=== PATIENT | female | born 1940 | race African-American/Black ===

== ENCOUNTER → 2016-12-05 | Outpatient (CLI) | payer MEDICARE, OTHER ==
[2016-12-05 15:15] LABS: ANION GAP 18 (5-19); BLOOD UREA NITROGEN 30 mg/dL (7-20); CALCIUM 8.5 mg/dL (8.4-10.2); CARBON DIOXIDE 23 mmol/L (22-30); CHLORIDE 99 mmol/L (98-107); CREATININE RESULT 1.73 mg/dL (0.52-1.25); GLUCOSE 167 mg/dL (75-110); POTASSIUM 4.6 mmol/L (3.6-5.0); SODIUM 139.5 mmol/L (137-145)
== END ==
LOC: OD 14:22
PROVIDERS: ATTEND Internal Medicine Nephrology
DX: N18.3 Chronic kidney disease, stage 3 (moderate) (principal)
CPT/HCPCS: 36415; 80048

== ENCOUNTER → 2017-04-18 | Outpatient (CLI) | payer MEDICARE, OTHER ==
[2017-04-18 15:36] LABS: ALBUMIN 4.4 g/dL (3.5-5.0); ANION GAP 15 (5-19); BLOOD UREA NITROGEN 37 mg/dL (7-20); CALCIUM 9.2 mg/dL (8.4-10.2); CARBON DIOXIDE 25 mmol/L (22-30); CHLORIDE 105 mmol/L (98-107); CREATININE RESULT 1.99 mg/dL (0.52-1.25); GLUCOSE 140 mg/dL (75-110); POTASSIUM 4.7 mmol/L (3.6-5.0)
== END ==
LOC: OD 14:16
PROVIDERS: ATTEND Internal Medicine Nephrology
DX: N18.3 Chronic kidney disease, stage 3 (moderate) (principal); E55.9 Vitamin D deficiency, unspecified
CPT/HCPCS: 36415; 80048; 82040; 82306

== ENCOUNTER 2017-11-02 13:33 | Inpatient (IN) | payer MEDICARE, OTHER ==
--- NOTE | 2017-11-02 14:41 | RADIOLOGY REPORT (SQ) ---
EXAM DESCRIPTION: CT HEAD WITHOUT COMPLETED DATE/TIME: 11/02/2017 2:11 pm REASON FOR STUDY: slurred speech COMPARISON: None. TECHNIQUE: Axial images acquired through the brain without intravenous contrast. Images reviewed wi th bone, brain and subdural windows. Images stored on PACS. All CT scanners at this facility use dose modulation, iterative reconstruction, and/or weight based d osing when appropriate to reduce radiation dose to as low as reasonably achievable (ALARA). [facility]: Dose Right [facility]: CareDose [facility]: Dose Right [facility]: Teradose 4D [facility]: [email or web address] RADIATION DOSE: CT Rad equipment meets quality standard of care and radiation dose reduction techniq ues were employed. CTDIvol: 64.6 mGy. DLP: 1163 mGy-cm. mGy. LIMITATIONS: None. FINDINGS: VENTRICLES: Normal size and contour. CEREBRUM: No masses. No hemorrhage. No midline shift. No evidence for acute infarction. Normal gra y/white matter differentiation. No areas of low density in the white matter. CEREBELLUM: No masses. No hemorrhage. No alteration of density. No evidence for acute infarction. EXTRAAXIAL SPACES: No fluid collections. No masses. ORBITS AND GLOBE: No intra- or extraconal masses. Normal contour of globe without masses. CALVARIUM: No fracture. PARANASAL SINUSES: No fluid or mucosal thickening. SOFT TISSUES: No mass or hematoma. OTHER: No other significant finding. IMPRESSION: NORMAL BRAIN CT WITHOUT CONTRAST. EVIDENCE OF ACUTE STROKE: NO. COMMENT: Quality ID # [id number]: Final reports with documentation of one or more dose reduction techniques (e.g., Automated exposure control, adjustment of the mA and/or kV according to patient size, use of iterative reconstruction technique) TECHNICAL DOCUMENTATION: JOB ID: [id number] [employer]- All Rights Reserved
[2017-11-02] MEDS ORDERED: ASPIRIN 81 MG TABLET, CHEWABLE PO ONE ×2 (14:44→18:03)
--- NOTE | 2017-11-02 15:04 | ER Document Report ---
ED General - General Mode of Arrival: Medic Information source: Patient TRAVEL OUTSIDE OF THE [place] IN LAST 30 DAYS: No <ROSI HERBERT - Last Filed: 11/02/17 17:52> <LEIGHTON GARAY - Last Filed: 11/02/17 23:03> - General Stated Complaint: ALTERED MENTAL STATUS Time Seen by Provider: 11/02/17 14:43 Notes: Patient is a 77 year old female with a history of asthma, cancer (unspecified), diabetes, gout, hypertension, and high cholesterol presents to the emergency department via EMS complaining of a fall onset today. Patient states she was sitting on the toilet when she stood up and fell to the floor due to weakness. Patient denies a syncopal episode or a head injury. Patient also denies any other pain, nausea, vomiting, diarrhea, or cough. Daughter, who is at bedside, states she feels the patient has been weak for a while further stating the patient has been excessively sleeping. EMS put the patient oxygen prior to arrival due to the patient being at 82% on room air. Patient states she does not normally use oxygen at home. At bedside patient is having difficulty breathing. Patient's PCP is Dr. Pastor. (ROSI HERBERT) - Related Data Allergies/Adverse Reactions: Penicillins Allergy (Verified 11/02/17 17:35) Past Medical History - General Information source: Patient - Social History Smoking Status: Never Smoker Cigarette use (# per day): No Chew tobacco use (# tins/day): No Smoking Education Provided: No Frequency of alcohol use: None - Past Medical History Cardiac Medical History: Reports: Hx Hypertension Pulmonary Medical History: Reports: Hx Asthma Neurological Medical History: Reports: Hx Seizures - over a year Musculoskeltal Medical History: Reports Hx Arthritis - Immunizations Hx Diphtheria, Pertussis, Tetanus Vaccination: Yes Hx Pneumococcal Vaccination: 09/23/07 <ROSI HERBERT - Last Filed: 11/02/17 17:52> - Social History Family History: Reviewed & Not Pertinent <LEIGHTON GARAY - Last Filed: 11/02/17 23:03> Review of Systems - Review of Systems Constitutional: See HPI, Weakness EENT: No symptoms reported Cardiovascular: No symptoms reported Respiratory: See HPI Gastrointestinal: No symptoms reported Genitourinary: No symptoms reported Female Genitourinary: No symptoms reported Musculoskeletal: No symptoms reported Skin: No symptoms reported Hematologic/Lymphatic: No symptoms reported Neurological/Psychological: No symptoms reported -: Yes All other systems reviewed and negative <ROSI HERBERT - Last Filed: 11/02/17 17:52> Physical Exam <ROSI HERBERT - Last Filed: 11/02/17 17:52> <LEIGHTON GARAY - Last Filed: 11/02/17 23:03> - Vital signs Vitals: Temp Pulse Resp BP Pulse Ox 98.7 F 76 18 154/82 H 97 11/02/17 13:38 11/02/17 13:38 11/02/17 13:38 11/02/17 13:38 11/02/17 13:38 - Notes Notes: GENERAL: Alert, interacts well. Patient appears fatigued. HEAD: Normocephalic, atraumatic. EYES: Pupils equal, round, and reactive to light. Extraocular movements intact. ENT: Oral mucosa moist, tongue midline. NECK: Full range of motion. Supple. Trachea midline. LUNGS: Patient is having difficulty breathing, rales at the bases. Tachypnea. HEART: Regular rate and rhythm. No murmurs, gallops, or rubs. ABDOMEN: Soft, non-tender. Obese. Bowel sounds present in all 4 quadrants. EXTREMITIES: Moves all 4 extremities spontaneously. No edema, radial and dorsalis pedis pulses 2/4 bilaterally. No cyanosis. NEUROLOGICAL: Alert and oriented x3. Normal speech. cranial nerves II through XII grossly intact. PSYCH: Normal affect, normal mood. SKIN: Warm, dry, normal turgor. No rashes or lesions noted. (PIEDADROSI OLIVAS) Course - Laboratory Result Diagrams: 11/02/17 14:40 11/02/17 14:40 <PIEDAD,TAMAUDREY - Last Filed: 11/02/17 17:52> - Laboratory Result Diagrams: 11/02/17 14:40 11/02/17 14:40 <LEIGHTON GARAY - Last Filed: 11/02/17 23:03> - Re-evaluation Re-evalutation: 11/02/17 16:14 Patient appears quite short of breath, was on 4 L when I walked in the room however given her history of long-standing asthma I do suspect she has a component of COPD as well so patient was transitioned down to 2 L. She is oxygenating at 93-94% on this. Throughout her stay she has gotten more short of breath, patient will be started on BiPAP. CBC shows leukocytosis at 10.8, anemia with hemoglobin 10.3, platelets are normal, chemistries show acute on chronic renal failure with BUN of 39 and creatinine of 2.21, cardiac enzymes negative, proBNP elevated at 1890, chest x-ray shows pulmonary vascular congestion along with possible right-sided pneumonia. Head CT does not show any acute process. No evidence of intracranial hemorrhage from her fall. EKG is nonischemic. Patient was given breathing treatments, Lasix, antibiotics for her pneumonia and started on BiPAP. Patient was discussed with Dr. Scherer who instructed me to speak with Abdirizak Pope, Abdirizak Pope accepted the patient to her service in admission status to the [facility]. (LEIGHTON GARAY) - Vital Signs Vital signs: Temp Pulse Resp BP Pulse Ox 98.7 F 76 14 119/73 96 11/02/17 13:38 11/02/17 13:38 11/02/17 22:01 11/02/17 22:01 11/02/17 22:01 - Laboratory Laboratory results interpreted by me: 11/02/17 11/02/17 11/02/17 14:40 14:40 14:40 WBC 10.8 H RBC 3.39 L Hgb 10.3 L Hct 32.2 L MCHC 31.8 L RDW 16.5 H Seg Neutrophils % 79.9 H Lymphocytes % 10.0 L Absolute Neutrophils 8.7 H D-Dimer Sodium 145.8 H Carbon Dioxide 31 H BUN 39 H Creatinine 2.21 H Est GFR ( Amer) 26 L Est GFR (Non-Af Amer) 22 L Glucose 162 H Direct Bilirubin 0.6 H AST 62 H NT-Pro-B Natriuret Pep 1890 H Total Protein 8.3 H 11/02/17 14:40 WBC RBC Hgb Hct MCHC RDW Seg Neutrophils % Lymphocytes % Absolute Neutrophils D-Dimer 1.29 H Sodium Carbon Dioxide BUN Creatinine Est GFR ( Amer) Est GFR (Non-Af Amer) Glucose Direct Bilirubin AST NT-Pro-B Natriuret Pep Total Protein - EKG Interpretation by Me Additional EKG results interpreted by me: 11/02/17 16:15 EKG shows sinus rhythm at a rate of 77, left axis deviation, borderline QT prolongation, no ST segment elevations or depressions, no T-wave inversions, slow R-wave progression per my interpretation. (LEIGHTON GARAY) Critical Care Note - Critical Care Note Total time excluding time spent on procedures (mins): 35 <LEIGHTON GARAY - Last Filed: 11/02/17 23:03> Discharge <ROSI HERBERT - Last Filed: 11/02/17 17:52> - [facility] Unit Admitted: I[facility] <LEIGHTON GARAY - Last Filed: 11/02/17 23:03> - Discharge Clinical Impression: Acute and chronic respiratory failure with hypoxia Acute CHF Qualifiers: Heart failure type: unspecified Qualified Code(s): I50.9 - Heart failure, unspecified Acute on chronic renal failure Qualifiers: Acute renal failure type: unspecified Chronic kidney disease stage: stage 4 ( severe) Qualified Code(s): N17.9 - Acute kidney failure, unspecified Pneumonia Qualifiers: Pneumonia type: due to unspecified organism Laterality: right Lung location: unspecified part of lung Qualified Code(s): J18.9 - Pneumonia, unspecified organism Condition: Serious Disposition: ADMITTED INPATIENT Scribe Attestation: 11/02/17 23:03 I personally performed the services described in the documentation, reviewed and edited the documentation which was dictated to the scribe in my presence, and it accurately records my words and actions. (LEIGHTON GARAY) Scribe Documentation - Scribe Written by Edwin:: Edwin Harris, 11/02/2017 15:46 acting as scribe for :: Philomena <ROSI HERBERT - Last Filed: 11/02/17 17:52>
[2017-11-02 15:05] LABS: ABSOLUTE BASOPHILS # (AUTO) 0.1 10^3/uL (0.0-0.2); ABSOLUTE EOSINOPHILS # (AUTO) 0.1 10^3/uL (0.0-0.6); ABSOLUTE LYMPHOCYTES (AUTO) 1.1 10^3/uL (0.5-4.7); ABSOLUTE NEUT (AUTO) 8.7 10^3/uL (1.7-8.2); BASOPHILS % (AUTO) 0.5 % (0-2); EOSINOPHILS % (AUTO) 0.7 % (0-6); HEMATOCRIT 32.2 % (36.0-47.0); HEMOGLOBIN 10.3 g/dL (12.0-15.5); MEAN CORPUSCULAR HEMOGLOBIN 30.3 pg (27.0-33.4); MEAN CORPUSCULAR HGB CONC 31.8 g/dL (32.0-36.0); MEAN CORPUSCULAR VOLUME 95 fl (80-97); MONOCYTES % (AUTO) 8.9 % (3-13); PLATELET COUNT 189 10^3/uL (150-450); RED BLOOD COUNT 3.39 10^6/uL (3.72-5.28); RED CELL DISTRIBUTION WIDTH 16.5 % (11.5-14.0); SEGMENTED NEUTROPHILS % (AUTO) 79.9 % (42-78); TOTAL CELLS COUNTED % (AUTO) 100 %; WHITE BLOOD COUNT 10.8 10^3/uL (4.0-10.5)
[2017-11-02 15:25] LABS: ALANINE AMINOTRANSFERASE 38 U/L (9-52); ALBUMIN 4.6 g/dL (3.5-5.0); ALKALINE PHOSPHATASE 99 U/L (38-126); ANION GAP 12 (5-19); ASPARTATE AMINO TRANSFERASE 62 U/L (14-36); BILIRUBIN,DIRECT 0.6 mg/dL (0.0-0.4); BILIRUBIN,TOTAL 0.7 mg/dL (0.2-1.3); BLOOD UREA NITROGEN 39 mg/dL (7-20); CALCIUM 8.6 mg/dL (8.4-10.2); CARBON DIOXIDE 31 mmol/L (22-30); CHLORIDE 103 mmol/L (98-107); CREATINE KINASE 131 U/L (30-135); GLUCOSE 162 mg/dL (75-110); POTASSIUM 4.7 mmol/L (3.6-5.0); SODIUM 145.8 mmol/L (137-145); TOTAL PROTEIN 8.3 g/dL (6.3-8.2)
[2017-11-02 15:36] LABS: CREATINE KINASE MB 1.07 ng/mL (<4.55); NT PRO BNP 1890 pg/mL (<450); TROPONIN I < 0.012 ng/mL
--- NOTE | 2017-11-02 15:37 | RADIOLOGY REPORT (SQ) ---
EXAM DESCRIPTION: CHEST SINGLE VIEW COMPLETED DATE/TIME: 11/02/2017 3:25 pm REASON FOR STUDY: weak, dizzy, confused COMPARISON: 05/10/2014. NUMBER OF VIEWS: One view. TECHNIQUE: Single frontal radiographic view of the chest acquired. LIMITATIONS: None. FINDINGS: LUNGS AND PLEURA: Hazy opacity of the right chest. Left lung clear. No large pleural eff usion or pneumothorax. MEDIASTINUM AND HILAR STRUCTURES: No masses or contour abnormality. HEART AND VASCULATURE: Cardiac enlargement. Mild vascular congestion. BONES: No acute findings. HARDWARE: None in the chest. OTHER: No other significant finding. IMPRESSION: CARDIOMEGALY WITH MILD VASCULAR CONGESTION. HAZY DENSITY OF THE RIGHT CHEST MAY BE DUE TO ASYMMETRIC PULMONARY EDEMA OR PNEUMONIA. TECHNICAL DOCUMENTATION: JOB ID: [id number] [employer]- All Rights Reserved
[2017-11-02] MEDS ORDERED: LEVOFLOXACIN 750 MG/D5W RTU 750 MG/150 ML RTUPB IV ONE (15:44)
[2017-11-02] MEDS ORDERED: CEFEPIME 1 GM/D5W RTU 1 GM/50 ML RTUPB IV ONE (15:44)
[2017-11-02] MEDS ORDERED: FUROSEMIDE INJ/PF 40 MG/4 ML SDV IV ONE ×2 (15:44→20:00)
[2017-11-02] MEDS ORDERED: ACETAMINOPHEN 325 MG TABLET PO PRN (17:23)
[2017-11-02 17:36] LABS: VENOUS BLOOD BASE EXCESS 3.2 mmol/L; VENOUS BLOOD HCO3 31.8 mmol/L (20-32); VENOUS BLOOD PH 7.25 (7.30-7.42)
[2017-11-02 17:39] LABS: VENOUS BLOOD PCO2 73.9 mmHg (35-63)
[2017-11-02] MEDS: ATORVASTATIN CALCIUM 40 MG TABLET PO SCH (18:17)
[2017-11-02] MEDS: DOCUSATE SODIUM 100 MG CAPSULE PO SCH (18:18)
--- NOTE | 2017-11-02 19:18 | HISTORY AND PHYSICAL E ---
History and Physical NAME: FRANCESCO PARRISH : 1940 AGE: 77Y ADMITTED: 11/02/2017 ROOM: ED01 PRIMARY CARE PROVIDER: Suraj Pastor M.D. OUTPATIENT EGG FACTORY WORKER: Jackie Buitrago M.D. OUTPATIENT SENIOR IT AUDITOR: Ly Arana M.D. CODE STATUS: Full code. CHIEF COMPLAINT: Shortness of breath. HISTORY OF PRESENT ILLNESS: The patient is a 77-year-old -Russian female with a past medical history of breast cancer and asthma. The patient presented to the emergency department with a chief complaint of shortness of breath and altered mental status. The patient had apparently been sitting on the toilet at home, when she sat up and fell on the floor due to weakness. The patient denied any syncope, head injury. Denies any pain. The patient also denied any other associated symptoms including nausea, vomiting, diarrhea, or cough. Mainly shortness of breath. The daughter who is present at the bedside stated the patient had been weak for a while and had been sleeping a lot. Excessive daytime sleepiness for "years" with hypersomnolence for three weeks. Given the concern for the patient's fall the daughter called EMS. Upon arrival the patient was found to have an O2 sat of 82% on room air. The patient normally does not use oxygen at home. The patient does have a history of asthma but denies any known chronic lung disease. The family and patient deny a history of heart failure however the patient has been prescribed a beta hermilo and Lasix by Iftikhar. Upon presentation the patient did have a chest x-ray in the emergency department that was consistent with pulmonary edema as well as a possible pneumonia, and the patient was given 40 mg of Lasix in the emergency department, was covered with antibiotic coverage, and referred to the hospitalist for admission and management. PAST MEDICAL HISTORY: 1. Breast cancer. 2. Hypertension. 3. Asthma. 4. Arthritis. 5. Seizure disorder, last seizure was over a year ago. 6. Gout. 7. Hyperlipidemia. 8. Possible diabetes. 9. Chronic kidney disease stage 3. PAST SURGICAL HISTORY: 1. Left mastectomy. 2. Tubal ligation. 3. Appendectomy. ALLERGIES: PENICILLIN. HOME MEDICATIONS: 1. Micardis 80 mg p.o. daily. 2. Glipizide XL 5 mg p.o. daily. 3. Amlodipine 5 mg p.o. daily. 4. Atenolol 100 mg p.o. daily. 5. Lasix 40 mg p.o. daily. 6. Prozac 40 mg p.o. daily. 7. Hydroxyzine 25 mg p.o. t.i.d. p.r.n. 8. Loratadine 10 mg p.o. daily. 9. Nexium 40 mg p.o. daily. 10. Restoril 15 mg p.o. q. hour of sleep. 11. Allopurinol 100 mg p.o. daily. 12. Procrit 40,000 units sub-Q weekly. SOCIAL HISTORY: The patient currently resides at home. She is . Her surrogate decision maker is her daughter, Vandana Amador, who can be reached at [phone]. The patient has no history of alcohol use. Never smoked. No history of illicit drug use. The patient is retired. FAMILY MEDICAL HISTORY: The patient's father is from presumed old age. The patient's mother is of old age as well. The patient does have a family history of chronic kidney disease. The patient's daughter is on dialysis. REVIEW OF SYSTEMS: CONSTITUTIONAL: The patient denies any fevers, chills. No dizziness. No loss of appetite. Does admit to weakness. INTEGUMENTARY: Denies any diaphoresis, rashes, bruising, itching. HEENT: Denies any vision changes, hearing loss, nasal drainage, or sore throat. No headache. CARDIOVASCULAR: Denies any chest pain or heart palpitations. Admits to edema, especially of the face. RESPIRATORY: Denies any cough, sputum production, or hemoptysis. Does admit to shortness of breath. GASTROINTESTINAL: Denies any nausea, vomiting, diarrhea, bloody hematemesis, constipation, melena, or hematochezia. Does admit to abdominal pain. GENITOURINARY: Denies any hematuria, pyuria, or dysuria. MUSCULOSKELETAL: Denies any acute or chronic joint pain. NEUROLOGIC: No recent seizures, tremors, or loss of consciousness. HEMATOLOGIC: Denies any ulises bleeding, easy bruising. ENDOCRINE: Denies any recent weight changes. PSYCHIATRIC: Denies any suicidal or homicidal ideation. The rest of the review of the other organ systems is negative. PHYSICAL EXAMINATION: GENERAL: On examination the patient is a well-developed, well-nourished 77-year-old -Russian female who is awake, alert. She oriented to person, place, time, and situation. She is verbal, conversational. Does not appear to be in acute distress. VITAL SIGNS: Temperature 98.7, pulse 76, respirations 18, blood pressure 154/82, oxygen saturation is 98% on 35% FiO2 on BiPAP. SKIN: Warm and dry. No rash. She is not diaphoretic. HEENT: Pupils equal, round reactive to light and accommodation. Conjunctivae are pink. Sclerae are nonicteric. There are no mouth lesions. The patient does have bilateral periorbital edema. Tongue is midline. The patient has generalized facial edema. NECK: Supple. The patient does have JVP to the right clavicle. No lymphadenopathy or thyromegaly. CARDIOVASCULAR: Heart is regular. No rub. CHEST: Diminished, symmetrical, unlabored with bilateral basilar crackles. ABDOMEN: Obese, soft, no area of focal tenderness. Unable to appreciate organomegaly given the patient's body habitus. BACK: No sacral edema. EXTREMITIES: No clubbing, cyanosis, or lower extremity edema. No peripheral signs of embolization. Pedal pulses +1 noted bilaterally. PSYCHIATRIC: Sleepy affect, pleasant mood. LABORATORY DATA: Hematology obtained on 11/02/2017; WBC 10.8, hemoglobin 10.3, hematocrit is 32.2, platelet count is 189,000. Chemistry obtained on 11/02/2017; sodium is 145, potassium 4.5, chloride is 103, carbon dioxide 31, BUN 39, creatinine is 2.21, glucose 162, calcium is 8.6, bilirubin 0.7, AST 62, ALT is 38, alk-phos 99. CK 131, CK-MB is 1.07, troponin 0.012. BNP is 1890. Total protein is 8.3, albumin 4.3. MICROBIOLOGY DATA: Blood cultures sent on 11/02/2017 are pending. IMAGING STUDIES: Head CT obtained on 11/02/[address] of the brain without contrast. Chest x-ray obtained on 11/02/2017 reveals cardiomegaly with mild vascular congestion, hazy density of the right chest which may be due to asymmetrical pulmonary edema versus a pneumonia. EKG obtained on 11/02/2017 reveals a sinus rhythm with evidence of PACs. IMPRESSION AND PLAN: 1. Congestive heart failure. Unable to further classify at this time. Will order echocardiogram, the patient does not have one on file for comparison. Will additionally consult cardiology. However, although this is an apparent initial episode, I feel this is most likely initial episode of only exacerbation. Upon review of the patient's previous imaging and previous medications it appears that the patient was supposed to be on Lasix on an outpatient basis. The patient's daughter was forthcoming and stating that she did not like Lasix because she feels that is what killed her , so there may be an issue with compliance associated with this. 2. Chronic kidney disease stage 3. The patient appears to have had a creatinine of 1.9 in March of this year. Therefore, I do not think she is far from baseline. This is most likely consistent with her underlying disease. However, will monitor closely. 3. Abdominal pain. The patient has a nonspecific generalized abdominal pain. Given the patient's history of malignancy will CT the patient's abdomen and pelvis and follow. 4. Possible pneumonia. Will treat as CAP for now and await the patient's repeat chest x-ray after diuresis. Hopefully it will be more clear. 5. Acute, most likely, on chronic hypoxemic respiratory failure. The patient presented to the emergency department requiring O2. The patient was eventually started on BiPAP. Given her progressive shortness of breath will obtain a blood gas on this and follow. CODE STATUS: The patient is a full code. DISPOSITION: Depending on the patient's symptomatology and diagnostic findings will reevaluate in the a.m. TIME SPENT: On this admission including assessment, plan, physical examination, patient education, specialty collaboration, and review of previous records is 60 minutes. DICTATING PHYSICIAN: ALFREDA CORONADO NP [id number] PHY#: [id number] ID: [id number] JOB#: [id number] ACCT: [id number] cc:Luis Felipe KAM NP > MTDD
--- NOTE | 2017-11-02 19:27 | PDOC CONSULTATION ---
Consultation Consult Date: 11/02/17 Attending physician:: ALFREDA CORONADO Consult reason:: CHF History of Present Illness Admission Date/PCP: 11/02/17 16:18 RANDY SHEPHERD MD Patient complains of: Shortness of breath History of Present Illness: FRANCESCO PARRISH is a 77 year old female with a history of asthma, cancer ( unspecified), diabetes, gout, hypertension, and high cholesterol presents to the emergency department via EMS complaining of a fall onset today. Patient states she was sitting on the toilet when she stood up and fell to the floor due to weakness. Patient denies a syncopal episode or a head injury. Patient also denies any other pain, nausea, vomiting, diarrhea, or cough. Daughter, who is at bedside, states she feels the patient has been weak for a while further stating the patient has been excessively sleeping. EMS put the patient oxygen prior to arrival due to the patient being at 82% on room air. Patient states she does not normally use oxygen at home. At bedside patient is having difficulty breathing. When I saw patient, patient was in acute respiratory distress wearing BiPAP and barely awake. Patient daughter at bedside. She keeps telling me that patient did not have any heart problem. She had previous cardiac evaluation at 5 years ago. These are all for preop clearance purposes with last cardiac stress test on any other cardiac evaluation being more than 5 years ago. Patient has gained significant amount of weight over the last several months. Patient has not had any chest pain or any cardiac related issues but today is felt to have CHF. I was therefore consulted for further evaluation and management. Past Medical History Cardiac Medical History: Reports: Hypertension Denies: Coronary Artery Disease, Myocardial Infarction Pulmonary Medical History: Reports: Asthma Denies: Bronchitis, Chronic Obstructive Pulmonary Disease (COPD), Pneumonia Neurological Medical History: Reports: Seizures - over a year Musculoskeltal Medical History: Reports: Arthritis Hematology: Reports: Anemia Past Surgical History Past Surgical History: Reports: Other - Breast cancer surgery, status post hysterectomy Denies: Hysterectomy, Pacemaker Social History Information Source: Relative Smoking Status: Never Smoker - Advance Directive Resuscitation Status: Full Code Surrogate healthcare decision maker:: Patient's daughter is the surrogate decision-maker Family History Family History: Hypertension Parental Family History Reviewed: Yes Children Family History Reviewed: Yes Sibling(s) Family History Reviewed.: Yes Medication/Allergy Allergies/Adverse Reactions: Penicillins Allergy (Verified 11/02/17 17:35) Review of Systems ROS unobtainable: Due to mental status Physical Exam Vital Signs: Temp Pulse Resp BP Pulse Ox 98.7 F 76 17 114/50 L 94 11/02/17 13:38 11/02/17 13:38 11/02/17 18:01 11/02/17 18:01 11/02/17 18:01 Exam: GENERAL: well-nourished and at least moderate respiratory distress. Patient is very lethargic therefore orientation could not be checked. HEAD: Atraumatic, normocephalic. EYES: Pupils equal round and reactive to light, extraocular movements intact, sclera anicteric, conjunctiva are normal. ENT: TMs normal, nares patent, oropharynx clear without exudates. Moist mucous membranes. No oral ulcerations or bleeding gums noted NECK: supple without lymphadenopathy. Trachea is central. No cervical or axillary lymphadenopathy noted. Carotids are 2+, JVD difficult to assess but seems distended. LUNGS: Respiration seems unlabored. Bilateral fine crackles noted right more than left. CHEST: Palpation of the chest wall shows no significant chest wall tenderness. No other significant abnormalities noted. 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 ABDOMEN: Soft, no significant tenderness appreciated, normoactive bowel sounds. No guarding, no rebound. No rigidity noted . No masses appreciated. EXTREMITIES: Pedal pulses are 1-2+, no calf tenderness noted. No clubbing or cyanosis.2+ pedal edema noted NEUROLOGICAL: No facial asymmetry noted. Eye movements seems normal. Patient could not participate in a full neurological exam.. PSYCH: This could not be performed. SKIN: No significant ecchymosis, rash, ulcerations or signs of pruritus noted. MUSCULOSKELETAL EXAM: No significant joint swelling noted. Results Laboratory Results: 11/02/17 11/02/17 17:10 17:10 VBG pH 7.25 L VBG pCO2 73.9 H* VBG HCO3 31.8 VBG Base Excess 3.2 Lactic Acid 0.9 EKG Comments: Sinus rhythm, cannot rule out prior inferior and anterior CO. Impressions: Head CT 11/02/17 13:59 IMPRESSION: NORMAL BRAIN CT WITHOUT CONTRAST. EVIDENCE OF ACUTE STROKE: NO. Chest X-Ray 11/02/17 14:45 IMPRESSION: CARDIOMEGALY WITH MILD VASCULAR CONGESTION. HAZY DENSITY OF THE RIGHT CHEST MAY BE DUE TO ASYMMETRIC PULMONARY EDEMA OR PNEUMONIA. Assessment & Plan - Diagnosis (1) Acute CHF Qualifiers: Heart failure type: unspecified Qualified Code(s): I50.9 - Heart failure, unspecified Is this a current diagnosis for this admission?: Yes (2) Acute and chronic respiratory failure with hypoxia Is this a current diagnosis for this admission?: Yes (3) Acute on chronic renal failure Qualifiers: Acute renal failure type: unspecified Chronic kidney disease stage: stage 4 (severe) Qualified Code(s): N17.9 - Acute kidney failure, unspecified; N18.4 - Chronic kidney disease, stage 4 (severe); N18.4 - Chronic kidney disease , stage 4 (severe); N18.4 - Chronic kidney disease, stage 4 (severe); N18.4 - Chronic kidney disease, stage 4 (severe) (4) Pneumonia Qualifiers: Pneumonia type: due to unspecified organism Laterality: right Lung location: unspecified part of lung Qualified Code(s): J18.9 - Pneumonia, unspecified organism Is this a current diagnosis for this admission?: Yes - Notes Notes: Patient seems critically ill. I believe that patient would end up getting intubated. Therefore would need close observation in the unit. Patient may also benefit from a better IV access. At this point would recommend DVT prophylaxis, continue with ventilation and oxygenation. Continue diuretics. Continue antibiotics for pneumonia. Patient will benefit from a 2D echo. Patient's overall prognosis seems guarded given significant respiratory distress , CO2 retention etc. Will repeat EKG in the morning. - Time Time Spent: 30 to 50 Minutes - CODE STATUS was discussed, patient remains full code. Surrogate decision-maker unchanged. Multiple medical problems were addressed. More than 50% of the time spent coordinating care, discussing management plans with involved caregivers. Management plans discussed with involved personnels. Medical decision making was of moderate to high complexity , patient's has multiple comorbidities. Medications reviewed and adjusted accordingly: Yes
[2017-11-02 19:44] LABS: VENOUS BLOOD HCO3 31.5 mmol/L (20-32); VENOUS BLOOD PCO2 63.5 mmHg (35-63); VENOUS BLOOD PH 7.31 (7.30-7.42)
[2017-11-02 20:28] LABS: APPEARANCE,URINE CLEAR; BILIRUBIN,URINE NEGATIVE (NEGATIVE); COLOR,URINE YELLOW; GLUCOSE, URINE NEGATIVE (NEGATIVE); KETONES,URINE NEGATIVE (NEGATIVE); LEUKOCYTE ESTERASE,URINE NEGATIVE (NEGATIVE); NITRITE,URINE NEGATIVE (NEGATIVE); PROTEIN,URINE NEGATIVE (NEGATIVE); URINE SPECIFIC GRAVITY 1.013; UROBILINOGEN,URINE NEGATIVE mg/dL (<2.0)
--- NOTE | 2017-11-02 21:06 | RADIOLOGY REPORT (SQ) ---
EXAM DESCRIPTION: NM LUNG VENT/PERF SCAN COMPLETED DATE/TIME: 11/02/2017 8:54 pm REASON FOR STUDY: Acute hypoxia, +D-Dimer, dyspnea, ?Afib COMPARISON: Chest radiograph 11/02/2017 RADIONUCLIDE AND DOSE: 5.13 millicuries TC-99m MAA Intravenous 27.5 millicuries TC-99m DTPA Inhaled aerosol TECHNIQUE: 2 views of the lungs acquired post ventilation of DTPA aerosol. 2 matching views of the lungs acquired following injection of MAA. LIMITATIONS: Patient with difficulty tolerating positioning for imaging. FINDINGS: VENTILATION: No significant areas of photopenia. Somewhat heterogeneous distribution of i nhaled radiotracer. PERFUSION: Perfusion images with normal homogenous activity and no wedge-shaped or segmental defects. No ventilation-perfusion mismatches. OTHER: No other significant finding. IMPRESSION: Limited examination. No perfusion defects are identified. No evidence of PE. TECHNICAL DOCUMENTATION: JOB ID: [id number] [employer]- All Rights Reserved
[2017-11-02] MEDS: HEPARIN SOD (PORCINE) 5,000 UNIT/ML 1 ML SYRINGE SUBCUT SCH (21:07)
[2017-11-03] MEDS ORDERED: NITROGLYCERIN 0.4 MG/TAB 25 TAB/BOTTLE SL PRN (03:58)
[2017-11-03] MEDS ORDERED: DEXTROSE 40% GEL 15 GM TUBE PO PRN ×2 (03:59)
[2017-11-03] MEDS ORDERED: GLUCAGON,HUMAN RECOMB 1 MG INJ IM PRN (03:59)
[2017-11-03] MEDS ORDERED: DEXTROSE 50%-WATER 25 GM/50 ML DISP.SYRIN IV PRN ×2 (03:59)
[2017-11-03] MEDS ORDERED: CEFEPIME 2 GM/D5W RTU 2 GM/50 ML RTUPB IV ONE (05:44)
[2017-11-03] MEDS: HEPARIN SOD (PORCINE) 5,000 UNIT/ML 1 ML SYRINGE SUBCUT SCH ×3 (05:52→21:30)
[2017-11-03] MEDS ORDERED: CEFEPIME 2 GM/D5W RTU 2 GM/50 ML RTUPB IV SCH (06:00)
[2017-11-03 07:15] LABS: VENOUS BLOOD BASE EXCESS 4.5 mmol/L; VENOUS BLOOD HCO3 32.5 mmol/L (20-32); VENOUS BLOOD PH 7.29 (7.30-7.42)
[2017-11-03 07:17] LABS: VENOUS BLOOD PCO2 69.1 mmHg (35-63)
[2017-11-03 07:20] LABS: HEMOGLOBIN 8.9 g/dL (12.0-15.5); MEAN CORPUSCULAR HEMOGLOBIN 29.4 pg (27.0-33.4); MEAN CORPUSCULAR HGB CONC 30.8 g/dL (32.0-36.0); MEAN CORPUSCULAR VOLUME 95 fl (80-97); PLATELET COUNT 151 10^3/uL (150-450); RED BLOOD COUNT 3.04 10^6/uL (3.72-5.28); RED CELL DISTRIBUTION WIDTH 16.8 % (11.5-14.0); WHITE BLOOD COUNT 9.3 10^3/uL (4.0-10.5)
[2017-11-03 07:30] LABS: ANION GAP 12 (5-19); BLOOD UREA NITROGEN 42 mg/dL (7-20); CALCIUM 8.1 mg/dL (8.4-10.2); CARBON DIOXIDE 30 mmol/L (22-30); CHLORIDE 103 mmol/L (98-107); GLUCOSE 201 mg/dL (75-110); POTASSIUM 4.2 mmol/L (3.6-5.0); SODIUM 144.5 mmol/L (137-145)
--- NOTE | 2017-11-03 08:15 | RADIOLOGY REPORT (SQ) ---
EXAM DESCRIPTION: CT ABD/PELVIS NO ORAL OR IV COMPLETED DATE/TIME: 11/02/2017 6:57 pm REASON FOR STUDY: ABD pain, worsening renal function, AMS COMPARISON: None. TECHNIQUE: CT scan of the abdomen and pelvis performed without intravenous or oral contrast. Images reviewed with lung, soft tissue, and bone windows. Reconstructed coronal and sagittal MPR images revi ewed. All images stored on PACS. All CT scanners at this facility use dose modulation, iterative reconstruction, and/or weight based d osing when appropriate to reduce radiation dose to as low as reasonably achievable (ALARA). [facility]: Dose Right [facility]: CareDose [facility]: Dose Right [facility]: Teradose 4D [facility]: Smart Technologies RADIATION DOSE: CT Rad equipment meets quality standard of care and radiation dose reduction techniq ues were employed. CTDIvol: 20.9 mGy. DLP: 1174 mGy-cm.mGy. LIMITATIONS: None. FINDINGS: LOWER CHEST: Scattered diffuse airspace disease in the visualize right lung. NON-CONTRASTED LIVER, SPLEEN, ADRENALS: Evaluation limited by lack of IV contrast. No identified sign ificant masses. PANCREAS: No masses. No peripancreatic inflammatory changes. GALLBLADDER: Layering high density material. No inflammatory changes to suggest cholecystitis. RIGHT KIDNEY AND URETER: No suspicious masses. Assessment limited by lack of IV contrast. No signif icant calcifications. No hydronephrosis or hydroureter. LEFT KIDNEY AND URETER: No suspicious masses. Assessment limited by lack of IV contrast. No signifi cant calcifications. No hydronephrosis or hydroureter. AORTA AND RETROPERITONEUM: No aneurysm. No retroperitoneal masses or adenopathy. BOWEL AND PERITONEAL CAVITY: No obvious masses or inflammatory changes. No free fluid. APPENDIX: Not visualized. PELVIS, BLADDER, AND ABDOMINAL WALL:No abnormal masses. No free fluid. Bladder normal. BONES: No significant findings. Degenerative changes in the spine. OTHER: No other significant finding. IMPRESSION: 1. AIRSPACE DISEASE IN THE VISUALIZED RIGHT LUNG. 2. SLUDGE AND/OR STONES IN THE GALLBLADDER. 3. NO OTHER SIGNIFICANT OR ACUTE PROCESS IN THE ABDOMEN OR PELVIS. COMMENT: Quality ID # [id number]: Final reports with documentation of one or more dose reduction techniques (e.g., Automated exposure control, adjustment of the mA and/or kV according to patient size, use of iterative reconstruction technique) TECHNICAL DOCUMENTATION: JOB ID: [id number] [facility] [employer]- All Rights Reserved
[2017-11-03] MEDS: TEMAZEPAM 15 MG CAPSULE PO SCH ×4 (08:55→21:30)
--- NOTE | 2017-11-03 09:16 | EKG REPORT ---
SEVERITY:- ABNORMAL ECG - SINUS RHYTHM ATRIAL PREMATURE COMPLEX INFERIOR INFARCT, AGE INDETERMINATE ABNRM R PROG, CONSIDER ASMI OR LEAD PLACEMENT : Confirmed by: Ariana Montoya 03-Nov-2017 09:14:47
[2017-11-03] MEDS: LORATADINE 10 MG TABLET PO SCH (10:03)
[2017-11-03] MEDS: DOCUSATE SODIUM 100 MG CAPSULE PO SCH ×2 (10:03→17:42)
[2017-11-03] MEDS: INSULIN LISPRO 100 UNIT/ML 3 ML VIAL SUBCUT PRN ×4 (10:03→22:22)
[2017-11-03] MEDS: AMLODIPINE BESYLATE 5 MG TABLET PO SCH (10:03)
[2017-11-03] MEDS: FLUOXETINE HCL 20 MG CAPSULE PO SCH (10:04)
[2017-11-03] MEDS: FUROSEMIDE 40 MG TABLET PO SCH (10:04)
[2017-11-03] MEDS: HYDROXYZINE PAMOATE 25 MG CAPSULE PO SCH ×2 (10:04→17:42)
--- NOTE | 2017-11-03 10:37 | RADIOLOGY REPORT (SQ) ---
EXAM DESCRIPTION: CHEST PA/LAT COMPLETED DATE/TIME: 11/03/2017 10:27 am REASON FOR STUDY: CHF Vs PNA COMPARISON: 11/02/2017. EXAM PARAMETERS: NUMBER OF VIEWS: two views TECHNIQUE: Digital Frontal and Lateral radiographic views of the chest acquired. RADIATION DOSE: NA LIMITATIONS: none FINDINGS: LUNGS AND PLEURA: Airspace disease in the right lung, more prominent in the right lower lo be. Left lung relatively clear. MEDIASTINUM AND HILAR STRUCTURES: No masses or contour abnormalities. HEART AND VASCULAR STRUCTURES: Cardiomegaly. BONES: No acute findings. HARDWARE: Surgical clips in the soft tissues on the left side. OTHER: No other significant finding. IMPRESSION: AIRSPACE DISEASE IN THE RIGHT LUNG, MORE PROMINENT IN THE RIGHT LOWER LOBE. PROBABLY DU E TO PNEUMONIA ALTHOUGH ASYMMETRIC PULMONARY EDEMA WOULD HAVE SIMILAR APPEARANCE. TECHNICAL DOCUMENTATION: JOB ID: [id number] [email or web address]- All Rights Reserved
[2017-11-03] MEDS: ATENOLOL 50 MG TABLET PO SCH (11:32)
--- NOTE | 2017-11-03 13:07 | PDOC PROGRESS REPORT ---
Subjective Progress Note for:: 11/03/17 Subjective:: Patient doing much better. She is much more alert. Pt is denying any chest arm or neck discomfort. Patient denying any PND, orthopnea. Patient denied any sustained palpitations, dizziness, syncope, near syncope. Patient denying any fever chills. Patient denying any other significant discomfort. Patient is maintaining sinus rhythm. Review of systems: Rest review of systems negative. Medications: Medications have been reviewed. Reason For Visit: ACUTE ON CHRONIC HEART FAILURE, CIRRHOSIS Physical Exam Vital Signs: Temp Pulse Resp BP Pulse Ox 98.2 F 80 21 H 135/67 H 96 11/03/17 11:38 11/03/17 11:38 11/03/17 11:38 11/03/17 11:38 11/03/17 11:38 Intake & Output 11/02/17 11/03/17 11/04/17 06:59 06:59 06:59 Intake Total 50 Balance 50 Weight 109.8 kg Exam: GENERAL: well-nourished and in no acute distress. Alert and oriented x3 HEAD: Atraumatic, normocephalic. EYES: Pupils equal round and reactive to light, extraocular movements intact, sclera anicteric, conjunctiva are normal. ENT: TMs normal, nares patent, oropharynx clear without exudates. Moist mucous membranes. No oral ulcerations or bleeding gums noted NECK: supple without lymphadenopathy. Trachea is central. No cervical or axillary lymphadenopathy noted. Carotids are 2+, JVD mildly distended, could not be accurately assessed. LUNGS: Respiration seems nonlabored, no significant accessory muscle action noted. Bibasilar fine crackles noted with very few wheezes rales or rhonchi noted. No significant dullness noted on percussion. CHEST: Palpation of the chest wall shows no significant chest wall tenderness. No other significant abnormalities noted. 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 ABDOMEN: Soft, no significant tenderness appreciated, normoactive bowel sounds. No guarding, no rebound. No rigidity noted . No masses appreciated. EXTREMITIES: Pedal pulses are 1-2+, no calf tenderness noted. No clubbing or cyanosis.2+ pedal edema noted NEUROLOGICAL: Focused neurological exam showed no significant neurologic deficit. Normal speech, no focal weakness appreciated. PSYCH: Normal mood, normal affect. Judgment and insight within normal limits. SKIN: No significant ecchymosis, rash, ulcerations or signs of pruritus noted. MUSCULOSKELETAL EXAM: No significant joint swelling noted. Results Laboratory Results: 11/03/17 07:03 11/03/17 07:03 11/02/17 11/02/17 11/02/17 17:10 17:10 19:35 WBC RBC Hgb Hct MCV MCH MCHC RDW Plt Count VBG pH 7.25 L 7.31 VBG pCO2 73.9 H* 63.5 H VBG HCO3 31.8 31.5 VBG Base Excess 3.2 4.0 Sodium Potassium Chloride Carbon Dioxide Anion Gap BUN Creatinine Est GFR ( Amer) Est GFR (Non-Af Amer) Glucose Lactic Acid 0.9 Calcium Magnesium Urine Color Urine Appearance Urine pH Ur Specific [place] Urine Protein Urine Glucose (UA) Urine Ketones Urine Blood Urine Nitrite Ur Leukocyte Esterase Urine WBC (Auto) Urine RBC (Auto) 11/02/17 11/03/17 11/03/17 19:45 07:03 07:03 WBC 9.3 RBC 3.04 L Hgb 8.9 L Hct 29.0 L MCV 95 MCH 29.4 MCHC 30.8 L RDW 16.8 H Plt Count 151 VBG pH VBG pCO2 VBG HCO3 VBG Base Excess Sodium 144.5 Potassium 4.2 Chloride 103 Carbon Dioxide 30 Anion Gap 12 BUN 42 H Creatinine 2.46 H Est GFR ( Amer) 23 L Est GFR (Non-Af Amer) 19 L Glucose 201 H Lactic Acid Calcium 8.1 L Magnesium 1.7 Urine Color YELLOW Urine Appearance CLEAR Urine pH 5.0 Ur Specific [place] 1.013 Urine Protein NEGATIVE Urine Glucose (UA) NEGATIVE Urine Ketones NEGATIVE Urine Blood NEGATIVE Urine Nitrite NEGATIVE Ur Leukocyte Esterase NEGATIVE Urine WBC (Auto) 0 Urine RBC (Auto) 0 11/03/17 07:03 WBC RBC Hgb Hct MCV MCH MCHC RDW Plt Count VBG pH 7.29 L VBG pCO2 69.1 H* VBG HCO3 32.5 H VBG Base Excess 4.5 Sodium Potassium Chloride Carbon Dioxide Anion Gap BUN Creatinine Est GFR ( Amer) Est GFR (Non-Af Amer) Glucose Lactic Acid Calcium Magnesium Urine Color Urine Appearance Urine pH Ur Specific [place] Urine Protein Urine Glucose (UA) Urine Ketones Urine Blood Urine Nitrite Ur Leukocyte Esterase Urine WBC (Auto) Urine RBC (Auto) 11/02/17 19:35 Troponin I < 0.012 EKG Comments: Telemetry strips shows sinus rhythm. Impressions: Abdomen/Pelvis CT 11/02/17 00:00 IMPRESSION: 1. AIRSPACE DISEASE IN THE VISUALIZED RIGHT LUNG. 2. SLUDGE AND/OR STONES IN THE GALLBLADDER. 3. NO OTHER SIGNIFICANT OR ACUTE PROCESS IN THE ABDOMEN OR PELVIS. Lung Scan-VQ NM 11/02/17 00:00 IMPRESSION: Limited examination. No perfusion defects are identified. No evidence of PE. Head CT 11/02/17 13:59 IMPRESSION: NORMAL BRAIN CT WITHOUT CONTRAST. EVIDENCE OF ACUTE STROKE: NO. Chest X-Ray 11/03/17 06:00 IMPRESSION: AIRSPACE DISEASE IN THE RIGHT LUNG, MORE PROMINENT IN THE RIGHT LOWER LOBE. PROBABLY DUE TO PNEUMONIA ALTHOUGH ASYMMETRIC PULMONARY EDEMA WOULD HAVE SIMILAR APPEARANCE. Assessment & Plan - Diagnosis (1) Acute CHF Qualifiers: Heart failure type: unspecified Qualified Code(s): I50.9 - Heart failure, unspecified Is this a current diagnosis for this admission?: Yes (2) Acute and chronic respiratory failure with hypoxia Is this a current diagnosis for this admission?: Yes (3) Acute on chronic renal failure Qualifiers: Acute renal failure type: unspecified Chronic kidney disease stage: stage 4 (severe) Qualified Code(s): N17.9 - Acute kidney failure, unspecified; N18.4 - Chronic kidney disease, stage 4 (severe); N18.4 - Chronic kidney disease , stage 4 (severe); N18.4 - Chronic kidney disease, stage 4 (severe); N18.4 - Chronic kidney disease, stage 4 (severe) (4) Pneumonia Qualifiers: Pneumonia type: due to unspecified organism Laterality: right Lung location: unspecified part of lung Qualified Code(s): J18.9 - Pneumonia, unspecified organism Is this a current diagnosis for this admission?: Yes - Notes Notes: Congestive heart failure: Most likely acute on chronic CHF secondary to diastolic dysfunction but currently echocardiogram is pending. Patient may have significant element of right heart failure as well. At this point continue diuretics. Further management plans to follow after 2D echo is completed. Acute on chronic respiratory failure with hypoxemia: Patient most likely have element of obesity hypoventilation syndrome and also sleep apnea syndrome. Currently being noted to have pneumonia as well as CHF as aggravating factors for her respiratory failure. This has improved. Continue intermittent bilevel therapy along with oxygen supplementation. Acute on chronic renal failure: Currently stable. Pneumonia: Continue with antibiotic therapy. Obesity: Patient will benefit from gradual weight loss. This can be tackled as an outpatient General debility: Patient will benefit from OT PT assessment and involvement. - Time Time with patient: Greater than 35 minutes - CODE STATUS was discussed, patient remains full code. Surrogate decision-maker patient's . Multiple medical problems were addressed. More than 50% of the time spent coordinating care, discussing management plans with involved caregivers. Management plans discussed with involved personnels. Medical decision making was of moderate to high complexity, patient's has multiple comorbidities. Medications reviewed and adjusted accordingly: Yes
--- NOTE | 2017-11-03 15:19 | PROGRESS NOTE E ---
Progress Note NAME: FRANCESCO PARRISH : 1940 AGE: 77Y DATE: 11/03/2017 ROOM: 330 SUBJECTIVE: The patient is much more awake and alert than yesterday evening. The patient's daughter, who is present at the bedside and active in the patient's care, is relieved to see the patient's improvement. The patient diuresed well after the Lasix, and the patient's pCO2 did improve with the BiPAP. The patient is awake, alert, completely conversing with the BiPAP in place. The patient did refuse to wear the BiPAP overnight; and, therefore, her pCO2 this morning was found to be 69.1, which was still improved from 74 at presentation. The patient's mental status overall was much improved. The patient has been placed back on the BiPAP and have increased IPAP setting. The patient denies any nausea, vomiting, no dizziness or chest pain. The patient has been afebrile. Her blood pressures have been in a good range. The patient does not voice any other concerns at this time. REVIEW OF SYSTEMS: The rest of the review of systems is negative. MEDICATIONS: Medications have been reviewed. OBJECTIVE: The patient is a 77-year-old -Citizen Of [place] female who is awake, alert. She is oriented to person, place, time, situation. She is verbal, conversational, does not appear to be in any acute distress. VITAL SIGNS: Temperature is 98.2, pulse 80, respirations 21, blood pressure 135/67, oxygen saturation is 96% on 30% FiO2 BiPAP. SKIN: Warm and dry. No rash. She is not diaphoretic. HEENT: Pupils equal, round, reactive to light and accommodation. Periorbital edema appears to have resolved. NECK: No evidence of JVP. CVS: Heart is regular. There is no rub. CHEST: Diminished, symmetrical, unlabored. ABDOMEN: Obese. Soft. Nontender. BACK: There is no sacral edema. EXTREMITIES: No cyanosis, clubbing or edema. PSYCHIATRIC: Appropriate affect, pleasant mood. DIAGNOSTICS: Labs values are as follows: Hematology obtained on 11/03/2017: WBCs 9.3, hemoglobin 8.9, hematocrit 29.0, platelet count is 151,000. Chemistry obtained on 11/03/2017: Sodium is 144, potassium 4.2, chloride 103, carbon dioxide 30, BUN 42, creatinine 2.46, calcium is 8.1, magnesium is 7.1. Venous blood obtained on 11/03/2017: A pH of 7.29, pCO2 of 69.1, bicarb is 32.5. ASSESSMENT/PLAN: 1. ACUTE, MOST LIKELY ON CHRONIC, HYPERCAPNIC RESPIRATORY FAILURE. The patient and family give a history that is consistent with chronic retention, especially obstructive sleep apnea, most likely hypoventilation syndrome as well. The patient's mental status is greatly improved. I have increased IPAP, and we will place the patient back on the BiPAP, having explained the benefit of this, and the patient is now agreeable to this. We will repeat blood gas in the a.m. and follow. We will also consult Pulmonology, given that patient does have some underlying hypercapnia, most likely. 2. ACUTE MOST LIKELY ON CHRONIC CONGESTIVE HEART FAILURE. Unable to further classify. There is no echocardiogram as a point of reference. I have consulted Dr. Montoya with this, given this is the patient's initial exacerbation. It appears that she was supposedly on Lasix p.o. outpatient; however, she had been taking the medication because she did not like it; she associated it with poor medical outcome. Will follow. 3. CHRONIC KIDNEY DISEASE STAGE 3 WITH POSSIBLE ACUTE KIDNEY INJURY. The patient's presenting creatinine is 2.21 this morning; it trended up to 2.46 with diuresis. The patient may have overall chronic worsening, as it appears her baseline is around 2. Again, the patient's chest x-ray did not show pulmonary edema; therefore, we will hold off diuresis for now and consult her bilingual sales consultant, Dr. Buitrago, who follows her. 4. ANEMIA OF CHRONIC DISEASE. The patient's hemoglobin drifted down to 8.9. We will obtain guaiac and repeat CBC in the a.m. Additionally, we will add on iron studies. 5. ABDOMINAL PAIN. This has resolved. 6. RIGHT LOWER LEG PNEUMONIA. We will continue coverage that was started in the ED, as the patient has made significant improvement. We will add Mucinex and encourage pulmonary toileting as well. DISPOSITION: The patient remains a full code. Given the patient's symptomatology and diagnostic findings, we will reevaluate in the a.m. TIME SPENT ON THIS FOLLOWUP: Time spent on this followup including assessment, plan, physical examination, patient education, review of records, and family meeting and specialty collaboration, 35 minutes. DICTATING PHYSICIAN: ALFREDA CORONADO NP [id number] PHY#: [id number] ID: [id number] JOB#: [id number] ACCT: [id number] cc: > [facility]
[2017-11-03 16:36] LABS: ABSOLUTE RETICS # 0.082 10^6/uL (0.028-0.122); RETICULOCYTE COUNT (AUTO) 2.73 % (0.66-2.85)
[2017-11-03 16:46] LABS: IRON(TIBC) 33.9 ug/dL (37-170)
[2017-11-03] MEDS: CEFEPIME HCL 2 GM in DEXTROSE 5%-WATER 50 ML IV SCH (17:42)
[2017-11-03] MEDS: GUAIFENESIN 600 MG TABLET.SA PO SCH (17:42)
[2017-11-03] MEDS: ATORVASTATIN CALCIUM 40 MG TABLET PO SCH (17:43)
[2017-11-03 18:08] LABS: FOLATE > 20.00 ng/mL (>2.76)
--- NOTE | 2017-11-03 20:55 | EKG REPORT ---
SEVERITY:- ABNORMAL ECG - SINUS RHYTHM LATERAL INFARCT, OLD ANTERIOR INFARCT, AGE INDETERMINATE : Confirmed by: Ariana Montoya 03-Nov-2017 20:54:03
[2017-11-03] MEDS: MONTELUKAST SODIUM 10 MG TABLET PO SCH (21:30)
[2017-11-03] MEDS: PROMETHAZINE HCL 25 MG TABLET PO PRN (22:22)
[2017-11-03] MEDS: FLUTICASONE NASAL SPRAY 50 MCG/SPRY 120 SPRAY/16 GM NASL SCH (22:22)
[2017-11-04] MEDS: HEPARIN SOD (PORCINE) 5,000 UNIT/ML 1 ML SYRINGE SUBCUT SCH ×3 (05:17→21:49)
[2017-11-04] MEDS: GUAIFENESIN 600 MG TABLET.SA PO SCH ×2 (05:17→18:25)
[2017-11-04] MEDS: CEFEPIME HCL 2 GM in DEXTROSE 5%-WATER 50 ML IV SCH ×2 (05:17→18:32)
[2017-11-04 07:25] LABS: HEMATOCRIT 29.2 % (36.0-47.0); MEAN CORPUSCULAR HGB CONC 30.8 g/dL (32.0-36.0); MEAN CORPUSCULAR VOLUME 94 fl (80-97); PLATELET COUNT 155 10^3/uL (150-450); RED CELL DISTRIBUTION WIDTH 16.9 % (11.5-14.0); VENOUS BLOOD BASE EXCESS 4.4 mmol/L; VENOUS BLOOD HCO3 31.7 mmol/L (20-32); VENOUS BLOOD PCO2 63.3 mmHg (35-63); VENOUS BLOOD PH 7.32 (7.30-7.42)
[2017-11-04 07:44] LABS: ANION GAP 13 (5-19); BLOOD UREA NITROGEN 57 mg/dL (7-20); CALCIUM 8.3 mg/dL (8.4-10.2); CARBON DIOXIDE 30 mmol/L (22-30); CHLORIDE 99 mmol/L (98-107); GLUCOSE 134 mg/dL (75-110); POTASSIUM 4.2 mmol/L (3.6-5.0); SODIUM 142.4 mmol/L (137-145)
[2017-11-04] MEDS: TEMAZEPAM 15 MG CAPSULE PO SCH ×4 (08:03→21:48)
--- NOTE | 2017-11-04 10:14 | EKG REPORT ---
SEVERITY:- ABNORMAL ECG - SINUS RHYTHM INFERIOR INFARCT, AGE INDETERMINATE ANTERIOR INFARCT, AGE INDETERMINATE : Confirmed by: Ariana Montoya 04-Nov-2017 10:14:22
[2017-11-04] MEDS: FLUOXETINE HCL 20 MG CAPSULE PO SCH (10:16)
[2017-11-04] MEDS: LORATADINE 10 MG TABLET PO SCH (10:16)
[2017-11-04] MEDS: ASPIRIN 81 MG TABLET, CHEWABLE PO SCH (10:16)
[2017-11-04] MEDS: AMLODIPINE BESYLATE 5 MG TABLET PO SCH (10:16)
[2017-11-04] MEDS: DOCUSATE SODIUM 100 MG CAPSULE PO SCH ×2 (10:20→18:25)
[2017-11-04] MEDS: FUROSEMIDE 40 MG TABLET PO SCH (10:20)
[2017-11-04] MEDS: HYDROXYZINE PAMOATE 25 MG CAPSULE PO SCH ×2 (10:21→18:25)
[2017-11-04] MEDS: ATENOLOL 50 MG TABLET PO SCH (10:21)
[2017-11-04] MEDS: FLUTICASONE NASAL SPRAY 50 MCG/SPRY 120 SPRAY/16 GM NASL SCH ×2 (10:22→21:50)
--- NOTE | 2017-11-04 13:24 | PDOC PROGRESS REPORT ---
Subjective Progress Note for:: 11/04/17 Subjective:: Patient is still extremely dyspneic , on bipap support no CP no fever no chills She is off bipap at meal time for short period Reason For Visit: ACUTE ON CHRONIC HEART FAILURE, CIRRHOSIS Physical Exam Vital Signs: Temp Pulse Resp BP Pulse Ox 99.2 F 79 18 129/89 H 96 11/04/17 12:09 11/04/17 12:09 11/04/17 12:09 11/04/17 12:09 11/04/17 12:09 Intake & Output 11/03/17 11/04/17 11/05/17 00:59 00:59 00:59 Intake Total 1451 879 Balance 1451 879 Weight 109.8 kg 111.3 kg General appearance: PRESENT: mild distress - because of SOB , on bipap support Head exam: PRESENT: atraumatic, normocephalic Eye exam: PRESENT: conjunctiva pink, EOMI, PERRLA. ABSENT: scleral icterus Neck exam: ABSENT: carotid bruit, JVD, lymphadenopathy, thyromegaly Respiratory exam: ABSENT: accessory muscle use, decreased breath sounds, rales, rhonchi, wheezes Cardiovascular exam: PRESENT: RRR. ABSENT: diastolic murmur, rubs, systolic murmur Pulses: PRESENT: normal dorsalis pedis pul GI/Abdominal exam: PRESENT: normal bowel sounds, soft. ABSENT: distended, guarding, mass, organolmegaly, rebound, tenderness Neurological exam: PRESENT: awake, CN II-XII grossly intact Skin exam: PRESENT: dry, intact, warm. ABSENT: cyanosis, rash Results Laboratory Results: 11/04/17 07:05 11/04/17 07:05 11/03/17 11/03/17 11/04/17 07:03 07:03 07:05 WBC 12.0 H RBC 3.10 L Hgb 9.0 L Hct 29.2 L MCV 94 MCH 29.0 MCHC 30.8 L RDW 16.9 H Plt Count 155 Retic Count (auto) 2.73 Absolute Retic 0.082 VBG pH VBG pCO2 VBG HCO3 VBG Base Excess Sodium Potassium Chloride Carbon Dioxide Anion Gap BUN Creatinine Est GFR ( Amer) Est GFR (Non-Af Amer) Glucose Calcium Magnesium Iron 33.9 L TIBC 224 L % Saturation 15 Ferritin 421.00 H Vitamin B12 780.0 Folate > 20.00 11/04/17 11/04/17 07:05 07:05 WBC RBC Hgb Hct MCV MCH MCHC RDW Plt Count Retic Count (auto) Absolute Retic VBG pH 7.32 VBG pCO2 63.3 H VBG HCO3 31.7 VBG Base Excess 4.4 Sodium 142.4 Potassium 4.2 Chloride 99 Carbon Dioxide 30 Anion Gap 13 BUN 57 H Creatinine 2.91 H Est GFR ( Amer) 19 L Est GFR (Non-Af Amer) 16 L Glucose 134 H Calcium 8.3 L Magnesium 1.7 Iron TIBC % Saturation Ferritin Vitamin B12 Folate 11/02/17 19:35 Troponin I < 0.012 Impressions: Abdomen/Pelvis CT 11/02/17 00:00 IMPRESSION: 1. AIRSPACE DISEASE IN THE VISUALIZED RIGHT LUNG. 2. SLUDGE AND/OR STONES IN THE GALLBLADDER. 3. NO OTHER SIGNIFICANT OR ACUTE PROCESS IN THE ABDOMEN OR PELVIS. Lung Scan-VQ NM 11/02/17 00:00 IMPRESSION: Limited examination. No perfusion defects are identified. No evidence of PE. Head CT 11/02/17 13:59 IMPRESSION: NORMAL BRAIN CT WITHOUT CONTRAST. EVIDENCE OF ACUTE STROKE: NO. Chest X-Ray 11/03/17 06:00 IMPRESSION: AIRSPACE DISEASE IN THE RIGHT LUNG, MORE PROMINENT IN THE RIGHT LOWER LOBE. PROBABLY DUE TO PNEUMONIA ALTHOUGH ASYMMETRIC PULMONARY EDEMA WOULD HAVE SIMILAR APPEARANCE. Assessment & Plan - Diagnosis (1) Acute CHF Qualifiers: Heart failure type: unspecified Qualified Code(s): I50.9 - Heart failure, unspecified Is this a current diagnosis for this admission?: Yes Plan: echo pending continue diuresis (2) Acute on chronic renal failure Qualifiers: Acute renal failure type: unspecified Chronic kidney disease stage: stage 4 (severe) Qualified Code(s): N17.9 - Acute kidney failure, unspecified; N18.4 - Chronic kidney disease, stage 4 (severe); N18.4 - Chronic kidney disease , stage 4 (severe); N18.4 - Chronic kidney disease, stage 4 (severe); N18.4 - Chronic kidney disease, stage 4 (severe) Is this a current diagnosis for this admission?: Yes Plan: creatinine 2.9 follow up BNP closely (3) Acute on chronic respiratory failure with hypoxia and hypercapnia Is this a current diagnosis for this admission?: Yes Plan: secondary to CHF , pneumonia , COPD continue present management to reevaluate antibiotic coverage if patient does not improve in 24- 48 hours (4) Morbid obesity Is this a current diagnosis for this admission?: Yes (5) Pneumonia Qualifiers: Pneumonia type: due to unspecified organism Laterality: right Lung location: unspecified part of lung Qualified Code(s): J18.9 - Pneumonia, unspecified organism Is this a current diagnosis for this admission?: Yes Plan: CAP continue ceftriaxone and zithromax - Time Time Spent with patient: 25-34 minutes
[2017-11-04] MEDS ORDERED: NORMAL SALINE 250 ML with FUROSEMIDE 250 MG IV PRN ×2 (13:35)
[2017-11-04] MEDS ORDERED: IPRATROPIUM/ALBUTEROL 0.5-2.5 MG/3 ML AMPUL NEB PRN (13:40)
[2017-11-04] MEDS ORDERED: METHYLPREDNISOLONE INJ 125 MG/2 ML SDV IV SCH (13:45)
[2017-11-04 13:54] LABS: ARTERIAL BLOOD BASE EXCESS 4.9 mmol/L; ARTERIAL BLOOD H2CO3 1.75 mmol/L (1.05-1.35); ARTERIAL BLOOD HCO3 31.5 mmol/L (20-26); ARTERIAL BLOOD O2 SATURATION 95.6 % (94-98); ARTERIAL BLOOD PCO2 58.3 mmHg (35-45); ARTERIAL BLOOD PH 7.35 (7.35-7.45); ARTERIAL BLOOD PO2 83.9 mmHg (80-100); ARTERIAL BLOOD TOTAL CO2 33.3 mmol/L (21-25)
[2017-11-04 13:55] LABS: ARTERIAL BLOOD FIO2 35%
[2017-11-04] MEDS ORDERED: METHYLPREDNISOLONE INJ 40 MG/1 ML SDV IV ONE (14:30)
[2017-11-04] MEDS: INSULIN LISPRO 100 UNIT/ML 3 ML VIAL SUBCUT PRN ×3 (15:09→22:52)
[2017-11-04] MEDS: AZITHROMYCIN 500 MG in DEXTROSE 5%-WATER 250 ML IV SCH (15:11)
[2017-11-04] MEDS: ATORVASTATIN CALCIUM 40 MG TABLET PO SCH (18:26)
--- NOTE | 2017-11-04 18:55 | PDOC CONSULTATION ---
Consultation Consult Date: 11/04/17 Attending physician:: ALFREDA CORONADO Consult reason:: I was asked to see this patient because of worsening kidney failure. History of Present Illness Admission Date/PCP: 11/02/17 16:18 RANDY SHEPHERD MD History of Present Illness: FRANCESCO PARRISH is a 77 year old female known to me with a history of chronic kidney disease baseline stage III secondary to hypertensive nephrosclerosis, asthma, breast cancer , diabetes, gout, hypertension, and high cholesterol presents to the emergency department via EMS complaining of a fall onset today. Patient states she was sitting on the toilet when she stood up and fell to the floor due to weakness. Patient denies a syncopal episode or a head injury. Patient also denies any other pain, nausea, vomiting, diarrhea, across but admits to slight cough. Daughter, who is at bedside, states she feels the patient has been weak for a while further stating the patient has been excessively sleeping for about a week. They called the EMS. EMS put the patient oxygen prior to arrival due to the patient being at 82% on room air. Patient states she does not normally use oxygen at home. At bedside patient is having difficulty breathing. Patient was in acute respiratory distress wearing BiPAP and barely awake. He was also noted to be confused on admission. Patient daughter at bedside. She had previous cardiac evaluation at 5 years ago. These are all for preop clearance purposes with last cardiac stress test on any other cardiac evaluation being more than 5 years ago. Patient has gained significant amount of weight over the last several months. Patient has not had any chest pain or any cardiac related issues. She always sleeps with several pillows but this is nothing new and has not gotten worse. She has had leg swelling which the daughter thinks has gotten worse. Since admission the patient is being given Lasix intravenously and currently there was an order for Lasix drip. Patient's intake and output is not accurately recorded. Patient also came in with a BUN of 39 creatinine of 2.21 with estimated GFR of 26. Today she has a BUN of 57, creatinine of 2.91 with estimated GFR of 19. In March 2017 she has a BUN of 37 creatinine of 1.99 with estimated GFR of 30. Her creatinine usually runs between 1.7-1.9 and her EGFR usually 31-45. Patient denies any problems with urination or any note of decreased urine output. She always say that she goes to the bathroom a lot. Past Medical History Cardiac Medical History: Reports: Hypertension-primary Pulmonary Medical History: Reports: Asthma Neurological Medical History: Reports: Seizures - over a year, Other - Restless leg syndrome Endocrine Medical History: Reports: Diabetes Mellitus Type 2 Renal/ Medical History: Reports: Chronic Kidney Disease Stage III Malignancy Medical History: Reports: Breast Cancer, Other - Uterine cancer Musculoskeltal Medical History: Reports: Arthritis, Gout Psychiatric Medical History: Reports: Depression Hematology Medical History: Reports Anemia of Chronic Kidney Disease Past Surgical History Past Surgical History: Reports: Appendectomy, Hysterectomy, Mastectomy, Tubal Ligation, Other - Radiation therapy, chemotherapy, D&C, left leg surgery Social History Information Source: Patient Lives with: Family Smoking Status: Never Smoker Frequency of Alcohol Use: None Hx Recreational Drug Use: No Hx Prescription Drug Abuse: No - Advance Directive Resuscitation Status: Full Code Family History Family History: End Stage Renal Disease - Daughter on dialysis, Hypertension - Daughter Parental Family History Reviewed: Yes Children Family History Reviewed: Yes Sibling(s) Family History Reviewed.: Unknown Medication/Allergy Home Medications: Albuterol Sulfate [Proair HFA] 2 puff PO PRN PRN 11/03/17 Allopurinol [Zyloprim 100 mg Tablet] 100 mg PO TID 11/03/17 Amlodipine Besylate [Amlodipine Besylate] 5 mg PO DAILY 11/03/17 Atenolol [Atenolol] 100 mg PO DAILY 11/03/17 Atorvastatin Calcium 20 mg PO DAILY 11/03/17 Fluoxetine HCl [Fluoxetine HCl] 40 mg PO DAILY 11/03/17 Fluticasone Propionate 2 sprays IN DAILY 11/03/17 Furosemide [Lasix] 40 mg PO DAILY 11/03/17 Gabapentin [Gabapentin] 600 mg PO PRN PRN 11/03/17 Glipizide [Glipizide Xl] 5 mg PO DAILY 11/03/17 Hydroxyzine HCl [Hydroxyzine HCl] 25 mg PO BID 11/03/17 Loratadine [Loratadine] 10 mg PO DAILY 11/03/17 Nitroglycerin 0.4 mg SL PRN PRN 11/03/17 Pantoprazole Sodium [Protonix] 40 mg PO DAILY 11/03/17 Potassium Chloride [Klor-Con 10] 10 meq PO DAILY 11/03/17 Telmisartan [Micardis] 80 mg PO DAILY 11/03/17 Temazepam [Temazepam] 15 mg PO ACHS 11/03/17 Allergies/Adverse Reactions: Penicillins Allergy (Verified 11/02/17 17:35) Review of Systems All systems: reviewed and no additional remarkable complaints except as stated Review of Systems: Constitutional: ABSENT: chills, fatigue, fever(s), headache(s), weight gain, weight loss Eyes: ABSENT: visual disturbances Ears: ABSENT: hearing changes Cardiovascular: ABSENT: chest pain, orthropnea, palpitations; admits shortness of breath and lower extremity edema Respiratory: ABSENT: Hemoptysis; admits slight nonproductive cough Gastrointestinal: ABSENT: abdominal pain, constipation, diarrhea, hematemesis, hematochezia, nausea, vomiting Genitourinary: ABSENT: dysuria, hematuria Musculoskeletal: ABSENT: joint swelling Integumentary: ABSENT: rash, wounds Neurological: ABSENT: abnormal gait, abnormal speech, dizziness, focal weakness , numbness, syncope; admits confusion on admission Psychiatric: ABSENT: anxiety, depression Endocrine: ABSENT: cold intolerance, heat intolerance, polydipsia, polyuria Hematologic/Lymphatic: ABSENT: easy bleeding, easy bruising, lymphadenopathy Physical Exam Vital Signs: Temp Pulse Resp BP Pulse Ox 99.0 F 83 20 136/64 H 98 11/04/17 15:40 11/04/17 15:40 11/04/17 16:00 11/04/17 15:40 11/04/17 16:00 Pulse Oximeter Continuous Start: 11/04/17 13: 05 Freq: RTQ4 Status: Active Document 11/04/17 16:00 JDR (Rec: 11/04/17 18:17 [id number] [id number]) Pulse Oximetry Assessment Oxygen Saturation (92-100) 97 Oxygen Delivery Method AVAP Equipment Usage Initial Set Up Continuous Pulse Oximeter 24 Hour Charge Charge Now Continuous SpO2 Machine # 1 Intake & Output 11/03/17 11/04/17 11/05/17 06:59 06:59 06:59 Intake Total 50 1858 592 Balance 50 8568 592 Weight 109.8 kg 111.3 kg Exam: General appearance: no acute distress, cooperative, well-developed, well- nourished Head exam: PRESENT: atraumatic, normocephalic Eye exam: PRESENT: Conjunctiva pale, EOMI, PERRLA. ABSENT: conjunctival injection, scleral icterus Mouth exam: PRESENT: moist, neck supple, tongue midline Neck exam: PRESENT: full ROM. ABSENT: carotid bruit, JVD, lymphadenopathy, thyromegaly Respiratory exam: PRESENT: Diminished to auscultation bilaterally. ABSENT: rales, rhonchi, stridor, wheezes Cardiovascular exam: PRESENT: RRR, +S1, +S2. ABSENT: systolic murmur Pulses: PRESENT: normal radial pulses, normal dorsalis pedis pulses GI/Abdominal exam: PRESENT: normal bowel sounds, soft. ABSENT: guarding, mass, tenderness Rectal exam: deferred Extremities exam: PRESENT: full ROM. ABSENT: calf tenderness, pedal edema Musculoskeletal: PRESENT: full ROM. ABSENT: deformity Neurological exam: PRESENT: alert, Awake, Oriented to person, Oriented to place , Oriented to time, reflexes normal, CN II-XII grossly intact. ABSENT: motor sensory deficit Psychiatric exam: PRESENT: appropriate affect, normal mood. ABSENT: homicidal ideation, suicidal ideation Skin exam: PRESENT: intact, dry, warm. ABSENT: rash Results Laboratory Results: 11/04/17 07:05 11/04/17 07:05 11/04/17 11/04/17 11/04/17 07:05 07:05 07:05 WBC 12.0 H RBC 3.10 L Hgb 9.0 L Hct 29.2 L MCV 94 MCH 29.0 MCHC 30.8 L RDW 16.9 H Plt Count 155 Carbonic Acid HCO3/H2CO3 Ratio ABG pH ABG pCO2 ABG pO2 ABG HCO3 ABG O2 Saturation ABG Base Excess VBG pH 7.32 VBG pCO2 63.3 H VBG HCO3 31.7 VBG Base Excess 4.4 FiO2 Sodium 142.4 Potassium 4.2 Chloride 99 Carbon Dioxide 30 Anion Gap 13 BUN 57 H Creatinine 2.91 H Est GFR ( Amer) 19 L Est GFR (Non-Af Amer) 16 L Glucose 134 H Calcium 8.3 L Magnesium 1.7 11/04/17 13:35 WBC RBC Hgb Hct MCV MCH MCHC RDW Plt Count Carbonic Acid 1.75 H HCO3/H2CO3 Ratio 18:1 ABG pH 7.35 ABG pCO2 58.3 H ABG pO2 83.9 ABG HCO3 31.5 H ABG O2 Saturation 95.6 ABG Base Excess 4.9 VBG pH VBG pCO2 VBG HCO3 VBG Base Excess FiO2 35% Sodium Potassium Chloride Carbon Dioxide Anion Gap BUN Creatinine Est GFR ( Amer) Est GFR (Non-Af Amer) Glucose Calcium Magnesium 11/02/17 19:35 Troponin I < 0.012 Impressions: Abdomen/Pelvis CT 11/02/17 00:00 IMPRESSION: 1. AIRSPACE DISEASE IN THE VISUALIZED RIGHT LUNG. 2. SLUDGE AND/OR STONES IN THE GALLBLADDER. 3. NO OTHER SIGNIFICANT OR ACUTE PROCESS IN THE ABDOMEN OR PELVIS. Lung Scan-VQ NM 11/02/17 00:00 IMPRESSION: Limited examination. No perfusion defects are identified. No evidence of PE. Head CT 11/02/17 13:59 IMPRESSION: NORMAL BRAIN CT WITHOUT CONTRAST. EVIDENCE OF ACUTE STROKE: NO. Chest X-Ray 11/03/17 06:00 IMPRESSION: AIRSPACE DISEASE IN THE RIGHT LUNG, MORE PROMINENT IN THE RIGHT LOWER LOBE. PROBABLY DUE TO PNEUMONIA ALTHOUGH ASYMMETRIC PULMONARY EDEMA WOULD HAVE SIMILAR APPEARANCE. Assessment & Plan - Diagnosis (1) Acute renal failure superimposed on stage 3 chronic kidney disease Is this a current diagnosis for this admission?: Yes Plan: This is secondary to acute prerenal factors including acute congestive heart failure. Patient does not have any proteinuria or microalbuminuria. There was no hypotension no other nephrotoxic medications. No obstruction on CT scan. Currently kidney function is getting progressively worse. However I agree with some diuresis. Chest x-ray seems to be improving so I believe that the right lung infiltrates is partly due to pulmonary congestion. Continue diuresis for now but not to overshoot. Continue to monitor kidney function and avoid nephrotoxic medications. Currently the patient does not need any acute renal replacement therapy. Will monitor. (2) Acute CHF Qualifiers: Heart failure type: unspecified Qualified Code(s): I50.9 - Heart failure, unspecified Is this a current diagnosis for this admission?: Yes Plan: Cardiology in consult. Agree with diuresis. (3) Acute on chronic respiratory failure with hypoxia and hypercapnia Is this a current diagnosis for this admission?: Yes (4) Pneumonia Qualifiers: Pneumonia type: due to unspecified organism Laterality: right Lung location: unspecified part of lung Qualified Code(s): J18.9 - Pneumonia, unspecified organism Is this a current diagnosis for this admission?: Yes Plan: This cannot be ruled out due to the asymmetric right lung infiltrates which is unusual for just pulmonary congestion. Patient currently on antibiotics. (5) Iron deficiency anemia Is this a current diagnosis for this admission?: Yes Plan: We will give iron supplement. (6) Anemia in chronic illness Is this a current diagnosis for this admission?: Yes (7) Hypocalcemia Is this a current diagnosis for this admission?: Yes Plan: Mild. (8) Morbid obesity Is this a current diagnosis for this admission?: Yes - Notes Notes: Thank you very much for this consultation. Assessment discussed with patient and daughter. We will follow with you.
--- NOTE | 2017-11-04 19:22 | PDOC PROGRESS REPORT ---
Subjective Progress Note for:: 11/04/17 Subjective:: Patient sitting up in bed. She is surrounded by a lot of relatives. Patient doing much better. She is much more alert. Pt is denying any chest arm or neck discomfort. Patient denying any PND, orthopnea. Patient denied any sustained palpitations, dizziness, syncope, near syncope. Patient denying any fever chills. Patient denying any other significant discomfort. Patient is maintaining sinus rhythm. Review of systems: Rest review of systems negative. Medications: Medications have been reviewed. Reason For Visit: ACUTE ON CHRONIC HEART FAILURE, CIRRHOSIS Physical Exam Vital Signs: Temp Pulse Resp BP Pulse Ox 99.0 F 83 20 136/64 H 98 11/04/17 15:40 11/04/17 15:40 11/04/17 16:00 11/04/17 15:40 11/04/17 16:00 Pulse Oximeter Continuous Start: 11/04/17 13: 05 Freq: RTQ4 Status: Active Document 11/04/17 16:00 JDR (Rec: 11/04/17 18:17 JDR [email or web address]) Pulse Oximetry Assessment Oxygen Saturation (92-100) 97 Oxygen Delivery Method AVAP Equipment Usage Initial Set Up Continuous Pulse Oximeter 24 Hour Charge Charge Now Continuous SpO2 Machine # 1 Intake & Output 11/03/17 11/04/17 11/05/17 06:59 06:59 06:59 Intake Total 50 1688 1247 Balance 50 1688 1247 Weight 109.8 kg 111.3 kg Exam: GENERAL: well-nourished and in no acute distress. Alert and oriented x3 HEAD: Atraumatic, normocephalic. EYES: Pupils equal round and reactive to light, extraocular movements intact, sclera anicteric, conjunctiva are normal. ENT: TMs normal, nares patent, oropharynx clear without exudates. Moist mucous membranes. No oral ulcerations or bleeding gums noted NECK: supple without lymphadenopathy. Trachea is central. No cervical or axillary lymphadenopathy noted. Carotids are 2+, JVD difficult to assess but seems mildly distended LUNGS: Respiration seems nonlabored, no significant accessory muscle action noted. Bilateral fine crackles noted.. No wheezes rales or rhonchi noted. No significant dullness noted on percussion. CHEST: Palpation of the chest wall shows no significant chest wall tenderness. No other significant abnormalities noted. 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 ABDOMEN: Soft, no significant tenderness appreciated, normoactive bowel sounds. No guarding, no rebound. No rigidity noted . No masses appreciated. EXTREMITIES: Pedal pulses are 1-2+, no calf tenderness noted. No clubbing or cyanosis.trace pedal edema noted NEUROLOGICAL: Focused neurological exam showed no significant neurologic deficit. Normal speech, no focal weakness appreciated. PSYCH: Normal mood, normal affect. Judgment and insight within normal limits. SKIN: No significant ecchymosis, rash, ulcerations or signs of pruritus noted. MUSCULOSKELETAL EXAM: No significant joint swelling noted. Results Laboratory Results: 11/04/17 07:05 11/04/17 07:05 11/04/17 11/04/17 11/04/17 07:05 07:05 07:05 WBC 12.0 H RBC 3.10 L Hgb 9.0 L Hct 29.2 L MCV 94 MCH 29.0 MCHC 30.8 L RDW 16.9 H Plt Count 155 Carbonic Acid HCO3/H2CO3 Ratio ABG pH ABG pCO2 ABG pO2 ABG HCO3 ABG O2 Saturation ABG Base Excess VBG pH 7.32 VBG pCO2 63.3 H VBG HCO3 31.7 VBG Base Excess 4.4 FiO2 Sodium 142.4 Potassium 4.2 Chloride 99 Carbon Dioxide 30 Anion Gap 13 BUN 57 H Creatinine 2.91 H Est GFR ( Amer) 19 L Est GFR (Non-Af Amer) 16 L Glucose 134 H Calcium 8.3 L Magnesium 1.7 11/04/17 13:35 WBC RBC Hgb Hct MCV MCH MCHC RDW Plt Count Carbonic Acid 1.75 H HCO3/H2CO3 Ratio 18:1 ABG pH 7.35 ABG pCO2 58.3 H ABG pO2 83.9 ABG HCO3 31.5 H ABG O2 Saturation 95.6 ABG Base Excess 4.9 VBG pH VBG pCO2 VBG HCO3 VBG Base Excess FiO2 35% Sodium Potassium Chloride Carbon Dioxide Anion Gap BUN Creatinine Est GFR ( Amer) Est GFR (Non-Af Amer) Glucose Calcium Magnesium 11/02/17 19:35 Troponin I < 0.012 EKG Comments: Sinus rhythm, QS complex inferior lead and anterior precordial lead indicative of prior inferior and anterior HI. Telemetry strip shows sinus rhythm without any sustained tacky or bradycardia arrhythmias. Impressions: Abdomen/Pelvis CT 11/02/17 00:00 IMPRESSION: 1. AIRSPACE DISEASE IN THE VISUALIZED RIGHT LUNG. 2. SLUDGE AND/OR STONES IN THE GALLBLADDER. 3. NO OTHER SIGNIFICANT OR ACUTE PROCESS IN THE ABDOMEN OR PELVIS. Lung Scan-VQ NM 11/02/17 00:00 IMPRESSION: Limited examination. No perfusion defects are identified. No evidence of PE. Head CT 11/02/17 13:59 IMPRESSION: NORMAL BRAIN CT WITHOUT CONTRAST. EVIDENCE OF ACUTE STROKE: NO. Chest X-Ray 11/03/17 06:00 IMPRESSION: AIRSPACE DISEASE IN THE RIGHT LUNG, MORE PROMINENT IN THE RIGHT LOWER LOBE. PROBABLY DUE TO PNEUMONIA ALTHOUGH ASYMMETRIC PULMONARY EDEMA WOULD HAVE SIMILAR APPEARANCE. Assessment & Plan - Diagnosis (1) Acute CHF Qualifiers: Heart failure type: unspecified Qualified Code(s): I50.9 - Heart failure, unspecified Is this a current diagnosis for this admission?: Yes (2) Acute and chronic respiratory failure with hypoxia Is this a current diagnosis for this admission?: Yes (3) Acute on chronic renal failure Qualifiers: Acute renal failure type: unspecified Chronic kidney disease stage: stage 4 (severe) Qualified Code(s): N17.9 - Acute kidney failure, unspecified; N18.4 - Chronic kidney disease, stage 4 (severe); N18.4 - Chronic kidney disease , stage 4 (severe); N18.4 - Chronic kidney disease, stage 4 (severe); N18.4 - Chronic kidney disease, stage 4 (severe) Is this a current diagnosis for this admission?: Yes (4) Pneumonia Qualifiers: Pneumonia type: due to unspecified organism Laterality: right Lung location: unspecified part of lung Qualified Code(s): J18.9 - Pneumonia, unspecified organism Is this a current diagnosis for this admission?: Yes - Notes Notes: Patient seems significantly improved. Continue current management plans. Awaiting 2D echo results. This was apparently not performed. Congestive heart failure: Most likely acute on chronic CHF secondary to diastolic dysfunction but currently echocardiogram is pending. Patient may have significant element of right heart failure as well. At this point continue diuretics. Further management plans to follow after 2D echo is completed. Acute on chronic respiratory failure with hypoxemia: Patient most likely have element of obesity hypoventilation syndrome and also sleep apnea syndrome. Currently being noted to have pneumonia as well as CHF as aggravating factors for her respiratory failure. This has improved. Continue intermittent bilevel therapy along with oxygen supplementation. Acute on chronic renal failure: Currently stable. Nephrology to see the patient. Pneumonia: Continue with antibiotic therapy. Obesity: Patient will benefit from gradual weight loss. This can be tackled as an outpatient General debility: Patient will benefit from OT PT assessment and involvement. - Time Time with patient: Greater than 35 minutes - CODE STATUS was discussed, patient remains full code. Surrogate decision-maker unchanged. Multiple medical problems were addressed. More than 50% of the time spent coordinating care, discussing management plans with involved caregivers. Management plans discussed with involved personnels. Medical decision making was of moderate to high complexity, patient's has multiple comorbidities. Medications reviewed and adjusted accordingly: Yes
[2017-11-04] MEDS: MONTELUKAST SODIUM 10 MG TABLET PO SCH (21:48)
[2017-11-04] MEDS: METHYLPREDNISOLONE INJ 40 MG/1 ML SDV IV SCH (21:48)
[2017-11-05] MEDS: HEPARIN SOD (PORCINE) 5,000 UNIT/ML 1 ML SYRINGE SUBCUT SCH ×3 (05:58→22:23)
[2017-11-05] MEDS: GUAIFENESIN 600 MG TABLET.SA PO SCH ×2 (06:00→17:47)
[2017-11-05] MEDS: METHYLPREDNISOLONE INJ 40 MG/1 ML SDV IV SCH ×3 (06:00→22:22)
[2017-11-05] MEDS: CEFEPIME HCL 2 GM in DEXTROSE 5%-WATER 50 ML IV SCH (06:01)
[2017-11-05] MEDS: INSULIN LISPRO 100 UNIT/ML 3 ML VIAL SUBCUT PRN ×4 (08:43→22:22)
[2017-11-05] MEDS: TEMAZEPAM 15 MG CAPSULE PO SCH ×4 (08:44→22:23)
[2017-11-05] MEDS: ATENOLOL 50 MG TABLET PO SCH (10:04)
[2017-11-05] MEDS: FLUOXETINE HCL 20 MG CAPSULE PO SCH (10:05)
[2017-11-05] MEDS: DOCUSATE SODIUM 100 MG CAPSULE PO SCH ×2 (10:06→17:47)
[2017-11-05] MEDS: LORATADINE 10 MG TABLET PO SCH (10:06)
[2017-11-05] MEDS: ASPIRIN 81 MG TABLET, CHEWABLE PO SCH (10:06)
[2017-11-05] MEDS: AMLODIPINE BESYLATE 5 MG TABLET PO SCH ×2 (10:06→22:23)
[2017-11-05] MEDS: HYDROXYZINE PAMOATE 25 MG CAPSULE PO SCH ×2 (10:06→17:49)
[2017-11-05] MEDS: FLUTICASONE NASAL SPRAY 50 MCG/SPRY 120 SPRAY/16 GM NASL SCH ×2 (10:07→22:31)
--- NOTE | 2017-11-05 12:50 | PDOC PROGRESS REPORT ---
Subjective Reason For Visit: ACUTE ON CHRONIC HEART FAILURE, CIRRHOSIS Physical Exam Vital Signs: Temp Pulse Resp BP Pulse Ox 98.2 F 80 20 122/67 83 L 11/05/17 11:35 11/05/17 11:35 11/05/17 11:35 11/05/17 11:35 11/05/17 11:35 Pulse Oximeter Continuous Start: 11/04/17 13: 05 Freq: RTQ4 Status: Active Document 11/05/17 04:00 STI (Rec: 11/05/17 04:30 STI [email or web address]) Pulse Oximetry Assessment Oxygen Saturation (92-100) 96 Oxygen Delivery Method AVAP Fraction of Inspired Oxygen (FIO2) 35 Equipment Usage Equipment in Use Continuous SpO2 Machine # 1 Intake & Output 11/04/17 11/05/17 11/06/17 00:59 00:59 00:59 Intake Total 1451 2007 381 Balance 1451 2007 381 Weight 109.8 kg 111.3 kg 110.9 kg General appearance: PRESENT: Appears a lot more comfortable today she is on the nasal cannula alert and awake smiling Head exam: PRESENT: atraumatic, normocephalic Eye exam: PRESENT: conjunctiva pink, EOMI, PERRLA. ABSENT: scleral icterus Neck exam: ABSENT: carotid bruit, JVD, lymphadenopathy, thyromegaly Respiratory exam: ABSENT: accessory muscle use, decreased breath sounds, no rales rhonchi or wheezes Cardiovascular exam: PRESENT: RRR. ABSENT: diastolic murmur, rubs, systolic murmur Pulses: PRESENT: normal dorsalis pedis pul GI/Abdominal exam: PRESENT: normal bowel sounds, soft. ABSENT: distended, guarding, mass, organolmegaly, rebound, tenderness Neurological exam: PRESENT: awake, CN II-XII grossly intact Skin exam: PRESENT: dry, intact, warm. ABSENT: cyanosis, rash Results Laboratory Results: 11/04/17 07:05 11/04/17 07:05 11/03/17 11/04/17 07:03 13:35 Carbonic Acid 1.75 H HCO3/H2CO3 Ratio 18:1 ABG pH 7.35 ABG pCO2 58.3 H ABG pO2 83.9 ABG HCO3 31.5 H ABG O2 Saturation 95.6 ABG Base Excess 4.9 FiO2 35% Transferrin 151 L 11/02/17 19:35 Troponin I < 0.012 Impressions: Abdomen/Pelvis CT 11/02/17 00:00 IMPRESSION: 1. AIRSPACE DISEASE IN THE VISUALIZED RIGHT LUNG. 2. SLUDGE AND/OR STONES IN THE GALLBLADDER. 3. NO OTHER SIGNIFICANT OR ACUTE PROCESS IN THE ABDOMEN OR PELVIS. Lung Scan-VQ NM 11/02/17 00:00 IMPRESSION: Limited examination. No perfusion defects are identified. No evidence of PE. Head CT 11/02/17 13:59 IMPRESSION: NORMAL BRAIN CT WITHOUT CONTRAST. EVIDENCE OF ACUTE STROKE: NO. Chest X-Ray 11/03/17 06:00 IMPRESSION: AIRSPACE DISEASE IN THE RIGHT LUNG, MORE PROMINENT IN THE RIGHT LOWER LOBE. PROBABLY DUE TO PNEUMONIA ALTHOUGH ASYMMETRIC PULMONARY EDEMA WOULD HAVE SIMILAR APPEARANCE. Assessment & Plan - Diagnosis (1) Acute CHF Qualifiers: Heart failure type: unspecified Qualified Code(s): I50.9 - Heart failure, unspecified Is this a current diagnosis for this admission?: Yes Plan: echo pending continue diuresis Initiated Lasix drip yesterday with improvement of the clinical status patient is now oxygenating very well on nasal cannula Continue Lasix drip\ Follow-up BMP (2) Acute on chronic renal failure Qualifiers: Acute renal failure type: unspecified Chronic kidney disease stage: stage 4 (severe) Qualified Code(s): N17.9 - Acute kidney failure, unspecified; N18.4 - Chronic kidney disease, stage 4 (severe); N18.4 - Chronic kidney disease , stage 4 (severe); N18.4 - Chronic kidney disease, stage 4 (severe); N18.4 - Chronic kidney disease, stage 4 (severe) Is this a current diagnosis for this admission?: Yes Plan: creatinine 2.9 follow up BNP closely (3) Acute on chronic respiratory failure with hypoxia and hypercapnia Is this a current diagnosis for this admission?: Yes Plan: secondary to CHF , pneumonia , COPD continue present management to reevaluate antibiotic coverage if patient does not improve in 24- 48 hours 11/05 Patient is improving We will continue present management (4) Morbid obesity Is this a current diagnosis for this admission?: Yes (5) Pneumonia Qualifiers: Pneumonia type: due to unspecified organism Laterality: right Lung location: unspecified part of lung Qualified Code(s): J18.9 - Pneumonia, unspecified organism Is this a current diagnosis for this admission?: Yes Plan: CAP continue cefepime and zithromax - Time Time Spent with patient: Overall patient is clinically improved Continue the present management Reevaluate Lasix drip after BMP is available Time Spent with patient: 25-34 minutes
--- NOTE | 2017-11-05 13:00 | PDOC CONSULTATION ---
Consultation Consult Date: 11/04/17 Attending physician:: ALFREDA CORONADO Consult reason:: resp failure History of Present Illness Admission Date/PCP: 11/02/17 16:18 RANDY SHEPHERD MD History of Present Illness: FRANCESCO PARRISH is a 77 year old female known to me with a history of chronic kidney disease baseline stage III secondary to hypertensive nephrosclerosis, asthma, breast cancer , diabetes, gout, hypertension, and high cholesterol presents to the emergency department via EMS complaining of a fall onset today. Patient states she was sitting on the toilet when she stood up and fell to the floor due to weakness. Patient denies a syncopal episode or a head injury. Patient also denies any other pain, nausea, vomiting, diarrhea, across but admits to slight cough. Daughter, who is at bedside, states she feels the patient has been weak for a while further stating the patient has been excessively sleeping for about a week. They called the EMS. EMS put the patient oxygen prior to arrival due to the patient being at 82% on room air. Patient states she does not normally use oxygen at home. At bedside patient is having difficulty breathing. Patient was in acute respiratory distress wearing BiPAP and barely awake. He was also noted to be confused on admission. Patient daughter at bedside. She had previous cardiac evaluation at 5 years ago. These are all for preop clearance purposes with last cardiac stress test on any other cardiac evaluation being more than 5 years ago. Patient has gained significant amount of weight over the last several months. Patient has not had any chest pain or any cardiac related issues. She always sleeps with several pillows but this is nothing new and has not gotten worse. She has had leg swelling which the daughter thinks has gotten worse. Since admission the patient is being given Lasix intravenously and currently there was an order for Lasix drip. Patient's intake and output is not accurately recorded. Patient also came in with a BUN of 39 creatinine of 2.21 with estimated GFR of 26. Today she has a BUN of 57, creatinine of 2.91 with estimated GFR of 19. In March 2017 she has a BUN of 37 creatinine of 1.99 with estimated GFR of 30. Her creatinine usually runs between 1.7-1.9 and her EGFR usually 31-45. Patient denies any problems with urination or any note of decreased urine output. She always say that she goes to the bathroom a lot. Past Medical History Cardiac Medical History: Reports: Hypertension Denies: Coronary Artery Disease, Myocardial Infarction Pulmonary Medical History: Reports: Asthma Denies: Bronchitis, Chronic Obstructive Pulmonary Disease (COPD), Pneumonia Neurological Medical History: Reports: Seizures - over a year Musculoskeltal Medical History: Reports: Arthritis Psychiatric Medical History: Reports: Depression Hematology: Reports: Anemia Past Surgical History Past Surgical History: Reports: Other - Breast cancer surgery, status post hysterectomy Denies: Hysterectomy, Pacemaker Social History Smoking Status: Never Smoker Frequency of Alcohol Use: None Hx Recreational Drug Use: No Hx Prescription Drug Abuse: No - Advance Directive Resuscitation Status: Full Code Family History Parental Family History Reviewed: Yes Children Family History Reviewed: Yes Sibling(s) Family History Reviewed.: Yes Medication/Allergy Home Medications: Albuterol Sulfate [Proair HFA] 2 puff PO PRN PRN 11/03/17 Allopurinol [Zyloprim 100 mg Tablet] 100 mg PO TID 11/03/17 Amlodipine Besylate [Amlodipine Besylate] 5 mg PO DAILY 11/03/17 Atenolol [Atenolol] 100 mg PO DAILY 11/03/17 Atorvastatin Calcium 20 mg PO DAILY 11/03/17 Fluoxetine HCl [Fluoxetine HCl] 40 mg PO DAILY 11/03/17 Fluticasone Propionate 2 sprays IN DAILY 11/03/17 Furosemide [Lasix] 40 mg PO DAILY 11/03/17 Gabapentin [Gabapentin] 600 mg PO PRN PRN 11/03/17 Glipizide [Glipizide Xl] 5 mg PO DAILY 11/03/17 Hydroxyzine HCl [Hydroxyzine HCl] 25 mg PO BID 11/03/17 Loratadine [Loratadine] 10 mg PO DAILY 11/03/17 Nitroglycerin 0.4 mg SL PRN PRN 11/03/17 Pantoprazole Sodium [Protonix] 40 mg PO DAILY 11/03/17 Potassium Chloride [Klor-Con 10] 10 meq PO DAILY 11/03/17 Telmisartan [Micardis] 80 mg PO DAILY 11/03/17 Temazepam [Temazepam] 15 mg PO ACHS 11/03/17 Allergies/Adverse Reactions: Penicillins Allergy (Verified 11/02/17 17:35) Review of Systems ROS unobtainable: Due to mental status Physical Exam Vital Signs: Temp Pulse Resp BP Pulse Ox 99.2 F 88 20 143/72 H 98 11/04/17 08:09 11/04/17 07:00 11/04/17 08:09 11/04/17 08:09 11/04/17 05:19 Intake & Output 11/03/17 11/04/17 11/05/17 06:59 06:59 06:59 Intake Total 50 1688 Balance 50 1688 Weight 109.8 kg 111.3 kg General appearance: PRESENT: no acute distress, disheveled, morbidly obese. ABSENT: mild distress, severe distress, thin Head exam: PRESENT: atraumatic, normocephalic Eye exam: PRESENT: conjunctiva pale, EOMI. ABSENT: conjunctival injection, conjunctiva pink, nystagmus, periorbital swelling, scleral icterus Mouth exam: PRESENT: dry mucosa, neck supple, tongue midline. ABSENT: laceration, moist Neck exam: ABSENT: carotid bruit, JVD, lymphadenopathy, thyromegaly, tracheal deviation, tracheostomy Respiratory exam: PRESENT: crackles, decreased breath sounds, prolonged expiratory phas, rhonchi, symmetrical, wheezes. ABSENT: rales, retraction, stridor, tachypnea Cardiovascular exam: PRESENT: RRR, +S1, +S2 Pulses: PRESENT: normal radial pulses GI/Abdominal exam: PRESENT: diminished bowel sounds, soft Extremities exam: ABSENT: clubbing, joint swelling Musculoskeletal exam: ABSENT: deformity, dislocation Neurological exam: PRESENT: awake Skin exam: PRESENT: dry, warm Results Laboratory Results: 11/04/17 07:05 11/04/17 07:05 11/03/17 11/03/17 11/04/17 07:03 07:03 07:05 WBC 12.0 H RBC 3.10 L Hgb 9.0 L Hct 29.2 L MCV 94 MCH 29.0 MCHC 30.8 L RDW 16.9 H Plt Count 155 Retic Count (auto) 2.73 Absolute Retic 0.082 VBG pH VBG pCO2 VBG HCO3 VBG Base Excess Sodium Potassium Chloride Carbon Dioxide Anion Gap BUN Creatinine Est GFR ( Amer) Est GFR (Non-Af Amer) Glucose Calcium Magnesium Iron 33.9 L TIBC 224 L % Saturation 15 Ferritin 421.00 H Vitamin B12 780.0 Folate > 20.00 11/04/17 11/04/17 07:05 07:05 WBC RBC Hgb Hct MCV MCH MCHC RDW Plt Count Retic Count (auto) Absolute Retic VBG pH 7.32 VBG pCO2 63.3 H VBG HCO3 31.7 VBG Base Excess 4.4 Sodium 142.4 Potassium 4.2 Chloride 99 Carbon Dioxide 30 Anion Gap 13 BUN 57 H Creatinine 2.91 H Est GFR ( Amer) 19 L Est GFR (Non-Af Amer) 16 L Glucose 134 H Calcium 8.3 L Magnesium 1.7 Iron TIBC % Saturation Ferritin Vitamin B12 Folate 11/02/17 19:35 Troponin I < 0.012 Impressions: Abdomen/Pelvis CT 11/02/17 00:00 IMPRESSION: 1. AIRSPACE DISEASE IN THE VISUALIZED RIGHT LUNG. 2. SLUDGE AND/OR STONES IN THE GALLBLADDER. 3. NO OTHER SIGNIFICANT OR ACUTE PROCESS IN THE ABDOMEN OR PELVIS. Lung Scan-VQ NM 11/02/17 00:00 IMPRESSION: Limited examination. No perfusion defects are identified. No evidence of PE. Head CT 11/02/17 13:59 IMPRESSION: NORMAL BRAIN CT WITHOUT CONTRAST. EVIDENCE OF ACUTE STROKE: NO. Chest X-Ray 11/03/17 06:00 IMPRESSION: AIRSPACE DISEASE IN THE RIGHT LUNG, MORE PROMINENT IN THE RIGHT LOWER LOBE. PROBABLY DUE TO PNEUMONIA ALTHOUGH ASYMMETRIC PULMONARY EDEMA WOULD HAVE SIMILAR APPEARANCE. Assessment & Plan - Diagnosis (1) Acute CHF Qualifiers: Heart failure type: unspecified Qualified Code(s): I50.9 - Heart failure, unspecified Is this a current diagnosis for this admission?: Yes Plan: Per (2) Acute on chronic renal failure Qualifiers: Acute renal failure type: unspecified Chronic kidney disease stage: stage 4 (severe) Qualified Code(s): N17.9 - Acute kidney failure, unspecified; N18.4 - Chronic kidney disease, stage 4 (severe); N18.4 - Chronic kidney disease , stage 4 (severe); N18.4 - Chronic kidney disease, stage 4 (severe); N18.4 - Chronic kidney disease, stage 4 (severe) Is this a current diagnosis for this admission?: Yes Plan: Per Dr. Buitrago (3) Acute on chronic respiratory failure with hypoxia and hypercapnia Is this a current diagnosis for this admission?: Yes Plan: Trilogy The above patient has failed BiPAP. This patient would benefit from noninvasive mechanical ventilation via the trilogy AVAPS/AE and faster responding AVAPS rates. The trilogy is able to provide a target tidal volume and also adjusting the EPAP pressures to maintain a patent airway as well as an oral backup rate this machine will help improve PaCO2 levels. The severity of the patient's condition will lead to future hospitalizations and readmissions as well as life-threatening situations without the use of this device trilogy home vent needed for hypercapnic respiratory failure. [facility]. (4) Morbid obesity Is this a current diagnosis for this admission?: Yes Plan: Unchanged (5) Pneumonia Qualifiers: Pneumonia type: due to unspecified organism Laterality: right Lung location: unspecified part of lung Qualified Code(s): J18.9 - Pneumonia, unspecified organism Is this a current diagnosis for this admission?: Yes Plan: no + cultures
--- NOTE | 2017-11-05 14:05 | XCELERA REPORT ---
[address] [address] Transthoracic Echocardiogram Report Name: FRANCESCO PARRISH Age: 77 yrs Gender: Female : 1940 Patient Status: Inpatient Patient Location: [address] [place] [address] Study Date: 11/05/2017 10:37 AM Height: 64 in Weight: 263 lb BSA: 2.2 m2 Procedure: A complete two-dimensional transthoracic echocardiogram was performed (2D, M-mode, spectral and color flow Doppler). The study was technically difficult with many images being suboptimal in quality. Reason For Study: New CHF Ordering Physician: ALFREDA CORONADO Performed By: Josi Kimble Interpretation Summary The study was technically difficult with many images being suboptimal in quality. The left ventricular ejection fraction is normal. Doppler measurements suggest pseudonormalized left ventricular relaxation, which is associated with grade II/IV or mild to moderate diastolic dysfunction There is mild concentric left ventricular hypertrophy. The left ventricle is grossly normal size. Wall motion cannot be accurately commented on, but no definite regional wall motion abnormalities noted. The right ventricular systolic function is borderline reduced. The right ventricle is mildly dilated. The right atrium is mildly dilated. The left atrial size is normal. There is a trace amount of mitral regurgitation There is no mitral valve stenosis. No aortic regurgitation is present. There is no aortic valve stenosis There is a trace to mild amount of tricuspid regurgitation There is mild pulmonary hypertension by echo Best estimated RVSP is approximately 40 mm/Hg. The aortic root is not well visualized. The inferior vena cava was not well visualized There is no pericardial effusion. MMode/2D Measurements & Calculations RVDd: 2.2 cm LVIDd: 4.5 cm FS: 37.5 % Ao root diam: 2.8 cm IVSd: 1.2 cm LVIDs: 2.8 cm EDV(Teich): 93.7 ml LVPWd: 1.2 cm ESV(Teich): 30.3 ml Ao root area: 6.4 cm2 EF(Teich): 67.7 % LA dimension: 2.9 cm LVOT diam: 2.0 cm LVOT area: 3.1 cm2 Doppler Measurements & Calculations MV E max jen: MV P1/2t max jen: Ao V2 max: LV V1 max P.5 cm/sec 112.5 cm/sec 180.5 cm/sec 5.6 mmHg MV A max jen: MV P1/2t: 72.5 msec Ao max PG: LV V1 max: 125.9 cm/sec MVA(P1/2t): 3.0 cm2 13.0 mmHg 118.0 cm/sec MV E/A: 0.90 MV dec slope: DANNY(V,D): 2.1 cm2 454.6 cm/sec2 PA V2 max: TR max jen: 90.3 cm/sec 272.8 cm/sec PA max PG: TR max P.8 mmHg 3.3 mmHg Left Ventricle The left ventricle is grossly normal size. There is mild concentric left ventricular hypertrophy. The left ventricular ejection fraction is normal. Doppler measurements suggest pseudonormalized left ventricular relaxation, which is associated with grade II/IV or mild to moderate diastolic dysfunction. Wall motion cannot be accurately commented on, but no definite regional wall motion abnormalities noted. Right Ventricle The right ventricle is mildly dilated. The right ventricular systolic function is borderline reduced. Atria The right atrium is mildly dilated. The left atrial size is normal. Interarterial septum not well visualized and not well dopplered. Cannot comment on ASD/PFO presence. Mitral Valve The mitral valve is grossly normal. There is no mitral valve stenosis. There is a trace amount of mitral regurgitation. Aortic Valve The aortic valve is not well visualized secondary to technical limitations. There is no aortic valve stenosis. No aortic regurgitation is present. Tricuspid Valve The tricuspid valve is not well visualized, but is grossly normal. There is no tricuspid stenosis. There is a trace to mild amount of tricuspid regurgitation. There is mild pulmonary hypertension by echo. Best estimated RVSP is approximately 40 mm/Hg. Pulmonic Valve The pulmonic valve is not well visualized. Great Vessels The aortic root is not well visualized. The inferior vena cava was not well visualized. Effusions There is no pericardial effusion. : ALFREDA CORONADO > Ariana Montoya
[2017-11-05 14:12] LABS: ANION GAP 17 (5-19); BLOOD UREA NITROGEN 79 mg/dL (7-20); CALCIUM 8.5 mg/dL (8.4-10.2); CARBON DIOXIDE 26 mmol/L (22-30); CHLORIDE 96 mmol/L (98-107); GLUCOSE 226 mg/dL (75-110); POTASSIUM 4.1 mmol/L (3.6-5.0); SODIUM 138.5 mmol/L (137-145)
--- NOTE | 2017-11-05 17:09 | PDOC PROGRESS REPORT ---
Subjective Progress Note for:: 11/05/17 Subjective:: Patient seems to be clinically stable. She was sleeping with a BiPAP when I entered the room but she woke up and answered questions. She did not have any complaints and claims that her breathing is better. She is incontinent so she has a diaper so were unable to quantify her urine output accurately. She continues to be on Lasix drip. She is starting to become hypotensive with the most recent blood pressure being low. Reason For Visit: AK I and CKD Physical Exam Vital Signs: Temp Pulse Resp BP Pulse Ox 97.9 F 71 20 96/52 L 98 11/05/17 15:43 11/05/17 15:43 11/05/17 16:36 11/05/17 15:43 11/05/17 16:36 Pulse Oximeter Continuous Start: 11/04/17 13: 05 Freq: RTQ4 Status: Active Document 11/05/17 16:36 JDR (Rec: 11/05/17 16:38 JDR [email or web address]) Pulse Oximetry Assessment Oxygen Saturation (92-100) 98 Oxygen Delivery Method AVAP Fraction of Inspired Oxygen (FIO2) 35 Equipment Usage Equipment in Use Continuous SpO2 Machine # 1 Additional RT Notes Other avaps tv 450 minp 10 max 9 30 peep 5 Intake & Output 11/04/17 11/05/17 11/06/17 06:59 06:59 06:59 Intake Total 1688 1866 236 Balance 1688 1866 236 Weight 111.3 kg 110.9 kg Exam: General appearance: PRESENT: no acute distress, cooperative, well-developed, well-nourished, wearing BiPAP while sleeping Head exam: PRESENT: atraumatic, normocephalic Eye exam: PRESENT: conjunctiva pale, PERRLA. ABSENT: scleral icterus Neck exam: ABSENT: JVD Respiratory exam: PRESENT: Diminished breath sounds. ABSENT: crackles, rales, rhonchi, unlabored, wheezes Cardiovascular exam: PRESENT: Regular rate rhythm -+S1, +S2. ABSENT: diastolic murmur, systolic murmur GI/Abdominal exam: PRESENT: normal bowel sounds, soft. ABSENT: guarding, mass, tenderness Extremities exam: ABSENT: No edema Neurological exam: PRESENT: Initially asleep but woke up, oriented to person, place and time. Skin exam: PRESENT: dry, warm, Results Laboratory Results: 11/04/17 07:05 11/05/17 13:35 11/03/17 11/05/17 07:03 13:35 Sodium 138.5 Potassium 4.1 Chloride 96 L Carbon Dioxide 26 Anion Gap 17 BUN 79 H Creatinine 3.36 H Est GFR ( Amer) 16 L Est GFR (Non-Af Amer) 13 L Glucose 226 H Calcium 8.5 Transferrin 151 L 11/02/17 19:35 Troponin I < 0.012 Impressions: Abdomen/Pelvis CT 11/02/17 00:00 IMPRESSION: 1. AIRSPACE DISEASE IN THE VISUALIZED RIGHT LUNG. 2. SLUDGE AND/OR STONES IN THE GALLBLADDER. 3. NO OTHER SIGNIFICANT OR ACUTE PROCESS IN THE ABDOMEN OR PELVIS. Lung Scan-VQ NM 11/02/17 00:00 IMPRESSION: Limited examination. No perfusion defects are identified. No evidence of PE. Head CT 11/02/17 13:59 IMPRESSION: NORMAL BRAIN CT WITHOUT CONTRAST. EVIDENCE OF ACUTE STROKE: NO. Chest X-Ray 11/03/17 06:00 IMPRESSION: AIRSPACE DISEASE IN THE RIGHT LUNG, MORE PROMINENT IN THE RIGHT LOWER LOBE. PROBABLY DUE TO PNEUMONIA ALTHOUGH ASYMMETRIC PULMONARY EDEMA WOULD HAVE SIMILAR APPEARANCE. Assessment & Plan - Diagnosis (1) Acute renal failure superimposed on stage 3 chronic kidney disease Is this a current diagnosis for this admission?: Yes Plan: This is secondary to acute prerenal factors including acute congestive heart failure. Patient does not have any proteinuria or microalbuminuria. There was no hypotension no other nephrotoxic medications. No obstruction on CT scan. Currently kidney function is getting progressively worse. However I agree with some diuresis. Chest x-ray seems to be improving so I believe that the right lung infiltrates is partly due to pulmonary congestion. Continue to monitor kidney function and avoid nephrotoxic medications. Currently the patient does not need any acute renal replacement therapy. Her kidney function continues to get worse today. Uncertain as to her volume status because of her being incontinent, no Fermin catheter and being heavyset. Her echocardiogram indicated normal left ventricular ejection fraction, mild to moderate diastolic dysfunction but also indicate the possibility of right-sided heart failure with dilated mildly dilated right atrium and right ventricle. I think we cannot diurese her too much due to the possibility of right heart failure. The hypertension clearly does not help either. I would stop her Lasix drip and change it to an intermittent dose Lasix. We will also repeat her chest x-ray. I discussed this with about Dr. Domingo and Dr. Montoya who agreed with the plan. (2) Acute CHF Qualifiers: Heart failure type: unspecified Qualified Code(s): I50.9 - Heart failure, unspecified Is this a current diagnosis for this admission?: Yes Plan: Cardiology in consult. As mentioned above she has a combination of diastolic dysfunction as well as possibility of right-sided heart failure in a patient with COPD, obstructive sleep apnea, and obesity. (3) Acute on chronic respiratory failure with hypoxia and hypercapnia Is this a current diagnosis for this admission?: Yes (4) Pneumonia Qualifiers: Pneumonia type: due to unspecified organism Laterality: right Lung location: unspecified part of lung Qualified Code(s): J18.9 - Pneumonia, unspecified organism Is this a current diagnosis for this admission?: Yes Plan: This cannot be ruled out due to the asymmetric right lung infiltrates which is unusual for just pulmonary congestion. Patient currently on antibiotics. (5) Iron deficiency anemia Is this a current diagnosis for this admission?: Yes Plan: We will give iron supplement. I will give her a dose of IV Feraheme today. (6) Anemia in chronic illness Is this a current diagnosis for this admission?: Yes (7) Hypocalcemia Is this a current diagnosis for this admission?: Yes Plan: Resolved. (8) Morbid obesity Is this a current diagnosis for this admission?: Yes - Notes Notes: Plan discussed with both Dr. Domingo and Dr. Montoya. - Time Time with patient: Greater than 35 minutes
[2017-11-05] MEDS ORDERED: DEXTROSE 5% IV SCH (17:30)
[2017-11-05] MEDS ORDERED: WATER IV SCH (17:30)
[2017-11-05] MEDS ORDERED: CEFEPIME HCL IV SCH (17:30)
[2017-11-05] MEDS: AZITHROMYCIN 500 MG in DEXTROSE 5%-WATER 250 ML IV SCH (17:45)
[2017-11-05] MEDS: ATORVASTATIN CALCIUM 40 MG TABLET PO SCH (17:48)
[2017-11-05] MEDS ORDERED: CEFEPIME HCL 2 GM in DEXTROSE 5%-WATER 100 ML IV SCH (18:00)
--- NOTE | 2017-11-05 19:42 | PDOC PROGRESS REPORT ---
Subjective Progress Note for:: 11/05/17 Subjective:: Patient sitting up in bed. Patient has spent at bedside. Patient significantly improved since admission. Patient doing much better. She is much more alert. Pt is denying any chest arm or neck discomfort. Patient denying any PND, orthopnea. Patient denied any sustained palpitations, dizziness, syncope, near syncope. Patient denying any fever chills. Patient denying any other significant discomfort. Patient is maintaining sinus rhythm. Review of systems: Rest review of systems negative. Medications: Medications have been reviewed. Reason For Visit: ACUTE ON CHRONIC HEART FAILURE, CIRRHOSIS Physical Exam Vital Signs: Temp Pulse Resp BP Pulse Ox 97.9 F 71 20 96/52 L 98 11/05/17 15:43 11/05/17 15:43 11/05/17 16:36 11/05/17 15:43 11/05/17 16:36 Pulse Oximeter Continuous Start: 11/04/17 13: 05 Freq: RTQ4 Status: Active Document 11/05/17 16:36 JDR (Rec: 11/05/17 16:38 JDR [email or web address]) Pulse Oximetry Assessment Oxygen Saturation (92-100) 98 Oxygen Delivery Method AVAP Fraction of Inspired Oxygen (FIO2) 35 Equipment Usage Equipment in Use Continuous SpO2 Machine # 1 Additional RT Notes Other avaps tv 450 minp 10 max 9 30 peep 5 Intake & Output 11/04/17 11/05/17 11/06/17 06:59 06:59 06:59 Intake Total 1688 1866 823 Balance 1688 1866 823 Weight 111.3 kg 110.9 kg Exam: GENERAL: well-nourished and in no acute distress. Alert and oriented x3 HEAD: Atraumatic, normocephalic. EYES: Pupils equal round and reactive to light, extraocular movements intact, sclera anicteric, conjunctiva are normal. ENT: TMs normal, nares patent, oropharynx clear without exudates. Moist mucous membranes. No oral ulcerations or bleeding gums noted NECK: supple without lymphadenopathy. Trachea is central. No cervical or axillary lymphadenopathy noted. Carotids are 2+, JVD 8 cm LUNGS: Respiration seems nonlabored, no significant accessory muscle action noted. Few bibasilar crackles noted. No wheezes rales or rhonchi noted. No significant dullness noted on percussion. CHEST: Palpation of the chest wall shows no significant chest wall tenderness. No other significant abnormalities noted. 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 ABDOMEN: Soft, no significant tenderness appreciated, normoactive bowel sounds. No guarding, no rebound. No rigidity noted . No masses appreciated. EXTREMITIES: Pedal pulses are 1-2+, no calf tenderness noted. No clubbing or cyanosis. 1+ pedal edema noted NEUROLOGICAL: Focused neurological exam showed no significant neurologic deficit. Normal speech, no focal weakness appreciated. PSYCH: Normal mood, normal affect. Judgment and insight within normal limits. SKIN: No significant ecchymosis, rash, ulcerations or signs of pruritus noted. MUSCULOSKELETAL EXAM: No significant joint swelling noted. Results Laboratory Results: 11/04/17 07:05 11/05/17 13:35 11/03/17 11/05/17 07:03 13:35 Sodium 138.5 Potassium 4.1 Chloride 96 L Carbon Dioxide 26 Anion Gap 17 BUN 79 H Creatinine 3.36 H Est GFR ( Amer) 16 L Est GFR (Non-Af Amer) 13 L Glucose 226 H Calcium 8.5 Transferrin 151 L 11/02/17 19:35 Troponin I < 0.012 EKG Comments: Sinus rhythm without any sustained tacky or bradycardia arrhythmias. Impressions: Abdomen/Pelvis CT 11/02/17 00:00 IMPRESSION: 1. AIRSPACE DISEASE IN THE VISUALIZED RIGHT LUNG. 2. SLUDGE AND/OR STONES IN THE GALLBLADDER. 3. NO OTHER SIGNIFICANT OR ACUTE PROCESS IN THE ABDOMEN OR PELVIS. Lung Scan-VQ IA 11/02/17 00:00 IMPRESSION: Limited examination. No perfusion defects are identified. No evidence of PE. Head CT 11/02/17 13:59 IMPRESSION: NORMAL BRAIN CT WITHOUT CONTRAST. EVIDENCE OF ACUTE STROKE: NO. Chest X-Ray 11/03/17 06:00 IMPRESSION: AIRSPACE DISEASE IN THE RIGHT LUNG, MORE PROMINENT IN THE RIGHT LOWER LOBE. PROBABLY DUE TO PNEUMONIA ALTHOUGH ASYMMETRIC PULMONARY EDEMA WOULD HAVE SIMILAR APPEARANCE. Assessment & Plan - Diagnosis (1) Acute CHF Qualifiers: Heart failure type: unspecified Qualified Code(s): I50.9 - Heart failure, unspecified Is this a current diagnosis for this admission?: Yes (2) Acute and chronic respiratory failure with hypoxia Is this a current diagnosis for this admission?: Yes (3) Acute on chronic renal failure Qualifiers: Acute renal failure type: unspecified Chronic kidney disease stage: stage 4 (severe) Qualified Code(s): N17.9 - Acute kidney failure, unspecified; N18.4 - Chronic kidney disease, stage 4 (severe); N18.4 - Chronic kidney disease , stage 4 (severe); N18.4 - Chronic kidney disease, stage 4 (severe); N18.4 - Chronic kidney disease, stage 4 (severe) Is this a current diagnosis for this admission?: Yes (4) Pneumonia Qualifiers: Pneumonia type: due to unspecified organism Laterality: right Lung location: unspecified part of lung Qualified Code(s): J18.9 - Pneumonia, unspecified organism Is this a current diagnosis for this admission?: Yes - Notes Notes: Patient seems significantly improved. Continue current management plans. 2D echo reviewed. It shows normal LVEF, RV is mild to moderately enlarged with mild to moderate pulmonary hypertension. Congestive heart failure: Most likely acute on chronic CHF secondary to right- sided heart failure and contribution from diastolic dysfunctionPatient may have significant element of right heart failure as well. At this point continue diuretics. Diuretic dose may need to be adjusted according to response. Monitor renal functions. Acute on chronic respiratory failure with hypoxemia: Patient most likely have element of obesity hypoventilation syndrome and also sleep apnea syndrome. Currently being noted to have pneumonia as well as CHF as aggravating factors for her respiratory failure. This has improved. Continue intermittent bilevel therapy along with oxygen supplementation. Acute on chronic renal failure: Currently stable. Nephrology has evaluated the patient. Pneumonia: Continue with antibiotic therapy. Obesity: Patient will benefit from gradual weight loss. This can be tackled as an outpatient General debility: Patient will benefit from OT PT assessment and involvement. - Time Time with patient: Greater than 35 minutes - CODE STATUS was discussed, patient remains full code. Surrogate decision-maker unchanged. Multiple medical problems were addressed. More than 50% of the time spent coordinating care, discussing management plans with involved caregivers. Management plans discussed with involved personnels. Medical decision making was of moderate to high complexity, patient's has multiple comorbidities. Medications reviewed and adjusted accordingly: Yes
[2017-11-05] MEDS ORDERED: FERUMOXYTOL 510 MG in NORMAL SALINE 100 ML IV ONE (21:00)
--- NOTE | 2017-11-05 21:34 | RADIOLOGY REPORT (SQ) ---
EXAM DESCRIPTION: CHEST SINGLE VIEW COMPLETED DATE/TIME: 11/05/2017 9:22 pm REASON FOR STUDY: pneumonia COMPARISON: 211 NUMBER OF VIEWS: One view. TECHNIQUE: Single frontal radiographic view of the chest acquired. LIMITATIONS: None. FINDINGS: LUNGS AND PLEURA: No opacities, masses or pneumothorax. No pleural effusion. Right opacit y resolved. MEDIASTINUM AND HILAR STRUCTURES: No masses or contour abnormality. HEART AND VASCULATURE: Cardiac enlargement. Vascular congestion. BONES: No acute findings. HARDWARE: None in the chest. OTHER: No other significant finding. IMPRESSION: CARDIAC ENLARGEMENT. VASCULAR CONGESTION. Resolution of the right lung opacity. TECHNICAL DOCUMENTATION: JOB ID: [id number] [employer]- All Rights Reserved
[2017-11-05] MEDS: MONTELUKAST SODIUM 10 MG TABLET PO SCH (22:23)
[2017-11-05] MEDS: CEFEPIME 1 GM/D5W RTU 1 GM/50 ML RTUPB IV SCH (22:23)
[2017-11-06] MEDS: HEPARIN SOD (PORCINE) 5,000 UNIT/ML 1 ML SYRINGE SUBCUT SCH ×3 (05:06→21:19)
[2017-11-06] MEDS: GUAIFENESIN 600 MG TABLET.SA PO SCH ×2 (05:06→18:08)
[2017-11-06] MEDS: METHYLPREDNISOLONE INJ 40 MG/1 ML SDV IV SCH ×3 (05:06→21:20)
[2017-11-06 06:00] LABS: ABSOLUTE BASOPHILS # (AUTO) 0.1 10^3/uL (0.0-0.2); ABSOLUTE LYMPHOCYTES (AUTO) 0.8 10^3/uL (0.5-4.7); ABSOLUTE MONOCYTES (AUTO) 0.7 10^3/uL (0.1-1.4); ABSOLUTE NEUT (AUTO) 12.6 10^3/uL (1.7-8.2); BASOPHILS % (AUTO) 0.5 % (0-2); EOSINOPHILS % (AUTO) 0.1 % (0-6); HEMATOCRIT 27.9 % (36.0-47.0); HEMOGLOBIN 8.7 g/dL (12.0-15.5); LYMPHOCYTES % (AUTO) 5.9 % (13-45); MEAN CORPUSCULAR HEMOGLOBIN 29.1 pg (27.0-33.4); MEAN CORPUSCULAR HGB CONC 31.4 g/dL (32.0-36.0); MEAN CORPUSCULAR VOLUME 93 fl (80-97); MONOCYTES % (AUTO) 4.8 % (3-13); PLATELET COUNT 168 10^3/uL (150-450); RED CELL DISTRIBUTION WIDTH 16.8 % (11.5-14.0); SEGMENTED NEUTROPHILS % (AUTO) 88.7 % (42-78); TOTAL CELLS COUNTED % (AUTO) 100 %; WHITE BLOOD COUNT 14.2 10^3/uL (4.0-10.5)
[2017-11-06 06:09] LABS: ANION GAP 18 (5-19); BLOOD UREA NITROGEN 98 mg/dL (7-20); CALCIUM 8.3 mg/dL (8.4-10.2); CARBON DIOXIDE 24 mmol/L (22-30); CHLORIDE 93 mmol/L (98-107); GLUCOSE 227 mg/dL (75-110); POTASSIUM 4.7 mmol/L (3.6-5.0); SODIUM 135.4 mmol/L (137-145)
[2017-11-06] MEDS ORDERED: BUMETANIDE 1 MG TABLET PO SCH (10:00)
[2017-11-06] MEDS: INSULIN LISPRO 100 UNIT/ML 3 ML VIAL SUBCUT PRN ×4 (10:45→22:23)
[2017-11-06] MEDS: FLUOXETINE HCL 20 MG CAPSULE PO SCH (10:46)
[2017-11-06] MEDS: TEMAZEPAM 15 MG CAPSULE PO SCH ×4 (10:47→21:20)
[2017-11-06] MEDS: LORATADINE 10 MG TABLET PO SCH (10:47)
[2017-11-06] MEDS: HYDROXYZINE PAMOATE 25 MG CAPSULE PO SCH ×2 (10:47→18:07)
[2017-11-06] MEDS: ASPIRIN 81 MG TABLET, CHEWABLE PO SCH (10:47)
[2017-11-06] MEDS: DOCUSATE SODIUM 100 MG CAPSULE PO SCH ×2 (10:48→18:07)
[2017-11-06] MEDS: ATENOLOL 50 MG TABLET PO SCH (10:49)
[2017-11-06] MEDS: FLUTICASONE NASAL SPRAY 50 MCG/SPRY 120 SPRAY/16 GM NASL SCH ×2 (10:49→21:21)
--- NOTE | 2017-11-06 17:04 | PDOC PROGRESS REPORT ---
Subjective Progress Note for:: 11/06/17 Subjective:: Patient looks good today and denies any shortness of breath telling me that her breathing is better. The only complaint is she have his constipation. She is on nasal cannula when she is awake and worse the BiPAP while sleeping. Patient could not tell me if she is actually making urine but she tells me the last time her diaper was checked it was dry. Nurse told me that she did void but this is the first time or changing her diaper for the day. Reason For Visit: ACUTE ON CHRONIC kidney disease Physical Exam Vital Signs: Temp Pulse Resp BP Pulse Ox 97.9 F 73 14 117/53 L 95 11/06/17 15:02 11/06/17 15:02 11/06/17 15:02 11/06/17 15:02 11/06/17 16:48 Pulse Oximeter Continuous Start: 11/04/17 13: 05 Freq: RTQ4 Status: Active Document 11/06/17 16:48 HCR (Rec: 11/06/17 16:50 HCR [email or web address]) Pulse Oximetry Assessment Oxygen Saturation (92-100) 95 Oxygen Flow Rate (L/min) 2 Oxygen Delivery Method Nasal Cannula Equipment Usage Equipment in Use Continuous SpO2 Machine # 1 Intake & Output 11/05/17 11/06/17 11/07/17 06:59 06:59 06:59 Intake Total 1866 1447 Balance 1866 1447 Weight 110.9 kg 112.6 kg Exam: General appearance: PRESENT: no acute distress, cooperative, well-developed, well-nourished Head exam: PRESENT: atraumatic, normocephalic Eye exam: PRESENT: conjunctiva pale, PERRLA. ABSENT: scleral icterus Neck exam: ABSENT: JVD Respiratory exam: PRESENT: Diminished breath sounds. ABSENT: crackles, rales, rhonchi, unlabored, wheezes Cardiovascular exam: PRESENT: Regular rate rhythm -+S1, +S2. ABSENT: diastolic murmur, systolic murmur GI/Abdominal exam: PRESENT: normal bowel sounds, soft. ABSENT: guarding, mass, tenderness Extremities exam: ABSENT: No edema Neurological exam: PRESENT: alert, awake, oriented to person, place and time. Skin exam: PRESENT: dry, warm, Results Laboratory Results: 11/06/17 05:21 11/06/17 05:21 11/06/17 11/06/17 05:21 05:21 WBC 14.2 H RBC 3.00 L Hgb 8.7 L Hct 27.9 L MCV 93 MCH 29.1 MCHC 31.4 L RDW 16.8 H Plt Count 168 Seg Neutrophils % 88.7 H Lymphocytes % 5.9 L Monocytes % 4.8 Eosinophils % 0.1 Basophils % 0.5 Absolute Neutrophils 12.6 H Absolute Lymphocytes 0.8 Absolute Monocytes 0.7 Absolute Eosinophils 0.0 Absolute Basophils 0.1 Sodium 135.4 L Potassium 4.7 Chloride 93 L Carbon Dioxide 24 Anion Gap 18 BUN 98 H Creatinine 4.41 H Est GFR ( Amer) 12 L Est GFR (Non-Af Amer) 10 L Glucose 227 H Calcium 8.3 L 11/02/17 19:35 Troponin I < 0.012 Impressions: Abdomen/Pelvis CT 11/02/17 00:00 IMPRESSION: 1. AIRSPACE DISEASE IN THE VISUALIZED RIGHT LUNG. 2. SLUDGE AND/OR STONES IN THE GALLBLADDER. 3. NO OTHER SIGNIFICANT OR ACUTE PROCESS IN THE ABDOMEN OR PELVIS. Lung Scan-VQ NM 11/02/17 00:00 IMPRESSION: Limited examination. No perfusion defects are identified. No evidence of PE. Head CT 11/02/17 13:59 IMPRESSION: NORMAL BRAIN CT WITHOUT CONTRAST. EVIDENCE OF ACUTE STROKE: NO. Chest X-Ray 11/05/17 00:00 IMPRESSION: CARDIAC ENLARGEMENT. VASCULAR CONGESTION. Resolution of the right lung opacity. Assessment & Plan - Diagnosis (1) Acute renal failure superimposed on stage 3 chronic kidney disease Is this a current diagnosis for this admission?: Yes Plan: This is secondary to acute prerenal factors including acute congestive heart failure. Patient does not have any proteinuria or microalbuminuria. There was no hypotension no other nephrotoxic medications. No obstruction on CT scan. Currently kidney function is getting progressively worse. However I agree with some diuresis. Chest x-ray seems to be improving so I believe that the right lung infiltrates is partly due to pulmonary congestion. Continue to monitor kidney function and avoid nephrotoxic medications. Currently the patient does not need any acute renal replacement therapy. Her kidney function continues to get worse today. Uncertain as to her volume status because of her being incontinent, no Fermin catheter and being heavyset. Her echocardiogram indicated normal left ventricular ejection fraction, mild to moderate diastolic dysfunction but also indicate the possibility of right-sided heart failure with dilated mildly dilated right atrium and right ventricle. I think we cannot diurese her too much due to the possibility of right heart failure. The hypotension clearly does not help either. Blood pressure is a little bit better today. Since the patient does not seem to be urinating too much on the current dose of Bumex I will change it to 2 mg twice daily. I also spoke to the patient today about possibility of requiring renal replacement therapy in the form of acute hemodialysis if her kidney function continues to get worse in the next 24-48 hours. She indicated that if needed she is agreeable to proceed and do dialysis. I will reevaluate her tomorrow and decide if she would need dialysis treatment or not. Her repeat chest x-ray yesterday showed resolved pulmonary congestion. (2) Acute CHF Qualifiers: Heart failure type: unspecified Qualified Code(s): I50.9 - Heart failure, unspecified Is this a current diagnosis for this admission?: Yes Plan: Cardiology in consult. As mentioned above she has a combination of diastolic dysfunction as well as possibility of right-sided heart failure in a patient with COPD, obstructive sleep apnea, and obesity. (3) Acute on chronic respiratory failure with hypoxia and hypercapnia Is this a current diagnosis for this admission?: Yes (4) Pneumonia Qualifiers: Pneumonia type: due to unspecified organism Laterality: right Lung location: unspecified part of lung Qualified Code(s): J18.9 - Pneumonia, unspecified organism Is this a current diagnosis for this admission?: Yes Plan: This cannot be ruled out due to the asymmetric right lung infiltrates which is unusual for just pulmonary congestion. Patient currently on antibiotics. Repeat chest x-ray showed complete resolution of the opacity in the right lung field suggesting that this could all be pulmonary congestion without any pneumonia. (5) Iron deficiency anemia Is this a current diagnosis for this admission?: Yes Plan: We will give iron supplement. I gave her a dose of IV Feraheme Saturday. (6) Anemia in chronic illness Is this a current diagnosis for this admission?: Yes (7) Hypocalcemia Is this a current diagnosis for this admission?: Yes Plan: Borderline. (8) Morbid obesity Is this a current diagnosis for this admission?: Yes - Time Time with patient: 15-25 minutes
--- NOTE | 2017-11-06 18:01 | PDOC PROGRESS REPORT ---
Subjective Progress Note for:: 11/06/17 Subjective:: Patient is seen on rounds. She is resting in bed. She states she is feeling better. She denies any chest pain or palpitations. She denies any dyspnea. She denies any nausea, vomiting or diarrhea.Patient looks good today and denies any shortness of breath telling me that her breathing is better. The only complaint is she have his constipation. She is on nasal cannula when she is awake and worse the BiPAP while sleeping. Patient could not tell me if she is actually making urine but she tells me the last time her diaper was checked it was dry. Remaining review of systems are negative Reason For Visit: ACUTE ON CHRONIC HEART FAILURE, CIRRHOSIS Physical Exam Vital Signs: Temp Pulse Resp BP Pulse Ox 97.9 F 73 14 117/53 L 95 11/06/17 15:02 11/06/17 15:02 11/06/17 15:02 11/06/17 15:02 11/06/17 16:48 Pulse Oximeter Continuous Start: 11/04/17 13: 05 Freq: RTQ4 Status: Active Document 11/06/17 16:48 HCR (Rec: 11/06/17 16:50 HCR [email or web address]) Pulse Oximetry Assessment Oxygen Saturation (92-100) 95 Oxygen Flow Rate (L/min) 2 Oxygen Delivery Method Nasal Cannula Equipment Usage Equipment in Use Continuous SpO2 Machine # 1 Intake & Output 11/05/17 11/06/17 11/07/17 06:59 06:59 06:59 Intake Total 1866 1447 Balance 1866 1447 Weight 110.9 kg 112.6 kg General appearance: PRESENT: no acute distress, well-developed, well-nourished Head exam: PRESENT: atraumatic, normocephalic Eye exam: PRESENT: conjunctiva pink, EOMI, PERRLA. ABSENT: scleral icterus Ear exam: PRESENT: normal external ear exam Mouth exam: PRESENT: moist, tongue midline Neck exam: ABSENT: carotid bruit, JVD, lymphadenopathy, thyromegaly Respiratory exam: PRESENT: rhonchi, symmetrical, unlabored Cardiovascular exam: PRESENT: RRR, +S1, systolic murmur. ABSENT: diastolic murmur, rubs Pulses: PRESENT: normal dorsalis pedis pul Vascular exam: PRESENT: normal capillary refill GI/Abdominal exam: PRESENT: normal bowel sounds, soft. ABSENT: distended, guarding, mass, organolmegaly, rebound, tenderness Rectal exam: PRESENT: deferred Extremities exam: PRESENT: full ROM, +1 edema Musculoskeletal exam: PRESENT: ambulatory, full ROM Neurological exam: PRESENT: alert, awake, oriented to person, oriented to place , oriented to time, oriented to situation, CN II-XII grossly intact. ABSENT: motor sensory deficit Psychiatric exam: PRESENT: flat affect Skin exam: PRESENT: dry, intact, warm. ABSENT: cyanosis, rash Results Laboratory Results: 11/06/17 05:21 11/06/17 05:21 11/06/17 11/06/17 05:21 05:21 WBC 14.2 H RBC 3.00 L Hgb 8.7 L Hct 27.9 L MCV 93 MCH 29.1 MCHC 31.4 L RDW 16.8 H Plt Count 168 Seg Neutrophils % 88.7 H Lymphocytes % 5.9 L Monocytes % 4.8 Eosinophils % 0.1 Basophils % 0.5 Absolute Neutrophils 12.6 H Absolute Lymphocytes 0.8 Absolute Monocytes 0.7 Absolute Eosinophils 0.0 Absolute Basophils 0.1 Sodium 135.4 L Potassium 4.7 Chloride 93 L Carbon Dioxide 24 Anion Gap 18 BUN 98 H Creatinine 4.41 H Est GFR ( Amer) 12 L Est GFR (Non-Af Amer) 10 L Glucose 227 H Calcium 8.3 L 11/02/17 19:35 Troponin I < 0.012 Impressions: Abdomen/Pelvis CT 11/02/17 00:00 IMPRESSION: 1. AIRSPACE DISEASE IN THE VISUALIZED RIGHT LUNG. 2. SLUDGE AND/OR STONES IN THE GALLBLADDER. 3. NO OTHER SIGNIFICANT OR ACUTE PROCESS IN THE ABDOMEN OR PELVIS. Lung Scan-VQ NM 11/02/17 00:00 IMPRESSION: Limited examination. No perfusion defects are identified. No evidence of PE. Head CT 11/02/17 13:59 IMPRESSION: NORMAL BRAIN CT WITHOUT CONTRAST. EVIDENCE OF ACUTE STROKE: NO. Chest X-Ray 11/05/17 00:00 IMPRESSION: CARDIAC ENLARGEMENT. VASCULAR CONGESTION. Resolution of the right lung opacity. Assessment & Plan - Diagnosis (1) Acute CHF Qualifiers: Heart failure type: unspecified Qualified Code(s): I50.9 - Heart failure, unspecified Is this a current diagnosis for this admission?: Yes Plan: Cardiology is following management per Dr Montoya (2) Acute on chronic respiratory failure with hypoxia and hypercapnia Is this a current diagnosis for this admission?: Yes Plan: Improving. She needs to increase activity (3) Acute renal failure superimposed on stage 3 chronic kidney disease Is this a current diagnosis for this admission?: Yes Plan: Dr Buitrago is following for nephrology. BUN/CR bumped up today (4) Anemia in chronic illness Is this a current diagnosis for this admission?: Yes Plan: Stable (5) Hypocalcemia Is this a current diagnosis for this admission?: Yes Plan: Replete and monitor (6) Iron deficiency anemia Is this a current diagnosis for this admission?: Yes Plan: Stable (7) Morbid obesity Is this a current diagnosis for this admission?: Yes Plan: Counseled - Time Time Spent with patient: 25-34 minutes Medications reviewed and adjusted accordingly: Yes
[2017-11-06] MEDS: ATORVASTATIN CALCIUM 40 MG TABLET PO SCH (18:07)
[2017-11-06] MEDS: AZITHROMYCIN 500 MG in DEXTROSE 5%-WATER 250 ML IV SCH (18:08)
[2017-11-06] MEDS ORDERED: BUMETANIDE 1 MG TABLET PO ONE (19:00)
[2017-11-06] MEDS ORDERED: POLYETHYLENE GLYCOL 3350 POWDER 17 GM/1 PACKET PO ONE (19:00)
--- NOTE | 2017-11-06 19:54 | PDOC PROGRESS REPORT ---
Subjective Progress Note for:: 11/06/17 Subjective:: Patient sitting up in bed. Patient significantly improved since admission. Patient doing much better. Pt is denying any chest arm or neck discomfort. Patient denying any PND, orthopnea. Patient denied any sustained palpitations, dizziness, syncope, near syncope. Patient denying any fever chills. Patient denying any other significant discomfort. Patient is maintaining sinus rhythm. Review of systems: Rest review of systems negative. Medications: Medications have been reviewed. Reason For Visit: ACUTE ON CHRONIC HEART FAILURE, CIRRHOSIS Physical Exam Vital Signs: Temp Pulse Resp BP Pulse Ox 97.9 F 73 14 117/53 L 95 11/06/17 15:02 11/06/17 15:02 11/06/17 15:02 11/06/17 15:02 11/06/17 16:48 Pulse Oximeter Continuous Start: 11/04/17 13: 05 Freq: RTQ4 Status: Active Document 11/06/17 16:48 HCR (Rec: 11/06/17 16:50 HCR [email or web address]) Pulse Oximetry Assessment Oxygen Saturation (92-100) 95 Oxygen Flow Rate (L/min) 2 Oxygen Delivery Method Nasal Cannula Equipment Usage Equipment in Use Continuous SpO2 Machine # 1 Intake & Output 11/05/17 11/06/17 11/07/17 06:59 06:59 06:59 Intake Total 1866 1447 Balance 1866 1447 Weight 110.9 kg 112.6 kg Exam: GENERAL: well-nourished and in no acute distress. Alert and oriented x3 HEAD: Atraumatic, normocephalic. EYES: Pupils equal round and reactive to light, extraocular movements intact, sclera anicteric, conjunctiva are normal. ENT: TMs normal, nares patent, oropharynx clear without exudates. Moist mucous membranes. No oral ulcerations or bleeding gums noted NECK: supple without lymphadenopathy. Trachea is central. No cervical or axillary lymphadenopathy noted. Carotids are 2+, JVD WNL LUNGS: Respiration seems nonlabored, no significant accessory muscle action noted. Breath sounds clear to auscultation bilaterally and equal noted. No wheezes rales or rhonchi noted. No significant dullness noted on percussion. CHEST: Palpation of the chest wall shows no significant chest wall tenderness. No other significant abnormalities noted. 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 ABDOMEN: Soft, no significant tenderness appreciated, normoactive bowel sounds. No guarding, no rebound. No rigidity noted . No masses appreciated. EXTREMITIES: Pedal pulses are 1-2+, no calf tenderness noted. No clubbing or cyanosis.trace to 1+ pedal edema noted NEUROLOGICAL: Focused neurological exam showed no significant neurologic deficit. Normal speech, no focal weakness appreciated. PSYCH: Normal mood, normal affect. Judgment and insight within normal limits. SKIN: No significant ecchymosis, rash, ulcerations or signs of pruritus noted. MUSCULOSKELETAL EXAM: No significant joint swelling noted. Results Laboratory Results: 11/06/17 05:21 11/06/17 05:21 11/06/17 11/06/17 05:21 05:21 WBC 14.2 H RBC 3.00 L Hgb 8.7 L Hct 27.9 L MCV 93 MCH 29.1 MCHC 31.4 L RDW 16.8 H Plt Count 168 Seg Neutrophils % 88.7 H Lymphocytes % 5.9 L Monocytes % 4.8 Eosinophils % 0.1 Basophils % 0.5 Absolute Neutrophils 12.6 H Absolute Lymphocytes 0.8 Absolute Monocytes 0.7 Absolute Eosinophils 0.0 Absolute Basophils 0.1 Sodium 135.4 L Potassium 4.7 Chloride 93 L Carbon Dioxide 24 Anion Gap 18 BUN 98 H Creatinine 4.41 H Est GFR ( Amer) 12 L Est GFR (Non-Af Amer) 10 L Glucose 227 H Calcium 8.3 L 11/02/17 19:35 Troponin I < 0.012 Impressions: Abdomen/Pelvis CT 11/02/17 00:00 IMPRESSION: 1. AIRSPACE DISEASE IN THE VISUALIZED RIGHT LUNG. 2. SLUDGE AND/OR STONES IN THE GALLBLADDER. 3. NO OTHER SIGNIFICANT OR ACUTE PROCESS IN THE ABDOMEN OR PELVIS. Lung Scan-VQ NM 11/02/17 00:00 IMPRESSION: Limited examination. No perfusion defects are identified. No evidence of PE. Head CT 11/02/17 13:59 IMPRESSION: NORMAL BRAIN CT WITHOUT CONTRAST. EVIDENCE OF ACUTE STROKE: NO. Chest X-Ray 11/05/17 00:00 IMPRESSION: CARDIAC ENLARGEMENT. VASCULAR CONGESTION. Resolution of the right lung opacity. Assessment & Plan - Diagnosis (1) Acute CHF Qualifiers: Heart failure type: unspecified Qualified Code(s): I50.9 - Heart failure, unspecified Is this a current diagnosis for this admission?: Yes (2) Acute and chronic respiratory failure with hypoxia Is this a current diagnosis for this admission?: Yes (3) Acute on chronic renal failure Qualifiers: Acute renal failure type: unspecified Chronic kidney disease stage: stage 4 (severe) Qualified Code(s): N17.9 - Acute kidney failure, unspecified; N18.4 - Chronic kidney disease, stage 4 (severe); N18.4 - Chronic kidney disease , stage 4 (severe); N18.4 - Chronic kidney disease, stage 4 (severe); N18.4 - Chronic kidney disease, stage 4 (severe) Is this a current diagnosis for this admission?: Yes (4) Pneumonia Qualifiers: Pneumonia type: due to unspecified organism Laterality: right Lung location: unspecified part of lung Qualified Code(s): J18.9 - Pneumonia, unspecified organism Is this a current diagnosis for this admission?: Yes - Notes Notes: Acute CHF: Currently resolved. Continue maintenance diuretics. Acute on chronic respiratory failure with hypoxemia: Patient being followed by hazardous waste material technician. Will follow the recommendation. Acute on chronic renal failure: Nephrology following. Pneumonia: Clinically improved 2D echo results reviewed. Patient has normal LVEF but RV enlargement is noted. Patient will benefit from chronic weight loss, adequate oxygenation, treatment of suspected sleep apnea syndrome etc. - Time Time with patient: 15-25 minutes - CODE STATUS was discussed, patient remains full code. Surrogate decision-maker unchanged. Multiple medical problems were addressed. More than 50% of the time spent coordinating care, discussing management plans with involved caregivers. Management plans discussed with involved personnels. Medical decision making was of moderate to high complexity , patient's has multiple comorbidities. Medications reviewed and adjusted accordingly: Yes
[2017-11-06] MEDS: AMLODIPINE BESYLATE 5 MG TABLET PO SCH (21:19)
[2017-11-06] MEDS: MONTELUKAST SODIUM 10 MG TABLET PO SCH (21:19)
[2017-11-06] MEDS: CEFEPIME 1 GM/D5W RTU 1 GM/50 ML RTUPB IV SCH (21:20)
[2017-11-07 05:52] LABS: ABSOLUTE LYMPHOCYTES (AUTO) 0.6 10^3/uL (0.5-4.7); ABSOLUTE MONOCYTES (AUTO) 0.8 10^3/uL (0.1-1.4); ABSOLUTE NEUT (AUTO) 9.9 10^3/uL (1.7-8.2); BASOPHILS % (AUTO) 0.1 % (0-2); HEMATOCRIT 28.5 % (36.0-47.0); HEMOGLOBIN 8.9 g/dL (12.0-15.5); LYMPHOCYTES % (AUTO) 5.2 % (13-45); MEAN CORPUSCULAR HGB CONC 31.3 g/dL (32.0-36.0); MEAN CORPUSCULAR VOLUME 93 fl (80-97); MONOCYTES % (AUTO) 7.2 % (3-13); PLATELET COUNT 194 10^3/uL (150-450); RED BLOOD COUNT 3.08 10^6/uL (3.72-5.28); RED CELL DISTRIBUTION WIDTH 16.6 % (11.5-14.0); SEGMENTED NEUTROPHILS % (AUTO) 87.5 % (42-78); TOTAL CELLS COUNTED % (AUTO) 100 %; WHITE BLOOD COUNT 11.3 10^3/uL (4.0-10.5)
[2017-11-07 06:01] LABS: BLOOD UREA NITROGEN 115 mg/dL (7-20); CALCIUM 7.9 mg/dL (8.4-10.2); CARBON DIOXIDE 22 mmol/L (22-30); CHLORIDE 90 mmol/L (98-107); GLUCOSE 268 mg/dL (75-110)
[2017-11-07 06:14] LABS: SODIUM 133.7 mmol/L (137-145)
[2017-11-07 06:18] LABS: ANION GAP 22 (5-19)
[2017-11-07] MEDS: METHYLPREDNISOLONE INJ 40 MG/1 ML SDV IV SCH ×3 (06:31→22:19)
[2017-11-07] MEDS: HEPARIN SOD (PORCINE) 5,000 UNIT/ML 1 ML SYRINGE SUBCUT SCH ×3 (06:31→22:20)
[2017-11-07] MEDS: GUAIFENESIN 600 MG TABLET.SA PO SCH ×2 (06:31→19:00)
[2017-11-07] MEDS: HYDROXYZINE PAMOATE 25 MG CAPSULE PO SCH ×2 (10:30→19:00)
[2017-11-07] MEDS: DOCUSATE SODIUM 100 MG CAPSULE PO SCH ×2 (10:30→19:01)
[2017-11-07] MEDS: LORATADINE 10 MG TABLET PO SCH (10:30)
[2017-11-07] MEDS: ASPIRIN 81 MG TABLET, CHEWABLE PO SCH (10:30)
[2017-11-07] MEDS: FLUOXETINE HCL 20 MG CAPSULE PO SCH (10:30)
[2017-11-07] MEDS: FLUTICASONE NASAL SPRAY 50 MCG/SPRY 120 SPRAY/16 GM NASL SCH ×2 (10:31→22:20)
[2017-11-07] MEDS: ATENOLOL 50 MG TABLET PO SCH (10:32)
[2017-11-07] MEDS: BUMETANIDE 1 MG TABLET PO SCH ×2 (10:33→19:02)
[2017-11-07] MEDS: TEMAZEPAM 15 MG CAPSULE PO SCH ×4 (10:39→22:18)
--- NOTE | 2017-11-07 14:25 | PDOC PROGRESS REPORT ---
Subjective Progress Note for:: 11/07/17 Subjective:: The patient is resting in her bed. Her daughter is at the bedside. Dr. Buitrago is planning on dialyzing the patient tomorrow and she is going to have a try dialysis catheter placed today or early in the morning. I did discuss all of this with the patient's daughter and all of her questions were answered. Overall the patient states that she is feeling weak. She presented to the hospital with a fall. The daughter would like to have subacute rehabilitation at discharge. The patient herself is reluctant but agreeable. Overall she states her shortness of breath is somewhat improved. She denies fever chills. She has had no chest pain or heart palpitations. No nausea vomiting or diarrhea. She is not making very much urine at all. Reason For Visit: ACUTE ON CHRONIC HEART FAILURE, CIRRHOSIS Physical Exam Vital Signs: Temp Pulse Resp BP Pulse Ox 97.5 F 73 15 127/85 H 96 11/07/17 03:21 11/07/17 07:00 11/07/17 04:34 11/07/17 03:21 11/07/17 11:44 Pulse Oximeter Continuous Start: 11/04/17 13: 05 Freq: RTQ4 Status: Active Document 11/07/17 11:44 LDA (Rec: 11/07/17 11:46 LDA [email or web address]) Pulse Oximetry Assessment Oxygen Saturation (92-100) 96 Oxygen Flow Rate (L/min) 2 Oxygen Delivery Method Nasal Cannula Equipment Usage Equipment in Use Continuous SpO2 Machine # [id number] Intake & Output 11/06/17 11/07/17 11/08/17 06:59 06:59 06:59 Intake Total 1447 800 Balance 1447 800 Weight 112.6 kg 112.9 kg General appearance: PRESENT: no acute distress, obese, well-developed, well- nourished Head exam: PRESENT: atraumatic, normocephalic Mouth exam: PRESENT: moist, tongue midline Respiratory exam: PRESENT: crackles, decreased breath sounds, other - This was an anterior exam. ABSENT: rhonchi, wheezes Cardiovascular exam: PRESENT: RRR. ABSENT: diastolic murmur, rubs, systolic murmur GI/Abdominal exam: PRESENT: normal bowel sounds, soft, other - Her abdomen is obese. I cannot assess for organomegaly due to the patient's body habitus. ABSENT: distended, guarding, mass, rebound, tenderness Rectal exam: PRESENT: deferred Extremities exam: PRESENT: full ROM. ABSENT: calf tenderness, clubbing, pedal edema Neurological exam: PRESENT: alert, awake, oriented to person, oriented to place , oriented to time, oriented to situation, CN II-XII grossly intact. ABSENT: motor sensory deficit Psychiatric exam: PRESENT: appropriate affect, normal mood. ABSENT: homicidal ideation, suicidal ideation Skin exam: PRESENT: dry, intact, warm. ABSENT: cyanosis, rash Results Laboratory Results: 11/07/17 05:09 11/07/17 05:09 11/07/17 11/07/17 05:09 05:09 WBC 11.3 H RBC 3.08 L Hgb 8.9 L Hct 28.5 L MCV 93 MCH 29.0 MCHC 31.3 L RDW 16.6 H Plt Count 194 Seg Neutrophils % 87.5 H Lymphocytes % 5.2 L Monocytes % 7.2 Eosinophils % 0.0 Basophils % 0.1 Absolute Neutrophils 9.9 H Absolute Lymphocytes 0.6 Absolute Monocytes 0.8 Absolute Eosinophils 0.0 Absolute Basophils 0.0 Sodium 133.7 L Potassium 4.0 Chloride 90 L Carbon Dioxide 22 Anion Gap 22 H BUN 115 H Creatinine 5.46 H Est GFR ( Amer) 9 L Est GFR (Non-Af Amer) 8 L Glucose 268 H Calcium 7.9 L 11/02/17 19:35 Troponin I < 0.012 Impressions: Abdomen/Pelvis CT 11/02/17 00:00 IMPRESSION: 1. AIRSPACE DISEASE IN THE VISUALIZED RIGHT LUNG. 2. SLUDGE AND/OR STONES IN THE GALLBLADDER. 3. NO OTHER SIGNIFICANT OR ACUTE PROCESS IN THE ABDOMEN OR PELVIS. Lung Scan-VQ [place] 11/02/17 00:00 IMPRESSION: Limited examination. No perfusion defects are identified. No evidence of PE. Head CT 11/02/17 13:59 IMPRESSION: NORMAL BRAIN CT WITHOUT CONTRAST. EVIDENCE OF ACUTE STROKE: NO. Chest X-Ray 11/05/17 00:00 IMPRESSION: CARDIAC ENLARGEMENT. VASCULAR CONGESTION. Resolution of the right lung opacity. Assessment & Plan - Diagnosis (1) Acute on chronic respiratory failure with hypoxia and hypercapnia Is this a current diagnosis for this admission?: Yes Plan: She is stable at this point. Her respiratory failure is secondary to (2) Acute on chronic diastolic (congestive) heart failure Is this a current diagnosis for this admission?: Yes Plan: She has been seen by cardiology. Continue maintenance diuretics (3) Acute on chronic renal failure Is this a current diagnosis for this admission?: Yes Plan: Unfortunately the patient is going to require dialysis. She will have a dialysis catheter placed and hopefully will be dialyzed tomorrow. Dr. Buitrago is following and we certainly appreciate her assistance. (4) Hypocalcemia Is this a current diagnosis for this admission?: Yes Plan: Repleted. Her level has improved somewhat. Her calcium level will be managed by the supervisor wool shearing (5) Anemia Is this a current diagnosis for this admission?: Yes Plan: Multifactorial secondary to chronic disease and iron deficiency. (6) Morbid obesity Is this a current diagnosis for this admission?: Yes Plan: Certainly this is making all of her problems worse. Dietary discretion is advised (7) Hyponatremia Is this a current diagnosis for this admission?: Yes Plan: Her sodium level continues to drift downwards. If it drops below 130 I will order sodium the appropriate studies. (8) Diabetes Is this a current diagnosis for this admission?: Yes Plan: Continue sliding scale coverage (9) Ambulatory dysfunction Is this a current diagnosis for this admission?: Yes Plan: The patient is significantly debilitated after this acute illness. She presented to the hospital with a fall. The patient's daughter is requesting subacute rehabilitation at discharge. I will make sure that physical therapy is seen the patient as well as occupational therapy. (10) Full code status Is this a current diagnosis for this admission?: Yes - Time Time Spent with patient: 25-34 minutes - Inpatient Certification Medical Necessity: Significant Comorbidiites Make Outpatient Treatment Too Risky - Inpatient hospitalization remains necessary. The patient's kidney function continues to worsen and she actually is going to require dialysis tomorrow. She has multiple comorbidities making her at high risk of decompensation if she left the hospital too soon. Timing of disposition will be determined by her clinical course., Need Close Monitoring Due to Risk of Patient Decompensation, Other
--- NOTE | 2017-11-07 15:11 | Operative Report ---
Operative Report DATE OF SURGERY: 11/07/17 PREOPERATIVE DIAGNOSIS: Renal failure POSTOPERATIVE DIAGNOSIS: Renal failure OPERATION: Ultrasound-guided right femoral dialysis catheter placement ANESTHESIA: Local TISSUE REMOVED OR ALTERED: None COMPLICATIONS: None ESTIMATED BLOOD LOSS: 20 cc INTRAOPERATIVE FINDINGS: None PROCEDURE: Informed consent was obtained. Procedure was done at the patient's bedside. Patient's right groin was prepped and draped in usual sterile fashion. The right femoral vein was located with the ultrasound. Local anesthetic was administered. Using the introducer catheter the right femoral vein was cannulated. Dark nonpulsatile blood was aspirated. Guidewire was placed. The tract was sequentially dilated. The dialysis catheter was then placed without difficulty. It withdrew blood and flushed easily. It was sutured in place. Dressings were applied. Patient tolerated procedure well with no apparent complications.
[2017-11-07] MEDS: INSULIN LISPRO 100 UNIT/ML 3 ML VIAL SUBCUT PRN ×3 (15:15→22:17)
--- NOTE | 2017-11-07 15:55 | RADIOLOGY REPORT (SQ) ---
EXAM DESCRIPTION: NON-TUNNEL CV CATH COMPLETED DATE/TIME: 11/07/2017 3:19 pm REASON FOR STUDY: NEED FOR VASCULAR ACCESS COMPARISON: None. TECHNIQUE: Single ultrasound image from vascular access performed by Dr. Bunn. LIMITATIONS: None. FINDINGS: See above. IMPRESSION: Image obtained for procedure performed by Dr. Bunn. TECHNICAL DOCUMENTATION: JOB ID: [id number] [employer]- All Rights Reserved
[2017-11-07] MEDS: AZITHROMYCIN 250 MG TABLET PO SCH (16:00)
[2017-11-07] MEDS: ATORVASTATIN CALCIUM 40 MG TABLET PO SCH (19:01)
--- NOTE | 2017-11-07 20:55 | PDOC PROGRESS REPORT ---
Subjective Progress Note for:: 11/07/17 Subjective:: Patient tells me that she is doing fine tonight. Her speech is sometimes difficult to understand but she answers appropriately. She did have an episode of vomiting after lunch. She tells me that she had a bowel movement today. Since her kidney function are worsening and we cannot quantify her urine output I had Fermin catheter inserted. So far a liter of urine was collected since the catheter has been inserted. She denies any chest pains. Her boyfriend at bedside said that she ate a pretty good dinner. She had a trialysis catheter placed by Dr. Bunn. Reason For Visit: ACUTE ON CHRONIC kidney disease Physical Exam Vital Signs: Temp Pulse Resp BP Pulse Ox 98.1 F 73 18 134/80 H 98 11/07/17 16:29 11/07/17 16:29 11/07/17 16:29 11/07/17 16:29 11/07/17 16:29 Pulse Oximeter Continuous Start: 11/04/17 13: 05 Freq: RTQ4 Status: Active Document 11/07/17 11:44 LDA (Rec: 11/07/17 11:46 LDA [email or web address]) Pulse Oximetry Assessment Oxygen Saturation (92-100) 96 Oxygen Flow Rate (L/min) 2 Oxygen Delivery Method Nasal Cannula Equipment Usage Equipment in Use Continuous SpO2 Machine # [id number] Intake & Output 11/06/17 11/07/17 11/08/17 06:59 06:59 06:59 Intake Total 1447 800 550 Output Total 1000 Balance 1447 800 -450 Weight 112.6 kg 112.9 kg Exam: General appearance: PRESENT: no acute distress, cooperative, well-developed, well-nourished Head exam: PRESENT: atraumatic, normocephalic Eye exam: PRESENT: conjunctiva pale, PERRLA. ABSENT: scleral icterus Neck exam: ABSENT: JVD Respiratory exam: PRESENT: Diminished breath sounds. ABSENT: crackles, rales, rhonchi, unlabored, wheezes Cardiovascular exam: PRESENT: Regular rate rhythm -+S1, +S2. ABSENT: diastolic murmur, systolic murmur GI/Abdominal exam: PRESENT: normal bowel sounds, soft. Obese ABSENT: guarding, mass, tenderness Extremities exam: ABSENT: No edema Neurological exam: PRESENT: alert, awake, oriented to person, place and time. Skin exam: PRESENT: dry, warm, Results Laboratory Results: 11/07/17 05:09 11/07/17 05:09 11/07/17 11/07/17 05:09 05:09 WBC 11.3 H RBC 3.08 L Hgb 8.9 L Hct 28.5 L MCV 93 MCH 29.0 MCHC 31.3 L RDW 16.6 H Plt Count 194 Seg Neutrophils % 87.5 H Lymphocytes % 5.2 L Monocytes % 7.2 Eosinophils % 0.0 Basophils % 0.1 Absolute Neutrophils 9.9 H Absolute Lymphocytes 0.6 Absolute Monocytes 0.8 Absolute Eosinophils 0.0 Absolute Basophils 0.0 Sodium 133.7 L Potassium 4.0 Chloride 90 L Carbon Dioxide 22 Anion Gap 22 H BUN 115 H Creatinine 5.46 H Est GFR ( Amer) 9 L Est GFR (Non-Af Amer) 8 L Glucose 268 H Calcium 7.9 L 11/02/17 19:35 Blood Blood Culture - Final NO GROWTH IN 5 DAYS 11/02/17 17:10 Blood Blood Culture - Final NO GROWTH IN 5 DAYS 11/02/17 19:35 Troponin I < 0.012 Impressions: Abdomen/Pelvis CT 11/02/17 00:00 IMPRESSION: 1. AIRSPACE DISEASE IN THE VISUALIZED RIGHT LUNG. 2. SLUDGE AND/OR STONES IN THE GALLBLADDER. 3. NO OTHER SIGNIFICANT OR ACUTE PROCESS IN THE ABDOMEN OR PELVIS. Lung Scan-VQ [place] 11/02/17 00:00 IMPRESSION: Limited examination. No perfusion defects are identified. No evidence of PE. Head CT 11/02/17 13:59 IMPRESSION: NORMAL BRAIN CT WITHOUT CONTRAST. EVIDENCE OF ACUTE STROKE: NO. Chest X-Ray 11/05/17 00:00 IMPRESSION: CARDIAC ENLARGEMENT. VASCULAR CONGESTION. Resolution of the right lung opacity. Interventional Vascular Procedure 11/07/17 00:00 IMPRESSION: Image obtained for procedure performed by Dr. Bunn. Assessment & Plan - Diagnosis (1) Acute renal failure superimposed on stage 3 chronic kidney disease Is this a current diagnosis for this admission?: Yes Plan: This is secondary to acute prerenal factors including acute congestive heart failure. Patient does not have any proteinuria or microalbuminuria. There was no hypotension no other nephrotoxic medications. No obstruction on CT scan. Currently kidney function is getting progressively worse. However I agree with some diuresis. Chest x-ray seems to be improving so I believe that the right lung infiltrates is partly due to pulmonary congestion. Continue to monitor kidney function and avoid nephrotoxic medications. Her kidney function continues to get worse today. Uncertain as to her volume status because of her being incontinent, Fermin catheter inserted today. Her echocardiogram indicated normal left ventricular ejection fraction, mild to moderate diastolic dysfunction but also indicate the possibility of right-sided heart failure with dilated mildly dilated right atrium and right ventricle. I think we cannot diurese her too much due to the possibility of right heart failure. The hypotension clearly does not help either. Blood pressure is a little bit better today. Because of worsening kidney function I think it would benefit her to do an acute hemodialysis treatment. Patient and her daughter were agreeable to do this. I asked her surgeon, Dr. Bunn to place a trialysis catheter which he did this afternoon. I discussed the benefits and risk of doing dialysis with the patient today. The benefits to include solute and volume clearance. The risks , anesthetic explained to the patient, include but not limited to bleeding, infection, hypertension, and acute cardiac event. Patient agreed to proceed. I also spoke to the patient's daughter, Vandana over the phone regarding the plan. She is agreeable with it. So the plan is for her first dialysis tomorrow. After that we will reevaluate how her kidney functioning is and decide if she is infected and need chronic dialysis or just some acute dialysis treatment. I am hopeful that her kidney function will still reversed back to her baseline. We will continue to monitor closely. (2) Acute CHF Qualifiers: Heart failure type: unspecified Qualified Code(s): I50.9 - Heart failure, unspecified Is this a current diagnosis for this admission?: Yes Plan: Cardiology in consult. As mentioned above she has a combination of diastolic dysfunction as well as possibility of right-sided heart failure in a patient with COPD, obstructive sleep apnea, and obesity. (3) Acute on chronic respiratory failure with hypoxia and hypercapnia Is this a current diagnosis for this admission?: Yes (4) Pneumonia Qualifiers: Pneumonia type: due to unspecified organism Laterality: right Lung location: unspecified part of lung Qualified Code(s): J18.9 - Pneumonia, unspecified organism Is this a current diagnosis for this admission?: Yes Plan: This cannot be ruled out due to the asymmetric right lung infiltrates which is unusual for just pulmonary congestion. Patient currently on antibiotics. Repeat chest x-ray showed complete resolution of the opacity in the right lung field suggesting that this could all be pulmonary congestion without any pneumonia. (5) Iron deficiency anemia Is this a current diagnosis for this admission?: Yes Plan: We will give iron supplement. I gave her a dose of IV Feraheme on 11/04. (6) Anemia in chronic illness Is this a current diagnosis for this admission?: Yes (7) Hypocalcemia Is this a current diagnosis for this admission?: Yes Plan: Borderline. Will check phosphorus, albumin and PTH again. (8) Hyponatremia Is this a current diagnosis for this admission?: Yes Plan: Could be due to some fluid retention. (9) Morbid obesity Is this a current diagnosis for this admission?: Yes - Time Time with patient: Greater than 35 minutes
[2017-11-07] MEDS ORDERED: TUBERCULIN,PURIF.PROT.DERIV. 5 TU/0.1 ML TEST 1 ML VIAL ID ONE (22:00)
[2017-11-07] MEDS: CEFEPIME 1 GM/D5W RTU 1 GM/50 ML RTUPB IV SCH (22:17)
[2017-11-07] MEDS: MONTELUKAST SODIUM 10 MG TABLET PO SCH (22:18)
[2017-11-07] MEDS: AMLODIPINE BESYLATE 5 MG TABLET PO SCH (22:18)
[2017-11-08] MEDS ORDERED: NORMAL SALINE 1000 ML 1,000 ML IV PRN (05:00)
[2017-11-08] MEDS ORDERED: HEPARIN SOD (PORCINE) 1,000 UNIT/ML 10 ML VIAL IV PRN (05:00)
[2017-11-08 06:07] LABS: ABSOLUTE LYMPHOCYTES (AUTO) 0.5 10^3/uL (0.5-4.7); ABSOLUTE MONOCYTES (AUTO) 0.6 10^3/uL (0.1-1.4); BASOPHILS % (AUTO) 0.1 % (0-2); HEMATOCRIT 31.5 % (36.0-47.0); HEMOGLOBIN 10.1 g/dL (12.0-15.5); LYMPHOCYTES % (AUTO) 5.3 % (13-45); MEAN CORPUSCULAR HEMOGLOBIN 29.4 pg (27.0-33.4); MEAN CORPUSCULAR VOLUME 92 fl (80-97); MONOCYTES % (AUTO) 5.6 % (3-13); PLATELET COUNT 224 10^3/uL (150-450); RED BLOOD COUNT 3.43 10^6/uL (3.72-5.28); RED CELL DISTRIBUTION WIDTH 16.4 % (11.5-14.0); TOTAL CELLS COUNTED % (AUTO) 100 %; WHITE BLOOD COUNT 10.1 10^3/uL (4.0-10.5)
[2017-11-08] MEDS: HEPARIN SOD (PORCINE) 5,000 UNIT/ML 1 ML SYRINGE SUBCUT SCH ×3 (06:10→22:03)
[2017-11-08] MEDS: GUAIFENESIN 600 MG TABLET.SA PO SCH ×2 (06:10→17:25)
[2017-11-08] MEDS: METHYLPREDNISOLONE INJ 40 MG/1 ML SDV IV SCH ×3 (06:10→22:03)
[2017-11-08] MEDS: INSULIN LISPRO 100 UNIT/ML 3 ML VIAL SUBCUT PRN ×2 (06:27→22:03)
[2017-11-08 06:30] LABS: ALBUMIN 4.5 g/dL (3.5-5.0); CALCIUM 8.2 mg/dL (8.4-10.2); CARBON DIOXIDE 26 mmol/L (22-30); CHLORIDE 87 mmol/L (98-107); GLUCOSE 242 mg/dL (75-110); PHOSPHORUS 8.7 mg/dL (2.5-4.5)
[2017-11-08 06:38] LABS: BLOOD UREA NITROGEN 121 mg/dL (7-20)
[2017-11-08 06:52] LABS: POTASSIUM 4.3 mmol/L (3.6-5.0); SODIUM 136.6 mmol/L (137-145)
[2017-11-08 06:54] LABS: ANION GAP 24 (5-19)
--- NOTE | 2017-11-08 13:10 | PDOC PROGRESS REPORT ---
Subjective Progress Note for:: 11/08/17 Subjective:: I saw the patient today right after she got back from dialysis. She is quite sleepy and groggy. Overall she states that she just feels weak after dialysis. She really wanted to sleep and review of systems could not be obtained. There are no family members at the bedside. According to the nursing staff she tolerated the dialysis well. Reason For Visit: ACUTE ON CHRONIC HEART FAILURE, CIRRHOSIS Physical Exam Vital Signs: Temp Pulse Resp BP Pulse Ox 98.4 F 79 20 154/83 H 90 L 11/08/17 03:12 11/08/17 07:00 11/08/17 03:12 11/08/17 03:12 11/08/17 04:39 Pulse Oximeter Continuous Start: 11/04/17 13: 05 Freq: RTQ4 Status: Active Document 11/08/17 12:00 LDA (Rec: 11/08/17 12:04 LDA [email or web address]) Pulse Oximetry Assessment Equipment Usage Equipment Standby Continuous SpO2 Machine # 7 Intake & Output 11/07/17 11/08/17 11/09/17 06:59 06:59 06:59 Intake Total 800 1250 Output Total 2650 Balance 800 -1400 Weight 112.9 kg 114.7 kg General appearance: PRESENT: morbidly obese, other - Chronically ill-appearing. She is quite sleepy. Head exam: PRESENT: atraumatic, normocephalic Mouth exam: PRESENT: moist, tongue midline Respiratory exam: PRESENT: crackles - She has some crackles in the lower bases bilaterally. This is not a good exam as she really would not cooperate.. ABSENT: rales, rhonchi, wheezes Cardiovascular exam: PRESENT: RRR. ABSENT: diastolic murmur, rubs, systolic murmur GI/Abdominal exam: PRESENT: normal bowel sounds, soft, other - Her abdomen is obese. I cannot assess for organomegaly due to the patient's body habitus. ABSENT: distended, guarding, mass, rebound, tenderness Rectal exam: PRESENT: deferred Neurological exam: PRESENT: alert, awake, oriented to person, oriented to place , oriented to time, oriented to situation, CN II-XII grossly intact. ABSENT: motor sensory deficit Psychiatric exam: PRESENT: appropriate affect, normal mood. ABSENT: homicidal ideation, suicidal ideation Skin exam: PRESENT: dry, intact, warm. ABSENT: cyanosis, rash Results Laboratory Results: 11/08/17 05:12 11/08/17 05:12 11/08/17 11/08/17 11/08/17 05:12 05:12 05:12 WBC 10.1 RBC 3.43 L Hgb 10.1 L Hct 31.5 L MCV 92 MCH 29.4 MCHC 32.0 RDW 16.4 H Plt Count 224 Seg Neutrophils % 89.0 H Lymphocytes % 5.3 L Monocytes % 5.6 Eosinophils % 0.0 Basophils % 0.1 Absolute Neutrophils 9.0 H Absolute Lymphocytes 0.5 Absolute Monocytes 0.6 Absolute Eosinophils 0.0 Absolute Basophils 0.0 Sodium 136.6 L Potassium 4.3 Chloride 87 L Carbon Dioxide 26 Anion Gap 24 H BUN 121 H Creatinine 5.98 H Est GFR ( Amer) 8 L Est GFR (Non-Af Amer) 7 L Glucose 242 H Calcium 8.2 L Phosphorus 8.7 H Magnesium 2.2 Albumin 4.5 PTH Intact 213.2 H 11/02/17 19:35 Blood Blood Culture - Final NO GROWTH IN 5 DAYS 11/02/17 17:10 Blood Blood Culture - Final NO GROWTH IN 5 DAYS 11/02/17 19:35 Troponin I < 0.012 Impressions: Abdomen/Pelvis CT 11/02/17 00:00 IMPRESSION: 1. AIRSPACE DISEASE IN THE VISUALIZED RIGHT LUNG. 2. SLUDGE AND/OR STONES IN THE GALLBLADDER. 3. NO OTHER SIGNIFICANT OR ACUTE PROCESS IN THE ABDOMEN OR PELVIS. Lung Scan-VQ NM 11/02/17 00:00 IMPRESSION: Limited examination. No perfusion defects are identified. No evidence of PE. Head CT 11/02/17 13:59 IMPRESSION: NORMAL BRAIN CT WITHOUT CONTRAST. EVIDENCE OF ACUTE STROKE: NO. Chest X-Ray 11/05/17 00:00 IMPRESSION: CARDIAC ENLARGEMENT. VASCULAR CONGESTION. Resolution of the right lung opacity. Interventional Vascular Procedure 11/07/17 00:00 IMPRESSION: Image obtained for procedure performed by Dr. Bunn. Assessment & Plan - Diagnosis (1) Acute on chronic respiratory failure with hypoxia and hypercapnia Is this a current diagnosis for this admission?: Yes Plan: She is stable at this point. Her respiratory failure is secondary to diastolic congestive heart failure exacerbation. (2) Acute on chronic diastolic (congestive) heart failure Is this a current diagnosis for this admission?: Yes Plan: She underwent her first dialysis today. She will continue Bumex twice daily. I believe her acute exacerbation is improving (3) Acute on chronic renal failure Is this a current diagnosis for this admission?: Yes Plan: She had a try dialysis catheter placed yesterday by general surgery. She underwent dialysis today. She is quite worn out after the procedure. I do believe Dr. Buitrago hopes that the patient's kidney function will improve. She will have a chemistry panel drawn in the morning. (4) Hypocalcemia Is this a current diagnosis for this admission?: Yes Plan: Repleted. Her level has improved somewhat. Her calcium level will be managed by the lens hardener (5) Anemia Is this a current diagnosis for this admission?: Yes Plan: Multifactorial secondary to chronic disease and iron deficiency. Her level has drifted down somewhat. This may be due to her worsening renal failure. She has no signs of active bleeding. (6) Morbid obesity Is this a current diagnosis for this admission?: Yes Plan: Certainly this is making all of her problems worse. Dietary discretion is advised (7) Hyponatremia Is this a current diagnosis for this admission?: Yes Plan: Improved today. She will have a chemistry panel drawn in the morning. (8) Diabetes Is this a current diagnosis for this admission?: Yes Plan: Continue sliding scale coverage (9) Ambulatory dysfunction Is this a current diagnosis for this admission?: Yes Plan: The patient is significantly debilitated after this acute illness. She presented to the hospital with a fall. The patient's daughter is requesting subacute rehabilitation at discharge. I will make sure that physical therapy is seen the patient as well as occupational therapy. (10) Full code status Is this a current diagnosis for this admission?: Yes - Time Time Spent with patient: 15-24 minutes - Inpatient Certification Medical Necessity: Significant Comorbidiites Make Outpatient Treatment Too Risky - Inpatient hospitalization remains necessary. Overall the patient has worsening renal function that actually required dialysis today. She needs close monitoring in the hospital setting due to her multiple comorbidities. Timing of disposition will be determined by her clinical course., Need Close Monitoring Due to Risk of Patient Decompensation
[2017-11-08] MEDS: HYDROXYZINE PAMOATE 25 MG CAPSULE PO SCH ×2 (13:26→17:25)
[2017-11-08] MEDS: FLUTICASONE NASAL SPRAY 50 MCG/SPRY 120 SPRAY/16 GM NASL SCH ×2 (13:26→22:03)
[2017-11-08] MEDS: BUMETANIDE 1 MG TABLET PO SCH (13:26)
[2017-11-08] MEDS: DOCUSATE SODIUM 100 MG CAPSULE PO SCH ×2 (13:26→17:26)
[2017-11-08] MEDS: FLUOXETINE HCL 20 MG CAPSULE PO SCH (13:26)
[2017-11-08] MEDS: TEMAZEPAM 15 MG CAPSULE PO SCH ×3 (13:26→22:03)
[2017-11-08] MEDS: LORATADINE 10 MG TABLET PO SCH (13:26)
[2017-11-08] MEDS: ATENOLOL 50 MG TABLET PO SCH (13:26)
[2017-11-08] MEDS: ASPIRIN 81 MG TABLET, CHEWABLE PO SCH (13:26)
[2017-11-08] MEDS: PROMETHAZINE HCL 25 MG TABLET PO PRN (16:21)
--- NOTE | 2017-11-08 16:43 | PDOC PROGRESS REPORT ---
Subjective Progress Note for:: 11/08/17 Subjective:: I saw the patient in dialysis earlier this morning at around 8:40 AM. Prior to initiation of hemodialysis patient vomited undigested food. Patient is also somewhat confused and disoriented. She did not really have any complaints otherwise. She did tolerate dialysis pretty well without other problems except for another episode of vomiting during dialysis. She was able to tolerate ultrafiltration of 2 L. I saw the patient again after dialysis. According to her daughter patient has not really been having problems with vomiting except for the last couple of days. She is making a good amount of urine on oral Bumex at current dose. According to the records she made about 2,650 mL of urine yesterday. Today she seems to have made about 500 mL of urine. Reason For Visit: ACUTE ON CHRONIC kidney disease Physical Exam Vital Signs: Temp Pulse Resp BP Pulse Ox 98.3 F 81 18 169/88 H 100 11/08/17 15:08 11/08/17 15:08 11/08/17 15:08 11/08/17 15:08 11/08/17 15:08 Pulse Oximeter Continuous Start: 11/04/17 13: 05 Freq: RTQ4 Status: Active Document 11/08/17 12:00 LDA (Rec: 11/08/17 12:04 LDA [email or web address]) Pulse Oximetry Assessment Equipment Usage Equipment Standby Continuous SpO2 Machine # 7 Intake & Output 11/07/17 11/08/17 11/09/17 06:59 06:59 06:59 Intake Total 800 1250 50 Output Total 2650 500 Balance 800 -1400 -450 Weight 112.9 kg 114.7 kg Vitals during dialysis: Blood pressure 160/77, heart rate 76, respiration of 14 , oxygen saturation 99% with oxygen at 2 L by nasal cannula, temperature of 99, blood flow rate of 250 mL/min, dialysate flow rate of 500 mL/min. Exam: General appearance: PRESENT: no acute distress, cooperative, well-developed, well-nourished Head exam: PRESENT: atraumatic, normocephalic Eye exam: PRESENT: conjunctiva pale, PERRLA. ABSENT: scleral icterus Neck exam: ABSENT: JVD Respiratory exam: PRESENT: Diminished breath sounds. ABSENT: crackles, rales, rhonchi, unlabored, wheezes Cardiovascular exam: PRESENT: Regular rate rhythm -+S1, +S2. ABSENT: diastolic murmur, systolic murmur GI/Abdominal exam: PRESENT: normal bowel sounds, soft. ABSENT: guarding, mass, tenderness Extremities exam: ABSENT: No edema Neurological exam: PRESENT: alert, awake, oriented to person, place partially to time. Patient can be tangential at times and 50% of the time she does not answer questions appropriately. Skin exam: PRESENT: dry, warm, Results Laboratory Results: 11/08/17 05:12 11/08/17 05:12 11/08/17 11/08/17 11/08/17 05:12 05:12 05:12 WBC 10.1 RBC 3.43 L Hgb 10.1 L Hct 31.5 L MCV 92 MCH 29.4 MCHC 32.0 RDW 16.4 H Plt Count 224 Seg Neutrophils % 89.0 H Lymphocytes % 5.3 L Monocytes % 5.6 Eosinophils % 0.0 Basophils % 0.1 Absolute Neutrophils 9.0 H Absolute Lymphocytes 0.5 Absolute Monocytes 0.6 Absolute Eosinophils 0.0 Absolute Basophils 0.0 Sodium 136.6 L Potassium 4.3 Chloride 87 L Carbon Dioxide 26 Anion Gap 24 H BUN 121 H Creatinine 5.98 H Est GFR ( Amer) 8 L Est GFR (Non-Af Amer) 7 L Glucose 242 H Calcium 8.2 L Phosphorus 8.7 H Magnesium 2.2 Albumin 4.5 PTH Intact 213.2 H 11/02/17 19:35 Blood Blood Culture - Final NO GROWTH IN 5 DAYS 11/02/17 17:10 Blood Blood Culture - Final NO GROWTH IN 5 DAYS 11/02/17 19:35 Troponin I < 0.012 Impressions: Abdomen/Pelvis CT 11/02/17 00:00 IMPRESSION: 1. AIRSPACE DISEASE IN THE VISUALIZED RIGHT LUNG. 2. SLUDGE AND/OR STONES IN THE GALLBLADDER. 3. NO OTHER SIGNIFICANT OR ACUTE PROCESS IN THE ABDOMEN OR PELVIS. Lung Scan-VQ NM 11/02/17 00:00 IMPRESSION: Limited examination. No perfusion defects are identified. No evidence of PE. Head CT 11/02/17 13:59 IMPRESSION: NORMAL BRAIN CT WITHOUT CONTRAST. EVIDENCE OF ACUTE STROKE: NO. Chest X-Ray 11/05/17 00:00 IMPRESSION: CARDIAC ENLARGEMENT. VASCULAR CONGESTION. Resolution of the right lung opacity. Interventional Vascular Procedure 11/07/17 00:00 IMPRESSION: Image obtained for procedure performed by Dr. Bunn. Assessment & Plan - Diagnosis (1) Acute renal failure superimposed on stage 3 chronic kidney disease Is this a current diagnosis for this admission?: Yes Plan: This is secondary to acute prerenal factors including acute congestive heart failure. Patient does not have any proteinuria or microalbuminuria. There was no hypotension no other nephrotoxic medications. No obstruction on CT scan. Currently kidney function is getting progressively worse. However I agree with some diuresis. Chest x-ray seems to be improving so I believe that the right lung infiltrates is partly due to pulmonary congestion. Continue to monitor kidney function and avoid nephrotoxic medications. Her kidney function continues to get worse today. Uncertain as to her volume status because of her being incontinent, Fermin catheter inserted today. Her echocardiogram indicated normal left ventricular ejection fraction, mild to moderate diastolic dysfunction but also indicate the possibility of right-sided heart failure with dilated mildly dilated right atrium and right ventricle. I think we cannot diurese her too much due to the possibility of right heart failure. Patient seems to be making a good urine output but just not filtering due to the continuously increasing BUN and creatinine. We did dialysis today for 2.5 hours, using the patient's right groin trialysis catheter, with 2 potassium bath, blood flow rate of 250 mL per minute, dialysate flow rate of 500 mL per minute, ultrafiltration 2 L, no heparin and no Procrit during dialysis. We will reevaluate the patient before Saturday to see if she needs further treatment. I think from the rate she is going she most likely would need at least another treatment on Saturday. I will decrease her Bumex to 2 mg p.o. daily not to cause intravascular depletion. Patient is vomiting and confusion could be secondary to uremia because of worsening kidney function. This might take a few days before it can improve if there is no other cause. (2) Nausea and vomiting Is this a current diagnosis for this admission?: Yes Plan: This could be secondary to uremia. Continue Phenergan as needed. (3) Hypocalcemia Is this a current diagnosis for this admission?: Yes Plan: Due to hyperphosphatemia. (4) Hyperphosphatemia Is this a current diagnosis for this admission?: Yes Plan: Due to AK I and CKD. This should improve with dialysis and hopefully improvement of kidney function. Will hold any phosphorus binders at this time. (5) Secondary hyperparathyroidism (of renal origin) Is this a current diagnosis for this admission?: Yes Plan: This needs to be repeated when the patient is a steady state. That is if the acute component of kidney failure recovers. (6) Iron deficiency anemia Is this a current diagnosis for this admission?: Yes Plan: We will give iron supplement. I gave her a dose of IV Feraheme on 11/04. (7) Anemia in chronic illness Is this a current diagnosis for this admission?: Yes (8) Acute CHF Qualifiers: Heart failure type: unspecified Qualified Code(s): I50.9 - Heart failure, unspecified Is this a current diagnosis for this admission?: Yes Plan: Cardiology in consult. As mentioned above she has a combination of diastolic dysfunction as well as possibility of right-sided heart failure in a patient with COPD, obstructive sleep apnea, and obesity. Currently improved. (9) Acute on chronic respiratory failure with hypoxia and hypercapnia Is this a current diagnosis for this admission?: Yes (10) Pneumonia Qualifiers: Pneumonia type: due to unspecified organism Laterality: right Lung location: unspecified part of lung Qualified Code(s): J18.9 - Pneumonia, unspecified organism Is this a current diagnosis for this admission?: Yes Plan: This cannot be ruled out due to the asymmetric right lung infiltrates which is unusual for just pulmonary congestion. Patient currently on antibiotics. Repeat chest x-ray showed complete resolution of the opacity in the right lung field suggesting that this could all be pulmonary congestion without any pneumonia. (11) Hyponatremia Is this a current diagnosis for this admission?: Yes Plan: Could be due to some fluid retention. (12) Morbid obesity Is this a current diagnosis for this admission?: Yes - Time Time with patient: 15-25 minutes
[2017-11-08] MEDS: ATORVASTATIN CALCIUM 40 MG TABLET PO SCH (17:25)
[2017-11-08] MEDS: AZITHROMYCIN 250 MG TABLET PO SCH (17:26)
--- NOTE | 2017-11-08 19:45 | PDOC PROGRESS REPORT ---
Subjective Progress Note for:: 11/07/17 Subjective:: Patient sitting up in bed. Patient noted to be intermittently confused with some hallucination being reported by patient's daughter. Her kidney functions have worsened. Currently plans are to start patient on dialysis. Patient doing much better. Pt is denying any chest arm or neck discomfort. Patient denying any PND, orthopnea. Patient denied any sustained palpitations, dizziness, syncope, near syncope. Patient denying any fever chills. Patient denying any other significant discomfort. Patient is maintaining sinus rhythm. Review of systems: Rest review of systems negative. Medications: Medications have been reviewed. Reason For Visit: ACUTE ON CHRONIC HEART FAILURE, CIRRHOSIS Physical Exam Vital Signs: Temp Pulse Resp BP Pulse Ox 98.1 F 73 18 134/80 H 98 11/07/17 16:29 11/07/17 16:29 11/07/17 16:29 11/07/17 16:29 11/07/17 16:29 Pulse Oximeter Continuous Start: 11/04/17 13: 05 Freq: RTQ4 Status: Active Document 11/07/17 11:44 LDA (Rec: 11/07/17 11:46 LDA [email or web address]) Pulse Oximetry Assessment Oxygen Saturation (92-100) 96 Oxygen Flow Rate (L/min) 2 Oxygen Delivery Method Nasal Cannula Equipment Usage Equipment in Use Continuous SpO2 Machine # [id number] Intake & Output 11/06/17 11/07/17 11/08/17 06:59 06:59 06:59 Intake Total 1447 800 550 Output Total 1000 Balance 1447 800 -450 Weight 112.6 kg 112.9 kg Exam: GENERAL: well-nourished and in no acute distress. Alert with intermittent confusion and slight hallucination. HEAD: Atraumatic, normocephalic. EYES: Pupils equal round and reactive to light, extraocular movements intact, sclera anicteric, conjunctiva are normal. ENT: TMs normal, nares patent, oropharynx clear without exudates. Moist mucous membranes. No oral ulcerations or bleeding gums noted NECK: supple without lymphadenopathy. Trachea is central. No cervical or axillary lymphadenopathy noted. Carotids are 2+, JVD WNL LUNGS: Respiration seems nonlabored, no significant accessory muscle action noted. Breath sounds clear to auscultation bilaterally and equal noted. No wheezes rales or rhonchi noted. No significant dullness noted on percussion. CHEST: Palpation of the chest wall shows no significant chest wall tenderness. No other significant abnormalities noted. HEART: [facility]ED NURSE, No PSH, 1/6 MICHAEL aortic area, 1/6 miller systolic murmur mitral area, no rubs, no gallops. ABDOMEN: Soft, no significant tenderness appreciated, normoactive bowel sounds. No guarding, no rebound. No rigidity noted . No masses appreciated. EXTREMITIES: Pedal pulses are 1-2+, no calf tenderness noted. No clubbing or cyanosis.trace to 1+ pedal edema noted NEUROLOGICAL: Focused neurological exam showed no significant neurologic deficit. Normal speech, no focal weakness appreciated. PSYCH: Normal mood, normal affect. Judgment and insight not checked. SKIN: No significant ecchymosis, rash, ulcerations or signs of pruritus noted. MUSCULOSKELETAL EXAM: No significant joint swelling noted. Results Laboratory Results: 11/07/17 05:09 11/07/17 05:09 11/07/17 11/07/17 05:09 05:09 WBC 11.3 H RBC 3.08 L Hgb 8.9 L Hct 28.5 L MCV 93 MCH 29.0 MCHC 31.3 L RDW 16.6 H Plt Count 194 Seg Neutrophils % 87.5 H Lymphocytes % 5.2 L Monocytes % 7.2 Eosinophils % 0.0 Basophils % 0.1 Absolute Neutrophils 9.9 H Absolute Lymphocytes 0.6 Absolute Monocytes 0.8 Absolute Eosinophils 0.0 Absolute Basophils 0.0 Sodium 133.7 L Potassium 4.0 Chloride 90 L Carbon Dioxide 22 Anion Gap 22 H BUN 115 H Creatinine 5.46 H Est GFR ( Amer) 9 L Est GFR (Non-Af Amer) 8 L Glucose 268 H Calcium 7.9 L 11/02/17 19:35 Blood Blood Culture - Final NO GROWTH IN 5 DAYS 11/02/17 17:10 Blood Blood Culture - Final NO GROWTH IN 5 DAYS 11/02/17 19:35 Troponin I < 0.012 Impressions: Abdomen/Pelvis CT 11/02/17 00:00 IMPRESSION: 1. AIRSPACE DISEASE IN THE VISUALIZED RIGHT LUNG. 2. SLUDGE AND/OR STONES IN THE GALLBLADDER. 3. NO OTHER SIGNIFICANT OR ACUTE PROCESS IN THE ABDOMEN OR PELVIS. Lung Scan-[facility] 11/02/17 00:00 IMPRESSION: Limited examination. No perfusion defects are identified. No evidence of PE. Head CT 11/02/17 13:59 IMPRESSION: NORMAL BRAIN CT WITHOUT CONTRAST. EVIDENCE OF ACUTE STROKE: NO. Chest X-Ray 11/05/17 00:00 IMPRESSION: CARDIAC ENLARGEMENT. VASCULAR CONGESTION. Resolution of the right lung opacity. Interventional Vascular Procedure 11/07/17 00:00 IMPRESSION: Image obtained for procedure performed by Dr. Bunn. Assessment & Plan - Diagnosis (1) Acute CHF Qualifiers: Heart failure type: unspecified Qualified Code(s): I50.9 - Heart failure, unspecified Is this a current diagnosis for this admission?: Yes (2) Acute and chronic respiratory failure with hypoxia Is this a current diagnosis for this admission?: Yes (3) Acute on chronic renal failure Qualifiers: Acute renal failure type: unspecified Chronic kidney disease stage: stage 4 (severe) Qualified Code(s): N17.9 - Acute kidney failure, unspecified; N18.4 - Chronic kidney disease, stage 4 (severe); N18.4 - Chronic kidney disease , stage 4 (severe); N18.4 - Chronic kidney disease, stage 4 (severe); N18.4 - Chronic kidney disease, stage 4 (severe) Is this a current diagnosis for this admission?: Yes (4) Pneumonia Qualifiers: Pneumonia type: due to unspecified organism Laterality: right Lung location: unspecified part of lung Qualified Code(s): J18.9 - Pneumonia, unspecified organism Is this a current diagnosis for this admission?: Yes - Notes Notes: Acute CHF: Currently resolved. Clinical exam suggest patient euvolemic.. Acute on chronic respiratory failure with hypoxemia: Patient being followed by lead tinner. Will follow the recommendation. Patient to benefit from intermittent positive pressure ventilation. Acute on chronic renal failure: Nephrology following. I am told by patient's daughter that plans are to place a dialysis catheter and start dialysis. Pneumonia: Clinically improved 2D echo results reviewed. Patient has normal LVEF but RV enlargement is noted. Patient will benefit from chronic weight loss, adequate oxygenation, treatment of suspected sleep apnea syndrome etc. We will continue to follow patient. - Time Time with patient: 15-25 minutes - CODE STATUS was discussed, patient remains full code. Surrogate decision-maker unchanged. Multiple medical problems were addressed. More than 50% of the time spent coordinating care, discussing management plans with involved caregivers. Management plans discussed with involved personnels. Medical decision making was of moderate to high complexity , patient's has multiple comorbidities. Medications reviewed and adjusted accordingly: Yes
--- NOTE | 2017-11-08 19:47 | PDOC PROGRESS REPORT ---
Subjective Progress Note for:: 11/08/17 Subjective:: Patient was seen on dialysis doing much better. Dialysis nurse told me the plan is to remove about 2 L of fluid. Patient doing much better. Pt is denying any chest arm or neck discomfort. Patient denying any PND, orthopnea. Patient denied any sustained palpitations, dizziness, syncope, near syncope. Patient denying any fever chills. Patient denying any other significant discomfort. Patient is maintaining sinus rhythm. Review of systems: Rest review of systems negative. Medications: Medications have been reviewed. Reason For Visit: ACUTE ON CHRONIC HEART FAILURE, CIRRHOSIS Physical Exam Vital Signs: Temp Pulse Resp BP Pulse Ox 98.3 F 81 18 169/88 H 100 11/08/17 15:08 11/08/17 15:08 11/08/17 15:08 11/08/17 15:08 11/08/17 15:08 Pulse Oximeter Continuous Start: 11/04/17 13: 05 Freq: RTQ4 Status: Active Document 11/08/17 12:00 LDA (Rec: 11/08/17 12:04 LDA [email or web address]) Pulse Oximetry Assessment Equipment Usage Equipment Standby Continuous SpO2 Machine # 7 Intake & Output 11/07/17 11/08/17 11/09/17 06:59 06:59 06:59 Intake Total 800 1250 75 Output Total 2650 2700 Balance 800 -1400 -2625 Weight 112.9 kg 114.7 kg Exam: GENERAL: well-nourished and in no acute distress. Alert and oriented x 2. Nurses reports intermittent confusion. HEAD: Atraumatic, normocephalic. EYES: Pupils equal round and reactive to light, extraocular movements intact, sclera anicteric, conjunctiva are normal. ENT: TMs normal, nares patent, oropharynx clear without exudates. Moist mucous membranes. No oral ulcerations or bleeding gums noted NECK: supple without lymphadenopathy. Trachea is central. No cervical or axillary lymphadenopathy noted. Carotids are 2+, JVD WNL LUNGS: Respiration seems nonlabored, no significant accessory muscle action noted. Breath sounds clear to auscultation bilaterally and equal noted. No wheezes rales or rhonchi noted. No significant dullness noted on percussion. CHEST: Palpation of the chest wall shows no significant chest wall tenderness. No other significant abnormalities noted. 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 ABDOMEN: Soft, no significant tenderness appreciated, normoactive bowel sounds. No guarding, no rebound. No rigidity noted . No masses appreciated. EXTREMITIES: Pedal pulses are 1-2+, no calf tenderness noted. No clubbing or cyanosis.trace to 1+ pedal edema noted NEUROLOGICAL: Focused neurological exam showed no significant neurologic deficit. Normal speech, no focal weakness appreciated. PSYCH: Normal mood, normal affect. Mood and judgment not checked. SKIN: No significant ecchymosis, rash, ulcerations or signs of pruritus noted. MUSCULOSKELETAL EXAM: No significant joint swelling noted. Results Laboratory Results: 11/08/17 05:12 11/08/17 05:12 11/08/17 11/08/17 11/08/17 05:12 05:12 05:12 WBC 10.1 RBC 3.43 L Hgb 10.1 L Hct 31.5 L MCV 92 MCH 29.4 MCHC 32.0 RDW 16.4 H Plt Count 224 Seg Neutrophils % 89.0 H Lymphocytes % 5.3 L Monocytes % 5.6 Eosinophils % 0.0 Basophils % 0.1 Absolute Neutrophils 9.0 H Absolute Lymphocytes 0.5 Absolute Monocytes 0.6 Absolute Eosinophils 0.0 Absolute Basophils 0.0 Sodium 136.6 L Potassium 4.3 Chloride 87 L Carbon Dioxide 26 Anion Gap 24 H BUN 121 H Creatinine 5.98 H Est GFR ( Amer) 8 L Est GFR (Non-Af Amer) 7 L Glucose 242 H Calcium 8.2 L Phosphorus 8.7 H Magnesium 2.2 Albumin 4.5 PTH Intact 213.2 H 11/02/17 19:35 Blood Blood Culture - Final NO GROWTH IN 5 DAYS 11/02/17 17:10 Blood Blood Culture - Final NO GROWTH IN 5 DAYS 11/02/17 19:35 Troponin I < 0.012 EKG Comments: Telemetry strips shows sinus rhythm no sustained tachycardia or bradycardia arrhythmias noted. Impressions: Abdomen/Pelvis CT 11/02/17 00:00 IMPRESSION: 1. AIRSPACE DISEASE IN THE VISUALIZED RIGHT LUNG. 2. SLUDGE AND/OR STONES IN THE GALLBLADDER. 3. NO OTHER SIGNIFICANT OR ACUTE PROCESS IN THE ABDOMEN OR PELVIS. Lung Scan-[facility] 11/02/17 00:00 IMPRESSION: Limited examination. No perfusion defects are identified. No evidence of PE. Head CT 11/02/17 13:59 IMPRESSION: NORMAL BRAIN CT WITHOUT CONTRAST. EVIDENCE OF ACUTE STROKE: NO. Chest X-Ray 11/05/17 00:00 IMPRESSION: CARDIAC ENLARGEMENT. VASCULAR CONGESTION. Resolution of the right lung opacity. Interventional Vascular Procedure 11/07/17 00:00 IMPRESSION: Image obtained for procedure performed by Dr. Bunn. Assessment & Plan - Diagnosis (1) Acute CHF Qualifiers: Heart failure type: unspecified Qualified Code(s): I50.9 - Heart failure, unspecified Is this a current diagnosis for this admission?: Yes (2) Acute and chronic respiratory failure with hypoxia Is this a current diagnosis for this admission?: Yes (3) Acute on chronic renal failure Qualifiers: Acute renal failure type: unspecified Chronic kidney disease stage: stage 4 (severe) Qualified Code(s): N17.9 - Acute kidney failure, unspecified; N18.4 - Chronic kidney disease, stage 4 (severe); N18.4 - Chronic kidney disease , stage 4 (severe); N18.4 - Chronic kidney disease, stage 4 (severe); N18.4 - Chronic kidney disease, stage 4 (severe) Is this a current diagnosis for this admission?: Yes (4) Pneumonia Qualifiers: Pneumonia type: due to unspecified organism Laterality: right Lung location: unspecified part of lung Qualified Code(s): J18.9 - Pneumonia, unspecified organism Is this a current diagnosis for this admission?: Yes - Notes Notes: Acute CHF: Currently resolved. Clinical exam suggest patient euvolemic. However agree with removing fluid on dialysis. Acute on chronic respiratory failure with hypoxemia: Patient being followed by assistant restaurant general manager. Will follow the recommendation. Patient to benefit from intermittent positive pressure ventilation. Acute on chronic renal failure: Nephrology following. Patient started on dialysis and when seen on dialysis seems to be tolerating it well. Pneumonia: Clinically improved 2D echo results reviewed. Patient has normal LVEF but RV enlargement is noted. Patient will benefit from chronic weight loss, adequate oxygenation, treatment of suspected sleep apnea syndrome etc. We will continue to follow patient. - Time Time with patient: 15-25 minutes - CODE STATUS was discussed, patient remains full code. Surrogate decision-maker unchanged. Multiple medical problems were addressed. More than 50% of the time spent coordinating care, discussing management plans with involved caregivers. Management plans discussed with involved personnels. Medical decision making was of moderate to high complexity , patient's has multiple comorbidities. Medications reviewed and adjusted accordingly: Yes
[2017-11-08] MEDS: AMLODIPINE BESYLATE 5 MG TABLET PO SCH (22:03)
[2017-11-08] MEDS: CEFEPIME 1 GM/D5W RTU 1 GM/50 ML RTUPB IV SCH (22:03)
[2017-11-08] MEDS: MONTELUKAST SODIUM 10 MG TABLET PO SCH (22:03)
[2017-11-09] MEDS: HEPARIN SOD (PORCINE) 5,000 UNIT/ML 1 ML SYRINGE SUBCUT SCH ×2 (05:38→14:15)
[2017-11-09] MEDS: GUAIFENESIN 600 MG TABLET.SA PO SCH ×2 (05:38→17:22)
[2017-11-09 07:05] LABS: BLOOD UREA NITROGEN 106 mg/dL (7-20); CALCIUM 9.1 mg/dL (8.4-10.2); CARBON DIOXIDE 30 mmol/L (22-30); CHLORIDE 88 mmol/L (98-107); GLUCOSE 286 mg/dL (75-110)
[2017-11-09 07:19] LABS: HEMATOCRIT 34.3 % (36.0-47.0); HEMOGLOBIN 10.9 g/dL (12.0-15.5); MEAN CORPUSCULAR HEMOGLOBIN 28.8 pg (27.0-33.4); MEAN CORPUSCULAR HGB CONC 31.9 g/dL (32.0-36.0); MEAN CORPUSCULAR VOLUME 90 fl (80-97); PLATELET COUNT 242 10^3/uL (150-450); RED BLOOD COUNT 3.79 10^6/uL (3.72-5.28); RED CELL DISTRIBUTION WIDTH 16.1 % (11.5-14.0); WHITE BLOOD COUNT 15.2 10^3/uL (4.0-10.5)
[2017-11-09 07:20] LABS: SODIUM 140.5 mmol/L (137-145)
[2017-11-09 07:21] LABS: ANION GAP 23 (5-19)
[2017-11-09 08:34] LABS: ABSOLUTE LYMPHOCYTES# (MANUAL) 1.2 10^3/uL (0.5-4.7); ABSOLUTE MONOCYTES # (MANUAL) 1.5 10^3/uL (0.1-1.4); ABSOLUTE NEUTROPHILS# (MANUAL) 12.5 10^3/uL (1.7-8.2); BASOPHILS % (MANUAL) 0 % (0-2); EOSINOPHILS % (MANUAL) 0 % (0-6); LYMPHOCYTES % (MANUAL) 8 % (13-45); MONOCYTES % (MANUAL) 10 % (3-13); SEGMENTED NEUTROPHILS % (MAN) 82 % (42-78); TOTAL CELLS COUNTED 100
[2017-11-09 08:36] LABS: ANISOCYTOSIS 1+; PLATELET CLUMPS PRESENT; PLATELET COMMENT ADEQUATE
[2017-11-09 08:37] LABS: TARGET CELLS SLIGHT
[2017-11-09] MEDS: TEMAZEPAM 15 MG CAPSULE PO SCH ×3 (08:37→17:23)
[2017-11-09] MEDS ORDERED: BUMETANIDE 1 MG TABLET PO SCH (10:00)
[2017-11-09] MEDS: DOCUSATE SODIUM 100 MG CAPSULE PO SCH ×2 (10:21→17:23)
[2017-11-09] MEDS: LORATADINE 10 MG TABLET PO SCH (10:21)
[2017-11-09] MEDS: ASPIRIN 81 MG TABLET, CHEWABLE PO SCH (10:21)
[2017-11-09] MEDS: HYDROXYZINE PAMOATE 25 MG CAPSULE PO SCH ×2 (10:21→17:23)
[2017-11-09] MEDS: FLUOXETINE HCL 20 MG CAPSULE PO SCH (10:21)
[2017-11-09] MEDS: INSULIN LISPRO 100 UNIT/ML 3 ML VIAL SUBCUT PRN (10:22)
[2017-11-09] MEDS: FLUTICASONE NASAL SPRAY 50 MCG/SPRY 120 SPRAY/16 GM NASL SCH (10:22)
[2017-11-09] MEDS: METHYLPREDNISOLONE INJ 40 MG/1 ML SDV IV SCH (10:22)
[2017-11-09] MEDS: ATENOLOL 50 MG TABLET PO SCH (10:22)
--- NOTE | 2017-11-09 13:13 | PDOC PROGRESS REPORT ---
Subjective Progress Note for:: 11/09/17 Subjective:: Laying in bed with bilevel therapy going on. Patient has been claims that she was somewhat short of breath this morning. Pt is denying any chest arm or neck discomfort. Patient denying any PND, orthopnea. Patient denied any sustained palpitations, dizziness, syncope, near syncope. Patient denying any fever chills. Patient denying any other significant discomfort. Patient is maintaining sinus rhythm. Review of systems: Rest review of systems negative. Medications: Medications have been reviewed. Reason For Visit: ACUTE ON CHRONIC HEART FAILURE, CIRRHOSIS Physical Exam Vital Signs: Temp Pulse Resp BP Pulse Ox 98.2 F 74 15 152/74 H 94 11/09/17 11:32 11/09/17 11:32 11/09/17 11:32 11/09/17 11:32 11/09/17 11:32 Pulse Oximeter Continuous Start: 11/04/17 13: 05 Freq: RTQ4 Status: Active Document 11/09/17 11:11 [facility] (Rec: 11/09/17 11:11 J [email or web address]) Pulse Oximetry Assessment Equipment Usage Equipment Standby Continuous SpO2 Machine # 7 Intake & Output 11/08/17 11/09/17 11/10/17 06:59 06:59 06:59 Intake Total 1250 904 350 Output Total 2650 3200 300 Balance -1400 -2296 50 Weight 114.7 kg 109.4 kg Exam: GENERAL: well-nourished and in no acute distress. Alert and oriented x3 HEAD: Atraumatic, normocephalic. EYES: Pupils equal round and reactive to light, extraocular movements intact, sclera anicteric, conjunctiva are normal. ENT: TMs normal, nares patent, oropharynx clear without exudates. Moist mucous membranes. No oral ulcerations or bleeding gums noted NECK: supple without lymphadenopathy. Trachea is central. No cervical or axillary lymphadenopathy noted. Carotids are 2+, JVD WNL LUNGS: Respiration seems nonlabored, no significant accessory muscle action noted. Bibasilar fine crackles noted with occasional bilateral wheezing. No significant dullness noted on percussion. CHEST: Palpation of the chest wall shows no significant chest wall tenderness. No other significant abnormalities noted. 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 ABDOMEN: Soft, no significant tenderness appreciated, normoactive bowel sounds. No guarding, no rebound. No rigidity noted . No masses appreciated. EXTREMITIES: Pedal pulses are 1-2+, no calf tenderness noted. No clubbing or cyanosis.trace to 1+ pedal edema noted NEUROLOGICAL: Focused neurological exam showed no significant neurologic deficit. Normal speech, no focal weakness appreciated. PSYCH: Normal mood, normal affect. Judgment and insight within normal limits. SKIN: No significant ecchymosis, rash, ulcerations or signs of pruritus noted. MUSCULOSKELETAL EXAM: No significant joint swelling noted. Results Laboratory Results: 11/09/17 06:22 11/09/17 06:22 11/09/17 11/09/17 06:22 06:22 WBC 15.2 H RBC 3.79 Hgb 10.9 L Hct 34.3 L MCV 90 MCH 28.8 MCHC 31.9 L RDW 16.1 H Plt Count 242 Seg Neutrophils % Not Reportable Lymphocytes % Not Reportable Monocytes % Not Reportable Eosinophils % Not Reportable Basophils % Not Reportable Absolute Neutrophils Not Reportable Absolute Lymphocytes Not Reportable Absolute Monocytes Not Reportable Absolute Eosinophils Not Reportable Absolute Basophils Not Reportable Sodium 140.5 Potassium 4.0 Chloride 88 L Carbon Dioxide 30 Anion Gap 23 H BUN 106 H Creatinine 4.83 H Est GFR ( Amer) 11 L Est GFR (Non-Af Amer) 9 L Glucose 286 H Calcium 9.1 Magnesium 2.3 11/02/17 19:35 Troponin I < 0.012 EKG Comments: Telemetry showing sinus rhythm without any sustained tacky or bradycardia arrhythmias. Impressions: Abdomen/Pelvis CT 11/02/17 00:00 IMPRESSION: 1. AIRSPACE DISEASE IN THE VISUALIZED RIGHT LUNG. 2. SLUDGE AND/OR STONES IN THE GALLBLADDER. 3. NO OTHER SIGNIFICANT OR ACUTE PROCESS IN THE ABDOMEN OR PELVIS. Lung Scan-[facility] 11/02/17 00:00 IMPRESSION: Limited examination. No perfusion defects are identified. No evidence of PE. Head CT 11/02/17 13:59 IMPRESSION: NORMAL BRAIN CT WITHOUT CONTRAST. EVIDENCE OF ACUTE STROKE: NO. Chest X-Ray 11/05/17 00:00 IMPRESSION: CARDIAC ENLARGEMENT. VASCULAR CONGESTION. Resolution of the right lung opacity. Interventional Vascular Procedure 11/07/17 00:00 IMPRESSION: Image obtained for procedure performed by Dr. Bunn. Assessment & Plan - Diagnosis (1) Acute CHF Qualifiers: Heart failure type: unspecified Qualified Code(s): I50.9 - Heart failure, unspecified Is this a current diagnosis for this admission?: Yes (2) Acute and chronic respiratory failure with hypoxia Is this a current diagnosis for this admission?: Yes (3) Acute on chronic renal failure Qualifiers: Acute renal failure type: unspecified Chronic kidney disease stage: stage 4 (severe) Qualified Code(s): N17.9 - Acute kidney failure, unspecified; N18.4 - Chronic kidney disease, stage 4 (severe); N18.4 - Chronic kidney disease , stage 4 (severe); N18.4 - Chronic kidney disease, stage 4 (severe); N18.4 - Chronic kidney disease, stage 4 (severe) Is this a current diagnosis for this admission?: Yes (4) Pneumonia Qualifiers: Pneumonia type: due to unspecified organism Laterality: right Lung location: unspecified part of lung Qualified Code(s): J18.9 - Pneumonia, unspecified organism Is this a current diagnosis for this admission?: Yes (5) Sleep disorder breathing Is this a current diagnosis for this admission?: Yes (6) Morbid obesity Is this a current diagnosis for this admission?: Yes - Notes Notes: Acute CHF: Currently resolved. Clinical exam suggest patient euvolemic. Patient had dialysis yesterday which she tolerated well. Dr. Buitrago managing the diuretics. Recommend periodic chest x-rays. Acute on chronic respiratory failure with hypoxemia: Patient being followed by raw sampler. Will follow the recommendation. Patient to benefit from intermittent positive pressure ventilation. Acute on chronic renal failure: Nephrology following. Patient started on dialysis and when seen on dialysis yesterday and seems to be tolerating it well. Further plans per nephrology. Pneumonia: Clinically improved. Sleep disordered breathing: Patient seems to have this. Pulmonary following. Will be happy to schedule a sleep study as an outpatient if needed. Obesity: Patient has been encouraged in weight loss. 2D echo results reviewed. Patient has normal LVEF but RV enlargement is noted. Patient will benefit from chronic weight loss, adequate oxygenation, treatment of suspected sleep apnea syndrome etc. We will continue to follow patient. - Time Time with patient: 15-25 minutes - CODE STATUS was discussed, patient remains full code. Surrogate decision-maker unchanged. Multiple medical problems were addressed. More than 50% of the time spent coordinating care, discussing management plans with involved caregivers. Management plans discussed with involved personnels. Medical decision making was of moderate to high complexity , patient's has multiple comorbidities. Medications reviewed and adjusted accordingly: Yes
--- NOTE | 2017-11-09 13:56 | PDOC PROGRESS REPORT ---
Subjective Progress Note for:: 11/09/17 Subjective:: Patient is seen on rounds. She is resting in bed. She states she has been nauseated and vomiting since her dialysis treatment yesterday She denies any chest pain or palpitations. She denies any dyspnea. She states she was also short of breath earlier, but that is better. She is on nasal cannula when she is awake and worse the BiPAP while sleeping. Remaining review of systems are negative Reason For Visit: ACUTE ON CHRONIC HEART FAILURE, CIRRHOSIS Physical Exam Vital Signs: Temp Pulse Resp BP Pulse Ox 98.2 F 74 15 152/74 H 94 11/09/17 11:32 11/09/17 11:32 11/09/17 11:32 11/09/17 11:32 11/09/17 11:32 Pulse Oximeter Continuous Start: 11/04/17 13: 05 Freq: RTQ4 Status: Active Document 11/09/17 11:11 JDR (Rec: 11/09/17 11:11 JDR [email or web address]) Pulse Oximetry Assessment Equipment Usage Equipment Standby Continuous SpO2 Machine # 7 Intake & Output 11/08/17 11/09/17 11/10/17 06:59 06:59 06:59 Intake Total 1250 904 350 Output Total 2650 3200 300 Balance -1400 -2296 50 Weight 114.7 kg 109.4 kg General appearance: PRESENT: no acute distress, well-developed, well-nourished Head exam: PRESENT: atraumatic Eye exam: PRESENT: conjunctiva pink, EOMI, PERRLA. ABSENT: scleral icterus Ear exam: PRESENT: normal external ear exam Mouth exam: PRESENT: moist, tongue midline Neck exam: PRESENT: carotid bruit Respiratory exam: PRESENT: clear to auscultation irma, decreased breath sounds, symmetrical, unlabored. ABSENT: rales, rhonchi, wheezes Cardiovascular exam: PRESENT: RRR, +S1, +S2, systolic murmur. ABSENT: diastolic murmur, rubs Pulses: PRESENT: normal carotid pulses, normal radial pulses Vascular exam: PRESENT: normal capillary refill GI/Abdominal exam: PRESENT: normal bowel sounds, soft. ABSENT: distended, guarding, mass, organolmegaly, rebound, tenderness Rectal exam: PRESENT: deferred Extremities exam: PRESENT: full ROM. ABSENT: calf tenderness, clubbing, pedal edema Musculoskeletal exam: PRESENT: full ROM, normal inspection Neurological exam: PRESENT: alert, awake, oriented to person, oriented to place , oriented to time, oriented to situation, CN II-XII grossly intact. ABSENT: motor sensory deficit Psychiatric exam: PRESENT: flat affect Skin exam: PRESENT: dry, intact, warm. ABSENT: cyanosis, rash Results Laboratory Results: 11/09/17 06:22 11/09/17 06:22 11/09/17 11/09/17 06:22 06:22 WBC 15.2 H RBC 3.79 Hgb 10.9 L Hct 34.3 L MCV 90 MCH 28.8 MCHC 31.9 L RDW 16.1 H Plt Count 242 Seg Neutrophils % Not Reportable Lymphocytes % Not Reportable Monocytes % Not Reportable Eosinophils % Not Reportable Basophils % Not Reportable Absolute Neutrophils Not Reportable Absolute Lymphocytes Not Reportable Absolute Monocytes Not Reportable Absolute Eosinophils Not Reportable Absolute Basophils Not Reportable Sodium 140.5 Potassium 4.0 Chloride 88 L Carbon Dioxide 30 Anion Gap 23 H BUN 106 H Creatinine 4.83 H Est GFR ( Amer) 11 L Est GFR (Non-Af Amer) 9 L Glucose 286 H Calcium 9.1 Magnesium 2.3 11/02/17 19:35 Troponin I < 0.012 Impressions: Abdomen/Pelvis CT 11/02/17 00:00 IMPRESSION: 1. AIRSPACE DISEASE IN THE VISUALIZED RIGHT LUNG. 2. SLUDGE AND/OR STONES IN THE GALLBLADDER. 3. NO OTHER SIGNIFICANT OR ACUTE PROCESS IN THE ABDOMEN OR PELVIS. Lung Scan-[facility] 11/02/17 00:00 IMPRESSION: Limited examination. No perfusion defects are identified. No evidence of PE. Head CT 11/02/17 13:59 IMPRESSION: NORMAL BRAIN CT WITHOUT CONTRAST. EVIDENCE OF ACUTE STROKE: NO. Chest X-Ray 11/05/17 00:00 IMPRESSION: CARDIAC ENLARGEMENT. VASCULAR CONGESTION. Resolution of the right lung opacity. Interventional Vascular Procedure 11/07/17 00:00 IMPRESSION: Image obtained for procedure performed by Dr. Bunn. Assessment & Plan - Diagnosis (1) Acute CHF Qualifiers: Heart failure type: unspecified Qualified Code(s): I50.9 - Heart failure, unspecified Is this a current diagnosis for this admission?: Yes Plan: Cardiology is following management per Dr Montoya (2) Acute on chronic respiratory failure with hypoxia and hypercapnia Is this a current diagnosis for this admission?: Yes Plan: Improving. She needs to increase activity (3) Acute renal failure superimposed on stage 3 chronic kidney disease Is this a current diagnosis for this admission?: Yes Plan: She had first dialysis treatment yesterday. She has been nauseated since then (4) Anemia in chronic illness Is this a current diagnosis for this admission?: Yes Plan: Stable (5) Hypocalcemia Is this a current diagnosis for this admission?: Yes Plan: Replete and monitor (6) Iron deficiency anemia Is this a current diagnosis for this admission?: Yes Plan: Stable (7) Morbid obesity Is this a current diagnosis for this admission?: Yes Plan: Counseled - Time Time Spent with patient: 25-34 minutes Medications reviewed and adjusted accordingly: Yes
[2017-11-09] MEDS: ONDANSETRON HCL INJ/PF 4 MG/2 ML SDV IV PRN ×2 (14:27→22:33)
[2017-11-09 15:37] LABS: HEPATITS B SURFACE ANTIGEN Negative (Negative)
[2017-11-09 16:38] LABS: CREATINE KINASE MB 0.69 ng/mL (<4.55)
[2017-11-09 16:42] LABS: TROPONIN I 0.019 ng/mL
[2017-11-09] MEDS: AZITHROMYCIN 250 MG TABLET PO SCH (17:17)
[2017-11-09] MEDS: ATORVASTATIN CALCIUM 40 MG TABLET PO SCH (17:23)
[2017-11-09 18:23] LABS: HEPATITIS B CORE AB TOT Negative (Negative); HEPATITIS B SURFACE AB QUANT <3.1 mIU/mL (Immunity>9.9)
--- NOTE | 2017-11-09 22:19 | EKG REPORT ---
SEVERITY:- ABNORMAL ECG - SINUS RHYTHM MULTIPLE VENTRICULAR PREMATURE COMPLEXES INFERIOR INFARCT, AGE INDETERMINATE EXTENSIVE ANTERIOR INFARCT, AGE INDETERMINATE BORDERLINE PROLONGED QT INTERVAL : Confirmed by: Ariana Montoya 09-Nov-2017 22:18:35
[2017-11-09] MEDS: PROMETHAZINE HCL 25 MG TABLET PO PRN (22:33)
[2017-11-09 23:38] LABS: CREATINE KINASE MB 0.62 ng/mL (<4.55); TROPONIN I 0.017 ng/mL
[2017-11-10] MEDS: INSULIN LISPRO 100 UNIT/ML 3 ML VIAL SUBCUT PRN ×2 (00:39→23:28)
[2017-11-10] MEDS: HEPARIN SOD (PORCINE) 5,000 UNIT/ML 1 ML SYRINGE SUBCUT SCH ×4 (00:40→21:49)
[2017-11-10] MEDS: METHYLPREDNISOLONE INJ 40 MG/1 ML SDV IV SCH ×3 (00:40→21:49)
[2017-11-10] MEDS: FAMOTIDINE INJ/PF 20 MG/2 ML SDV IV SCH ×3 (00:42→21:49)
[2017-11-10] MEDS: CEFEPIME 1 GM/D5W RTU 1 GM/50 ML RTUPB IV SCH (00:44)
[2017-11-10] MEDS: MONTELUKAST SODIUM 10 MG TABLET PO SCH (00:45)
[2017-11-10] MEDS: FLUTICASONE NASAL SPRAY 50 MCG/SPRY 120 SPRAY/16 GM NASL SCH ×3 (00:45→21:51)
[2017-11-10] MEDS: TEMAZEPAM 15 MG CAPSULE PO SCH (00:45)
[2017-11-10] MEDS: AMLODIPINE BESYLATE 5 MG TABLET PO SCH (00:45)
--- NOTE | 2017-11-10 06:04 | RADIOLOGY REPORT (SQ) ---
EXAM DESCRIPTION: ACUTE ABDOMEN SERIES CLINICAL HISTORY: 77 years, Female, N/V COMPARISON: 11.05.17, CR chest TECHNIQUE: Five views including left lateral decubitus. LIMITATIONS: None. FINDINGS: 7 cm diameter dilated small bowel, no evidence of free intra-abdominal air, moderate patchiness of bilateral lower lung pérez, moderate-low lung volume, normal cardiac silhouette, right femoral central line tip to the level of the sacroiliac joint, pelvic/left axillary clips, IMPRESSION: 1. Moderate bilateral lower lobar pneumonia. 2. Moderate small bowel obstruction pattern.
[2017-11-10] MEDS ORDERED: PHARMACY COMMUNICATION ORDER MC NR (06:15)
--- NOTE | 2017-11-10 07:13 | RADIOLOGY REPORT (SQ) ---
EXAM DESCRIPTION: CHEST SINGLE VIEW CLINICAL HISTORY: 77 years Female, NG tube placement COMPARISON: 2... NUMBER OF VIEWS/TECHNIQUE: 1/AP LIMITATIONS: None. FINDINGS: Moderate patchy airspace opacity of the central lower right hemithorax and moderate patchy and consolidative opacity of the lower left hemithorax, moderate lung volume, moderately enlarged cardiac silhouette, atherosclerosis, and adequate appearing enteric tube. Left axillary clips. No pneumothorax. No acute bone defect. IMPRESSION: Interval worsening includes moderate bilateral airspace opacities.
[2017-11-10] MEDS: GUAIFENESIN 600 MG TABLET.SA PO SCH ×2 (07:23→17:42)
[2017-11-10] MEDS ORDERED: DEXTROSE 40% GEL 15 GM TUBE NG PRN ×2 (07:30)
[2017-11-10] MEDS ORDERED: ACETAMINOPHEN 325 MG TABLET NG PRN (07:30)
[2017-11-10] MEDS ORDERED: PROMETHAZINE HCL 25 MG TABLET NG PRN (07:30)
--- NOTE | 2017-11-10 08:16 | RADIOLOGY REPORT (SQ) ---
EXAM DESCRIPTION: KUB/ABDOMEN (SINGLE VIEW) COMPLETED DATE/TIME: 11/10/2017 8:02 am REASON FOR STUDY: NG TUBE PLACEMENT COMPARISON: None. NUMBER OF VIEWS: One view. TECHNIQUE: Supine radiographic image of the abdomen acquired. LIMITATIONS: Respiratory motion artifact. FINDINGS: LUNG BASES: Right basilar consolidation. Possible left basilar atelectasis. BOWEL GAS PATTERN: Gaseous distention of bowel in upper abdomen noted. CALCIFICATIONS: No suspicious calcifications. SOFT TISSUES: No gross mass or suggestion of organomegaly. HARDWARE: None in the abdomen. BONES: No acute fracture. No worrisome bone lesions. OTHER: NG tube overlying left upper quadrant. Surgical clips left axilla. IMPRESSION: NG tube overlying stomach. TECHNICAL DOCUMENTATION: JOB ID: [id number] [employer]- All Rights Reserved
[2017-11-10] MEDS ORDERED: NA PHOS,M-B/NA PHOS,DI-BA (ADULT) 133 ML ENEMA PR ONE (10:00)
[2017-11-10] MEDS ORDERED: BUMETANIDE 1 MG TABLET NG SCH (10:00)
[2017-11-10 10:02] LABS: HEMOGLOBIN 10.9 g/dL (12.0-15.5); MEAN CORPUSCULAR HEMOGLOBIN 28.5 pg (27.0-33.4); MEAN CORPUSCULAR HGB CONC 31.1 g/dL (32.0-36.0); MEAN CORPUSCULAR VOLUME 92 fl (80-97); PLATELET COUNT 254 10^3/uL (150-450); RED BLOOD COUNT 3.81 10^6/uL (3.72-5.28); RED CELL DISTRIBUTION WIDTH 16.7 % (11.5-14.0); WHITE BLOOD COUNT 24.4 10^3/uL (4.0-10.5)
[2017-11-10 10:07] LABS: PHOSPHORUS 10.3 mg/dL (2.5-4.5)
[2017-11-10 10:10] LABS: CALCIUM 8.7 mg/dL (8.4-10.2); CARBON DIOXIDE 29 mmol/L (22-30); CHLORIDE 86 mmol/L (98-107); CREATINE KINASE 46 U/L (30-135); GLUCOSE 304 mg/dL (75-110); POTASSIUM 3.9 mmol/L (3.6-5.0)
[2017-11-10 10:19] LABS: CREATINE KINASE MB 0.7 ng/mL (<4.55); SODIUM 138.1 mmol/L (137-145); TROPONIN I 0.034 ng/mL
[2017-11-10 10:20] LABS: ANION GAP 23 (5-19); BLOOD UREA NITROGEN 130 mg/dL (7-20)
[2017-11-10 10:27] LABS: ABSOLUTE LYMPHOCYTES# (MANUAL) 1.5 10^3/uL (0.5-4.7); ABSOLUTE MONOCYTES # (MANUAL) 1.2 10^3/uL (0.1-1.4); ABSOLUTE NEUTROPHILS# (MANUAL) 21.7 10^3/uL (1.7-8.2); BAND NEUTROPHILS % (MANUAL) 3 % (3-5); BASOPHILS % (MANUAL) 0 % (0-2); EOSINOPHILS % (MANUAL) 0 % (0-6); LYMPHOCYTES % (MANUAL) 6 % (13-45); MONOCYTES % (MANUAL) 5 % (3-13); SEGMENTED NEUTROPHILS % (MAN) 86 % (42-78); TOTAL CELLS COUNTED 100
[2017-11-10 10:30] LABS: ANISOCYTOSIS 1+; OVALOCYTES SLIGHT; PAPPENHEIMER BODIES PRESENT; PLATELET CLUMPS PRESENT; PLATELET COMMENT ADEQUATE; POIKILOCYTOSIS SLIGHT
[2017-11-10] MEDS ORDERED: CEFEPIME 1 GM/D5W RTU 1 GM/50 ML RTUPB IV PRN (11:16)
[2017-11-10] MEDS ORDERED: VANCOMYCIN HCL 0 MG in DEXTROSE 5%-WATER 250 ML IV NR (11:30)
[2017-11-10] MEDS ORDERED: AZTREONAM 1 GM in DEXTROSE 5%-WATER 50 ML IV SCH (11:30)
[2017-11-10 11:37] LABS: HEPATITIS C QUANTITATION HCV Not Detected IU/mL (.)
--- NOTE | 2017-11-10 11:43 | PDOC PROGRESS REPORT ---
Subjective Progress Note for:: 11/10/17 Subjective:: Patient's condition appears extremely poor today Continue to hypoxemia Altered mentation Mild to moderate respiratory distress An NG tube was inserted for ? Intestinal obstruction Patient labs show marked leukocytosis Reason For Visit: ACUTE ON CHRONIC HEART FAILURE, CIRRHOSIS Physical Exam Vital Signs: Temp Pulse Resp BP Pulse Ox 98.9 F 83 22 H 134/64 H 100 11/10/17 07:29 11/10/17 07:29 11/10/17 07:29 11/10/17 07:29 11/10/17 07:29 Pulse Oximeter Continuous Start: 11/04/17 13: 05 Freq: RTQ4 Status: Active Document 11/10/17 04:00 CMI (Rec: 11/10/17 04:09 CMI [email or web address]) Pulse Oximetry Assessment Oxygen Saturation (92-100) 92 Oxygen Flow Rate (L/min) 12 Oxygen Delivery Method Non-Rebreather Equipment Usage Equipment in Use Continuous SpO2 Machine # 7 Intake & Output 11/09/17 11/10/17 11/11/17 00:59 00:59 00:59 Intake Total 275 1199 287 Output Total 3650 1100 250 Balance -3375 99 37 Weight 114.7 kg 109.4 kg 108.1 kg General appearance: PRESENT: mild distress, morbidly obese Head exam: PRESENT: atraumatic, normocephalic Eye exam: PRESENT: conjunctiva pink, EOMI, PERRLA. ABSENT: scleral icterus Neck exam: ABSENT: carotid bruit, JVD, lymphadenopathy, thyromegaly Respiratory exam: PRESENT: decreased breath sounds, rhonchi. ABSENT: accessory muscle use, wheezes Cardiovascular exam: PRESENT: RRR. ABSENT: diastolic murmur, rubs, systolic murmur Pulses: PRESENT: normal dorsalis pedis pul GI/Abdominal exam: PRESENT: distended. ABSENT: guarding, rebound Rectal exam: PRESENT: deferred Extremities exam: PRESENT: pedal edema Psychiatric exam: PRESENT: other - appears confused and lethargic Results Laboratory Results: 11/10/17 08:39 11/10/17 08:39 11/10/17 11/10/17 11/10/17 08:39 08:39 08:39 WBC 24.4 H RBC 3.81 Hgb 10.9 L Hct 35.0 L MCV 92 MCH 28.5 MCHC 31.1 L RDW 16.7 H Plt Count 254 Seg Neutrophils % Not Reportable Lymphocytes % Not Reportable Monocytes % Not Reportable Eosinophils % Not Reportable Basophils % Not Reportable Absolute Neutrophils Not Reportable Absolute Lymphocytes Not Reportable Absolute Monocytes Not Reportable Absolute Eosinophils Not Reportable Absolute Basophils Not Reportable Sodium 138.1 Potassium 3.9 Chloride 86 L Carbon Dioxide 29 Anion Gap 23 H BUN 130 H Creatinine 5.79 H Est GFR ( Amer) 9 L Est GFR (Non-Af Amer) 7 L Glucose 304 H Calcium 8.7 Phosphorus 10.3 H Magnesium 2.4 H 11/02/17 11/09/17 11/09/17 19:35 15:05 15:05 Creatine Kinase 40 CK-MB (CK-2) 0.69 Troponin I < 0.012 0.019 11/09/17 11/09/17 11/10/17 22:46 22:46 08:39 Creatine Kinase 45 46 CK-MB (CK-2) 0.62 Troponin I 0.017 11/10/17 08:39 Creatine Kinase CK-MB (CK-2) 0.70 Troponin I 0.034 Impressions: Abdomen/Pelvis CT 11/02/17 00:00 IMPRESSION: 1. AIRSPACE DISEASE IN THE VISUALIZED RIGHT LUNG. 2. SLUDGE AND/OR STONES IN THE GALLBLADDER. 3. NO OTHER SIGNIFICANT OR ACUTE PROCESS IN THE ABDOMEN OR PELVIS. Lung Scan-[facility] 11/02/17 00:00 IMPRESSION: Limited examination. No perfusion defects are identified. No evidence of PE. Head CT 11/02/17 13:59 IMPRESSION: NORMAL BRAIN CT WITHOUT CONTRAST. EVIDENCE OF ACUTE STROKE: NO. Interventional Vascular Procedure 11/07/17 00:00 IMPRESSION: Image obtained for procedure performed by Dr. Bunn. Acute Abdomen Series 11/10/17 00:00 IMPRESSION: 1. Moderate bilateral lower lobar pneumonia. 2. Moderate small bowel obstruction pattern. Chest X-Ray 11/10/17 00:00 IMPRESSION: Interval worsening includes moderate bilateral airspace opacities. KUB X-Ray 11/10/17 00:00 IMPRESSION: NG tube overlying stomach. Assessment & Plan - Diagnosis (1) Acute CHF Qualifiers: Heart failure type: diastolic Qualified Code(s): I50.31 - Acute diastolic ( congestive) heart failure Is this a current diagnosis for this admission?: Yes Plan: Recent echocardiogram showed normal EF and diastolic dysfunction patient did have dialysis on Saturday without much improvement of her symptoms Chest x-ray shows bilateral infiltrates it is extremely difficult to tell whether there is a component of CHF in the current presentation of respiratory failure We will treat the patient with 100 mg of IV Lasix as she cannot have dialysis until Saturday (2) Acute on chronic renal failure Qualifiers: Acute renal failure type: unspecified Chronic kidney disease stage: stage 4 (severe) Qualified Code(s): N17.9 - Acute kidney failure, unspecified; N18.4 - Chronic kidney disease, stage 4 (severe); N18.4 - Chronic kidney disease , stage 4 (severe); N18.4 - Chronic kidney disease, stage 4 (severe); N18.4 - Chronic kidney disease, stage 4 (severe) Is this a current diagnosis for this admission?: Yes Plan: Continue dialysis as planned Next dialysis on Saturday (3) Acute on chronic respiratory failure with hypoxia and hypercapnia Is this a current diagnosis for this admission?: Yes Plan: Likely secondary to bilateral pneumonia and CHF We will treat for both as we do not have any clear picture Patient now has to be treated as hospital-acquired pneumonia She is extremely allergic to penicillin ; we will treat her with Azactam Vancomycin and Flagyl BiPAP support ABGs stat (4) Morbid obesity Is this a current diagnosis for this admission?: Yes (5) Pneumonia Qualifiers: Pneumonia type: due to unspecified organism Laterality: right Lung location: unspecified part of lung Qualified Code(s): J18.9 - Pneumonia, unspecified organism Is this a current diagnosis for this admission?: Yes Plan: See above Treat as hospital-acquired pneumonia (6) SBO (small bowel obstruction) Is this a current diagnosis for this admission?: Yes Plan: not proven patient had distended bowel on KUB leave NGT in place CT abdomen and pelvis when respiratory status permits - Time Time Spent with patient: transfer patient to ICU Time Spent with patient: 25-34 minutes
[2017-11-10] MEDS ORDERED: NITROGLYCERIN 2% OINTMENT 1 GM PACKET TP ONE (12:00)
[2017-11-10] MEDS ORDERED: FUROSEMIDE INJ/PF 100 MG/10 ML SDV IV ONE (12:00)
[2017-11-10 12:08] LABS: ARTERIAL BLOOD BASE EXCESS 4.5 mmol/L; ARTERIAL BLOOD FIO2 100%; ARTERIAL BLOOD H2CO3 1.93 mmol/L (1.05-1.35); ARTERIAL BLOOD HCO3 32.1 mmol/L (20-26); ARTERIAL BLOOD PH 7.32 (7.35-7.45); ARTERIAL BLOOD PO2 121.1 mmHg (80-100); ARTERIAL BLOOD TOTAL CO2 34.1 mmol/L (21-25)
[2017-11-10] MEDS: HYDROXYZINE PAMOATE 25 MG CAPSULE NG SCH ×2 (12:48→17:42)
[2017-11-10] MEDS: DOCUSATE SODIUM 100 MG CAPSULE PO SCH ×2 (12:48→17:42)
[2017-11-10] MEDS: ASPIRIN 81 MG TABLET, CHEWABLE NG SCH (12:48)
[2017-11-10] MEDS: ATENOLOL 50 MG TABLET NG SCH (12:48)
[2017-11-10] MEDS: LORATADINE 10 MG TABLET NG SCH (12:48)
[2017-11-10] MEDS: FLUOXETINE HCL 20 MG CAPSULE NG SCH (12:48)
[2017-11-10] MEDS: METRONIDAZOLE 500 MG/NS RTU 100 ML IV SCH ×3 (12:54→23:28)
[2017-11-10 14:30] LABS: AMORPHOUS SEDIMENT,URINE TRACE /HPF; APPEARANCE,URINE CLOUDY; BILIRUBIN,URINE NEGATIVE (NEGATIVE); COLOR,URINE YELLOW; GLUCOSE, URINE 50 mg/dL (NEGATIVE); KETONES,URINE NEGATIVE (NEGATIVE); LEUKOCYTE ESTERASE,URINE NEGATIVE (NEGATIVE); NITRITE,URINE NEGATIVE (NEGATIVE); PROTEIN,URINE >=500 mg/dL (NEGATIVE); URINE SPECIFIC GRAVITY 1.015; UROBILINOGEN,URINE NEGATIVE mg/dL (<2.0)
[2017-11-10 14:35] LABS: INTERNATIONAL RATION (INR) 1.13; PROTHROMBIN TIME 15.3 SEC (11.4-15.4)
[2017-11-10 14:36] LABS: PARTIAL THROMBOPLASTIN TIME 32.1 SEC (23.5-35.8)
--- NOTE | 2017-11-10 14:49 | PDOC PROGRESS REPORT ---
Subjective Progress Note for:: 11/05/17 Subjective:: continued dyspnea somewhat improved Reason For Visit: ACUTE ON CHRONIC HEART FAILURE, CIRRHOSIS Physical Exam Vital Signs: Temp Pulse Resp BP Pulse Ox 98.2 F 73 20 129/63 H 97 11/05/17 08:03 11/05/17 08:03 11/05/17 08:03 11/05/17 08:03 11/05/17 08:03 Pulse Oximeter Continuous Start: 11/04/17 13: 05 Freq: RTQ4 Status: Active Document 11/05/17 04:00 STI (Rec: 11/05/17 04:30 STI [email or web address]) Pulse Oximetry Assessment Oxygen Saturation (92-100) 96 Oxygen Delivery Method AVAP Fraction of Inspired Oxygen (FIO2) 35 Equipment Usage Equipment in Use Continuous SpO2 Machine # 1 Intake & Output 11/04/17 11/05/17 11/06/17 06:59 06:59 06:59 Intake Total 1688 1866 Balance 1688 1866 Weight 111.3 kg 110.9 kg General appearance: PRESENT: no acute distress, disheveled, morbidly obese, well -developed Head exam: PRESENT: atraumatic, normocephalic Eye exam: PRESENT: conjunctiva pale, EOMI. ABSENT: nystagmus, scleral icterus Mouth exam: PRESENT: dry mucosa, neck supple, tongue midline Neck exam: ABSENT: carotid bruit, JVD, lymphadenopathy, thyromegaly, tracheal deviation, tracheostomy Respiratory exam: PRESENT: decreased breath sounds, prolonged expiratory phas, rales, rhonchi, symmetrical, wheezes Cardiovascular exam: PRESENT: RRR, +S1, +S2 Pulses: PRESENT: normal radial pulses GI/Abdominal exam: PRESENT: diminished bowel sounds, soft Extremities exam: ABSENT: calf tenderness, clubbing Musculoskeletal exam: ABSENT: deformity, dislocation Neurological exam: PRESENT: awake Skin exam: PRESENT: dry, warm Results Laboratory Results: 11/04/17 07:05 11/04/17 07:05 11/03/17 11/04/17 07:03 13:35 Carbonic Acid 1.75 H HCO3/H2CO3 Ratio 18:1 ABG pH 7.35 ABG pCO2 58.3 H ABG pO2 83.9 ABG HCO3 31.5 H ABG O2 Saturation 95.6 ABG Base Excess 4.9 FiO2 35% Transferrin 151 L 11/02/17 19:35 Troponin I < 0.012 Impressions: Abdomen/Pelvis CT 11/02/17 00:00 IMPRESSION: 1. AIRSPACE DISEASE IN THE VISUALIZED RIGHT LUNG. 2. SLUDGE AND/OR STONES IN THE GALLBLADDER. 3. NO OTHER SIGNIFICANT OR ACUTE PROCESS IN THE ABDOMEN OR PELVIS. Lung Scan-[facility] 11/02/17 00:00 IMPRESSION: Limited examination. No perfusion defects are identified. No evidence of PE. Head CT 11/02/17 13:59 IMPRESSION: NORMAL BRAIN CT WITHOUT CONTRAST. EVIDENCE OF ACUTE STROKE: NO. Chest X-Ray 11/03/17 06:00 IMPRESSION: AIRSPACE DISEASE IN THE RIGHT LUNG, MORE PROMINENT IN THE RIGHT LOWER LOBE. PROBABLY DUE TO PNEUMONIA ALTHOUGH ASYMMETRIC PULMONARY EDEMA WOULD HAVE SIMILAR APPEARANCE. Assessment & Plan - Diagnosis (1) Acute CHF Qualifiers: Heart failure type: diastolic Qualified Code(s): I50.31 - Acute diastolic ( congestive) heart failure Is this a current diagnosis for this admission?: Yes Plan: Per (2) Acute on chronic renal failure Qualifiers: Acute renal failure type: unspecified Chronic kidney disease stage: stage 4 (severe) Qualified Code(s): N17.9 - Acute kidney failure, unspecified; N18.4 - Chronic kidney disease, stage 4 (severe); N18.4 - Chronic kidney disease , stage 4 (severe); N18.4 - Chronic kidney disease, stage 4 (severe); N18.4 - Chronic kidney disease, stage 4 (severe) Is this a current diagnosis for this admission?: Yes Plan: Per Dr. Buitrago (3) Acute on chronic respiratory failure with hypoxia and hypercapnia Is this a current diagnosis for this admission?: Yes Plan: Trilogy The above patient has failed BiPAP. This patient would benefit from noninvasive mechanical ventilation via the trilogy AVAPS/AE and faster responding AVAPS rates. The trilogy is able to provide a target tidal volume and also adjusting the EPAP pressures to maintain a patent airway as well as an oral backup rate this machine will help improve PaCO2 levels. The severity of the patient's condition will lead to future hospitalizations and readmissions as well as life-threatening situations without the use of this device trilogy home vent needed for hypercapnic respiratory failure. [facility] or [facility] to follow for trilogy set up. (4) Morbid obesity Is this a current diagnosis for this admission?: Yes Plan: Unchanged (5) Pneumonia Qualifiers: Pneumonia type: due to unspecified organism Laterality: right Lung location: unspecified part of lung Qualified Code(s): J18.9 - Pneumonia, unspecified organism Is this a current diagnosis for this admission?: Yes Plan: no + cultures
[2017-11-10 14:51] LABS: ALANINE AMINOTRANSFERASE 39 U/L (9-52); ALKALINE PHOSPHATASE 55 U/L (38-126); ASPARTATE AMINO TRANSFERASE 24 U/L (14-36); BILIRUBIN,DIRECT 0.6 mg/dL (0.0-0.4); BILIRUBIN,TOTAL 0.8 mg/dL (0.2-1.3); CALCIUM 8.3 mg/dL (8.4-10.2); CHLORIDE 86 mmol/L (98-107); GLUCOSE 312 mg/dL (75-110); TOTAL PROTEIN 6.7 g/dL (6.3-8.2)
--- NOTE | 2017-11-10 14:55 | PDOC PROGRESS REPORT ---
Subjective Progress Note for:: 11/06/17 Subjective:: continued dyspnea somewhat improved Reason For Visit: ACUTE ON CHRONIC HEART FAILURE, CIRRHOSIS Physical Exam Vital Signs: Temp Pulse Resp BP Pulse Ox 98.9 F 83 22 H 134/64 H 100 11/10/17 07:29 11/10/17 07:29 11/10/17 07:29 11/10/17 07:29 11/10/17 07:29 Pulse Oximeter Continuous Start: 11/04/17 13: 05 Freq: RTQ4 Status: Active Document 11/10/17 04:00 CMI (Rec: 11/10/17 04:09 CMI [email or web address]) Pulse Oximetry Assessment Oxygen Saturation (92-100) 92 Oxygen Flow Rate (L/min) 12 Oxygen Delivery Method Non-Rebreather Equipment Usage Equipment in Use Continuous SpO2 Machine # 7 Intake & Output 11/09/17 11/10/17 11/11/17 06:59 06:59 06:59 Intake Total 904 657 Output Total 3200 850 Balance -2296 -193 Weight 109.4 kg 108.1 kg General appearance: PRESENT: no acute distress, disheveled, morbidly obese Head exam: PRESENT: atraumatic, normocephalic Eye exam: PRESENT: conjunctiva pale. ABSENT: nystagmus, scleral icterus Mouth exam: PRESENT: dry mucosa, neck supple, tongue midline Neck exam: ABSENT: carotid bruit, JVD, lymphadenopathy, thyromegaly, tracheal deviation, tracheostomy Respiratory exam: PRESENT: crackles, decreased breath sounds, prolonged expiratory phas, rhonchi, symmetrical, wheezes. ABSENT: retraction, stridor Cardiovascular exam: PRESENT: RRR, +S1, +S2, systolic murmur Pulses: PRESENT: normal radial pulses GI/Abdominal exam: PRESENT: diminished bowel sounds, soft Extremities exam: ABSENT: calf tenderness, clubbing Musculoskeletal exam: ABSENT: ambulatory Neurological exam: PRESENT: awake Skin exam: PRESENT: dry, warm Results Laboratory Results: 11/10/17 08:39 11/10/17 08:39 11/10/17 11/10/17 11/10/17 08:39 08:39 08:39 WBC 24.4 H RBC 3.81 Hgb 10.9 L Hct 35.0 L MCV 92 MCH 28.5 MCHC 31.1 L RDW 16.7 H Plt Count 254 Seg Neutrophils % Not Reportable Lymphocytes % Not Reportable Monocytes % Not Reportable Eosinophils % Not Reportable Basophils % Not Reportable Absolute Neutrophils Not Reportable Absolute Lymphocytes Not Reportable Absolute Monocytes Not Reportable Absolute Eosinophils Not Reportable Absolute Basophils Not Reportable Carbonic Acid HCO3/H2CO3 Ratio ABG pH ABG pCO2 ABG pO2 ABG HCO3 ABG O2 Saturation ABG Base Excess FiO2 Sodium 138.1 Potassium 3.9 Chloride 86 L Carbon Dioxide 29 Anion Gap 23 H BUN 130 H Creatinine 5.79 H Est GFR ( Amer) 9 L Est GFR (Non-Af Amer) 7 L Glucose 304 H Calcium 8.7 Phosphorus 10.3 H Magnesium 2.4 H 11/10/17 11:50 WBC RBC Hgb Hct MCV MCH MCHC RDW Plt Count Seg Neutrophils % Lymphocytes % Monocytes % Eosinophils % Basophils % Absolute Neutrophils Absolute Lymphocytes Absolute Monocytes Absolute Eosinophils Absolute Basophils Carbonic Acid 1.93 H HCO3/H2CO3 Ratio 16:1 ABG pH 7.32 L ABG pCO2 64.0 H ABG pO2 121.1 H ABG HCO3 32.1 H ABG O2 Saturation 98.0 ABG Base Excess 4.5 FiO2 100% Sodium Potassium Chloride Carbon Dioxide Anion Gap BUN Creatinine Est GFR ( Amer) Est GFR (Non-Af Amer) Glucose Calcium Phosphorus Magnesium 11/02/17 11/09/17 11/09/17 19:35 15:05 15:05 Creatine Kinase 40 CK-MB (CK-2) 0.69 Troponin I < 0.012 0.019 11/09/17 11/09/17 11/10/17 22:46 22:46 08:39 Creatine Kinase 45 46 CK-MB (CK-2) 0.62 Troponin I 0.017 11/10/17 08:39 Creatine Kinase CK-MB (CK-2) 0.70 Troponin I 0.034 Impressions: Abdomen/Pelvis CT 11/02/17 00:00 IMPRESSION: 1. AIRSPACE DISEASE IN THE VISUALIZED RIGHT LUNG. 2. SLUDGE AND/OR STONES IN THE GALLBLADDER. 3. NO OTHER SIGNIFICANT OR ACUTE PROCESS IN THE ABDOMEN OR PELVIS. [facility] 11/02/17 00:00 IMPRESSION: Limited examination. No perfusion defects are identified. No evidence of PE. Head CT 11/02/17 13:59 IMPRESSION: NORMAL BRAIN CT WITHOUT CONTRAST. EVIDENCE OF ACUTE STROKE: NO. Interventional Vascular Procedure 11/07/17 00:00 IMPRESSION: Image obtained for procedure performed by Dr. Bunn. Acute Abdomen Series 11/10/17 00:00 IMPRESSION: 1. Moderate bilateral lower lobar pneumonia. 2. Moderate small bowel obstruction pattern. Chest X-Ray 11/10/17 00:00 IMPRESSION: Interval worsening includes moderate bilateral airspace opacities. KUB X-Ray 11/10/17 00:00 IMPRESSION: NG tube overlying stomach. Assessment & Plan - Diagnosis (1) Acute CHF Qualifiers: Heart failure type: diastolic Qualified Code(s): I50.31 - Acute diastolic ( congestive) heart failure Is this a current diagnosis for this admission?: Yes Plan: Per (2) Acute on chronic renal failure Qualifiers: Acute renal failure type: unspecified Chronic kidney disease stage: stage 4 (severe) Qualified Code(s): N17.9 - Acute kidney failure, unspecified; N18.4 - Chronic kidney disease, stage 4 (severe); N18.4 - Chronic kidney disease , stage 4 (severe); N18.4 - Chronic kidney disease, stage 4 (severe); N18.4 - Chronic kidney disease, stage 4 (severe) Is this a current diagnosis for this admission?: Yes Plan: Per Dr. Buitrago (3) Acute on chronic respiratory failure with hypoxia and hypercapnia Is this a current diagnosis for this admission?: Yes Plan: slightly improved Trilogy The above patient has failed BiPAP. This patient would benefit from noninvasive mechanical ventilation via the trilogy AVAPS/AE and faster responding AVAPS rates. The trilogy is able to provide a target tidal volume and also adjusting the EPAP pressures to maintain a patent airway as well as an oral backup rate this machine will help improve PaCO2 levels. The severity of the patient's condition will lead to future hospitalizations and readmissions as well as life-threatening situations without the use of this device trilogy home vent needed for hypercapnic respiratory failure. [facility] or [facility] [place] to follow for trilogy set up. (4) Morbid obesity Is this a current diagnosis for this admission?: Yes Plan: Unchanged (5) Pneumonia Qualifiers: Pneumonia type: due to unspecified organism Laterality: right Lung location: unspecified part of lung Qualified Code(s): J18.9 - Pneumonia, unspecified organism Is this a current diagnosis for this admission?: Yes Plan: no + cultures
[2017-11-10 14:59] LABS: BLOOD UREA NITROGEN 130 mg/dL (7-20)
[2017-11-10 15:05] LABS: CARBON DIOXIDE 31 mmol/L (22-30); SODIUM 138.2 mmol/L (137-145)
--- NOTE | 2017-11-10 15:08 | PDOC PROGRESS REPORT ---
Subjective Progress Note for:: 11/08/17 Subjective:: somewhat improved Reason For Visit: ACUTE ON CHRONIC HEART FAILURE, CIRRHOSIS Physical Exam Vital Signs: Temp Pulse Resp BP Pulse Ox 98.9 F 83 22 H 134/64 H 100 11/10/17 07:29 11/10/17 07:29 11/10/17 07:29 11/10/17 07:29 11/10/17 07:29 Pulse Oximeter Continuous Start: 11/04/17 13: 05 Freq: RTQ4 Status: Active Document 11/10/17 04:00 CMI (Rec: 11/10/17 04:09 CMI [email or web address]) Pulse Oximetry Assessment Oxygen Saturation (92-100) 92 Oxygen Flow Rate (L/min) 12 Oxygen Delivery Method Non-Rebreather Equipment Usage Equipment in Use Continuous SpO2 Machine # 7 Intake & Output 11/09/17 11/10/17 11/11/17 06:59 06:59 06:59 Intake Total 904 657 Output Total 3200 850 Balance -2296 -193 Weight 109.4 kg 108.1 kg General appearance: PRESENT: disheveled, morbidly obese, well-developed Head exam: PRESENT: atraumatic, normocephalic Eye exam: PRESENT: conjunctiva pale. ABSENT: nystagmus, periorbital swelling, scleral icterus Mouth exam: PRESENT: dry mucosa, neck supple, tongue midline Neck exam: ABSENT: carotid bruit, JVD, lymphadenopathy, thyromegaly, tracheal deviation, tracheostomy Respiratory exam: PRESENT: crackles, decreased breath sounds, rhonchi, symmetrical. ABSENT: accessory muscle use, chest wall tenderness, clear to auscultation irma, prolonged expiratory phas, retraction, stridor, tachypnea Cardiovascular exam: PRESENT: RRR, +S1, +S2 Pulses: PRESENT: normal radial pulses GI/Abdominal exam: PRESENT: diminished bowel sounds, soft Extremities exam: ABSENT: calf tenderness, clubbing Musculoskeletal exam: ABSENT: deformity, dislocation Neurological exam: PRESENT: awake Psychiatric exam: PRESENT: flat affect Skin exam: PRESENT: dry, warm Results Laboratory Results: 11/10/17 08:39 11/10/17 08:39 11/10/17 11/10/17 11/10/17 08:39 08:39 08:39 WBC 24.4 H RBC 3.81 Hgb 10.9 L Hct 35.0 L MCV 92 MCH 28.5 MCHC 31.1 L RDW 16.7 H Plt Count 254 Seg Neutrophils % Not Reportable Lymphocytes % Not Reportable Monocytes % Not Reportable Eosinophils % Not Reportable Basophils % Not Reportable Absolute Neutrophils Not Reportable Absolute Lymphocytes Not Reportable Absolute Monocytes Not Reportable Absolute Eosinophils Not Reportable Absolute Basophils Not Reportable Carbonic Acid HCO3/H2CO3 Ratio ABG pH ABG pCO2 ABG pO2 ABG HCO3 ABG O2 Saturation ABG Base Excess FiO2 Sodium 138.1 Potassium 3.9 Chloride 86 L Carbon Dioxide 29 Anion Gap 23 H BUN 130 H Creatinine 5.79 H Est GFR ( Amer) 9 L Est GFR (Non-Af Amer) 7 L Glucose 304 H Calcium 8.7 Phosphorus 10.3 H Magnesium 2.4 H 11/10/17 11:50 WBC RBC Hgb Hct MCV MCH MCHC RDW Plt Count Seg Neutrophils % Lymphocytes % Monocytes % Eosinophils % Basophils % Absolute Neutrophils Absolute Lymphocytes Absolute Monocytes Absolute Eosinophils Absolute Basophils Carbonic Acid 1.93 H HCO3/H2CO3 Ratio 16:1 ABG pH 7.32 L ABG pCO2 64.0 H ABG pO2 121.1 H ABG HCO3 32.1 H ABG O2 Saturation 98.0 ABG Base Excess 4.5 FiO2 100% Sodium Potassium Chloride Carbon Dioxide Anion Gap BUN Creatinine Est GFR ( Amer) Est GFR (Non-Af Amer) Glucose Calcium Phosphorus Magnesium 11/02/17 11/09/17 11/09/17 19:35 15:05 15:05 Creatine Kinase 40 CK-MB (CK-2) 0.69 Troponin I < 0.012 0.019 11/09/17 11/09/17 11/10/17 22:46 22:46 08:39 Creatine Kinase 45 46 CK-MB (CK-2) 0.62 Troponin I 0.017 11/10/17 08:39 Creatine Kinase CK-MB (CK-2) 0.70 Troponin I 0.034 Impressions: Abdomen/Pelvis CT 11/02/17 00:00 IMPRESSION: 1. AIRSPACE DISEASE IN THE VISUALIZED RIGHT LUNG. 2. SLUDGE AND/OR STONES IN THE GALLBLADDER. 3. NO OTHER SIGNIFICANT OR ACUTE PROCESS IN THE ABDOMEN OR PELVIS. Lung Scan[facility] 11/02/17 00:00 IMPRESSION: Limited examination. No perfusion defects are identified. No evidence of PE. Head CT 11/02/17 13:59 IMPRESSION: NORMAL BRAIN CT WITHOUT CONTRAST. EVIDENCE OF ACUTE STROKE: NO. Interventional Vascular Procedure 11/07/17 00:00 IMPRESSION: Image obtained for procedure performed by Dr. Bunn. Acute Abdomen Series 11/10/17 00:00 IMPRESSION: 1. Moderate bilateral lower lobar pneumonia. 2. Moderate small bowel obstruction pattern. Chest X-Ray 11/10/17 00:00 IMPRESSION: Interval worsening includes moderate bilateral airspace opacities. KUB X-Ray 11/10/17 00:00 IMPRESSION: NG tube overlying stomach. Assessment & Plan - Diagnosis (1) Acute CHF Qualifiers: Heart failure type: diastolic Qualified Code(s): I50.31 - Acute diastolic ( congestive) heart failure Is this a current diagnosis for this admission?: Yes Plan: jvd noted (2) Acute on chronic renal failure Qualifiers: Acute renal failure type: unspecified Chronic kidney disease stage: stage 4 (severe) Qualified Code(s): N17.9 - Acute kidney failure, unspecified; N18.4 - Chronic kidney disease, stage 4 (severe); N18.4 - Chronic kidney disease , stage 4 (severe); N18.4 - Chronic kidney disease, stage 4 (severe); N18.4 - Chronic kidney disease, stage 4 (severe) Is this a current diagnosis for this admission?: Yes Plan: Per Dr. Buitrago (3) Acute on chronic respiratory failure with hypoxia and hypercapnia Is this a current diagnosis for this admission?: Yes Plan: needs to wear NIPPV 15/04 (4) Morbid obesity Is this a current diagnosis for this admission?: Yes Plan: Unchanged (5) Pneumonia Qualifiers: Pneumonia type: due to unspecified organism Laterality: right Lung location: unspecified part of lung Qualified Code(s): J18.9 - Pneumonia, unspecified organism Is this a current diagnosis for this admission?: Yes
[2017-11-10 15:10] LABS: ANION GAP 21 (5-19)
[2017-11-10 15:12] LABS: ARTERIAL BLOOD BASE EXCESS 5.2 mmol/L; ARTERIAL BLOOD FIO2 35%; ARTERIAL BLOOD H2CO3 1.83 mmol/L (1.05-1.35); ARTERIAL BLOOD HCO3 32.3 mmol/L (20-26); ARTERIAL BLOOD O2 SATURATION 89.6 % (94-98); ARTERIAL BLOOD PCO2 60.7 mmHg (35-45); ARTERIAL BLOOD PH 7.34 (7.35-7.45); ARTERIAL BLOOD PO2 61.4 mmHg (80-100); ARTERIAL BLOOD TOTAL CO2 34.2 mmol/L (21-25)
--- NOTE | 2017-11-10 15:18 | PDOC PROGRESS REPORT ---
Subjective Progress Note for:: 11/10/17 Subjective:: increasing tachypnea and not wearing NIPPV sent to ICU Reason For Visit: ACUTE ON CHRONIC HEART FAILURE, CIRRHOSIS Physical Exam Vital Signs: Temp Pulse Resp BP Pulse Ox 98.9 F 83 22 H 134/64 H 100 11/10/17 07:29 11/10/17 07:29 11/10/17 07:29 11/10/17 07:29 11/10/17 07:29 Pulse Oximeter Continuous Start: 11/04/17 13: 05 Freq: RTQ4 Status: Active Document 11/10/17 04:00 CMI (Rec: 11/10/17 04:09 CMI [email or web address]) Pulse Oximetry Assessment Oxygen Saturation (92-100) 92 Oxygen Flow Rate (L/min) 12 Oxygen Delivery Method Non-Rebreather Equipment Usage Equipment in Use Continuous SpO2 Machine # 7 Intake & Output 11/09/17 11/10/17 11/11/17 06:59 06:59 06:59 Intake Total 904 657 Output Total 3200 850 Balance -2296 -193 Weight 109.4 kg 108.1 kg General appearance: PRESENT: disheveled, mild distress, morbidly obese, well- developed Head exam: PRESENT: atraumatic, normocephalic Eye exam: PRESENT: conjunctiva pale. ABSENT: conjunctival injection, conjunctiva pink, nystagmus, scleral icterus Mouth exam: PRESENT: dry mucosa, neck supple, tongue midline. ABSENT: laceration, moist Neck exam: ABSENT: carotid bruit, JVD, lymphadenopathy, thyromegaly, tracheal deviation, tracheostomy Respiratory exam: PRESENT: crackles, decreased breath sounds, prolonged expiratory phas, rhonchi, symmetrical, tachypnea, wheezes. ABSENT: retraction, stridor, unlabored Cardiovascular exam: PRESENT: RRR, +S1, +S2, systolic murmur Pulses: PRESENT: normal radial pulses GI/Abdominal exam: PRESENT: diminished bowel sounds, soft Extremities exam: ABSENT: clubbing Musculoskeletal exam: ABSENT: deformity, dislocation Neurological exam: PRESENT: other - obtunded Skin exam: PRESENT: dry, warm Results Laboratory Results: 11/10/17 08:39 11/10/17 08:39 11/10/17 11/10/17 11/10/17 08:39 08:39 08:39 WBC 24.4 H RBC 3.81 Hgb 10.9 L Hct 35.0 L MCV 92 MCH 28.5 MCHC 31.1 L RDW 16.7 H Plt Count 254 Seg Neutrophils % Not Reportable Lymphocytes % Not Reportable Monocytes % Not Reportable Eosinophils % Not Reportable Basophils % Not Reportable Absolute Neutrophils Not Reportable Absolute Lymphocytes Not Reportable Absolute Monocytes Not Reportable Absolute Eosinophils Not Reportable Absolute Basophils Not Reportable Carbonic Acid HCO3/H2CO3 Ratio ABG pH ABG pCO2 ABG pO2 ABG HCO3 ABG O2 Saturation ABG Base Excess FiO2 Sodium 138.1 Potassium 3.9 Chloride 86 L Carbon Dioxide 29 Anion Gap 23 H BUN 130 H Creatinine 5.79 H Est GFR ( Amer) 9 L Est GFR (Non-Af Amer) 7 L Glucose 304 H Calcium 8.7 Phosphorus 10.3 H Magnesium 2.4 H 11/10/17 11:50 WBC RBC Hgb Hct MCV MCH MCHC RDW Plt Count Seg Neutrophils % Lymphocytes % Monocytes % Eosinophils % Basophils % Absolute Neutrophils Absolute Lymphocytes Absolute Monocytes Absolute Eosinophils Absolute Basophils Carbonic Acid 1.93 H HCO3/H2CO3 Ratio 16:1 ABG pH 7.32 L ABG pCO2 64.0 H ABG pO2 121.1 H ABG HCO3 32.1 H ABG O2 Saturation 98.0 ABG Base Excess 4.5 FiO2 100% Sodium Potassium Chloride Carbon Dioxide Anion Gap BUN Creatinine Est GFR ( Amer) Est GFR (Non-Af Amer) Glucose Calcium Phosphorus Magnesium 11/02/17 11/09/17 11/09/17 19:35 15:05 15:05 Creatine Kinase 40 CK-MB (CK-2) 0.69 Troponin I < 0.012 0.019 11/09/17 11/09/17 11/10/17 22:46 22:46 08:39 Creatine Kinase 45 46 CK-MB (CK-2) 0.62 Troponin I 0.017 11/10/17 08:39 Creatine Kinase CK-MB (CK-2) 0.70 Troponin I 0.034 Impressions: Abdomen/Pelvis CT 11/02/17 00:00 IMPRESSION: 1. AIRSPACE DISEASE IN THE VISUALIZED RIGHT LUNG. 2. SLUDGE AND/OR STONES IN THE GALLBLADDER. 3. NO OTHER SIGNIFICANT OR ACUTE PROCESS IN THE ABDOMEN OR PELVIS. Lung Scan-[facility] 11/02/17 00:00 IMPRESSION: Limited examination. No perfusion defects are identified. No evidence of PE. Head CT 11/02/17 13:59 IMPRESSION: NORMAL BRAIN CT WITHOUT CONTRAST. EVIDENCE OF ACUTE STROKE: NO. Interventional Vascular Procedure 11/07/17 00:00 IMPRESSION: Image obtained for procedure performed by Dr. Bunn. Acute Abdomen Series 11/10/17 00:00 IMPRESSION: 1. Moderate bilateral lower lobar pneumonia. 2. Moderate small bowel obstruction pattern. Chest X-Ray 11/10/17 00:00 IMPRESSION: Interval worsening includes moderate bilateral airspace opacities. KUB X-Ray 11/10/17 00:00 IMPRESSION: NG tube overlying stomach. Assessment & Plan - Diagnosis (1) Acute CHF Qualifiers: Heart failure type: diastolic Qualified Code(s): I50.31 - Acute diastolic ( congestive) heart failure Is this a current diagnosis for this admission?: Yes Plan: JVD persist (2) Acute on chronic renal failure Qualifiers: Acute renal failure type: unspecified Chronic kidney disease stage: stage 4 (severe) Qualified Code(s): N17.9 - Acute kidney failure, unspecified; N18.4 - Chronic kidney disease, stage 4 (severe); N18.4 - Chronic kidney disease , stage 4 (severe); N18.4 - Chronic kidney disease, stage 4 (severe); N18.4 - Chronic kidney disease, stage 4 (severe) Is this a current diagnosis for this admission?: Yes Plan: 49 frs s/p dialysis as per Dr. Buitrago Labs- All tests 24 hr 11/02/17 11/03/17 11/04/17 14:40 07:03 07:05 BUN 39 H 42 H 57 H Creatinine 2.21 H 2.46 H 2.91 H 11/05/17 11/06/17 11/07/17 13:35 05:21 05:09 BUN 79 H 98 H 115 H Creatinine 3.36 H 4.41 H 5.46 H 11/08/17 11/09/17 11/10/17 05:12 06:22 08:39 BUN 121 H 106 H 130 H Creatinine 5.98 H 4.83 H 5.79 H 11/10/17 14:00 BUN 130 H Creatinine 6.03 H (3) Acute on chronic respiratory failure with hypoxia and hypercapnia Is this a current diagnosis for this admission?: Yes Plan: multifactorial obstructive lung dx + CHF failure + renal failure (4) Morbid obesity Is this a current diagnosis for this admission?: Yes (5) Pneumonia Qualifiers: Pneumonia type: due to unspecified organism Laterality: right Lung location: unspecified part of lung Qualified Code(s): J18.9 - Pneumonia, unspecified organism Is this a current diagnosis for this admission?: Yes Plan: no + cultures Labs- All tests 24 hr 11/10/17 08:39 WBC 24.4 H Seg Neuts % (Manual) 86 H - Time Total Critical Time (Minutes): 60
[2017-11-10] MEDS: AZTREONAM 0.25 GM in DEXTROSE 5%-WATER 50 ML IV SCH ×2 (15:27→21:48)
--- NOTE | 2017-11-10 15:27 | PDOC PROGRESS REPORT ---
Subjective Progress Note for:: 11/07/17 Subjective:: not wearing NIPPV Reason For Visit: ACUTE ON CHRONIC HEART FAILURE, CIRRHOSIS Physical Exam Vital Signs: Temp Pulse Resp BP Pulse Ox 98.9 F 83 22 H 134/64 H 100 11/10/17 07:29 11/10/17 07:29 11/10/17 07:29 11/10/17 07:29 11/10/17 07:29 Pulse Oximeter Continuous Start: 11/04/17 13: 05 Freq: RTQ4 Status: Active Document 11/10/17 04:00 CMI (Rec: 11/10/17 04:09 CMI [email or web address]) Pulse Oximetry Assessment Oxygen Saturation (92-100) 92 Oxygen Flow Rate (L/min) 12 Oxygen Delivery Method Non-Rebreather Equipment Usage Equipment in Use Continuous SpO2 Machine # 7 Intake & Output 11/09/17 11/10/17 11/11/17 06:59 06:59 06:59 Intake Total 904 657 Output Total 3200 850 Balance -2296 -193 Weight 109.4 kg 108.1 kg General appearance: PRESENT: disheveled, morbidly obese Head exam: PRESENT: atraumatic, normocephalic Eye exam: PRESENT: conjunctiva pale. ABSENT: nystagmus, periorbital swelling, scleral icterus Mouth exam: PRESENT: dry mucosa, neck supple, tongue midline. ABSENT: laceration, moist Neck exam: ABSENT: carotid bruit, JVD, lymphadenopathy, thyromegaly, tracheal deviation, tracheostomy Respiratory exam: PRESENT: crackles, decreased breath sounds, prolonged expiratory phas, rhonchi, symmetrical, tachypnea. ABSENT: accessory muscle use , chest wall tenderness, clear to auscultation irma, retraction, stridor Cardiovascular exam: PRESENT: RRR, +S1, +S2, systolic murmur Pulses: PRESENT: normal radial pulses GI/Abdominal exam: PRESENT: diminished bowel sounds, soft Extremities exam: ABSENT: clubbing Musculoskeletal exam: ABSENT: deformity, dislocation Neurological exam: ABSENT: oriented to place, oriented to time, oriented to situation Skin exam: PRESENT: dry, warm Results Laboratory Results: 11/10/17 08:39 11/10/17 08:39 11/10/17 11/10/17 11/10/17 08:39 08:39 08:39 WBC 24.4 H RBC 3.81 Hgb 10.9 L Hct 35.0 L MCV 92 MCH 28.5 MCHC 31.1 L RDW 16.7 H Plt Count 254 Seg Neutrophils % Not Reportable Lymphocytes % Not Reportable Monocytes % Not Reportable Eosinophils % Not Reportable Basophils % Not Reportable Absolute Neutrophils Not Reportable Absolute Lymphocytes Not Reportable Absolute Monocytes Not Reportable Absolute Eosinophils Not Reportable Absolute Basophils Not Reportable Carbonic Acid HCO3/H2CO3 Ratio ABG pH ABG pCO2 ABG pO2 ABG HCO3 ABG O2 Saturation ABG Base Excess FiO2 Sodium 138.1 Potassium 3.9 Chloride 86 L Carbon Dioxide 29 Anion Gap 23 H BUN 130 H Creatinine 5.79 H Est GFR ( Amer) 9 L Est GFR (Non-Af Amer) 7 L Glucose 304 H Calcium 8.7 Phosphorus 10.3 H Magnesium 2.4 H 11/10/17 11:50 WBC RBC Hgb Hct MCV MCH MCHC RDW Plt Count Seg Neutrophils % Lymphocytes % Monocytes % Eosinophils % Basophils % Absolute Neutrophils Absolute Lymphocytes Absolute Monocytes Absolute Eosinophils Absolute Basophils Carbonic Acid 1.93 H HCO3/H2CO3 Ratio 16:1 ABG pH 7.32 L ABG pCO2 64.0 H ABG pO2 121.1 H ABG HCO3 32.1 H ABG O2 Saturation 98.0 ABG Base Excess 4.5 FiO2 100% Sodium Potassium Chloride Carbon Dioxide Anion Gap BUN Creatinine Est GFR ( Amer) Est GFR (Non-Af Amer) Glucose Calcium Phosphorus Magnesium 11/02/17 11/09/17 11/09/17 19:35 15:05 15:05 Creatine Kinase 40 CK-MB (CK-2) 0.69 Troponin I < 0.012 0.019 11/09/17 11/09/17 11/10/17 22:46 22:46 08:39 Creatine Kinase 45 46 CK-MB (CK-2) 0.62 Troponin I 0.017 11/10/17 08:39 Creatine Kinase CK-MB (CK-2) 0.70 Troponin I 0.034 Impressions: Abdomen/Pelvis CT 11/02/17 00:00 IMPRESSION: 1. AIRSPACE DISEASE IN THE VISUALIZED RIGHT LUNG. 2. SLUDGE AND/OR STONES IN THE GALLBLADDER. 3. NO OTHER SIGNIFICANT OR ACUTE PROCESS IN THE ABDOMEN OR PELVIS. Lung Scan-[facility] 11/02/17 00:00 IMPRESSION: Limited examination. No perfusion defects are identified. No evidence of PE. Head CT 11/02/17 13:59 IMPRESSION: NORMAL BRAIN CT WITHOUT CONTRAST. EVIDENCE OF ACUTE STROKE: NO. Interventional Vascular Procedure 11/07/17 00:00 IMPRESSION: Image obtained for procedure performed by Dr. Bunn. Acute Abdomen Series 11/10/17 00:00 IMPRESSION: 1. Moderate bilateral lower lobar pneumonia. 2. Moderate small bowel obstruction pattern. Chest X-Ray 11/10/17 00:00 IMPRESSION: Interval worsening includes moderate bilateral airspace opacities. KUB X-Ray 11/10/17 00:00 IMPRESSION: NG tube overlying stomach. Assessment & Plan - Diagnosis (1) Acute CHF Qualifiers: Heart failure type: diastolic Qualified Code(s): I50.31 - Acute diastolic ( congestive) heart failure Is this a current diagnosis for this admission?: Yes Plan: unchanged (2) Acute on chronic renal failure Qualifiers: Acute renal failure type: unspecified Chronic kidney disease stage: stage 4 (severe) Qualified Code(s): N17.9 - Acute kidney failure, unspecified; N18.4 - Chronic kidney disease, stage 4 (severe); N18.4 - Chronic kidney disease , stage 4 (severe); N18.4 - Chronic kidney disease, stage 4 (severe); N18.4 - Chronic kidney disease, stage 4 (severe) Is this a current diagnosis for this admission?: Yes Plan: 48 frs s/p dialysis as per Dr. Buitrago Labs- All tests 24 hr 11/02/17 11/03/17 11/04/17 14:40 07:03 07:05 BUN 39 H 42 H 57 H Creatinine 2.21 H 2.46 H 2.91 H 11/05/17 11/06/17 11/07/17 13:35 05:21 05:09 BUN 79 H 98 H 115 H Creatinine 3.36 H 4.41 H 5.46 H 11/08/17 11/09/17 11/10/17 05:12 06:22 08:39 BUN 121 H 106 H 130 H Creatinine 5.98 H 4.83 H 5.79 H 11/10/17 14:00 BUN 130 H Creatinine 6.03 H (3) Acute on chronic respiratory failure with hypoxia and hypercapnia Is this a current diagnosis for this admission?: Yes Plan: multifactorial obstructive lung dx + CHF failure + renal failure boderline (4) Morbid obesity Is this a current diagnosis for this admission?: Yes Plan: minimally improved (5) Pneumonia Qualifiers: Pneumonia type: due to unspecified organism Laterality: right Lung location: unspecified part of lung Qualified Code(s): J18.9 - Pneumonia, unspecified organism Is this a current diagnosis for this admission?: Yes
[2017-11-10] MEDS ORDERED: AZITHROMYCIN 250 MG TABLET NG SCH (16:00)
--- NOTE | 2017-11-10 16:04 | PDOC CONSULTATION ---
Consultation Consult Date: 11/10/17 Consult reason:: constipation, possible bowel obstruction History of Present Illness Admission Date/PCP: 11/02/17 16:18 RANDY SHEPHERD MD History of Present Illness: 77 y/o female recently admitted to the hospital, currently in the ICU with respiratory failure, kidney failure, change of mental status, recent Xray of the abdomen howing possible small bowel obstruction. She did have a bowel movement a couple of days ago, none since until this Am when she received a Fleet enema and she defecated afterward. The patient has a hx of left breast cancer and ovarian cancer treated with left mastectomy and transabdominal hysterectomy. Finally the daughter reports a long standing history of constipation. Past Medical History Cardiac Medical History: Reports: Hypertension Denies: Coronary Artery Disease, Myocardial Infarction Pulmonary Medical History: Reports: Asthma Denies: Bronchitis, Chronic Obstructive Pulmonary Disease (COPD), Pneumonia Neurological Medical History: Reports: Seizures - over a year, Other - Restless leg syndrome Endocrine Medical History: Reports: Diabetes Mellitus Type 2 Malignancy Medical History: Reports: Breast Cancer, Other - Uterine cancer Musculoskeltal Medical History: Reports: Arthritis, Gout Psychiatric Medical History: Reports: Depression Hematology: Reports: Anemia Past Surgical History Past Surgical History: Reports: Appendectomy, Mastectomy, Tubal Ligation, Other - Breast cancer surgery, status post hysterectomy Denies: Hysterectomy, Pacemaker Social History Lives with: Family Smoking Status: Never Smoker Frequency of Alcohol Use: None Hx Recreational Drug Use: No Hx Prescription Drug Abuse: No - Advance Directive Resuscitation Status: Full Code Family History Family History: Hypertension Parental Family History Reviewed: Yes Children Family History Reviewed: Yes Sibling(s) Family History Reviewed.: Yes Medication/Allergy Home Medications: Albuterol Sulfate [Proair HFA] 2 puff PO PRN PRN 11/03/17 Allopurinol [Zyloprim 100 mg Tablet] 100 mg PO TID 11/03/17 Amlodipine Besylate [Amlodipine Besylate] 5 mg PO DAILY 11/03/17 Atenolol [Atenolol] 100 mg PO DAILY 11/03/17 Atorvastatin Calcium 20 mg PO DAILY 11/03/17 Fluoxetine HCl [Fluoxetine HCl] 40 mg PO DAILY 11/03/17 Fluticasone Propionate 2 sprays IN DAILY 11/03/17 Furosemide [Lasix] 40 mg PO DAILY 11/03/17 Gabapentin [Gabapentin] 600 mg PO PRN PRN 11/03/17 Glipizide [Glipizide Xl] 5 mg PO DAILY 11/03/17 Hydroxyzine HCl [Hydroxyzine HCl] 25 mg PO BID 11/03/17 Loratadine [Loratadine] 10 mg PO DAILY 11/03/17 Nitroglycerin 0.4 mg SL PRN PRN 11/03/17 Pantoprazole Sodium [Protonix] 40 mg PO DAILY 11/03/17 Potassium Chloride [Klor-Con 10] 10 meq PO DAILY 11/03/17 Telmisartan [Micardis] 80 mg PO DAILY 11/03/17 Temazepam [Temazepam] 15 mg PO ACHS 11/03/17 Allergies/Adverse Reactions: Penicillins Allergy (Verified 11/02/17 17:35) Physical Exam Vital Signs: Temp Pulse Resp BP Pulse Ox 97.8 F 73 17 127/64 H 93 11/10/17 14:00 11/10/17 14:00 11/10/17 14:00 11/10/17 14:00 11/10/17 14:00 Pulse Oximeter Continuous Start: 11/04/17 13: 05 Freq: RTQ4 Status: Active Document 11/10/17 11:50 JDR (Rec: 11/10/17 13:04 [facility] [email or web address]) Pulse Oximetry Assessment Oxygen Saturation (92-100) 98 Oxygen Flow Rate (L/min) 12 Oxygen Delivery Method Partial-Rebreather Equipment Usage Equipment in Use Continuous SpO2 Machine # 7 Intake & Output 11/09/17 11/10/17 11/11/17 06:59 06:59 06:59 Intake Total 904 657 Output Total 3200 850 110 Balance -2296 -193 -110 Weight 109.4 kg 108.1 kg General appearance: PRESENT: severe distress Head exam: PRESENT: atraumatic Respiratory exam: PRESENT: clear to auscultation irma Cardiovascular exam: PRESENT: RRR GI/Abdominal exam: PRESENT: diminished bowel sounds, soft, other - old lower midline incision Results Laboratory Results: 11/10/17 08:39 11/10/17 14:00 11/10/17 11/10/17 11/10/17 08:39 08:39 08:39 WBC 24.4 H RBC 3.81 Hgb 10.9 L Hct 35.0 L MCV 92 MCH 28.5 MCHC 31.1 L RDW 16.7 H Plt Count 254 Seg Neutrophils % Not Reportable Lymphocytes % Not Reportable Monocytes % Not Reportable Eosinophils % Not Reportable Basophils % Not Reportable Absolute Neutrophils Not Reportable Absolute Lymphocytes Not Reportable Absolute Monocytes Not Reportable Absolute Eosinophils Not Reportable Absolute Basophils Not Reportable Carbonic Acid HCO3/H2CO3 Ratio ABG pH ABG pCO2 ABG pO2 ABG HCO3 ABG O2 Saturation ABG Base Excess FiO2 Sodium 138.1 Potassium 3.9 Chloride 86 L Carbon Dioxide 29 Anion Gap 23 H BUN 130 H Creatinine 5.79 H Est GFR ( Amer) 9 L Est GFR (Non-Af Amer) 7 L Glucose 304 H Calcium 8.7 Phosphorus 10.3 H Magnesium 2.4 H Total Bilirubin AST ALT Alkaline Phosphatase Ammonia Total Protein Albumin Urine Color Urine Appearance Urine pH Ur Specific Fancy Gap Urine Protein Urine Glucose (UA) Urine Ketones Urine Blood Urine Nitrite Ur Leukocyte Esterase Urine WBC (Auto) Urine RBC (Auto) 11/10/17 11/10/17 11/10/17 11:50 12:30 14:00 WBC RBC Hgb Hct MCV MCH MCHC RDW Plt Count Seg Neutrophils % Lymphocytes % Monocytes % Eosinophils % Basophils % Absolute Neutrophils Absolute Lymphocytes Absolute Monocytes Absolute Eosinophils Absolute Basophils Carbonic Acid 1.93 H HCO3/H2CO3 Ratio 16:1 ABG pH 7.32 L ABG pCO2 64.0 H ABG pO2 121.1 H ABG HCO3 32.1 H ABG O2 Saturation 98.0 ABG Base Excess 4.5 FiO2 100% Sodium 138.2 Potassium 4.0 Chloride 86 L Carbon Dioxide 31 H Anion Gap 21 H BUN 130 H Creatinine 6.03 H Est GFR ( Amer) 8 L Est GFR (Non-Af Amer) 7 L Glucose 312 H Calcium 8.3 L Phosphorus Magnesium Total Bilirubin 0.8 AST 24 ALT 39 Alkaline Phosphatase 55 Ammonia Total Protein 6.7 Albumin 4.0 Urine Color YELLOW Urine Appearance CLOUDY Urine pH 5.0 Ur Specific Fancy Gap 1.015 Urine Protein >=500 H Urine Glucose (UA) 50 H Urine Ketones NEGATIVE Urine Blood LARGE H Urine Nitrite NEGATIVE Ur Leukocyte Esterase NEGATIVE Urine WBC (Auto) 3 Urine RBC (Auto) >182 11/10/17 11/10/17 14:00 15:00 WBC RBC Hgb Hct MCV MCH MCHC RDW Plt Count Seg Neutrophils % Lymphocytes % Monocytes % Eosinophils % Basophils % Absolute Neutrophils Absolute Lymphocytes Absolute Monocytes Absolute Eosinophils Absolute Basophils Carbonic Acid 1.83 H HCO3/H2CO3 Ratio 17:1 ABG pH 7.34 L ABG pCO2 60.7 H ABG pO2 61.4 L ABG HCO3 32.3 H ABG O2 Saturation 89.6 L ABG Base Excess 5.2 FiO2 35% Sodium Potassium Chloride Carbon Dioxide Anion Gap BUN Creatinine Est GFR ( Amer) Est GFR (Non-Af Amer) Glucose Calcium Phosphorus Magnesium Total Bilirubin AST ALT Alkaline Phosphatase Ammonia < 8.7 L Total Protein Albumin Urine Color Urine Appearance Urine pH Ur Specific Fancy Gap Urine Protein Urine Glucose (UA) Urine Ketones Urine Blood Urine Nitrite Ur Leukocyte Esterase Urine WBC (Auto) Urine RBC (Auto) 11/02/17 11/09/17 11/09/17 19:35 15:05 15:05 Creatine Kinase 40 CK-MB (CK-2) 0.69 Troponin I < 0.012 0.019 11/09/17 11/09/17 11/10/17 22:46 22:46 08:39 Creatine Kinase 45 46 CK-MB (CK-2) 0.62 Troponin I 0.017 11/10/17 08:39 Creatine Kinase CK-MB (CK-2) 0.70 Troponin I 0.034 Impressions: Abdomen/Pelvis CT 11/02/17 00:00 IMPRESSION: 1. AIRSPACE DISEASE IN THE VISUALIZED RIGHT LUNG. 2. SLUDGE AND/OR STONES IN THE GALLBLADDER. 3. NO OTHER SIGNIFICANT OR ACUTE PROCESS IN THE ABDOMEN OR PELVIS. Lung Scan-[facility] 11/02/17 00:00 IMPRESSION: Limited examination. No perfusion defects are identified. No evidence of PE. Head CT 11/02/17 13:59 IMPRESSION: NORMAL BRAIN CT WITHOUT CONTRAST. EVIDENCE OF ACUTE STROKE: NO. Interventional Vascular Procedure 11/07/17 00:00 IMPRESSION: Image obtained for procedure performed by Dr. Bunn. Acute Abdomen Series 11/10/17 00:00 IMPRESSION: 1. Moderate bilateral lower lobar pneumonia. 2. Moderate small bowel obstruction pattern. Chest X-Ray 11/10/17 00:00 IMPRESSION: Interval worsening includes moderate bilateral airspace opacities. KUB X-Ray 11/10/17 00:00 IMPRESSION: NG tube overlying stomach. Assessment & Plan - Plan Summary Plan Summary: A/ Patient with multiple medical problems (respiratory and kidney failures) Hx of left breast and uterine cancers and s/p left mastectomy and transabdominal hysterectomy Patient currently in the ICU because of deterioration of her general conditions (kidney and lung failures) No bowel movement for only 2 days. Today's Xray of the abdomen done show a possible bowel obstruction: this is a soft call, in light of the recent BM's, one spontaneous and the other stimulated following the enema, her history of constipation, and the benign physical exam. P/ In light of the returned bowel function, I would not subject this patient to any diagnostic tribal which might not reveal anything different from we already know from her past history of constipation and response to enema. I am recommending a regimen of mineral oil enemas (50 mL BID) together with Colace 100 mg po BID, and possible Dulcolax either oral or per rectum. I will sing off. Please, call me questions.
--- NOTE | 2017-11-10 16:30 | PDOC PROGRESS REPORT ---
Subjective Progress Note for:: 11/10/17 Subjective:: Events for the last 36 hours reviewed. Patient's clinical condition has deteriorated in IMCU requiring transfer to the ICU. Patient has become more confused, lethargic, hypoxemic. Urine output since to be clinically declining as well. Patient continued to have some vomiting upstairs. Her white count is also elevated. Currently she is placed back on the BiPAP and continues to be lethargic. Reason For Visit: ACUTE ON CHRONIC kidney disease Physical Exam Vital Signs: Temp Pulse Resp BP Pulse Ox 97.8 F 73 17 127/64 H 93 11/10/17 14:00 11/10/17 14:00 11/10/17 14:00 11/10/17 14:00 11/10/17 14:00 Pulse Oximeter Continuous Start: 11/04/17 13: 05 Freq: RTQ4 Status: Active Document 11/10/17 11:50 JDR (Rec: 11/10/17 13:04 [email or web address] [email or web address]) Pulse Oximetry Assessment Oxygen Saturation (92-100) 98 Oxygen Flow Rate (L/min) 12 Oxygen Delivery Method Partial-Rebreather Equipment Usage Equipment in Use Continuous SpO2 Machine # 7 Intake & Output 11/09/17 11/10/17 11/11/17 06:59 06:59 06:59 Intake Total 904 657 Output Total 3200 850 110 Balance -2296 -193 -110 Weight 109.4 kg 108.1 kg Exam: General appearance: PRESENT: Currently on BiPAP, lethargic Head exam: PRESENT: atraumatic, normocephalic Eye exam: PRESENT: conjunctiva pale, PERRLA. ABSENT: scleral icterus Neck exam: Positive JVD Respiratory exam: PRESENT: Diminished breath sounds. ABSENT: crackles, rales, rhonchi, unlabored, wheezes Cardiovascular exam: PRESENT: Regular rate rhythm -+S1, +S2. ABSENT: diastolic murmur, systolic murmur GI/Abdominal exam: PRESENT: Hypoactive bowel sounds, soft. ABSENT: guarding, mass, tenderness Extremities exam: ABSENT: No edema Neurological exam: PRESENT: Lethargic. Skin exam: PRESENT: dry, warm, Results Laboratory Results: 11/10/17 08:39 11/10/17 14:00 11/10/17 11/10/17 11/10/17 08:39 08:39 08:39 WBC 24.4 H RBC 3.81 Hgb 10.9 L Hct 35.0 L MCV 92 MCH 28.5 MCHC 31.1 L RDW 16.7 H Plt Count 254 Seg Neutrophils % Not Reportable Lymphocytes % Not Reportable Monocytes % Not Reportable Eosinophils % Not Reportable Basophils % Not Reportable Absolute Neutrophils Not Reportable Absolute Lymphocytes Not Reportable Absolute Monocytes Not Reportable Absolute Eosinophils Not Reportable Absolute Basophils Not Reportable Carbonic Acid HCO3/H2CO3 Ratio ABG pH ABG pCO2 ABG pO2 ABG HCO3 ABG O2 Saturation ABG Base Excess FiO2 Sodium 138.1 Potassium 3.9 Chloride 86 L Carbon Dioxide 29 Anion Gap 23 H BUN 130 H Creatinine 5.79 H Est GFR ( Amer) 9 L Est GFR (Non-Af Amer) 7 L Glucose 304 H Calcium 8.7 Phosphorus 10.3 H Magnesium 2.4 H Total Bilirubin AST ALT Alkaline Phosphatase Ammonia Total Protein Albumin Urine Color Urine Appearance Urine pH Ur Specific [place] Urine Protein Urine Glucose (UA) Urine Ketones Urine Blood Urine Nitrite Ur Leukocyte Esterase Urine WBC (Auto) Urine RBC (Auto) 11/10/17 11/10/17 11/10/17 11:50 12:30 14:00 WBC RBC Hgb Hct MCV MCH MCHC RDW Plt Count Seg Neutrophils % Lymphocytes % Monocytes % Eosinophils % Basophils % Absolute Neutrophils Absolute Lymphocytes Absolute Monocytes Absolute Eosinophils Absolute Basophils Carbonic Acid 1.93 H HCO3/H2CO3 Ratio 16:1 ABG pH 7.32 L ABG pCO2 64.0 H ABG pO2 121.1 H ABG HCO3 32.1 H ABG O2 Saturation 98.0 ABG Base Excess 4.5 FiO2 100% Sodium 138.2 Potassium 4.0 Chloride 86 L Carbon Dioxide 31 H Anion Gap 21 H BUN 130 H Creatinine 6.03 H Est GFR ( Amer) 8 L Est GFR (Non-Af Amer) 7 L Glucose 312 H Calcium 8.3 L Phosphorus Magnesium Total Bilirubin 0.8 AST 24 ALT 39 Alkaline Phosphatase 55 Ammonia Total Protein 6.7 Albumin 4.0 Urine Color YELLOW Urine Appearance CLOUDY Urine pH 5.0 Ur Specific [place] 1.015 Urine Protein >=500 H Urine Glucose (UA) 50 H Urine Ketones NEGATIVE Urine Blood LARGE H Urine Nitrite NEGATIVE Ur Leukocyte Esterase NEGATIVE Urine WBC (Auto) 3 Urine RBC (Auto) >182 11/10/17 11/10/17 14:00 15:00 WBC RBC Hgb Hct MCV MCH MCHC RDW Plt Count Seg Neutrophils % Lymphocytes % Monocytes % Eosinophils % Basophils % Absolute Neutrophils Absolute Lymphocytes Absolute Monocytes Absolute Eosinophils Absolute Basophils Carbonic Acid 1.83 H HCO3/H2CO3 Ratio 17:1 ABG pH 7.34 L ABG pCO2 60.7 H ABG pO2 61.4 L ABG HCO3 32.3 H ABG O2 Saturation 89.6 L ABG Base Excess 5.2 FiO2 35% Sodium Potassium Chloride Carbon Dioxide Anion Gap BUN Creatinine Est GFR ( Amer) Est GFR (Non-Af Amer) Glucose Calcium Phosphorus Magnesium Total Bilirubin AST ALT Alkaline Phosphatase Ammonia < 8.7 L Total Protein Albumin Urine Color Urine Appearance Urine pH Ur Specific [place] Urine Protein Urine Glucose (UA) Urine Ketones Urine Blood Urine Nitrite Ur Leukocyte Esterase Urine WBC (Auto) Urine RBC (Auto) 11/02/17 11/09/17 11/09/17 19:35 15:05 15:05 Creatine Kinase 40 CK-MB (CK-2) 0.69 Troponin I < 0.012 0.019 11/09/17 11/09/17 11/10/17 22:46 22:46 08:39 Creatine Kinase 45 46 CK-MB (CK-2) 0.62 Troponin I 0.017 11/10/17 08:39 Creatine Kinase CK-MB (CK-2) 0.70 Troponin I 0.034 Impressions: Abdomen/Pelvis CT 11/02/17 00:00 IMPRESSION: 1. AIRSPACE DISEASE IN THE VISUALIZED RIGHT LUNG. 2. SLUDGE AND/OR STONES IN THE GALLBLADDER. 3. NO OTHER SIGNIFICANT OR ACUTE PROCESS IN THE ABDOMEN OR PELVIS. Lung Scan-VQ ND 11/02/17 00:00 IMPRESSION: Limited examination. No perfusion defects are identified. No evidence of PE. Head CT 11/02/17 13:59 IMPRESSION: NORMAL BRAIN CT WITHOUT CONTRAST. EVIDENCE OF ACUTE STROKE: NO. Interventional Vascular Procedure 11/07/17 00:00 IMPRESSION: Image obtained for procedure performed by Dr. Bunn. Acute Abdomen Series 11/10/17 00:00 IMPRESSION: 1. Moderate bilateral lower lobar pneumonia. 2. Moderate small bowel obstruction pattern. Chest X-Ray 11/10/17 00:00 IMPRESSION: Interval worsening includes moderate bilateral airspace opacities. KUB X-Ray 11/10/17 00:00 IMPRESSION: NG tube overlying stomach. Assessment & Plan - Diagnosis (1) Acute renal failure superimposed on stage 3 chronic kidney disease Is this a current diagnosis for this admission?: Yes Plan: This is secondary to acute prerenal factors including acute congestive heart failure. Patient does not have any proteinuria or microalbuminuria. There was no hypotension no other nephrotoxic medications. No obstruction on CT scan. Currently kidney function is getting progressively worse. However I agree with some diuresis. Chest x-ray seems to be improving so I believe that the right lung infiltrates is partly due to pulmonary congestion. Continue to monitor kidney function and avoid nephrotoxic medications. Her kidney function continues to get worse today. Uncertain as to her volume status because of her being incontinent, Fermin catheter inserted today. Her echocardiogram indicated normal left ventricular ejection fraction, mild to moderate diastolic dysfunction but also indicate the possibility of right-sided heart failure with dilated mildly dilated right atrium and right ventricle. I think we cannot diurese her too much due to the possibility of right heart failure. Patient's kidney function continues to get worse with decreasing urine output. Clinical condition has deteriorated. She has clinical signs of fluid overload again. I will increase back her Bumex to 2 mg IV every 12 hours. We will plan to do dialysis tomorrow with ultrafiltration. I talked to the patient's daughter Vandana extensively regarding the patient's clinical condition and deterioration. She agreed with continued dialysis treatment. She understood the critical nature of the patient's condition currently. (2) Acute CHF Qualifiers: Heart failure type: diastolic Qualified Code(s): I50.31 - Acute diastolic ( congestive) heart failure Is this a current diagnosis for this admission?: Yes Plan: Cardiology in consult. As mentioned above she has a combination of diastolic dysfunction as well as possibility of right-sided heart failure in a patient with COPD, obstructive sleep apnea, and obesity. Currently showing signs of bilateral pulmonary congestion again. (3) Acute on chronic respiratory failure with hypoxia and hypercapnia Is this a current diagnosis for this admission?: Yes (4) Pneumonia Qualifiers: Pneumonia type: aspiration pneumonia Laterality: right Lung location: unspecified part of lung Is this a current diagnosis for this admission?: Yes Plan: High likelihood the patient could have developed aspiration pneumonia due to her vomiting for the last 3 days. Currently started on antibiotics. Defer to hospitalist. (5) Nausea and vomiting Is this a current diagnosis for this admission?: Yes Plan: This could be secondary to uremia. This is likely caused some possible aspiration pneumonia causing deterioration of respiratory condition. (6) Hypocalcemia Is this a current diagnosis for this admission?: Yes Plan: Due to hyperphosphatemia. Mild. (7) Hyperphosphatemia Is this a current diagnosis for this admission?: Yes Plan: Due to AK I and CKD. This should improve with dialysis and hopefully improvement of kidney function. Will hold any phosphorus binders at this time. (8) Secondary hyperparathyroidism (of renal origin) Is this a current diagnosis for this admission?: Yes Plan: This needs to be repeated when the patient is a steady state. That is if the acute component of kidney failure recovers. (9) Iron deficiency anemia Is this a current diagnosis for this admission?: Yes Plan: We will give iron supplement. I gave her a dose of IV Feraheme on 11/04. (10) Anemia in chronic illness Is this a current diagnosis for this admission?: Yes (11) Morbid obesity Is this a current diagnosis for this admission?: Yes - Time Time with patient: Greater than 35 minutes
[2017-11-10] MEDS: ATORVASTATIN CALCIUM 40 MG TABLET NG SCH (17:42)
[2017-11-10] MEDS ORDERED: VANCOMYCIN HCL 2,000 MG in DEXTROSE 5%-WATER 500 ML IV ONE (18:00)
--- NOTE | 2017-11-10 18:03 | PDOC PROGRESS REPORT ---
Subjective Progress Note for:: 11/10/17 Subjective:: Patient today noted to be in respiratory distress on 100% oxygen. This was noted on rounds while she was still on medical floor. Chest x-ray reviewed new pneumonitis right base. Patient also had a NG tube placed earlier which had shown significant dark color gastric content being aspirated. Patient subsequently moved to the unit for better monitoring of her respiration and possible need for intubation. Patient lab work also showed significant worsening. This was related to hospitalist on rounds. Patient is maintaining sinus rhythm. Medications: Medications have been reviewed. Reason For Visit: ACUTE ON CHRONIC HEART FAILURE, CIRRHOSIS Physical Exam Vital Signs: Temp Pulse Resp BP Pulse Ox 99.4 F 77 17 121/66 96 11/10/17 16:00 11/10/17 16:00 11/10/17 16:00 11/10/17 16:00 11/10/17 16:00 Pulse Oximeter Continuous Start: 11/04/17 13: 05 Freq: RTQ4 Status: Active Document 11/10/17 11:50 JDR (Rec: 11/10/17 13:04 JDR [email or web address]) Pulse Oximetry Assessment Oxygen Saturation (92-100) 98 Oxygen Flow Rate (L/min) 12 Oxygen Delivery Method Partial-Rebreather Equipment Usage Equipment in Use Continuous SpO2 Machine # 7 Intake & Output 11/09/17 11/10/17 11/11/17 06:59 06:59 06:59 Intake Total 904 657 Output Total 3200 850 147 Balance -2296 -193 -147 Weight 109.4 kg 108.1 kg Exam: GENERAL: well-nourished and respiratory distress. Patient is alert but not oriented to place time or person. Patient noted to be confused. HEAD: Atraumatic, normocephalic. EYES: Pupils equal round and reactive to light, extraocular movements intact, sclera anicteric, conjunctiva are normal. ENT: TMs normal, nares patent, oropharynx clear without exudates. Moist mucous membranes. No oral ulcerations or bleeding gums noted NECK: supple without lymphadenopathy or JVD. Trachea is central. No cervical or axillary lymphadenopathy noted. Carotids are 2+ LUNGS: Breath sounds bibasilar fine crackles at bases right more than left. No significant dullness noted. CHEST: Palpation of chest wall shows no significant chest wall tenderness. HEART: [place] MANAGER PROGRAM, No PSH, 2/6 MICHAEL aortic area, 1/6 miller systolic murmur mitral area, rubs or gallops. ABDOMEN: Soft, no significant tenderness appreciated, normoactive bowel sounds. No guarding, no rebound. No rigidity noted . No masses appreciated. EXTREMITIES: Pedal pulses are 1-2+, no calf tenderness noted, 1 + pedal edema noted. No clubbing or cyanosis. NEUROLOGICAL: Patient is alert but is not able to participate in neurological exam because of patient's current mental status PSYCH: Patient cannot participate in a neurologic and psych exam because of the patient's current mental status SKIN: No significant ecchymosis, rash, ulcerations or signs of pruritus noted. MUSCULOSKELETAL EXAM: No significant joint swelling noted. Results Laboratory Results: 11/10/17 08:39 11/10/17 14:00 11/10/17 11/10/17 11/10/17 08:39 08:39 08:39 WBC 24.4 H RBC 3.81 Hgb 10.9 L Hct 35.0 L MCV 92 MCH 28.5 MCHC 31.1 L RDW 16.7 H Plt Count 254 Seg Neutrophils % Not Reportable Lymphocytes % Not Reportable Monocytes % Not Reportable Eosinophils % Not Reportable Basophils % Not Reportable Absolute Neutrophils Not Reportable Absolute Lymphocytes Not Reportable Absolute Monocytes Not Reportable Absolute Eosinophils Not Reportable Absolute Basophils Not Reportable Carbonic Acid HCO3/H2CO3 Ratio ABG pH ABG pCO2 ABG pO2 ABG HCO3 ABG O2 Saturation ABG Base Excess FiO2 Sodium 138.1 Potassium 3.9 Chloride 86 L Carbon Dioxide 29 Anion Gap 23 H BUN 130 H Creatinine 5.79 H Est GFR ( Amer) 9 L Est GFR (Non-Af Amer) 7 L Glucose 304 H Calcium 8.7 Phosphorus 10.3 H Magnesium 2.4 H Total Bilirubin AST ALT Alkaline Phosphatase Ammonia Total Protein Albumin Urine Color Urine Appearance Urine pH Ur Specific [place] Urine Protein Urine Glucose (UA) Urine Ketones Urine Blood Urine Nitrite Ur Leukocyte Esterase Urine WBC (Auto) Urine RBC (Auto) 11/10/17 11/10/17 11/10/17 11:50 12:30 14:00 WBC RBC Hgb Hct MCV MCH MCHC RDW Plt Count Seg Neutrophils % Lymphocytes % Monocytes % Eosinophils % Basophils % Absolute Neutrophils Absolute Lymphocytes Absolute Monocytes Absolute Eosinophils Absolute Basophils Carbonic Acid 1.93 H HCO3/H2CO3 Ratio 16:1 ABG pH 7.32 L ABG pCO2 64.0 H ABG pO2 121.1 H ABG HCO3 32.1 H ABG O2 Saturation 98.0 ABG Base Excess 4.5 FiO2 100% Sodium 138.2 Potassium 4.0 Chloride 86 L Carbon Dioxide 31 H Anion Gap 21 H BUN 130 H Creatinine 6.03 H Est GFR ( Amer) 8 L Est GFR (Non-Af Amer) 7 L Glucose 312 H Calcium 8.3 L Phosphorus Magnesium Total Bilirubin 0.8 AST 24 ALT 39 Alkaline Phosphatase 55 Ammonia Total Protein 6.7 Albumin 4.0 Urine Color YELLOW Urine Appearance CLOUDY Urine pH 5.0 Ur Specific [place] 1.015 Urine Protein >=500 H Urine Glucose (UA) 50 H Urine Ketones NEGATIVE Urine Blood LARGE H Urine Nitrite NEGATIVE Ur Leukocyte Esterase NEGATIVE Urine WBC (Auto) 3 Urine RBC (Auto) >182 11/10/17 11/10/17 14:00 15:00 WBC RBC Hgb Hct MCV MCH MCHC RDW Plt Count Seg Neutrophils % Lymphocytes % Monocytes % Eosinophils % Basophils % Absolute Neutrophils Absolute Lymphocytes Absolute Monocytes Absolute Eosinophils Absolute Basophils Carbonic Acid 1.83 H HCO3/H2CO3 Ratio 17:1 ABG pH 7.34 L ABG pCO2 60.7 H ABG pO2 61.4 L ABG HCO3 32.3 H ABG O2 Saturation 89.6 L ABG Base Excess 5.2 FiO2 35% Sodium Potassium Chloride Carbon Dioxide Anion Gap BUN Creatinine Est GFR ( Amer) Est GFR (Non-Af Amer) Glucose Calcium Phosphorus Magnesium Total Bilirubin AST ALT Alkaline Phosphatase Ammonia < 8.7 L Total Protein Albumin Urine Color Urine Appearance Urine pH Ur Specific [place] Urine Protein Urine Glucose (UA) Urine Ketones Urine Blood Urine Nitrite Ur Leukocyte Esterase Urine WBC (Auto) Urine RBC (Auto) 11/02/17 11/09/17 11/09/17 19:35 15:05 15:05 Creatine Kinase 40 CK-MB (CK-2) 0.69 Troponin I < 0.012 0.019 11/09/17 11/09/17 11/10/17 22:46 22:46 08:39 Creatine Kinase 45 46 CK-MB (CK-2) 0.62 Troponin I 0.017 11/10/17 08:39 Creatine Kinase CK-MB (CK-2) 0.70 Troponin I 0.034 EKG Comments: Telemetry strips shows sinus rhythm with frequent APCs. Impressions: Abdomen/Pelvis CT 11/02/17 00:00 IMPRESSION: 1. AIRSPACE DISEASE IN THE VISUALIZED RIGHT LUNG. 2. SLUDGE AND/OR STONES IN THE GALLBLADDER. 3. NO OTHER SIGNIFICANT OR ACUTE PROCESS IN THE ABDOMEN OR PELVIS. Lung Scan-VQ NM 11/02/17 00:00 IMPRESSION: Limited examination. No perfusion defects are identified. No evidence of PE. Head CT 11/02/17 13:59 IMPRESSION: NORMAL BRAIN CT WITHOUT CONTRAST. EVIDENCE OF ACUTE STROKE: NO. Interventional Vascular Procedure 11/07/17 00:00 IMPRESSION: Image obtained for procedure performed by Dr. Bunn. Acute Abdomen Series 11/10/17 00:00 IMPRESSION: 1. Moderate bilateral lower lobar pneumonia. 2. Moderate small bowel obstruction pattern. Chest X-Ray 11/10/17 00:00 IMPRESSION: Interval worsening includes moderate bilateral airspace opacities. KUB X-Ray 11/10/17 00:00 IMPRESSION: NG tube overlying stomach. Assessment & Plan - Diagnosis (1) Acute CHF Qualifiers: Heart failure type: diastolic Qualified Code(s): I50.31 - Acute diastolic ( congestive) heart failure Is this a current diagnosis for this admission?: Yes (2) Acute and chronic respiratory failure with hypoxia Is this a current diagnosis for this admission?: Yes (3) Acute on chronic renal failure Qualifiers: Acute renal failure type: unspecified Chronic kidney disease stage: stage 4 (severe) Qualified Code(s): N17.9 - Acute kidney failure, unspecified; N18.4 - Chronic kidney disease, stage 4 (severe); N18.4 - Chronic kidney disease , stage 4 (severe); N18.4 - Chronic kidney disease, stage 4 (severe); N18.4 - Chronic kidney disease, stage 4 (severe) Is this a current diagnosis for this admission?: Yes (4) Pneumonia Qualifiers: Pneumonia type: aspiration pneumonia Laterality: right Lung location: unspecified part of lung Is this a current diagnosis for this admission?: Yes (5) Diabetes Qualifiers: Diabetes mellitus type: type 2 Diabetes mellitus complication status: with unspecified complications Diabetes mellitus fpc insulin use: unspecified fpc insulin use status Qualified Code(s): E11.8 - Type 2 diabetes mellitus with unspecified complications Is this a current diagnosis for this admission?: Yes (6) Morbid obesity Is this a current diagnosis for this admission?: Yes (7) Sleep disorder breathing Is this a current diagnosis for this admission?: Yes - Notes Notes: Acute CHF: Patient general condition has overall deteriorated. Feel is this is related to aspiration rather than exacerbation of CHF. Dr. Buitrago managing the diuretics. Recommend periodic chest x-rays. Today's chest x-ray shows evidence of right lower lobe pneumonitis. Acute on chronic respiratory failure with hypoxemia: Patient being followed by revenue cycle administrator. Will follow the recommendation. Patient to benefit from intermittent positive pressure ventilation. Patient may need close observation and need for transfer to the unit. Acute on chronic renal failure: Nephrology following. Patient was started on dialysis. Further plans per nephrology. Pneumonia: It seems clinically worse. Sleep disordered breathing: Patient seems to have this. Pulmonary following. Will be happy to schedule a sleep study as an outpatient if needed. Obesity: Patient has been encouraged in weight loss. 2D echo results reviewed. Patient has normal LVEF but RV enlargement is noted. We will continue to follow patient. Overall prognosis now guarded. - Time Time with patient: Greater than 35 minutes - CODE STATUS was discussed, patient remains full code. Surrogate decision-maker unchanged. Multiple medical problems were addressed. More than 50% of the time spent coordinating care, discussing management plans with involved caregivers. Management plans discussed with involved personnels. Medical decision making was of moderate to high complexity, patient's has multiple comorbidities. Medications reviewed and adjusted accordingly: Yes
[2017-11-10] MEDS: MINERAL OIL ENEMA 133 ML PR SCH (18:16)
[2017-11-10] MEDS: BUMETANIDE INJ/PF 1 MG/4 ML SDV IV SCH (18:17)
--- NOTE | 2017-11-10 18:37 | EKG REPORT ---
SEVERITY:- ABNORMAL ECG - SINUS RHYTHM MULTIPLE ATRIAL PREMATURE COMPLEXES LAD, CONSIDER LAFB OR INFERIOR INFARCT ANTEROLATERAL INFARCT, OLD BORDERLINE PROLONGED QT INTERVAL : Confirmed by: Ariana Montoya 10-Nov-2017 18:36:36
[2017-11-10] MEDS: MONTELUKAST SODIUM 10 MG TABLET NG SCH (21:48)
[2017-11-10] MEDS ORDERED: AMLODIPINE BESYLATE 5 MG TABLET NG SCH (22:00)
[2017-11-11] MEDS ORDERED: HEPARIN SOD (PORCINE) 1,000 UNIT/ML 10 ML VIAL IV PRN (05:00)
[2017-11-11] MEDS ORDERED: NORMAL SALINE 1000 ML 1,000 ML IV PRN (05:00)
[2017-11-11] MEDS: INSULIN LISPRO 100 UNIT/ML 3 ML VIAL SUBCUT PRN (06:00)
[2017-11-11] MEDS: BUMETANIDE INJ/PF 1 MG/4 ML SDV IV SCH ×2 (06:00→19:00)
[2017-11-11] MEDS: METRONIDAZOLE 500 MG/NS RTU 100 ML IV SCH ×4 (06:00→23:56)
[2017-11-11] MEDS: HEPARIN SOD (PORCINE) 5,000 UNIT/ML 1 ML SYRINGE SUBCUT SCH ×3 (06:01→21:33)
[2017-11-11] MEDS: GUAIFENESIN 600 MG TABLET.SA PO SCH ×2 (06:10→19:06)
[2017-11-11] MEDS: AZTREONAM 0.25 GM in DEXTROSE 5%-WATER 50 ML IV SCH ×3 (06:11→21:32)
[2017-11-11 06:32] LABS: HEMATOCRIT 31.4 % (36.0-47.0); HEMOGLOBIN 9.8 g/dL (12.0-15.5); MEAN CORPUSCULAR HEMOGLOBIN 28.5 pg (27.0-33.4); MEAN CORPUSCULAR HGB CONC 31.2 g/dL (32.0-36.0); MEAN CORPUSCULAR VOLUME 91 fl (80-97); PLATELET COUNT 214 10^3/uL (150-450); RED BLOOD COUNT 3.44 10^6/uL (3.72-5.28); RED CELL DISTRIBUTION WIDTH 16.1 % (11.5-14.0); WHITE BLOOD COUNT 17.3 10^3/uL (4.0-10.5)
[2017-11-11 06:45] LABS: ALANINE AMINOTRANSFERASE 34 U/L (9-52); ALBUMIN 3.8 g/dL (3.5-5.0); ALKALINE PHOSPHATASE 53 U/L (38-126); ASPARTATE AMINO TRANSFERASE 19 U/L (14-36); BILIRUBIN,DIRECT 0.8 mg/dL (0.0-0.4); BILIRUBIN,TOTAL 0.8 mg/dL (0.2-1.3); CALCIUM 7.9 mg/dL (8.4-10.2); CHLORIDE 86 mmol/L (98-107); GLUCOSE 243 mg/dL (75-110); PHOSPHORUS 9.9 mg/dL (2.5-4.5); POTASSIUM 3.9 mmol/L (3.6-5.0); SODIUM 135.7 mmol/L (137-145); TOTAL PROTEIN 6.6 g/dL (6.3-8.2)
[2017-11-11 06:57] LABS: CARBON DIOXIDE 27 mmol/L (22-30)
[2017-11-11 07:00] LABS: ANION GAP 23 (5-19); BLOOD UREA NITROGEN 153 mg/dL (7-20)
[2017-11-11 07:41] LABS: ABSOLUTE LYMPHOCYTES# (MANUAL) 0.7 10^3/uL (0.5-4.7); ABSOLUTE MONOCYTES # (MANUAL) 0.9 10^3/uL (0.1-1.4); ABSOLUTE NEUTROPHILS# (MANUAL) 15.7 10^3/uL (1.7-8.2); BASOPHILS % (MANUAL) 0 % (0-2); EOSINOPHILS % (MANUAL) 0 % (0-6); LYMPHOCYTES % (MANUAL) 4 % (13-45); MONOCYTES % (MANUAL) 5 % (3-13); SEGMENTED NEUTROPHILS % (MAN) 91 % (42-78); TOTAL CELLS COUNTED 100
[2017-11-11 07:42] LABS: ANISOCYTOSIS 1+; OVALOCYTES SLIGHT; PLATELET COMMENT ADEQUATE; POIKILOCYTOSIS SLIGHT; TEAR DROP CELLS SLIGHT
[2017-11-11] MEDS ORDERED: CEFEPIME HCL 0.5 GM in DEXTROSE 5%-WATER 25 ML IV SCH (10:00)
--- NOTE | 2017-11-11 11:00 | PDOC PROGRESS REPORT ---
Subjective Progress Note for:: 11/11/17 Subjective:: Patient was moved to the intensive care unit yesterday afternoon. Chest x-ray reviewed new pneumonitis right base. Patient lab work also showed significant worsening in renal function. Complete blood count shows white cell count is coming down. Patient currently on attempted dialysis but that having some difficulty with blood flow through the dialysis catheter. The dialysis nurse is going to touch base with the loss prevention supervisor. Patient is maintaining sinus rhythm. Medications: Medications have been reviewed. Reason For Visit: ACUTE ON CHRONIC HEART FAILURE, CIRRHOSIS Physical Exam Vital Signs: Temp Pulse Resp BP Pulse Ox 96.7 F L 76 19 115/63 95 11/11/17 08:00 11/11/17 08:00 11/11/17 08:00 11/11/17 08:00 11/11/17 08:00 Pulse Oximeter Continuous Start: 11/04/17 13: 05 Freq: RTQ4 Status: Hold Document 11/10/17 11:50 JDR (Rec: 11/10/17 13:04 JDR [email or web address]) Pulse Oximetry Assessment Oxygen Saturation (92-100) 98 Oxygen Flow Rate (L/min) 12 Oxygen Delivery Method Partial-Rebreather Equipment Usage Equipment in Use Continuous SpO2 Machine # 7 Intake & Output 11/10/17 11/11/17 11/12/17 06:59 06:59 06:59 Intake Total 657 1158 Output Total 850 387 28 Balance -193 771 -28 Weight 108.1 kg 106 kg Exam: GENERAL: well-nourished and in no acute distress. Alert and oriented x2 HEAD: Atraumatic, normocephalic. EYES: Pupils equal round and reactive to light, extraocular movements intact, sclera anicteric, conjunctiva are normal. ENT: TMs normal, nares patent, oropharynx clear without exudates. Moist mucous membranes. No oral ulcerations or bleeding gums noted NECK: supple without lymphadenopathy. Trachea is central. No cervical or axillary lymphadenopathy noted. Carotids are 2+, JVD WNL LUNGS: Respiration seems nonlabored, no significant accessory muscle action noted. Bibasilar crackles right more than left with few scattered wheezes rales or rhonchi noted. No significant dullness noted on percussion. CHEST: Palpation of the chest wall shows no significant chest wall tenderness. No other significant abnormalities noted. 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 ABDOMEN: Soft, no significant tenderness appreciated, normoactive bowel sounds. No guarding, no rebound. No rigidity noted . No masses appreciated. EXTREMITIES: Pedal pulses are 1-2+, no calf tenderness noted. No clubbing or cyanosis.trace to 1+ pedal edema noted NEUROLOGICAL: Focused neurological exam showed no significant neurologic deficit. Normal speech, no focal weakness appreciated. Generalized weakness noted PSYCH: Normal mood, normal affect, cannot rule out underlying mild depression. Judgment not checked. SKIN: No significant ecchymosis, rash, ulcerations or signs of pruritus noted. MUSCULOSKELETAL EXAM: No significant joint swelling noted. Results Laboratory Results: 11/11/17 06:00 11/11/17 06:00 11/10/17 11/10/17 11/10/17 11:50 12:30 14:00 WBC RBC Hgb Hct MCV MCH MCHC RDW Plt Count Seg Neutrophils % Lymphocytes % Monocytes % Eosinophils % Basophils % Absolute Neutrophils Absolute Lymphocytes Absolute Monocytes Absolute Eosinophils Absolute Basophils Carbonic Acid 1.93 H HCO3/H2CO3 Ratio 16:1 ABG pH 7.32 L ABG pCO2 64.0 H ABG pO2 121.1 H ABG HCO3 32.1 H ABG O2 Saturation 98.0 ABG Base Excess 4.5 FiO2 100% Sodium 138.2 Potassium 4.0 Chloride 86 L Carbon Dioxide 31 H Anion Gap 21 H BUN 130 H Creatinine 6.03 H Est GFR ( Amer) 8 L Est GFR (Non-Af Amer) 7 L Glucose 312 H Calcium 8.3 L Phosphorus Magnesium Total Bilirubin 0.8 AST 24 ALT 39 Alkaline Phosphatase 55 Ammonia Total Protein 6.7 Albumin 4.0 Urine Color YELLOW Urine Appearance CLOUDY Urine pH 5.0 Ur Specific [place] 1.015 Urine Protein >=500 H Urine Glucose (UA) 50 H Urine Ketones NEGATIVE Urine Blood LARGE H Urine Nitrite NEGATIVE Ur Leukocyte Esterase NEGATIVE Urine WBC (Auto) 3 Urine RBC (Auto) >182 11/10/17 11/10/17 11/11/17 14:00 15:00 06:00 WBC 17.3 H RBC 3.44 L Hgb 9.8 L Hct 31.4 L MCV 91 MCH 28.5 MCHC 31.2 L RDW 16.1 H Plt Count 214 Seg Neutrophils % Not Reportable Lymphocytes % Not Reportable Monocytes % Not Reportable Eosinophils % Not Reportable Basophils % Not Reportable Absolute Neutrophils Not Reportable Absolute Lymphocytes Not Reportable Absolute Monocytes Not Reportable Absolute Eosinophils Not Reportable Absolute Basophils Not Reportable Carbonic Acid 1.83 H HCO3/H2CO3 Ratio 17:1 ABG pH 7.34 L ABG pCO2 60.7 H ABG pO2 61.4 L ABG HCO3 32.3 H ABG O2 Saturation 89.6 L ABG Base Excess 5.2 FiO2 35% Sodium Potassium Chloride Carbon Dioxide Anion Gap BUN Creatinine Est GFR ( Amer) Est GFR (Non-Af Amer) Glucose Calcium Phosphorus Magnesium Total Bilirubin AST ALT Alkaline Phosphatase Ammonia < 8.7 L Total Protein Albumin Urine Color Urine Appearance Urine pH Ur Specific [place] Urine Protein Urine Glucose (UA) Urine Ketones Urine Blood Urine Nitrite Ur Leukocyte Esterase Urine WBC (Auto) Urine RBC (Auto) 11/11/17 06:00 WBC RBC Hgb Hct MCV MCH MCHC RDW Plt Count Seg Neutrophils % Lymphocytes % Monocytes % Eosinophils % Basophils % Absolute Neutrophils Absolute Lymphocytes Absolute Monocytes Absolute Eosinophils Absolute Basophils Carbonic Acid HCO3/H2CO3 Ratio ABG pH ABG pCO2 ABG pO2 ABG HCO3 ABG O2 Saturation ABG Base Excess FiO2 Sodium 135.7 L Potassium 3.9 Chloride 86 L Carbon Dioxide 27 Anion Gap 23 H BUN 153 H D Creatinine 7.11 H Est GFR ( Amer) 7 L Est GFR (Non-Af Amer) 6 L Glucose 243 H Calcium 7.9 L Phosphorus 9.9 H Magnesium 2.4 H Total Bilirubin 0.8 AST 19 ALT 34 Alkaline Phosphatase 53 Ammonia Total Protein 6.6 Albumin 3.8 Urine Color Urine Appearance Urine pH Ur Specific [place] Urine Protein Urine Glucose (UA) Urine Ketones Urine Blood Urine Nitrite Ur Leukocyte Esterase Urine WBC (Auto) Urine RBC (Auto) 11/02/17 11/09/17 11/09/17 19:35 15:05 15:05 Creatine Kinase 40 CK-MB (CK-2) 0.69 Troponin I < 0.012 0.019 11/09/17 11/09/17 11/10/17 22:46 22:46 08:39 Creatine Kinase 45 46 CK-MB (CK-2) 0.62 Troponin I 0.017 11/10/17 08:39 Creatine Kinase CK-MB (CK-2) 0.70 Troponin I 0.034 EKG Comments: Telemetry strips reviewed patient maintaining sinus rhythm. Impressions: Abdomen/Pelvis CT 11/02/17 00:00 IMPRESSION: 1. AIRSPACE DISEASE IN THE VISUALIZED RIGHT LUNG. 2. SLUDGE AND/OR STONES IN THE GALLBLADDER. 3. NO OTHER SIGNIFICANT OR ACUTE PROCESS IN THE ABDOMEN OR PELVIS. Lung Scan-VQ [facility] 11/02/17 00:00 IMPRESSION: Limited examination. No perfusion defects are identified. No evidence of PE. Head CT 11/02/17 13:59 IMPRESSION: NORMAL BRAIN CT WITHOUT CONTRAST. EVIDENCE OF ACUTE STROKE: NO. Interventional Vascular Procedure 11/07/17 00:00 IMPRESSION: Image obtained for procedure performed by Dr. Bunn. Acute Abdomen Series 11/10/17 00:00 IMPRESSION: 1. Moderate bilateral lower lobar pneumonia. 2. Moderate small bowel obstruction pattern. Chest X-Ray 11/10/17 00:00 IMPRESSION: Interval worsening includes moderate bilateral airspace opacities. KUB X-Ray 11/10/17 00:00 IMPRESSION: NG tube overlying stomach. Assessment & Plan - Diagnosis (1) Acute CHF Qualifiers: Heart failure type: diastolic Qualified Code(s): I50.31 - Acute diastolic ( congestive) heart failure Is this a current diagnosis for this admission?: Yes (2) Acute and chronic respiratory failure with hypoxia Is this a current diagnosis for this admission?: Yes (3) Acute on chronic renal failure Qualifiers: Acute renal failure type: unspecified Chronic kidney disease stage: stage 4 (severe) Qualified Code(s): N17.9 - Acute kidney failure, unspecified; N18.4 - Chronic kidney disease, stage 4 (severe); N18.4 - Chronic kidney disease , stage 4 (severe); N18.4 - Chronic kidney disease, stage 4 (severe); N18.4 - Chronic kidney disease, stage 4 (severe) Is this a current diagnosis for this admission?: Yes (4) Pneumonia Qualifiers: Pneumonia type: aspiration pneumonia Laterality: right Lung location: unspecified part of lung Is this a current diagnosis for this admission?: Yes (5) Diabetes Qualifiers: Diabetes mellitus type: type 2 Diabetes mellitus complication status: with unspecified complications Diabetes mellitus intermediate insulin use: unspecified ocean transportation intermediary insulin use status Qualified Code(s): E11.8 - Type 2 diabetes mellitus with unspecified complications Is this a current diagnosis for this admission?: Yes (6) Morbid obesity Is this a current diagnosis for this admission?: Yes (7) Sleep disorder breathing Is this a current diagnosis for this admission?: Yes - Notes Notes: Acute CHF: CHF seems under reasonable control. However patient respiratory status has deteriorated. Feel is this is related to aspiration rather than exacerbation of CHF. Dr. Buitrago managing the diuretics. Recommend periodic chest x-rays. Yesterday's chest x-ray shows evidence of right lower lobe pneumonitis. Acute on chronic respiratory failure with hypoxemia: Patient being followed by newsroom intern. Will follow the recommendation. Patient to benefit from intermittent positive pressure ventilation. Patient may need close observation and need for transfer to the unit. Acute on chronic renal failure: Nephrology following. Currently patient is being dialyzed but having problem with access site. Further plans per nephrology. Pneumonia: It seems clinically worse. Continue antibiotic therapy Sleep disordered breathing: Patient seems to have this. Pulmonary following. Will be happy to schedule a sleep study as an outpatient if needed. Patient will benefit from intermittent positive pressure ventilation. Nausea vomiting: Could be related to uremia, small bowel obstruction etc. Obesity: Patient has been encouraged in weight loss. 2D echo results reviewed. Patient has normal LVEF but RV enlargement is noted. We will continue to follow patient. Overall prognosis now guarded. - Time Time with patient: Greater than 35 minutes - CODE STATUS was discussed, patient remains full code. Surrogate decision-maker unchanged. Multiple medical problems were addressed. More than 50% of the time spent coordinating care, discussing management plans with involved caregivers. Management plans discussed with involved personnels. Medical decision making was of moderate to high complexity, patient's has multiple comorbidities. Medications reviewed and adjusted accordingly: Yes
[2017-11-11] MEDS: METOCLOPRAMIDE HCL INJ/PF 10 MG/2 ML SDV IV SCH ×3 (12:31→23:57)
--- NOTE | 2017-11-11 12:51 | PDOC PROGRESS REPORT ---
Subjective Progress Note for:: 11/11/17 Subjective:: Patient is seen on rounds. She is resting in bed. She is presently on BIPAP. She sleeping but awakens to verbal stimuli. Denies any further nausea or vomiting. She is complaining of mild left lower quadrant discomfort. She denies any significant arthralgias or myalgias per she denies any dyspnea. She states she was also short of breath earlier, but that is better. Remaining review of systems are negative. She will be getting her second dialysis treatment here in this CCU this morning. Reason For Visit: ACUTE ON CHRONIC HEART FAILURE, CIRRHOSIS Physical Exam Vital Signs: Temp Pulse Resp BP Pulse Ox 96.7 F L 76 19 115/63 95 11/11/17 08:00 11/11/17 08:00 11/11/17 08:00 11/11/17 08:00 11/11/17 08:00 Pulse Oximeter Continuous Start: 11/04/17 13: 05 Freq: RTQ4 Status: Hold Document 11/10/17 11:50 JDR (Rec: 11/10/17 13:04 JDR [email or web address]) Pulse Oximetry Assessment Oxygen Saturation (92-100) 98 Oxygen Flow Rate (L/min) 12 Oxygen Delivery Method Partial-Rebreather Equipment Usage Equipment in Use Continuous SpO2 Machine # 7 Intake & Output 11/10/17 11/11/17 11/12/17 06:59 06:59 06:59 Intake Total 657 1158 Output Total 850 387 28 Balance -193 771 -28 Weight 108.1 kg 106 kg General appearance: PRESENT: no acute distress, morbidly obese, well-developed, well-nourished Head exam: PRESENT: atraumatic, normocephalic Eye exam: PRESENT: conjunctiva pink, EOMI, PERRLA. ABSENT: scleral icterus Ear exam: PRESENT: normal external ear exam Mouth exam: PRESENT: moist, tongue midline Neck exam: ABSENT: carotid bruit, JVD, lymphadenopathy, thyromegaly Respiratory exam: PRESENT: clear to auscultation irma, decreased breath sounds, symmetrical, unlabored. ABSENT: rales, rhonchi, wheezes Cardiovascular exam: PRESENT: RRR. ABSENT: diastolic murmur, rubs, systolic murmur Pulses: PRESENT: normal carotid pulses, normal radial pulses Vascular exam: PRESENT: normal capillary refill GI/Abdominal exam: PRESENT: normal bowel sounds, soft. ABSENT: distended, guarding, mass, organolmegaly, rebound, tenderness Rectal exam: PRESENT: deferred Extremities exam: PRESENT: full ROM, pedal edema, +2 edema - Bilateral lower extremities. ABSENT: calf tenderness, clubbing Neurological exam: PRESENT: alert, awake, oriented to person, oriented to place , oriented to time, oriented to situation, CN II-XII grossly intact. ABSENT: motor sensory deficit Psychiatric exam: PRESENT: flat affect Skin exam: PRESENT: dry, intact, warm. ABSENT: cyanosis, rash Results Laboratory Results: 11/11/17 06:00 11/11/17 06:00 11/10/17 11/10/17 11/10/17 12:30 14:00 14:00 WBC RBC Hgb Hct MCV MCH MCHC RDW Plt Count Seg Neutrophils % Lymphocytes % Monocytes % Eosinophils % Basophils % Absolute Neutrophils Absolute Lymphocytes Absolute Monocytes Absolute Eosinophils Absolute Basophils Carbonic Acid HCO3/H2CO3 Ratio ABG pH ABG pCO2 ABG pO2 ABG HCO3 ABG O2 Saturation ABG Base Excess FiO2 Sodium 138.2 Potassium 4.0 Chloride 86 L Carbon Dioxide 31 H Anion Gap 21 H BUN 130 H Creatinine 6.03 H Est GFR ( Amer) 8 L Est GFR (Non-Af Amer) 7 L Glucose 312 H Calcium 8.3 L Phosphorus Magnesium Total Bilirubin 0.8 AST 24 ALT 39 Alkaline Phosphatase 55 Ammonia < 8.7 L Total Protein 6.7 Albumin 4.0 Urine Color YELLOW Urine Appearance CLOUDY Urine pH 5.0 Ur Specific [place] 1.015 Urine Protein >=500 H Urine Glucose (UA) 50 H Urine Ketones NEGATIVE Urine Blood LARGE H Urine Nitrite NEGATIVE Ur Leukocyte Esterase NEGATIVE Urine WBC (Auto) 3 Urine RBC (Auto) >182 11/10/17 11/11/17 11/11/17 15:00 06:00 06:00 WBC 17.3 H RBC 3.44 L Hgb 9.8 L Hct 31.4 L MCV 91 MCH 28.5 MCHC 31.2 L RDW 16.1 H Plt Count 214 Seg Neutrophils % Not Reportable Lymphocytes % Not Reportable Monocytes % Not Reportable Eosinophils % Not Reportable Basophils % Not Reportable Absolute Neutrophils Not Reportable Absolute Lymphocytes Not Reportable Absolute Monocytes Not Reportable Absolute Eosinophils Not Reportable Absolute Basophils Not Reportable Carbonic Acid 1.83 H HCO3/H2CO3 Ratio 17:1 ABG pH 7.34 L ABG pCO2 60.7 H ABG pO2 61.4 L ABG HCO3 32.3 H ABG O2 Saturation 89.6 L ABG Base Excess 5.2 FiO2 35% Sodium 135.7 L Potassium 3.9 Chloride 86 L Carbon Dioxide 27 Anion Gap 23 H BUN 153 H D Creatinine 7.11 H Est GFR ( Amer) 7 L Est GFR (Non-Af Amer) 6 L Glucose 243 H Calcium 7.9 L Phosphorus 9.9 H Magnesium 2.4 H Total Bilirubin 0.8 AST 19 ALT 34 Alkaline Phosphatase 53 Ammonia Total Protein 6.6 Albumin 3.8 Urine Color Urine Appearance Urine pH Ur Specific [place] Urine Protein Urine Glucose (UA) Urine Ketones Urine Blood Urine Nitrite Ur Leukocyte Esterase Urine WBC (Auto) Urine RBC (Auto) 11/02/17 11/09/17 11/09/17 19:35 15:05 15:05 Creatine Kinase 40 CK-MB (CK-2) 0.69 Troponin I < 0.012 0.019 11/09/17 11/09/17 11/10/17 22:46 22:46 08:39 Creatine Kinase 45 46 CK-MB (CK-2) 0.62 Troponin I 0.017 11/10/17 08:39 Creatine Kinase CK-MB (CK-2) 0.70 Troponin I 0.034 Impressions: Abdomen/Pelvis CT 11/02/17 00:00 IMPRESSION: 1. AIRSPACE DISEASE IN THE VISUALIZED RIGHT LUNG. 2. SLUDGE AND/OR STONES IN THE GALLBLADDER. 3. NO OTHER SIGNIFICANT OR ACUTE PROCESS IN THE ABDOMEN OR PELVIS. [facility] 11/02/17 00:00 IMPRESSION: Limited examination. No perfusion defects are identified. No evidence of PE. Head CT 11/02/17 13:59 IMPRESSION: NORMAL BRAIN CT WITHOUT CONTRAST. EVIDENCE OF ACUTE STROKE: NO. Interventional Vascular Procedure 11/07/17 00:00 IMPRESSION: Image obtained for procedure performed by Dr. Bunn. Acute Abdomen Series 11/10/17 00:00 IMPRESSION: 1. Moderate bilateral lower lobar pneumonia. 2. Moderate small bowel obstruction pattern. Chest X-Ray 11/10/17 00:00 IMPRESSION: Interval worsening includes moderate bilateral airspace opacities. KUB X-Ray 11/10/17 00:00 IMPRESSION: NG tube overlying stomach. Assessment & Plan - Diagnosis (1) Acute renal failure superimposed on stage 3 chronic kidney disease Is this a current diagnosis for this admission?: Yes Plan: She had her initial dialysis treatment on Saturday. She will have her second today . She has had significant increase in her BUN and creatinine since. Has no overt signs of bleeding. She has had some nausea and vomiting which is improved. (2) Acute on chronic respiratory failure with hypoxia and hypercapnia Is this a current diagnosis for this admission?: Yes Plan: Is been on BiPAP most of the time. She continues to have hypercapnia with PCO2 in the 60s. (3) Acute CHF Qualifiers: Heart failure type: diastolic Qualified Code(s): I50.31 - Acute diastolic ( congestive) heart failure Is this a current diagnosis for this admission?: Yes Plan: Cardiology is following management per Dr Montoya (4) Anemia in chronic illness Is this a current diagnosis for this admission?: Yes Plan: Stable (5) Hypocalcemia Is this a current diagnosis for this admission?: Yes Plan: Replete and monitor (6) Iron deficiency anemia Is this a current diagnosis for this admission?: Yes Plan: Stable (7) Morbid obesity Is this a current diagnosis for this admission?: Yes Plan: Counseled (8) Hyperphosphatemia Is this a current diagnosis for this admission?: Yes Plan: Phosphate binders (9) Ambulatory dysfunction Is this a current diagnosis for this admission?: Yes Plan: She will need physical therapy and short term rehab once she is more clinically stable - Time Time Spent with patient: 35 or more minutes Total Critical Time (Minutes): 20 Medications reviewed and adjusted accordingly: Yes
[2017-11-11] MEDS: ASPIRIN 81 MG TABLET, CHEWABLE NG SCH (12:57)
[2017-11-11] MEDS: BISACODYL 5 MG TABEC PO SCH (12:57)
[2017-11-11] MEDS: FLUTICASONE NASAL SPRAY 50 MCG/SPRY 120 SPRAY/16 GM NASL SCH ×2 (12:57→21:34)
[2017-11-11] MEDS: DOCUSATE SODIUM 100 MG CAPSULE PO SCH ×2 (12:57→19:06)
[2017-11-11] MEDS: ATENOLOL 50 MG TABLET NG SCH (12:57)
[2017-11-11] MEDS: HYDROXYZINE PAMOATE 25 MG CAPSULE NG SCH ×2 (12:57→19:06)
[2017-11-11] MEDS: FLUOXETINE HCL 20 MG CAPSULE NG SCH (12:57)
[2017-11-11] MEDS: LORATADINE 10 MG TABLET NG SCH (12:57)
[2017-11-11] MEDS: METHYLPREDNISOLONE INJ 40 MG/1 ML SDV IV SCH ×2 (13:59→21:33)
[2017-11-11] MEDS: MINERAL OIL ENEMA 133 ML PR SCH (13:59)
--- NOTE | 2017-11-11 15:25 | RADIOLOGY REPORT (SQ) ---
EXAM DESCRIPTION: KUB/ABDOMEN (SINGLE VIEW) COMPLETED DATE/TIME: 11/11/2017 2:59 pm REASON FOR STUDY: NGT placement COMPARISON: None. NUMBER OF VIEWS: One view. TECHNIQUE: Supine radiographic image of the abdomen acquired. LIMITATIONS: None. FINDINGS: BOWEL GAS PATTERN: Gaseous distention of loops of bowel centrally. CALCIFICATIONS: No suspicious calcifications. SOFT TISSUES: No gross mass or suggestion of organomegaly. HARDWARE: Surgical clips left axilla. BONES: No acute fracture. No worrisome bone lesions. OTHER: NG tube overlying stomach. Right basilar atelectasis. IMPRESSION: NG tube positioned over stomach. Right basilar atelectasis. TECHNICAL DOCUMENTATION: JOB ID: [id number] [employer]- All Rights Reserved
[2017-11-11] MEDS ORDERED: VANCOMYCIN HCL 1,000 MG in DEXTROSE 5%-WATER 250 ML IV ONE (18:00)
--- NOTE | 2017-11-11 19:05 | PDOC PROGRESS REPORT ---
Subjective Progress Note for:: 11/11/17 Subjective:: I saw the patient this morning during initiation of dialysis at around 8:30 AM. She was lethargic and a little agitated trying to pull off her [place] so we needed to put some restraints on her during dialysis treatment. She was still on BiPAP. We plan to take off ultrafiltration of 3-4 L however the patient's blood pressure unable to tolerate it so we ended up getting about 1700 mL of ultrafiltration. I saw the patient again this afternoon and there was a remarkable change in improvement compared to this morning. Patient is more awake, more alert, in responsive to questions. He does not have any complaints. He was put in the facemask temporarily and she seems to be tolerating it well. Her urine output is still decreased. Reason For Visit: ACUTE ON CHRONIC kidney disease Physical Exam Vital Signs: Temp Pulse Resp BP Pulse Ox 98.6 F 76 17 113/59 L 95 11/11/17 18:00 11/11/17 18:00 11/11/17 18:00 11/11/17 18:00 11/11/17 18:00 Pulse Oximeter Continuous Start: 11/04/17 13: 05 Freq: RTQ4 Status: Hold Document 11/10/17 11:50 J (Rec: 11/10/17 13:04 J [email or web address]) Pulse Oximetry Assessment Oxygen Saturation (92-100) 98 Oxygen Flow Rate (L/min) 12 Oxygen Delivery Method Partial-Rebreather Equipment Usage Equipment in Use Continuous SpO2 Machine # 7 Intake & Output 11/10/17 11/11/17 11/12/17 06:59 06:59 06:59 Intake Total 657 1158 Output Total 055 850 3341 Balance -193 771 -1788 Weight 108.1 kg 106 kg Vitals during dialysis this morning: Blood pressure 124/67, heart rate of 73, oxygen saturation 90%, respiratory rate of 22 on BiPAP. Blood flow rate in dialysis 250 mL/min and dialysate flow rate of 500 mL/min. Exam: General appearance: PRESENT: Patient was lethargic this morning on a BiPAP. However this afternoon she was awake and alert on a facemask. Head exam: PRESENT: atraumatic, normocephalic Eye exam: PRESENT: conjunctiva pale, PERRLA. ABSENT: scleral icterus Neck exam: ABSENT: JVD Respiratory exam: PRESENT: Diminished breath sounds. ABSENT: crackles, rales, rhonchi, unlabored, wheezes Cardiovascular exam: PRESENT: Regular rate rhythm -+S1, +S2. ABSENT: diastolic murmur, systolic murmur GI/Abdominal exam: PRESENT: normal bowel sounds, soft. ABSENT: guarding, mass, tenderness Extremities exam: ABSENT: No edema Neurological exam: PRESENT: alert, awake, oriented to person, place and partially to time. Skin exam: PRESENT: dry, warm, Results Laboratory Results: 11/11/17 06:00 11/11/17 06:00 11/11/17 11/11/17 06:00 06:00 WBC 17.3 H RBC 3.44 L Hgb 9.8 L Hct 31.4 L MCV 91 MCH 28.5 MCHC 31.2 L RDW 16.1 H Plt Count 214 Seg Neutrophils % Not Reportable Lymphocytes % Not Reportable Monocytes % Not Reportable Eosinophils % Not Reportable Basophils % Not Reportable Absolute Neutrophils Not Reportable Absolute Lymphocytes Not Reportable Absolute Monocytes Not Reportable Absolute Eosinophils Not Reportable Absolute Basophils Not Reportable Sodium 135.7 L Potassium 3.9 Chloride 86 L Carbon Dioxide 27 Anion Gap 23 H BUN 153 H D Creatinine 7.11 H Est GFR ( Amer) 7 L Est GFR (Non-Af Amer) 6 L Glucose 243 H Calcium 7.9 L Phosphorus 9.9 H Magnesium 2.4 H Total Bilirubin 0.8 AST 19 ALT 34 Alkaline Phosphatase 53 Total Protein 6.6 Albumin 3.8 11/02/17 11/09/17 11/09/17 19:35 15:05 15:05 Creatine Kinase 40 CK-MB (CK-2) 0.69 Troponin I < 0.012 0.019 11/09/17 11/09/17 11/10/17 22:46 22:46 08:39 Creatine Kinase 45 46 CK-MB (CK-2) 0.62 Troponin I 0.017 11/10/17 08:39 Creatine Kinase CK-MB (CK-2) 0.70 Troponin I 0.034 Impressions: Abdomen/Pelvis CT 11/02/17 00:00 IMPRESSION: 1. AIRSPACE DISEASE IN THE VISUALIZED RIGHT LUNG. 2. SLUDGE AND/OR STONES IN THE GALLBLADDER. 3. NO OTHER SIGNIFICANT OR ACUTE PROCESS IN THE ABDOMEN OR PELVIS. Lung Scan-VQ NM 11/02/17 00:00 IMPRESSION: Limited examination. No perfusion defects are identified. No evidence of PE. Head CT 11/02/17 13:59 IMPRESSION: NORMAL BRAIN CT WITHOUT CONTRAST. EVIDENCE OF ACUTE STROKE: NO. Interventional Vascular Procedure 11/07/17 00:00 IMPRESSION: Image obtained for procedure performed by Dr. Bunn. Acute Abdomen Series 11/10/17 00:00 IMPRESSION: 1. Moderate bilateral lower lobar pneumonia. 2. Moderate small bowel obstruction pattern. Chest X-Ray 11/10/17 00:00 IMPRESSION: Interval worsening includes moderate bilateral airspace opacities. KUB X-Ray 11/11/17 00:00 IMPRESSION: NG tube positioned over stomach. Right basilar atelectasis. Assessment & Plan - Diagnosis (1) Acute renal failure superimposed on stage 3 chronic kidney disease Is this a current diagnosis for this admission?: Yes Plan: This is secondary to acute prerenal factors including acute congestive heart failure. Patient does not have any proteinuria or microalbuminuria. There was no hypotension no other nephrotoxic medications. No obstruction on CT scan. Currently kidney function is getting progressively worse. Continue to monitor kidney function and avoid nephrotoxic medications. Her kidney function continues to get worse today. Her echocardiogram indicated normal left ventricular ejection fraction, mild to moderate diastolic dysfunction but also indicate the possibility of right-sided heart failure with dilated mildly dilated right atrium and right ventricle. Patient's kidney function continues to get worse with decreasing urine output. Clinical condition has deteriorated. She has clinical signs of fluid overload again. I increased her Bumex to 2 mg IV every 12 hours. We did dialysis today for 3 hours, using the patient's trialysis catheter, with 3 potassium bath, blood flow rate of 250 mL per minute, dialysate flow rate of 500 mL per minute, ultrafiltration 3-4 L as planned but was only able to tolerate 1700 mL, no heparin and no Procrit during dialysis. We will continue to reevaluate the patient daily for further need for dialysis. Discussed case with the patient's daughter at bedside this afternoon. (2) Acute CHF Qualifiers: Heart failure type: diastolic Qualified Code(s): I50.31 - Acute diastolic ( congestive) heart failure Is this a current diagnosis for this admission?: Yes Plan: Cardiology in consult. As mentioned above she has a combination of diastolic dysfunction as well as possibility of right-sided heart failure in a patient with COPD, obstructive sleep apnea, and obesity. Currently showing signs of bilateral pulmonary congestion again. (3) Acute on chronic respiratory failure with hypoxia and hypercapnia Is this a current diagnosis for this admission?: Yes Plan: Pulmonary on board. (4) Pneumonia Qualifiers: Pneumonia type: aspiration pneumonia Laterality: right Lung location: unspecified part of lung Is this a current diagnosis for this admission?: Yes Plan: High likelihood the patient could have developed aspiration pneumonia due to her vomiting . Currently started on antibiotics. Defer to hospitalist. (5) Nausea and vomiting Is this a current diagnosis for this admission?: Yes Plan: This could be secondary to uremia. This is likely caused some possible aspiration pneumonia causing deterioration of respiratory condition. (6) Hypocalcemia Is this a current diagnosis for this admission?: Yes Plan: Due to hyperphosphatemia. Mild. (7) Hyperphosphatemia Is this a current diagnosis for this admission?: Yes Plan: Due to AK I and CKD. This should improve with dialysis and hopefully improvement of kidney function. Will hold any phosphorus binders at this time. (8) Urinary tract infection Is this a current diagnosis for this admission?: Yes Plan: Due to gram-negative rods. (9) Secondary hyperparathyroidism (of renal origin) Is this a current diagnosis for this admission?: Yes Plan: This needs to be repeated when the patient is a steady state. That is if the acute component of kidney failure recovers. (10) Iron deficiency anemia Is this a current diagnosis for this admission?: Yes Plan: We will give iron supplement. I gave her a dose of IV Feraheme on 11/04. (11) Anemia in chronic illness Is this a current diagnosis for this admission?: Yes (12) Morbid obesity Is this a current diagnosis for this admission?: Yes - Time Time with patient: Greater than 35 minutes
[2017-11-11] MEDS: ATORVASTATIN CALCIUM 40 MG TABLET NG SCH (19:06)
[2017-11-11] MEDS: ONDANSETRON HCL INJ/PF 4 MG/2 ML SDV IV PRN (20:10)
[2017-11-11] MEDS: MONTELUKAST SODIUM 10 MG TABLET NG SCH (21:32)
[2017-11-11] MEDS ORDERED: FAMOTIDINE INJ/PF 20 MG/2 ML SDV IV SCH (22:00)
[2017-11-12] MEDS: INSULIN LISPRO 100 UNIT/ML 3 ML VIAL SUBCUT PRN ×4 (00:04→18:45)
[2017-11-12] MEDS: GUAIFENESIN 600 MG TABLET.SA PO SCH ×2 (05:08→17:24)
[2017-11-12] MEDS: AZTREONAM 0.25 GM in DEXTROSE 5%-WATER 50 ML IV SCH ×3 (05:16→21:50)
[2017-11-12] MEDS: METRONIDAZOLE 500 MG/NS RTU 100 ML IV SCH ×3 (05:16→17:24)
[2017-11-12] MEDS: BUMETANIDE INJ/PF 1 MG/4 ML SDV IV SCH ×2 (05:17→17:22)
[2017-11-12] MEDS: METOCLOPRAMIDE HCL INJ/PF 10 MG/2 ML SDV IV SCH ×3 (05:17→17:24)
[2017-11-12] MEDS: HEPARIN SOD (PORCINE) 5,000 UNIT/ML 1 ML SYRINGE SUBCUT SCH (05:17)
[2017-11-12 05:21] LABS: HEMATOCRIT 30.5 % (36.0-47.0); HEMOGLOBIN 9.6 g/dL (12.0-15.5); MEAN CORPUSCULAR HEMOGLOBIN 28.6 pg (27.0-33.4); MEAN CORPUSCULAR HGB CONC 31.4 g/dL (32.0-36.0); MEAN CORPUSCULAR VOLUME 91 fl (80-97); PLATELET COUNT 193 10^3/uL (150-450); RED BLOOD COUNT 3.34 10^6/uL (3.72-5.28); RED CELL DISTRIBUTION WIDTH 16.1 % (11.5-14.0); WHITE BLOOD COUNT 15.2 10^3/uL (4.0-10.5)
[2017-11-12 05:40] LABS: CALCIUM 7.8 mg/dL (8.4-10.2); CARBON DIOXIDE 24 mmol/L (22-30); CHLORIDE 94 mmol/L (98-107); GLUCOSE 243 mg/dL (75-110); POTASSIUM 4.2 mmol/L (3.6-5.0)
[2017-11-12 05:51] LABS: ABSOLUTE LYMPHOCYTES# (MANUAL) 0.8 10^3/uL (0.5-4.7); ABSOLUTE MONOCYTES # (MANUAL) 0.6 10^3/uL (0.1-1.4); ABSOLUTE NEUTROPHILS# (MANUAL) 13.8 10^3/uL (1.7-8.2); BASOPHILS % (MANUAL) 0 % (0-2); EOSINOPHILS % (MANUAL) 0 % (0-6); LYMPHOCYTES % (MANUAL) 5 % (13-45); MONOCYTES % (MANUAL) 4 % (3-13); SEGMENTED NEUTROPHILS % (MAN) 91 % (42-78); TOTAL CELLS COUNTED 100
[2017-11-12 05:53] LABS: ANISOCYTOSIS 1+; OVALOCYTES SLIGHT; PLATELET COMMENT ADEQUATE; PLATELET LARGE PRESENT; POIKILOCYTOSIS 1+; SCHISTOCYTES 1+; TEAR DROP CELLS SLIGHT; TOXIC GRANULATION 1+; TOXIC VACUOLATION PRESENT
[2017-11-12 05:55] LABS: SODIUM 139.8 mmol/L (137-145)
[2017-11-12 06:00] LABS: ANION GAP 22 (5-19); BLOOD UREA NITROGEN 125 mg/dL (7-20)
[2017-11-12] MEDS: METHYLPREDNISOLONE INJ 40 MG/1 ML SDV IV SCH ×2 (09:58→21:50)
[2017-11-12] MEDS: BISACODYL 5 MG TABEC PO SCH (10:20)
[2017-11-12] MEDS: DOCUSATE SODIUM 100 MG CAPSULE PO SCH ×2 (10:20→17:24)
[2017-11-12] MEDS: FLUTICASONE NASAL SPRAY 50 MCG/SPRY 120 SPRAY/16 GM NASL SCH ×2 (10:20→21:43)
[2017-11-12] MEDS: FLUOXETINE HCL 20 MG CAPSULE NG SCH (10:20)
[2017-11-12] MEDS: HYDROXYZINE PAMOATE 25 MG CAPSULE NG SCH ×2 (10:20→17:24)
[2017-11-12] MEDS: ASPIRIN 81 MG TABLET, CHEWABLE NG SCH (10:20)
[2017-11-12] MEDS: ATENOLOL 50 MG TABLET NG SCH (10:20)
[2017-11-12] MEDS: LORATADINE 10 MG TABLET NG SCH (10:20)
[2017-11-12 12:40] LABS: ARTERIAL BLOOD BASE EXCESS -1.3 mmol/L; ARTERIAL BLOOD FIO2 50%; ARTERIAL BLOOD H2CO3 1.47 mmol/L (1.05-1.35); ARTERIAL BLOOD HCO3 24.9 mmol/L (20-26); ARTERIAL BLOOD PCO2 48.8 mmHg (35-45); ARTERIAL BLOOD PH 7.33 (7.35-7.45); ARTERIAL BLOOD PO2 80.4 mmHg (80-100); ARTERIAL BLOOD TOTAL CO2 26.4 mmol/L (21-25)
--- NOTE | 2017-11-12 13:32 | PDOC PROGRESS REPORT ---
Subjective Progress Note for:: 11/12/17 Subjective:: Patient currently on BiPAP. Patient is now wearing it. Patient denies any pain. Patient did have some urinary discomfort at which point a UTI was diagnosed. Patient has started dialysis. Patient family is at the bedside. She was some burning on urination. Patient also with some bloody drainage from NG tube. Reason For Visit: ACUTE ON CHRONIC HEART FAILURE, CIRRHOSIS Physical Exam Vital Signs: Temp Pulse Resp BP Pulse Ox 98.2 F 66 19 128/63 H 92 11/12/17 12:00 11/12/17 08:00 11/12/17 12:17 11/12/17 12:17 11/12/17 12:17 Pulse Oximeter Continuous Start: 11/04/17 13: 05 Freq: RTQ4 Status: Hold Document 11/10/17 11:50 JDR (Rec: 11/10/17 13:04 JDR [email or web address]) Pulse Oximetry Assessment Oxygen Saturation (92-100) 98 Oxygen Flow Rate (L/min) 12 Oxygen Delivery Method Partial-Rebreather Equipment Usage Equipment in Use Continuous SpO2 Machine # 7 Intake & Output 11/11/17 11/12/17 11/13/17 06:59 06:59 06:59 Intake Total 1158 1392 Output Total 387 2268 400 Balance 771 -876 -400 Weight 106 kg 108.2 kg General appearance: PRESENT: no acute distress, obese, well-nourished Head exam: PRESENT: normocephalic Eye exam: PRESENT: EOMI. ABSENT: scleral icterus Ear exam: PRESENT: normal external ear exam Mouth exam: PRESENT: moist, other - Bipap mask in place Neck exam: ABSENT: carotid bruit, JVD, lymphadenopathy, thyromegaly Respiratory exam: PRESENT: clear to auscultation irma. ABSENT: rales, rhonchi, wheezes Cardiovascular exam: PRESENT: RRR. ABSENT: diastolic murmur, rubs, systolic murmur Pulses: PRESENT: normal dorsalis pedis pul Vascular exam: PRESENT: normal capillary refill GI/Abdominal exam: PRESENT: normal bowel sounds, soft. ABSENT: distended, guarding, mass, organolmegaly, rebound, tenderness Rectal exam: PRESENT: deferred Gentrourinary exam: PRESENT: indwelling catheter Extremities exam: PRESENT: full ROM. ABSENT: calf tenderness, clubbing, pedal edema Neurological exam: PRESENT: alert, awake, oriented to person, oriented to place , oriented to time, oriented to situation, CN II-XII grossly intact. ABSENT: motor sensory deficit Psychiatric exam: PRESENT: appropriate affect, normal mood. ABSENT: homicidal ideation, suicidal ideation Skin exam: PRESENT: dry, intact, warm. ABSENT: cyanosis, rash Results Laboratory Results: 11/12/17 05:09 11/12/17 05:09 11/12/17 11/12/17 11/12/17 05:09 05:09 11:25 WBC 15.2 H RBC 3.34 L Hgb 9.6 L Hct 30.5 L MCV 91 MCH 28.6 MCHC 31.4 L RDW 16.1 H Plt Count 193 Seg Neutrophils % Not Reportable Lymphocytes % Not Reportable Monocytes % Not Reportable Eosinophils % Not Reportable Basophils % Not Reportable Absolute Neutrophils Not Reportable Absolute Lymphocytes Not Reportable Absolute Monocytes Not Reportable Absolute Eosinophils Not Reportable Absolute Basophils Not Reportable Carbonic Acid 1.47 H HCO3/H2CO3 Ratio 16:1 ABG pH 7.33 L ABG pCO2 48.8 H ABG pO2 80.4 ABG HCO3 24.9 ABG O2 Saturation 95.0 ABG Base Excess -1.3 FiO2 50% Sodium 139.8 Potassium 4.2 Chloride 94 L Carbon Dioxide 24 Anion Gap 22 H BUN 125 H D Creatinine 7.22 H Est GFR ( Amer) 7 L Est GFR (Non-Af Amer) 6 L Glucose 243 H Calcium 7.8 L 11/10/17 12:30 Catheterized Urine Urine Culture - Final Escherichia Coli Enterobacter Cloacae 11/02/17 11/09/17 11/09/17 19:35 15:05 15:05 Creatine Kinase 40 CK-MB (CK-2) 0.69 Troponin I < 0.012 0.019 11/09/17 11/09/17 11/10/17 22:46 22:46 08:39 Creatine Kinase 45 46 CK-MB (CK-2) 0.62 Troponin I 0.017 11/10/17 08:39 Creatine Kinase CK-MB (CK-2) 0.70 Troponin I 0.034 Impressions: Abdomen/Pelvis CT 11/02/17 00:00 IMPRESSION: 1. AIRSPACE DISEASE IN THE VISUALIZED RIGHT LUNG. 2. SLUDGE AND/OR STONES IN THE GALLBLADDER. 3. NO OTHER SIGNIFICANT OR ACUTE PROCESS IN THE ABDOMEN OR PELVIS. Lung Scan-VQ NM 11/02/17 00:00 IMPRESSION: Limited examination. No perfusion defects are identified. No evidence of PE. Head CT 11/02/17 13:59 IMPRESSION: NORMAL BRAIN CT WITHOUT CONTRAST. EVIDENCE OF ACUTE STROKE: NO. Interventional Vascular Procedure 11/07/17 00:00 IMPRESSION: Image obtained for procedure performed by Dr. Bunn. Acute Abdomen Series 11/10/17 00:00 IMPRESSION: 1. Moderate bilateral lower lobar pneumonia. 2. Moderate small bowel obstruction pattern. Chest X-Ray 11/10/17 00:00 IMPRESSION: Interval worsening includes moderate bilateral airspace opacities. KUB X-Ray 11/11/17 00:00 IMPRESSION: NG tube positioned over stomach. Right basilar atelectasis. Assessment & Plan - Diagnosis (1) Acute on chronic respiratory failure with hypoxia and hypercapnia Is this a current diagnosis for this admission?: Yes Plan: Could be secondary to her volume overload from her CHF and/or pneumonia and/or COPD and/or obstructive sleep apnea. Patient is now more compliant with using the BiPAP. ABG ordered by pulmonology this morning. Continue to monitor serial ABGs and chest x-rays. Pulmonology following recommendations appreciated. (2) Acute renal failure superimposed on stage 3 chronic kidney disease Is this a current diagnosis for this admission?: Yes Plan: Patient renal function became progressively worse. Patient did undergo [address] Buitrago is following. Patient did have some issues of hypotension during dialysis. (3) Acute CHF Qualifiers: Heart failure type: diastolic Qualified Code(s): I50.31 - Acute diastolic ( congestive) heart failure Is this a current diagnosis for this admission?: Yes Plan: Patient appears to have a grade 2 diastolic dysfunction. Patient currently undergoing hemodialysis will help with her fluid balance balance. Patient appears to be euvolemic at this time. Need to monitor patient's fluid balance. (4) Pneumonia Qualifiers: Pneumonia type: aspiration pneumonia Laterality: right Lung location: unspecified part of lung Is this a current diagnosis for this admission?: Yes Plan: Patient currently on aztreonam. Patient may require better antibiotic coverage if her leukocytosis does not improve or her chest x-ray respiratory symptoms continue to worsen. (5) Urinary tract infection Is this a current diagnosis for this admission?: Yes Plan: Urine positive for E. coli and Enterobacter. Patient currently on aztreonam and Flagyl. Patient not using any of the other agents due to her worsening renal function and penicillin allergy. Also with some dysuria most likely related to her UTI. Will start patient on resume 100 every 8 hours for 3 days. (6) Hyperphosphatemia Is this a current diagnosis for this admission?: Yes Plan: Secondary to patient renal disease. She currently underwent 2 rounds of dialysis. Patient is not on any phosphate binders. Last phosphorus level was 9.9 there was no repeat phosphorus level checked. Will follow up on this. (7) Hypocalcemia Is this a current diagnosis for this admission?: Yes Plan: She may require replacement. Will discuss with nephrology prior to starting supplementation. (8) Morbid obesity Is this a current diagnosis for this admission?: Yes Plan: Patient will require counseling on diet and physical activity when tolerated. Patient is currently having ambulatory dysfunction therefore physical activity may be difficult. Patient may benefit from a better diet regimen. Dietitian consultation may be appropriate. (9) Anemia in chronic renal disease Qualifiers: Chronic kidney disease stage: on chronic dialysis Qualified Code(s): N18.6 - End stage renal disease; D63.1 - Anemia in chronic kidney disease; D63.1 - Anemia in chronic kidney disease; Z99.2 - Dependence on renal dialysis; Z99.2 - Dependence on renal dialysis; Z99.2 - Dependence on renal dialysis; Z99.2 - Dependence on renal dialysis Is this a current diagnosis for this admission?: Yes Plan: Patient with anemia of chronic kidney disease. Patient anemia has been stable. Patient is not receiving any Epogen. With some bloody drainage from NG tube. Will stop heparin and start patient on SCDs for DVT prophylaxis. We will continue aspirin for now. (10) Ambulatory dysfunction Is this a current diagnosis for this admission?: Yes Plan: Will benefit from PT OT when appropriate. - Time Time Spent with patient: 25-34 minutes Anticipated discharge: SNF - Inpatient Certification Medical Necessity: Need for IV Antibiotics - Patient in the ICU. Patient with hypercapnic hypoxic respiratory failure. Patient currently on continuous BiPAP.
[2017-11-12] MEDS ORDERED: PHENAZOPYRIDINE HCL 100 MG TABLET PO SCH (14:00)
[2017-11-12] MEDS: IPRATROPIUM/ALBUTEROL 0.5-2.5 MG/3 ML AMPUL NEB SCH ×2 (14:25→19:48)
--- NOTE | 2017-11-12 17:07 | PDOC PROGRESS REPORT ---
Subjective Progress Note for:: 11/12/17 Subjective:: Patient seems to be stable and doing better. She remains to be awake and alert. She has worked with physical therapy earlier. She has some more compliant with her BiPAP. Her urine output is minimal. She does not have any complaints today. Reason For Visit: ACUTE ON CHRONIC kidney disease Physical Exam Vital Signs: Temp Pulse Resp BP Pulse Ox 97.0 F 67 21 H 125/59 L 96 11/12/17 16:00 11/12/17 14:27 11/12/17 16:39 11/12/17 16:18 11/12/17 16:39 Pulse Oximeter Continuous Start: 11/04/17 13: 05 Freq: RTQ4 Status: Hold Document 11/10/17 11:50 JDR (Rec: 11/10/17 13:04 JDR [email or web address]) Pulse Oximetry Assessment Oxygen Saturation (92-100) 98 Oxygen Flow Rate (L/min) 12 Oxygen Delivery Method Partial-Rebreather Equipment Usage Equipment in Use Continuous SpO2 Machine # 7 Intake & Output 11/11/17 11/12/17 11/13/17 06:59 06:59 06:59 Intake Total 1158 1392 0 Output Total 387 2268 400 Balance 771 -876 -400 Weight 106 kg 108.2 kg Exam: General appearance: PRESENT: no acute distress, cooperative, well-developed, well-nourished, on BiPAP Head exam: PRESENT: atraumatic, normocephalic Eye exam: PRESENT: conjunctiva pale, PERRLA. ABSENT: scleral icterus Neck exam: ABSENT: JVD Respiratory exam: PRESENT: Diminished breath sounds. ABSENT: crackles, rales, rhonchi, unlabored, wheezes Cardiovascular exam: PRESENT: Regular rate rhythm -+S1, +S2. ABSENT: diastolic murmur, systolic murmur GI/Abdominal exam: PRESENT: normal bowel sounds, soft. ABSENT: guarding, mass, tenderness Extremities exam: ABSENT: No edema Neurological exam: PRESENT: alert, awake, oriented to person, place and partially to time. Skin exam: PRESENT: dry, warm, Results Laboratory Results: 11/12/17 05:09 11/12/17 05:09 11/12/17 11/12/17 11/12/17 05:09 05:09 11:25 WBC 15.2 H RBC 3.34 L Hgb 9.6 L Hct 30.5 L MCV 91 MCH 28.6 MCHC 31.4 L RDW 16.1 H Plt Count 193 Seg Neutrophils % Not Reportable Lymphocytes % Not Reportable Monocytes % Not Reportable Eosinophils % Not Reportable Basophils % Not Reportable Absolute Neutrophils Not Reportable Absolute Lymphocytes Not Reportable Absolute Monocytes Not Reportable Absolute Eosinophils Not Reportable Absolute Basophils Not Reportable Carbonic Acid 1.47 H HCO3/H2CO3 Ratio 16:1 ABG pH 7.33 L ABG pCO2 48.8 H ABG pO2 80.4 ABG HCO3 24.9 ABG O2 Saturation 95.0 ABG Base Excess -1.3 FiO2 50% Sodium 139.8 Potassium 4.2 Chloride 94 L Carbon Dioxide 24 Anion Gap 22 H BUN 125 H D Creatinine 7.22 H Est GFR ( Amer) 7 L Est GFR (Non-Af Amer) 6 L Glucose 243 H Calcium 7.8 L 11/10/17 12:30 Catheterized Urine Urine Culture - Final Escherichia Coli Enterobacter Cloacae 11/02/17 11/09/17 11/09/17 19:35 15:05 15:05 Creatine Kinase 40 CK-MB (CK-2) 0.69 Troponin I < 0.012 0.019 11/09/17 11/09/17 11/10/17 22:46 22:46 08:39 Creatine Kinase 45 46 CK-MB (CK-2) 0.62 Troponin I 0.017 11/10/17 08:39 Creatine Kinase CK-MB (CK-2) 0.70 Troponin I 0.034 Impressions: Abdomen/Pelvis CT 11/02/17 00:00 IMPRESSION: 1. AIRSPACE DISEASE IN THE VISUALIZED RIGHT LUNG. 2. SLUDGE AND/OR STONES IN THE GALLBLADDER. 3. NO OTHER SIGNIFICANT OR ACUTE PROCESS IN THE ABDOMEN OR PELVIS. Lung Scan-VQ NM 11/02/17 00:00 IMPRESSION: Limited examination. No perfusion defects are identified. No evidence of PE. Head CT 11/02/17 13:59 IMPRESSION: NORMAL BRAIN CT WITHOUT CONTRAST. EVIDENCE OF ACUTE STROKE: NO. Interventional Vascular Procedure 11/07/17 00:00 IMPRESSION: Image obtained for procedure performed by Dr. Bunn. Acute Abdomen Series 11/10/17 00:00 IMPRESSION: 1. Moderate bilateral lower lobar pneumonia. 2. Moderate small bowel obstruction pattern. Chest X-Ray 11/10/17 00:00 IMPRESSION: Interval worsening includes moderate bilateral airspace opacities. KUB X-Ray 11/11/17 00:00 IMPRESSION: NG tube positioned over stomach. Right basilar atelectasis. Assessment & Plan - Diagnosis (1) Acute renal failure superimposed on stage 3 chronic kidney disease Is this a current diagnosis for this admission?: Yes Plan: This is secondary to acute prerenal factors including acute congestive heart failure. Patient does not have any proteinuria or microalbuminuria. There was no hypotension no other nephrotoxic medications. No obstruction on CT scan. Currently kidney function is getting progressively worse. Continue to monitor kidney function and avoid nephrotoxic medications. Her echocardiogram indicated normal left ventricular ejection fraction, mild to moderate diastolic dysfunction but also indicate the possibility of right-sided heart failure with dilated mildly dilated right atrium and right ventricle. Patient has minimal urine output. Her kidney function is still not better. We will plan to do dialysis tomorrow. (2) Acute CHF Qualifiers: Heart failure type: diastolic Qualified Code(s): I50.31 - Acute diastolic ( congestive) heart failure Is this a current diagnosis for this admission?: Yes Plan: Cardiology in consult. As mentioned above she has a combination of diastolic dysfunction as well as possibility of right-sided heart failure in a patient with COPD, obstructive sleep apnea, and obesity. Pulmonary congestion seems improved. (3) Acute on chronic respiratory failure with hypoxia and hypercapnia Is this a current diagnosis for this admission?: Yes Plan: Pulmonary on board. (4) Pneumonia Qualifiers: Pneumonia type: aspiration pneumonia Laterality: right Lung location: unspecified part of lung Is this a current diagnosis for this admission?: Yes Plan: High likelihood the patient could have developed aspiration pneumonia due to her vomiting . Currently started on antibiotics. Defer to hospitalist. (5) Nausea and vomiting Is this a current diagnosis for this admission?: Yes Plan: Resolved. (6) Hypocalcemia Is this a current diagnosis for this admission?: Yes Plan: Due to hyperphosphatemia. Mild. We will dialyze with high calcium bath tomorrow. (7) Hyperphosphatemia Is this a current diagnosis for this admission?: Yes Plan: Due to AK I and CKD. This should improve with dialysis and hopefully improvement of kidney function. Will hold any phosphorus binders at this time since she is n.p.o. (8) Urinary tract infection Is this a current diagnosis for this admission?: Yes Plan: Due to E. coli and Enterobacter. Defer to hospitalist service. (9) Secondary hyperparathyroidism (of renal origin) Is this a current diagnosis for this admission?: Yes Plan: This needs to be repeated when the patient is a steady state. That is if the acute component of kidney failure recovers. (10) Iron deficiency anemia Is this a current diagnosis for this admission?: Yes Plan: We will give iron supplement. I gave her a dose of IV Feraheme on 11/04. We will give her IV Venofer on dialysis. (11) Anemia in chronic illness Is this a current diagnosis for this admission?: Yes Plan: Procrit and dialysis as needed. (12) Morbid obesity Is this a current diagnosis for this admission?: Yes - Time Time with patient: 15-25 minutes
[2017-11-12] MEDS: ATORVASTATIN CALCIUM 40 MG TABLET NG SCH (17:24)
[2017-11-12] MEDS ORDERED: BUDESONIDE NEB 0.5 MG/2 ML AMPUL NEB SCH (20:00)
--- NOTE | 2017-11-12 20:24 | PDOC PROGRESS REPORT ---
Subjective Progress Note for:: 11/11/17 Subjective:: wearing NIPPV Reason For Visit: ACUTE ON CHRONIC HEART FAILURE, CIRRHOSIS Physical Exam Vital Signs: Temp Pulse Resp BP Pulse Ox 96.7 F L 76 19 115/63 95 11/11/17 08:00 11/11/17 08:00 11/11/17 08:00 11/11/17 08:00 11/11/17 08:00 Pulse Oximeter Continuous Start: 11/04/17 13: 05 Freq: RTQ4 Status: Hold Document 11/10/17 11:50 JDR (Rec: 11/10/17 13:04 JDR [email or web address]) Pulse Oximetry Assessment Oxygen Saturation (92-100) 98 Oxygen Flow Rate (L/min) 12 Oxygen Delivery Method Partial-Rebreather Equipment Usage Equipment in Use Continuous SpO2 Machine # 7 Intake & Output 11/10/17 11/11/17 11/12/17 06:59 06:59 06:59 Intake Total 657 1158 Output Total 850 387 28 Balance -193 771 -28 Weight 108.1 kg 106 kg General appearance: PRESENT: no acute distress, disheveled, morbidly obese, well -developed Head exam: PRESENT: atraumatic, normocephalic Eye exam: PRESENT: conjunctiva pale, EOMI. ABSENT: nystagmus, periorbital swelling, scleral icterus Mouth exam: PRESENT: dry mucosa, neck supple, tongue midline Neck exam: ABSENT: carotid bruit, JVD, lymphadenopathy, thyromegaly, tracheal deviation, tracheostomy Respiratory exam: PRESENT: decreased breath sounds, prolonged expiratory phas, rhonchi, symmetrical, wheezes. ABSENT: retraction, stridor, tachypnea Cardiovascular exam: PRESENT: RRR, +S1, +S2, tachycardia Pulses: PRESENT: normal radial pulses GI/Abdominal exam: PRESENT: diminished bowel sounds, soft Extremities exam: ABSENT: calf tenderness, clubbing Musculoskeletal exam: ABSENT: deformity Neurological exam: PRESENT: awake Skin exam: PRESENT: dry, warm Results Laboratory Results: 11/11/17 06:00 11/11/17 06:00 11/10/17 11/10/17 11/10/17 08:39 08:39 08:39 WBC 24.4 H RBC 3.81 Hgb 10.9 L Hct 35.0 L MCV 92 MCH 28.5 MCHC 31.1 L RDW 16.7 H Plt Count 254 Seg Neutrophils % Not Reportable Lymphocytes % Not Reportable Monocytes % Not Reportable Eosinophils % Not Reportable Basophils % Not Reportable Absolute Neutrophils Not Reportable Absolute Lymphocytes Not Reportable Absolute Monocytes Not Reportable Absolute Eosinophils Not Reportable Absolute Basophils Not Reportable Carbonic Acid HCO3/H2CO3 Ratio ABG pH ABG pCO2 ABG pO2 ABG HCO3 ABG O2 Saturation ABG Base Excess FiO2 Sodium 138.1 Potassium 3.9 Chloride 86 L Carbon Dioxide 29 Anion Gap 23 H BUN 130 H Creatinine 5.79 H Est GFR ( Amer) 9 L Est GFR (Non-Af Amer) 7 L Glucose 304 H Calcium 8.7 Phosphorus 10.3 H Magnesium 2.4 H Total Bilirubin AST ALT Alkaline Phosphatase Ammonia Total Protein Albumin Urine Color Urine Appearance Urine pH Ur Specific [place] Urine Protein Urine Glucose (UA) Urine Ketones Urine Blood Urine Nitrite Ur Leukocyte Esterase Urine WBC (Auto) Urine RBC (Auto) 11/10/17 11/10/17 11/10/17 11:50 12:30 14:00 WBC RBC Hgb Hct MCV MCH MCHC RDW Plt Count Seg Neutrophils % Lymphocytes % Monocytes % Eosinophils % Basophils % Absolute Neutrophils Absolute Lymphocytes Absolute Monocytes Absolute Eosinophils Absolute Basophils Carbonic Acid 1.93 H HCO3/H2CO3 Ratio 16:1 ABG pH 7.32 L ABG pCO2 64.0 H ABG pO2 121.1 H ABG HCO3 32.1 H ABG O2 Saturation 98.0 ABG Base Excess 4.5 FiO2 100% Sodium 138.2 Potassium 4.0 Chloride 86 L Carbon Dioxide 31 H Anion Gap 21 H BUN 130 H Creatinine 6.03 H Est GFR ( Amer) 8 L Est GFR (Non-Af Amer) 7 L Glucose 312 H Calcium 8.3 L Phosphorus Magnesium Total Bilirubin 0.8 AST 24 ALT 39 Alkaline Phosphatase 55 Ammonia Total Protein 6.7 Albumin 4.0 Urine Color YELLOW Urine Appearance CLOUDY Urine pH 5.0 Ur Specific [place] 1.015 Urine Protein >=500 H Urine Glucose (UA) 50 H Urine Ketones NEGATIVE Urine Blood LARGE H Urine Nitrite NEGATIVE Ur Leukocyte Esterase NEGATIVE Urine WBC (Auto) 3 Urine RBC (Auto) >182 11/10/17 11/10/17 11/11/17 14:00 15:00 06:00 WBC 17.3 H RBC 3.44 L Hgb 9.8 L Hct 31.4 L MCV 91 MCH 28.5 MCHC 31.2 L RDW 16.1 H Plt Count 214 Seg Neutrophils % Not Reportable Lymphocytes % Not Reportable Monocytes % Not Reportable Eosinophils % Not Reportable Basophils % Not Reportable Absolute Neutrophils Not Reportable Absolute Lymphocytes Not Reportable Absolute Monocytes Not Reportable Absolute Eosinophils Not Reportable Absolute Basophils Not Reportable Carbonic Acid 1.83 H HCO3/H2CO3 Ratio 17:1 ABG pH 7.34 L ABG pCO2 60.7 H ABG pO2 61.4 L ABG HCO3 32.3 H ABG O2 Saturation 89.6 L ABG Base Excess 5.2 FiO2 35% Sodium Potassium Chloride Carbon Dioxide Anion Gap BUN Creatinine Est GFR ( Amer) Est GFR (Non-Af Amer) Glucose Calcium Phosphorus Magnesium Total Bilirubin AST ALT Alkaline Phosphatase Ammonia < 8.7 L Total Protein Albumin Urine Color Urine Appearance Urine pH Ur Specific [place] Urine Protein Urine Glucose (UA) Urine Ketones Urine Blood Urine Nitrite Ur Leukocyte Esterase Urine WBC (Auto) Urine RBC (Auto) 11/11/17 06:00 WBC RBC Hgb Hct MCV MCH MCHC RDW Plt Count Seg Neutrophils % Lymphocytes % Monocytes % Eosinophils % Basophils % Absolute Neutrophils Absolute Lymphocytes Absolute Monocytes Absolute Eosinophils Absolute Basophils Carbonic Acid HCO3/H2CO3 Ratio ABG pH ABG pCO2 ABG pO2 ABG HCO3 ABG O2 Saturation ABG Base Excess FiO2 Sodium 135.7 L Potassium 3.9 Chloride 86 L Carbon Dioxide 27 Anion Gap 23 H BUN 153 H D Creatinine 7.11 H Est GFR ( Amer) 7 L Est GFR (Non-Af Amer) 6 L Glucose 243 H Calcium 7.9 L Phosphorus 9.9 H Magnesium 2.4 H Total Bilirubin 0.8 AST 19 ALT 34 Alkaline Phosphatase 53 Ammonia Total Protein 6.6 Albumin 3.8 Urine Color Urine Appearance Urine pH Ur Specific [place] Urine Protein Urine Glucose (UA) Urine Ketones Urine Blood Urine Nitrite Ur Leukocyte Esterase Urine WBC (Auto) Urine RBC (Auto) 11/02/17 11/09/17 11/09/17 19:35 15:05 15:05 Creatine Kinase 40 CK-MB (CK-2) 0.69 Troponin I < 0.012 0.019 11/09/17 11/09/17 11/10/17 22:46 22:46 08:39 Creatine Kinase 45 46 CK-MB (CK-2) 0.62 Troponin I 0.017 11/10/17 08:39 Creatine Kinase CK-MB (CK-2) 0.70 Troponin I 0.034 Impressions: Abdomen/Pelvis CT 11/02/17 00:00 IMPRESSION: 1. AIRSPACE DISEASE IN THE VISUALIZED RIGHT LUNG. 2. SLUDGE AND/OR STONES IN THE GALLBLADDER. 3. NO OTHER SIGNIFICANT OR ACUTE PROCESS IN THE ABDOMEN OR PELVIS. Lung Scan-VQ NM 11/02/17 00:00 IMPRESSION: Limited examination. No perfusion defects are identified. No evidence of PE. Head CT 11/02/17 13:59 IMPRESSION: NORMAL BRAIN CT WITHOUT CONTRAST. EVIDENCE OF ACUTE STROKE: NO. Interventional Vascular Procedure 11/07/17 00:00 IMPRESSION: Image obtained for procedure performed by Dr. Bunn. Acute Abdomen Series 11/10/17 00:00 IMPRESSION: 1. Moderate bilateral lower lobar pneumonia. 2. Moderate small bowel obstruction pattern. Chest X-Ray 11/10/17 00:00 IMPRESSION: Interval worsening includes moderate bilateral airspace opacities. KUB X-Ray 11/10/17 00:00 IMPRESSION: NG tube overlying stomach. Assessment & Plan - Diagnosis (1) Acute CHF Qualifiers: Heart failure type: diastolic Qualified Code(s): I50.31 - Acute diastolic ( congestive) heart failure Is this a current diagnosis for this admission?: Yes Plan: unchanged (2) Acute on chronic renal failure Qualifiers: Acute renal failure type: unspecified Chronic kidney disease stage: stage 4 (severe) Qualified Code(s): N17.9 - Acute kidney failure, unspecified; N18.4 - Chronic kidney disease, stage 4 (severe); N18.4 - Chronic kidney disease , stage 4 (severe); N18.4 - Chronic kidney disease, stage 4 (severe); N18.4 - Chronic kidney disease, stage 4 (severe) Is this a current diagnosis for this admission?: Yes Plan: 48 frs s/p dialysis as per Dr. Buitrago Labs- All tests 24 hr 11/02/17 11/03/17 11/04/17 14:40 07:03 07:05 BUN 39 H 42 H 57 H Creatinine 2.21 H 2.46 H 2.91 H 11/05/17 11/06/17 11/07/17 13:35 05:21 05:09 BUN 79 H 98 H 115 H Creatinine 3.36 H 4.41 H 5.46 H 11/08/17 11/09/17 11/10/17 05:12 06:22 08:39 BUN 121 H 106 H 130 H Creatinine 5.98 H 4.83 H 5.79 H 11/10/17 14:00 BUN 130 H Creatinine 6.03 H (3) Acute on chronic respiratory failure with hypoxia and hypercapnia Is this a current diagnosis for this admission?: Yes Plan: multifactorial obstructive lung dx + CHF failure + renal failure boderline (4) Morbid obesity Is this a current diagnosis for this admission?: Yes Plan: minimally improved (5) Pneumonia Qualifiers: Pneumonia type: aspiration pneumonia Laterality: right Lung location: unspecified part of lung Is this a current diagnosis for this admission?: Yes Plan: no + cultures Labs- All tests 24 hr 11/10/17 08:39 WBC 24.4 H Seg Neuts % (Manual) 86 H - Time Total Critical Time (Minutes): 40
--- NOTE | 2017-11-12 20:29 | PDOC PROGRESS REPORT ---
Subjective Progress Note for:: 11/12/17 Subjective:: wearing NIPPV Reason For Visit: ACUTE ON CHRONIC HEART FAILURE, CIRRHOSIS Physical Exam Vital Signs: Temp Pulse Resp BP Pulse Ox 98.0 F 73 18 128/71 H 100 11/12/17 07:51 11/12/17 07:51 11/12/17 07:51 11/12/17 06:17 11/12/17 06:17 Pulse Oximeter Continuous Start: 11/04/17 13: 05 Freq: RTQ4 Status: Hold Document 11/10/17 11:50 JDR (Rec: 11/10/17 13:04 JDR [email or web address]) Pulse Oximetry Assessment Oxygen Saturation (92-100) 98 Oxygen Flow Rate (L/min) 12 Oxygen Delivery Method Partial-Rebreather Equipment Usage Equipment in Use Continuous SpO2 Machine # 7 Intake & Output 11/11/17 11/12/17 11/13/17 06:59 06:59 06:59 Intake Total 1158 1392 Output Total 387 2268 Balance 771 -876 Weight 106 kg 108.2 kg General appearance: PRESENT: no acute distress, disheveled, morbidly obese, well -developed Head exam: PRESENT: atraumatic, normocephalic Eye exam: PRESENT: conjunctiva pale, EOMI. ABSENT: nystagmus, periorbital swelling, scleral icterus Mouth exam: PRESENT: dry mucosa, neck supple, tongue midline Neck exam: ABSENT: carotid bruit, JVD, lymphadenopathy, thyromegaly, tracheal deviation, tracheostomy Respiratory exam: PRESENT: decreased breath sounds, prolonged expiratory phas, rales, rhonchi, symmetrical, tachypnea, unlabored - on NIPPV, wheezes Cardiovascular exam: PRESENT: RRR, +S1, +S2 Pulses: PRESENT: normal radial pulses GI/Abdominal exam: PRESENT: diminished bowel sounds, soft Extremities exam: ABSENT: calf tenderness, clubbing Musculoskeletal exam: ABSENT: deformity, dislocation Neurological exam: PRESENT: awake Skin exam: PRESENT: dry Results Laboratory Results: 11/12/17 05:09 11/12/17 05:09 11/12/17 11/12/17 05:09 05:09 WBC 15.2 H RBC 3.34 L Hgb 9.6 L Hct 30.5 L MCV 91 MCH 28.6 MCHC 31.4 L RDW 16.1 H Plt Count 193 Seg Neutrophils % Not Reportable Lymphocytes % Not Reportable Monocytes % Not Reportable Eosinophils % Not Reportable Basophils % Not Reportable Absolute Neutrophils Not Reportable Absolute Lymphocytes Not Reportable Absolute Monocytes Not Reportable Absolute Eosinophils Not Reportable Absolute Basophils Not Reportable Sodium 139.8 Potassium 4.2 Chloride 94 L Carbon Dioxide 24 Anion Gap 22 H BUN 125 H D Creatinine 7.22 H Est GFR ( Amer) 7 L Est GFR (Non-Af Amer) 6 L Glucose 243 H Calcium 7.8 L 11/10/17 12:30 Catheterized Urine Urine Culture - Final Escherichia Coli Enterobacter Cloacae 11/02/17 11/09/17 11/09/17 19:35 15:05 15:05 Creatine Kinase 40 CK-MB (CK-2) 0.69 Troponin I < 0.012 0.019 11/09/17 11/09/17 11/10/17 22:46 22:46 08:39 Creatine Kinase 45 46 CK-MB (CK-2) 0.62 Troponin I 0.017 11/10/17 08:39 Creatine Kinase CK-MB (CK-2) 0.70 Troponin I 0.034 Impressions: Abdomen/Pelvis CT 11/02/17 00:00 IMPRESSION: 1. AIRSPACE DISEASE IN THE VISUALIZED RIGHT LUNG. 2. SLUDGE AND/OR STONES IN THE GALLBLADDER. 3. NO OTHER SIGNIFICANT OR ACUTE PROCESS IN THE ABDOMEN OR PELVIS. Lung Scan-VQ NM 11/02/17 00:00 IMPRESSION: Limited examination. No perfusion defects are identified. No evidence of PE. Head CT 11/02/17 13:59 IMPRESSION: NORMAL BRAIN CT WITHOUT CONTRAST. EVIDENCE OF ACUTE STROKE: NO. Interventional Vascular Procedure 11/07/17 00:00 IMPRESSION: Image obtained for procedure performed by Dr. Bunn. Acute Abdomen Series 11/10/17 00:00 IMPRESSION: 1. Moderate bilateral lower lobar pneumonia. 2. Moderate small bowel obstruction pattern. Chest X-Ray 11/10/17 00:00 IMPRESSION: Interval worsening includes moderate bilateral airspace opacities. KUB X-Ray 11/11/17 00:00 IMPRESSION: NG tube positioned over stomach. Right basilar atelectasis. Assessment & Plan - Diagnosis (1) Acute CHF Qualifiers: Heart failure type: diastolic Qualified Code(s): I50.31 - Acute diastolic ( congestive) heart failure Is this a current diagnosis for this admission?: Yes (2) Acute on chronic renal failure Qualifiers: Acute renal failure type: unspecified Chronic kidney disease stage: stage 4 (severe) Qualified Code(s): N17.9 - Acute kidney failure, unspecified; N18.4 - Chronic kidney disease, stage 4 (severe); N18.4 - Chronic kidney disease , stage 4 (severe); N18.4 - Chronic kidney disease, stage 4 (severe); N18.4 - Chronic kidney disease, stage 4 (severe) Is this a current diagnosis for this admission?: Yes Plan: 48 frs s/p dialysis as per Dr. Buitrago Labs- All tests 24 hr 11/02/17 11/03/17 11/04/17 14:40 07:03 07:05 BUN 39 H 42 H 57 H Creatinine 2.21 H 2.46 H 2.91 H 11/05/17 11/06/17 11/07/17 13:35 05:21 05:09 BUN 79 H 98 H 115 H Creatinine 3.36 H 4.41 H 5.46 H 11/08/17 11/09/17 11/10/17 05:12 06:22 08:39 BUN 121 H 106 H 130 H Creatinine 5.98 H 4.83 H 5.79 H 11/10/17 14:00 BUN 130 H Creatinine 6.03 H (3) Acute on chronic respiratory failure with hypoxia and hypercapnia Is this a current diagnosis for this admission?: Yes Plan: multifactorial obstructive lung dx + CHF failure + renal failure boderline (4) Morbid obesity Is this a current diagnosis for this admission?: Yes Plan: minimally improved (5) Pneumonia Qualifiers: Pneumonia type: aspiration pneumonia Laterality: right Lung location: unspecified part of lung Is this a current diagnosis for this admission?: Yes Plan: Labs- All tests 24 hr 11/12/17 05:09 WBC 15.2 H Seg Neuts % (Manual) 91 H - Time Total Critical Time (Minutes): 40
[2017-11-13] MEDS: METOCLOPRAMIDE HCL INJ/PF 10 MG/2 ML SDV IV SCH ×4 (00:16→18:31)
[2017-11-13] MEDS: INSULIN LISPRO 100 UNIT/ML 3 ML VIAL SUBCUT PRN (00:16)
[2017-11-13] MEDS ORDERED: METRONIDAZOLE 500 MG/NS RTU 200 ML IV ONE (00:27)
[2017-11-13] MEDS: METRONIDAZOLE 500 MG/NS RTU 100 ML IV SCH ×4 (00:34→18:30)
[2017-11-13] MEDS: IPRATROPIUM/ALBUTEROL 0.5-2.5 MG/3 ML AMPUL NEB SCH ×4 (02:11→20:06)
[2017-11-13] MEDS ORDERED: NORMAL SALINE 1000 ML 1,000 ML IV PRN (05:00)
[2017-11-13] MEDS ORDERED: IRON SUCROSE COMPLEX INJ/PF 100 MG/5 ML SDV IV PRN (05:00)
[2017-11-13] MEDS ORDERED: EPOETIN ALFA 10,000 UNIT in SYRINGE, DISPOSABLE, 1 EACH IV PRN (05:00)
[2017-11-13] MEDS ORDERED: EPOETIN ALFA INJ 20000 UNIT/1 ML VIAL (RENAL) IV PRN (05:00)
[2017-11-13] MEDS ORDERED: HEPARIN SOD (PORCINE) 1,000 UNIT/ML 10 ML VIAL IV PRN (05:00)
[2017-11-13] MEDS: BUMETANIDE INJ/PF 1 MG/4 ML SDV IV SCH (05:33)
[2017-11-13] MEDS: AZTREONAM 0.25 GM in DEXTROSE 5%-WATER 50 ML IV SCH ×3 (05:34→22:10)
[2017-11-13 06:53] LABS: ALANINE AMINOTRANSFERASE 27 U/L (9-52); ALBUMIN 3.9 g/dL (3.5-5.0); ALKALINE PHOSPHATASE 50 U/L (38-126); ASPARTATE AMINO TRANSFERASE 19 U/L (14-36); BILIRUBIN,DIRECT 0.8 mg/dL (0.0-0.4); BILIRUBIN,TOTAL 0.8 mg/dL (0.2-1.3); CALCIUM 7.2 mg/dL (8.4-10.2); GLUCOSE 223 mg/dL (75-110); PHOSPHORUS 10.8 mg/dL (2.5-4.5); TOTAL PROTEIN 6.4 g/dL (6.3-8.2)
[2017-11-13 07:01] LABS: CARBON DIOXIDE 19 mmol/L (22-30); CHLORIDE 97 mmol/L (98-107); POTASSIUM 4.6 mmol/L (3.6-5.0); SODIUM 139.6 mmol/L (137-145)
[2017-11-13 07:20] LABS: HEMATOCRIT 29.1 % (36.0-47.0); HEMOGLOBIN 9.1 g/dL (12.0-15.5); MEAN CORPUSCULAR HEMOGLOBIN 28.8 pg (27.0-33.4); MEAN CORPUSCULAR HGB CONC 31.3 g/dL (32.0-36.0); MEAN CORPUSCULAR VOLUME 92 fl (80-97); PLATELET COUNT 218 10^3/uL (150-450); RED BLOOD COUNT 3.17 10^6/uL (3.72-5.28); RED CELL DISTRIBUTION WIDTH 16.4 % (11.5-14.0); WHITE BLOOD COUNT 18.7 10^3/uL (4.0-10.5)
--- NOTE | 2017-11-13 07:25 | RADIOLOGY REPORT (SQ) ---
EXAM DESCRIPTION: CHEST SINGLE VIEW CLINICAL HISTORY: resp failure COMPARISON: 11/10/2017 FINDINGS: Single frontal view of the chest. NG tube with tip below the diaphragm. Cardiomegaly. Low lung volumes. Postoperative change in the left chest. Patchy right basilar opacity and likely small right pleural effusion. No pneumothorax. No new osseous abnormalities. Upper abdominal soft tissues are unremarkable. IMPRESSION: 1. Mildly improved aeration of the right lung base with no other significant interval change.
[2017-11-13 07:32] LABS: BLOOD UREA NITROGEN 155 mg/dL (7-20)
[2017-11-13 07:33] LABS: ANION GAP 24 (5-19)
[2017-11-13 07:57] LABS: ARTERIAL BLOOD BASE EXCESS -3.1 mmol/L; ARTERIAL BLOOD FIO2 35%; ARTERIAL BLOOD HCO3 23.5 mmol/L (20-26); ARTERIAL BLOOD O2 SATURATION 92.6 % (94-98); ARTERIAL BLOOD PCO2 49.9 mmHg (35-45); ARTERIAL BLOOD PH 7.29 (7.35-7.45); ARTERIAL BLOOD PO2 72.1 mmHg (80-100)
[2017-11-13 08:41] LABS: ABSOLUTE LYMPHOCYTES# (MANUAL) 0.7 10^3/uL (0.5-4.7); ABSOLUTE MONOCYTES # (MANUAL) 0.9 10^3/uL (0.1-1.4); ANISOCYTOSIS 1+; BASOPHILS % (MANUAL) 0 % (0-2); EOSINOPHILS % (MANUAL) 0 % (0-6); HYPOCHROMASIA 1+; LYMPHOCYTES % (MANUAL) 4 % (13-45); MONOCYTES % (MANUAL) 5 % (3-13); PLATELET COMMENT ADEQUATE; PLATELET LARGE PRESENT; SEGMENTED NEUTROPHILS % (MAN) 91 % (42-78); TOTAL CELLS COUNTED 100; TOXIC GRANULATION SLIGHT; TOXIC VACUOLATION PRESENT
[2017-11-13] MEDS: FLUTICASONE NASAL SPRAY 50 MCG/SPRY 120 SPRAY/16 GM NASL SCH ×2 (09:20→21:57)
[2017-11-13] MEDS: METHYLPREDNISOLONE INJ 40 MG/1 ML SDV IV SCH ×2 (09:56→22:09)
--- NOTE | 2017-11-13 11:07 | PDOC PROGRESS REPORT ---
Subjective Progress Note for:: 11/12/17 Subjective:: Patient still in the intensive care unit. Remains in respiratory distress with intermittent use of positive pressure noninvasive ventilation. Chest x-ray reviewed new pneumonitis right base. Patient lab work also showed significant worsening in renal function. Complete blood count shows white cell count is coming down. Patient is maintaining sinus rhythm. Medications: Medications have been reviewed. Reason For Visit: ACUTE ON CHRONIC HEART FAILURE, CIRRHOSIS Physical Exam Vital Signs: Temp Pulse Resp BP Pulse Ox 98.9 F 67 21 H 125/59 L 96 11/12/17 18:00 11/12/17 14:27 11/12/17 16:39 11/12/17 16:18 11/12/17 16:39 Pulse Oximeter Continuous Start: 11/04/17 13: 05 Freq: RTQ4 Status: Hold Document 11/10/17 11:50 JDR (Rec: 11/10/17 13:04 JDR [email or web address]) Pulse Oximetry Assessment Oxygen Saturation (92-100) 98 Oxygen Flow Rate (L/min) 12 Oxygen Delivery Method Partial-Rebreather Equipment Usage Equipment in Use Continuous SpO2 Machine # 7 Intake & Output 11/11/17 11/12/17 11/13/17 06:59 06:59 06:59 Intake Total 1158 1392 580 Output Total 387 2268 500 Balance 771 -876 80 Weight 106 kg 108.2 kg Exam: GENERAL: well-nourished and in no acute distress. Alert and oriented x2, patient not oriented to time today. HEAD: Atraumatic, normocephalic. EYES: Pupils equal round and reactive to light, extraocular movements intact, sclera anicteric, conjunctiva are normal. ENT: TMs normal, nares patent, oropharynx clear without exudates. Moist mucous membranes. No oral ulcerations or bleeding gums noted NECK: supple without lymphadenopathy. Trachea is central. No cervical or axillary lymphadenopathy noted. Carotids are 2+, JVD WNL LUNGS: Respiration seems nonlabored, no significant accessory muscle action noted. Bilateral fine crackles noted right more than left. Minimal dullness noted both bases. CHEST: Palpation of the chest wall shows no significant chest wall tenderness. No other significant abnormalities noted. HEART: [place] CLOTHES WRINGER, No PSH, 1/6 MICHAEL aortic area, 1/6 miller systolic murmur mitral area, no rubs, no gallops. ABDOMEN: Soft, no significant tenderness appreciated, normoactive bowel sounds. No guarding, no rebound. No rigidity noted . No masses appreciated. Patient has a dialysis catheter in the right groin area. EXTREMITIES: Pedal pulses are 1-2+, no calf tenderness noted. No clubbing or cyanosis.1+ pedal edema noted NEUROLOGICAL: Focused neurological exam showed no significant neurologic deficit. Normal speech, no focal weakness appreciated but patient noted to be generally weak. PSYCH: Normal mood, normal affect. Judgment and insight not checked. SKIN: No significant ecchymosis, rash, ulcerations or signs of pruritus noted. MUSCULOSKELETAL EXAM: No significant joint swelling noted. Results Laboratory Results: 11/12/17 05:09 11/12/17 05:09 11/12/17 11/12/17 11/12/17 05:09 05:09 11:25 WBC 15.2 H RBC 3.34 L Hgb 9.6 L Hct 30.5 L MCV 91 MCH 28.6 MCHC 31.4 L RDW 16.1 H Plt Count 193 Seg Neutrophils % Not Reportable Lymphocytes % Not Reportable Monocytes % Not Reportable Eosinophils % Not Reportable Basophils % Not Reportable Absolute Neutrophils Not Reportable Absolute Lymphocytes Not Reportable Absolute Monocytes Not Reportable Absolute Eosinophils Not Reportable Absolute Basophils Not Reportable Carbonic Acid 1.47 H HCO3/H2CO3 Ratio 16:1 ABG pH 7.33 L ABG pCO2 48.8 H ABG pO2 80.4 ABG HCO3 24.9 ABG O2 Saturation 95.0 ABG Base Excess -1.3 FiO2 50% Sodium 139.8 Potassium 4.2 Chloride 94 L Carbon Dioxide 24 Anion Gap 22 H BUN 125 H D Creatinine 7.22 H Est GFR ( Amer) 7 L Est GFR (Non-Af Amer) 6 L Glucose 243 H Calcium 7.8 L 11/10/17 12:30 Catheterized Urine Urine Culture - Final Escherichia Coli Enterobacter Cloacae 11/02/17 11/09/17 11/09/17 19:35 15:05 15:05 Creatine Kinase 40 CK-MB (CK-2) 0.69 Troponin I < 0.012 0.019 11/09/17 11/09/17 11/10/17 22:46 22:46 08:39 Creatine Kinase 45 46 CK-MB (CK-2) 0.62 Troponin I 0.017 11/10/17 08:39 Creatine Kinase CK-MB (CK-2) 0.70 Troponin I 0.034 EKG Comments: Telemetry strip shows sinus rhythm without any sustained tacky or bradycardia arrhythmias. Impressions: Abdomen/Pelvis CT 11/02/17 00:00 IMPRESSION: 1. AIRSPACE DISEASE IN THE VISUALIZED RIGHT LUNG. 2. SLUDGE AND/OR STONES IN THE GALLBLADDER. 3. NO OTHER SIGNIFICANT OR ACUTE PROCESS IN THE ABDOMEN OR PELVIS. Lung Scan-VQ NM 11/02/17 00:00 IMPRESSION: Limited examination. No perfusion defects are identified. No evidence of PE. Head CT 11/02/17 13:59 IMPRESSION: NORMAL BRAIN CT WITHOUT CONTRAST. EVIDENCE OF ACUTE STROKE: NO. Interventional Vascular Procedure 11/07/17 00:00 IMPRESSION: Image obtained for procedure performed by Dr. Bunn. Acute Abdomen Series 11/10/17 00:00 IMPRESSION: 1. Moderate bilateral lower lobar pneumonia. 2. Moderate small bowel obstruction pattern. Chest X-Ray 11/10/17 00:00 IMPRESSION: Interval worsening includes moderate bilateral airspace opacities. KUB X-Ray 11/11/17 00:00 IMPRESSION: NG tube positioned over stomach. Right basilar atelectasis. Assessment & Plan - Diagnosis (1) Acute CHF Qualifiers: Heart failure type: diastolic Qualified Code(s): I50.31 - Acute diastolic ( congestive) heart failure Is this a current diagnosis for this admission?: Yes (2) Acute and chronic respiratory failure with hypoxia Is this a current diagnosis for this admission?: Yes (3) Acute on chronic renal failure Qualifiers: Acute renal failure type: unspecified Chronic kidney disease stage: stage 4 (severe) Qualified Code(s): N17.9 - Acute kidney failure, unspecified; N18.4 - Chronic kidney disease, stage 4 (severe); N18.4 - Chronic kidney disease , stage 4 (severe); N18.4 - Chronic kidney disease, stage 4 (severe); N18.4 - Chronic kidney disease, stage 4 (severe) Is this a current diagnosis for this admission?: Yes (4) Pneumonia Qualifiers: Pneumonia type: aspiration pneumonia Laterality: right Lung location: unspecified part of lung Is this a current diagnosis for this admission?: Yes (5) Diabetes Qualifiers: Diabetes mellitus type: type 2 Diabetes mellitus complication status: with unspecified complications Diabetes mellitus jail insulin use: unspecified jail insulin use status Qualified Code(s): E11.8 - Type 2 diabetes mellitus with unspecified complications Is this a current diagnosis for this admission?: Yes (6) Morbid obesity Is this a current diagnosis for this admission?: Yes (7) Sleep disorder breathing Is this a current diagnosis for this admission?: Yes - Notes Notes: Acute CHF: Patient general condition has overall deteriorated. Feel is this is related to aspiration rather than exacerbation of CHF. Dr. Buitrago managing the diuretics. Recommend periodic chest x-rays. Today's chest x-ray shows evidence of right lower lobe pneumonitis. Patient may have some associated pleural effusion. Acute on chronic respiratory failure with hypoxemia: Patient being followed by band booker. Will follow the recommendation. Patient to benefit from intermittent positive pressure ventilation. Patient may need close observation and continued stay in the unit. Acute on chronic renal failure: Nephrology following. Patient was started on dialysis. Seems to be tolerating dialysis well. Further plans per nephrology. Pneumonia: It seems clinically worse. Continue antibiotic therapy. Monitor with periodic chest x-rays, ABGs. Sleep disordered breathing: Patient seems to have this. Pulmonary following. Will be happy to schedule a sleep study as an outpatient if needed. Obesity: Patient has been encouraged in weight loss. 2D echo results reviewed. Patient has normal LVEF but RV enlargement is noted. - Time Time with patient: 15-25 minutes - CODE STATUS was discussed, patient remains full code. Surrogate decision-maker unchanged. Multiple medical problems were addressed. More than 50% of the time spent coordinating care, discussing management plans with involved caregivers. Management plans discussed with involved personnels. Medical decision making was of moderate to high complexity , patient's has multiple comorbidities. Medications reviewed and adjusted accordingly: Yes
--- NOTE | 2017-11-13 11:08 | PDOC PROGRESS REPORT ---
Subjective Progress Note for:: 11/13/17 Subjective:: Patient still in the intensive care unit. Remains in respiratory distress with intermittent use of positive pressure noninvasive ventilation. Chest x-ray reviewed new pneumonitis right base. Patient lab work also showed significant worsening in renal function. Complete blood count shows white cell count is coming down. Patient is maintaining sinus rhythm. Currently receiving dialysis and tolerating dialysis well. Patient on questioning denying any chest pain or any significant shortness of breath. Currently on high flow oxygen. Medications: Medications have been reviewed. Reason For Visit: ACUTE ON CHRONIC HEART FAILURE, CIRRHOSIS Physical Exam Vital Signs: Temp Pulse Resp BP Pulse Ox 98.2 F 69 19 132/60 H 100 11/13/17 08:00 11/13/17 08:00 11/13/17 08:46 11/13/17 08:46 11/13/17 08:46 Pulse Oximeter Continuous Start: 11/04/17 13: 05 Freq: RTQ4 Status: Complete Document 11/10/17 11:50 JDR (Rec: 11/10/17 13:04 [email or web address] [email or web address]) Pulse Oximetry Assessment Oxygen Saturation (92-100) 98 Oxygen Flow Rate (L/min) 12 Oxygen Delivery Method Partial-Rebreather Equipment Usage Equipment in Use Continuous SpO2 Machine # 7 Intake & Output 11/12/17 11/13/17 11/14/17 06:59 06:59 06:59 Intake Total 1392 935 Output Total 2268 700 75 Balance -876 235 -75 Weight 108.2 kg 108.5 kg Exam: GENERAL: well-nourished and in no acute distress. Alert and oriented x2, patient not oriented to time today. HEAD: Atraumatic, normocephalic. EYES: Pupils equal round and reactive to light, extraocular movements intact, sclera anicteric, conjunctiva are normal. ENT: TMs normal, nares patent, oropharynx clear without exudates. Moist mucous membranes. No oral ulcerations or bleeding gums noted NECK: supple without lymphadenopathy. Trachea is central. No cervical or axillary lymphadenopathy noted. Carotids are 2+, JVD WNL LUNGS: Respiration seems nonlabored, no significant accessory muscle action noted. Bilateral fine crackles noted right more than left. Minimal dullness noted both bases. CHEST: Palpation of the chest wall shows no significant chest wall tenderness. No other significant abnormalities noted. 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 ABDOMEN: Soft, no significant tenderness appreciated, normoactive bowel sounds. No guarding, no rebound. No rigidity noted . No masses appreciated. Patient has a dialysis catheter in the right groin area. EXTREMITIES: Pedal pulses are 1-2+, no calf tenderness noted. No clubbing or cyanosis.1+ pedal edema noted NEUROLOGICAL: Focused neurological exam showed no significant neurologic deficit. Normal speech, no focal weakness appreciated but patient noted to be generally weak. PSYCH: Normal mood, normal affect. Judgment and insight not checked. SKIN: No significant ecchymosis, rash, ulcerations or signs of pruritus noted. MUSCULOSKELETAL EXAM: No significant joint swelling noted Results Laboratory Results: 11/13/17 05:50 11/13/17 05:50 11/12/17 11/13/17 11/13/17 11:25 04:40 05:50 WBC 18.7 H RBC 3.17 L Hgb 9.1 L Hct 29.1 L MCV 92 MCH 28.8 MCHC 31.3 L RDW 16.4 H Plt Count 218 Seg Neutrophils % Not Reportable Lymphocytes % Not Reportable Monocytes % Not Reportable Eosinophils % Not Reportable Basophils % Not Reportable Absolute Neutrophils Not Reportable Absolute Lymphocytes Not Reportable Absolute Monocytes Not Reportable Absolute Eosinophils Not Reportable Absolute Basophils Not Reportable Carbonic Acid 1.47 H 1.50 H HCO3/H2CO3 Ratio 16:1 15:1 ABG pH 7.33 L 7.29 L ABG pCO2 48.8 H 49.9 H ABG pO2 80.4 72.1 L ABG HCO3 24.9 23.5 ABG O2 Saturation 95.0 92.6 L ABG Base Excess -1.3 -3.1 FiO2 50% 35% Sodium Potassium Chloride Carbon Dioxide Anion Gap BUN Creatinine Est GFR ( Amer) Est GFR (Non-Af Amer) Glucose Calcium Phosphorus Magnesium Total Bilirubin AST ALT Alkaline Phosphatase Total Protein Albumin 11/13/17 05:50 WBC RBC Hgb Hct MCV MCH MCHC RDW Plt Count Seg Neutrophils % Lymphocytes % Monocytes % Eosinophils % Basophils % Absolute Neutrophils Absolute Lymphocytes Absolute Monocytes Absolute Eosinophils Absolute Basophils Carbonic Acid HCO3/H2CO3 Ratio ABG pH ABG pCO2 ABG pO2 ABG HCO3 ABG O2 Saturation ABG Base Excess FiO2 Sodium 139.6 Potassium 4.6 Chloride 97 L Carbon Dioxide 19 L Anion Gap 24 H BUN 155 H Creatinine 8.42 H Est GFR ( Amer) 6 L Est GFR (Non-Af Amer) 5 L Glucose 223 H Calcium 7.2 L Phosphorus 10.8 H Magnesium 2.4 H Total Bilirubin 0.8 AST 19 ALT 27 Alkaline Phosphatase 50 Total Protein 6.4 Albumin 3.9 11/10/17 12:30 Catheterized Urine Urine Culture - Final Escherichia Coli Enterobacter Cloacae 11/02/17 11/09/17 11/09/17 19:35 15:05 15:05 Creatine Kinase 40 CK-MB (CK-2) 0.69 Troponin I < 0.012 0.019 11/09/17 11/09/17 11/10/17 22:46 22:46 08:39 Creatine Kinase 45 46 CK-MB (CK-2) 0.62 Troponin I 0.017 11/10/17 08:39 Creatine Kinase CK-MB (CK-2) 0.70 Troponin I 0.034 EKG Comments: Telemetry strip shows sinus rhythm without any sustained tacky or bradycardia arrhythmias. Impressions: Abdomen/Pelvis CT 11/02/17 00:00 IMPRESSION: 1. AIRSPACE DISEASE IN THE VISUALIZED RIGHT LUNG. 2. SLUDGE AND/OR STONES IN THE GALLBLADDER. 3. NO OTHER SIGNIFICANT OR ACUTE PROCESS IN THE ABDOMEN OR PELVIS. Lung Scan-VQ HI 11/02/17 00:00 IMPRESSION: Limited examination. No perfusion defects are identified. No evidence of PE. Head CT 11/02/17 13:59 IMPRESSION: NORMAL BRAIN CT WITHOUT CONTRAST. EVIDENCE OF ACUTE STROKE: NO. Interventional Vascular Procedure 11/07/17 00:00 IMPRESSION: Image obtained for procedure performed by Dr. Bunn. Acute Abdomen Series 11/10/17 00:00 IMPRESSION: 1. Moderate bilateral lower lobar pneumonia. 2. Moderate small bowel obstruction pattern. KUB X-Ray 11/11/17 00:00 IMPRESSION: NG tube positioned over stomach. Right basilar atelectasis. Chest X-Ray 11/13/17 06:00 IMPRESSION: 1. Mildly improved aeration of the right lung base with no other significant interval change. Assessment & Plan - Diagnosis (1) Acute CHF Qualifiers: Heart failure type: diastolic Qualified Code(s): I50.31 - Acute diastolic ( congestive) heart failure Is this a current diagnosis for this admission?: Yes (2) Acute and chronic respiratory failure with hypoxia Is this a current diagnosis for this admission?: Yes (3) Acute on chronic renal failure Qualifiers: Acute renal failure type: unspecified Chronic kidney disease stage: stage 4 (severe) Qualified Code(s): N17.9 - Acute kidney failure, unspecified; N18.4 - Chronic kidney disease, stage 4 (severe); N18.4 - Chronic kidney disease , stage 4 (severe); N18.4 - Chronic kidney disease, stage 4 (severe); N18.4 - Chronic kidney disease, stage 4 (severe) Is this a current diagnosis for this admission?: Yes (4) Pneumonia Qualifiers: Pneumonia type: aspiration pneumonia Laterality: right Lung location: unspecified part of lung Is this a current diagnosis for this admission?: Yes (5) Diabetes Qualifiers: Diabetes mellitus type: type 2 Diabetes mellitus complication status: with unspecified complications Diabetes mellitus correction insulin use: unspecified termite treater insulin use status Qualified Code(s): E11.8 - Type 2 diabetes mellitus with unspecified complications Is this a current diagnosis for this admission?: Yes (6) Morbid obesity Is this a current diagnosis for this admission?: Yes (7) Sleep disorder breathing Is this a current diagnosis for this admission?: Yes - Notes Notes: Acute CHF: Patient general condition now is stabilized. Most of her general condition deterioration in respiratory distress orientation is from aspiration rather than exacerbation of CHF. Dr. Buitrago managing the diuretics. Recommend periodic chest x-rays. Today's chest x-ray shows evidence of right lower lobe pneumonitis. Patient may have some associated pleural effusion. Acute on chronic respiratory failure with hypoxemia: Patient being followed by emt driver. Will follow the recommendation. Patient to benefit from intermittent positive pressure ventilation. Continue close observation in the unit. Acute on chronic renal failure: Nephrology following. Patient was started on dialysis. Seems to be tolerating dialysis well. Further plans per nephrology. Pneumonia: It seems clinically worse. Continue antibiotic therapy. Monitor with periodic chest x-rays, ABGs. Sleep disordered breathing: Patient seems to have this. Pulmonary following. Will be happy to schedule a sleep study as an outpatient if needed. Obesity: Patient has been encouraged in weight loss. 2D echo results reviewed. Patient has normal LVEF but RV enlargement is noted. - Time Time with patient: 15-25 minutes - CODE STATUS was discussed, patient remains full code. Surrogate decision-maker unchanged. Multiple medical problems were addressed. More than 50% of the time spent coordinating care, discussing management plans with involved caregivers. Management plans discussed with involved personnels. Medical decision making was of moderate to high complexity , patient's has multiple comorbidities. Medications reviewed and adjusted accordingly: Yes
--- NOTE | 2017-11-13 17:08 | PDOC PROGRESS REPORT ---
Subjective Progress Note for:: 11/13/17 Subjective:: I saw the patient during dialysis this morning at around 8:25 AM in the ICU. Patient is awake on a facemask has been comfortable lying down. She is also tolerating dialysis initially. Her blood pressure went down a little bit throughout the course of dialysis treatment so fluid bolus was necessary. Her trialysis catheter also clotted so we had to prematurely terminate dialysis treatment after 2 hours and 40 minutes. About 1500 mL of net ultrafiltration was approximately obtained. Patient did not have any new complaints. She is making minimal urine output. Breathing seems to be improved now. Reason For Visit: ACUTE ON CHRONIC kidney disease Physical Exam Vital Signs: Temp Pulse Resp BP Pulse Ox 97.4 F 73 19 93/82 L 98 11/13/17 12:00 11/13/17 13:35 11/13/17 13:55 11/13/17 12:07 11/13/17 13:55 Pulse Oximeter Continuous Start: 11/04/17 13: 05 Freq: RTQ4 Status: Complete Document 11/10/17 11:50 JDR (Rec: 11/10/17 13:04 JDR [email or web address]) Pulse Oximetry Assessment Oxygen Saturation (92-100) 98 Oxygen Flow Rate (L/min) 12 Oxygen Delivery Method Partial-Rebreather Equipment Usage Equipment in Use Continuous SpO2 Machine # 7 Intake & Output 11/12/17 11/13/17 11/14/17 06:59 06:59 06:59 Intake Total 1392 935 Output Total 2268 700 150 Balance -876 235 -150 Weight 108.2 kg 108.5 kg Vitals during dialysis this morning: Blood pressure 134/69, heart rate of 73, oxygen saturation 100% on facemask with 6 L, respiratory rate of 18, blood flow rate of 300 mL/min, dialysate flow rate of 600 mL/min. Exam: General appearance: PRESENT: no acute distress, cooperative, well-developed, well-nourished Head exam: PRESENT: atraumatic, normocephalic Eye exam: PRESENT: conjunctiva pale, PERRLA. ABSENT: scleral icterus Neck exam: ABSENT: JVD Respiratory exam: PRESENT: Diminished breath sounds. ABSENT: crackles, rales, rhonchi, unlabored, wheezes Cardiovascular exam: PRESENT: Regular rate rhythm -+S1, +S2. ABSENT: diastolic murmur, systolic murmur GI/Abdominal exam: PRESENT: normal bowel sounds, soft. ABSENT: guarding, mass, tenderness Extremities exam: ABSENT: No edema Neurological exam: PRESENT: alert, awake, oriented to person, place and knows the year. Skin exam: PRESENT: dry, warm, Results Laboratory Results: 11/13/17 05:50 11/13/17 05:50 11/13/17 11/13/17 11/13/17 04:40 05:50 05:50 WBC 18.7 H RBC 3.17 L Hgb 9.1 L Hct 29.1 L MCV 92 MCH 28.8 MCHC 31.3 L RDW 16.4 H Plt Count 218 Seg Neutrophils % Not Reportable Lymphocytes % Not Reportable Monocytes % Not Reportable Eosinophils % Not Reportable Basophils % Not Reportable Absolute Neutrophils Not Reportable Absolute Lymphocytes Not Reportable Absolute Monocytes Not Reportable Absolute Eosinophils Not Reportable Absolute Basophils Not Reportable Carbonic Acid 1.50 H HCO3/H2CO3 Ratio 15:1 ABG pH 7.29 L ABG pCO2 49.9 H ABG pO2 72.1 L ABG HCO3 23.5 ABG O2 Saturation 92.6 L ABG Base Excess -3.1 FiO2 35% Sodium 139.6 Potassium 4.6 Chloride 97 L Carbon Dioxide 19 L Anion Gap 24 H BUN 155 H Creatinine 8.42 H Est GFR ( Amer) 6 L Est GFR (Non-Af Amer) 5 L Glucose 223 H Calcium 7.2 L Phosphorus 10.8 H Magnesium 2.4 H Total Bilirubin 0.8 AST 19 ALT 27 Alkaline Phosphatase 50 Total Protein 6.4 Albumin 3.9 11/02/17 11/09/17 11/09/17 19:35 15:05 15:05 Creatine Kinase 40 CK-MB (CK-2) 0.69 Troponin I < 0.012 0.019 11/09/17 11/09/17 11/10/17 22:46 22:46 08:39 Creatine Kinase 45 46 CK-MB (CK-2) 0.62 Troponin I 0.017 11/10/17 08:39 Creatine Kinase CK-MB (CK-2) 0.70 Troponin I 0.034 Impressions: Abdomen/Pelvis CT 11/02/17 00:00 IMPRESSION: 1. AIRSPACE DISEASE IN THE VISUALIZED RIGHT LUNG. 2. SLUDGE AND/OR STONES IN THE GALLBLADDER. 3. NO OTHER SIGNIFICANT OR ACUTE PROCESS IN THE ABDOMEN OR PELVIS. Lung Scan-VQ NM 11/02/17 00:00 IMPRESSION: Limited examination. No perfusion defects are identified. No evidence of PE. Head CT 11/02/17 13:59 IMPRESSION: NORMAL BRAIN CT WITHOUT CONTRAST. EVIDENCE OF ACUTE STROKE: NO. Interventional Vascular Procedure 11/07/17 00:00 IMPRESSION: Image obtained for procedure performed by Dr. Bunn. Acute Abdomen Series 11/10/17 00:00 IMPRESSION: 1. Moderate bilateral lower lobar pneumonia. 2. Moderate small bowel obstruction pattern. KUB X-Ray 11/11/17 00:00 IMPRESSION: NG tube positioned over stomach. Right basilar atelectasis. Chest X-Ray 11/13/17 06:00 IMPRESSION: 1. Mildly improved aeration of the right lung base with no other significant interval change. Assessment & Plan - Diagnosis (1) Acute renal failure superimposed on stage 3 chronic kidney disease Is this a current diagnosis for this admission?: Yes Plan: This is secondary to acute prerenal factors including acute congestive heart failure. Patient does not have any proteinuria or microalbuminuria. There was no hypotension no other nephrotoxic medications. No obstruction on CT scan. Currently kidney function is getting progressively worse. Continue to monitor kidney function and avoid nephrotoxic medications. Her echocardiogram indicated normal left ventricular ejection fraction, mild to moderate diastolic dysfunction but also indicate the possibility of right-sided heart failure with dilated mildly dilated right atrium and right ventricle. Patient has minimal urine output. Her kidney function is still not better. We did dialysis today for 3 hours planned but just completed 2 hours and 40 minutes, using the patient's right groin trialysis catheter, with 3 potassium bath, blood flow rate of 3 mL per minute, dialysate flow rate of 6 mL per minute , ultrafiltration 1.5 L, no heparin and Procrit with 10,000 units during dialysis intravenously. We will consult the on-call surgeon for a PermCath placement since her trialysis catheter is no longer functional. There does not seem to be any hint of renal recovery at this time and I am not sure if she is going to recover from this point. So we will continue hemodialysis support here in the hospital and if ever her respiratory status improved and she could be discharge she might still need some dialysis treatment as an outpatient. We will continue to reevaluate. (2) Acute CHF Qualifiers: Heart failure type: diastolic Qualified Code(s): I50.31 - Acute diastolic ( congestive) heart failure Is this a current diagnosis for this admission?: Yes Plan: Cardiology in consult. As mentioned above she has a combination of diastolic dysfunction as well as possibility of right-sided heart failure in a patient with COPD, obstructive sleep apnea, and obesity. Pulmonary congestion seems improved. (3) Acute on chronic respiratory failure with hypoxia and hypercapnia Is this a current diagnosis for this admission?: Yes Plan: Pulmonary on board. If the patient is a CO2 retainer. She needs BiPAP during sleep. Currently improved. (4) Pneumonia Qualifiers: Pneumonia type: aspiration pneumonia Laterality: right Lung location: unspecified part of lung Is this a current diagnosis for this admission?: Yes Plan: High likelihood the patient could have developed aspiration pneumonia due to her vomiting . Currently started on antibiotics. Defer to hospitalist. (5) Hypocalcemia Is this a current diagnosis for this admission?: Yes Plan: Due to hyperphosphatemia. Mild. We will dialyze with high calcium bath. (6) Hyperphosphatemia Is this a current diagnosis for this admission?: Yes Plan: Due to AK I and CKD. This should improve with dialysis and hopefully improvement of kidney function. Will hold any phosphorus binders at this time since she is n.p.o. (7) Urinary tract infection Is this a current diagnosis for this admission?: Yes Plan: Due to E. coli and Enterobacter. Defer to hospitalist service. (8) Secondary hyperparathyroidism (of renal origin) Is this a current diagnosis for this admission?: Yes Plan: This needs to be repeated when the patient is a steady state. That is if the acute component of kidney failure recovers. (9) Iron deficiency anemia Is this a current diagnosis for this admission?: Yes Plan: We will give iron supplement. I gave her a dose of IV Feraheme on 11/04. We will give her IV Venofer on dialysis. (10) Anemia in chronic illness Is this a current diagnosis for this admission?: Yes Plan: Procrit and dialysis as needed. (11) Morbid obesity Is this a current diagnosis for this admission?: Yes - Time Time with patient: 15-25 minutes
[2017-11-13] MEDS ORDERED: FUROSEMIDE INJ/PF 100 MG/10 ML SDV IV SCH (18:00)
[2017-11-13] MEDS ORDERED: DEXTROSE 40% GEL 15 GM TUBE PO PRN ×2 (18:18)
--- NOTE | 2017-11-13 18:18 | PDOC CONSULTATION ---
Consultation Consult Date: 11/13/17 Consult reason:: need permacath History of Present Illness Admission Date/PCP: 11/02/17 16:18 RANDY SHEPHERD MD Patient complains of: acute kidney failure History of Present Illness: 77 y/o female with ARF on CRF, currently on HD via temporary catheter, with multiple medical issues including CHF, pneumonia in need of permacath for HD. She has a hx of HTN, left breast cancer with mastectomy. Past Medical History Cardiac Medical History: Reports: Hypertension Denies: Coronary Artery Disease, Myocardial Infarction Pulmonary Medical History: Reports: Asthma Denies: Bronchitis, Chronic Obstructive Pulmonary Disease (COPD), Pneumonia Neurological Medical History: Reports: Seizures - over a year, Other - Restless leg syndrome Endocrine Medical History: Reports: Diabetes Mellitus Type 2 Malignancy Medical History: Reports: Breast Cancer, Other - Uterine cancer Musculoskeltal Medical History: Reports: Arthritis, Gout Psychiatric Medical History: Reports: Depression Hematology: Reports: Anemia Past Surgical History Past Surgical History: Reports: Appendectomy, Mastectomy, Tubal Ligation, Other - Breast cancer surgery, status post hysterectomy Denies: Hysterectomy, Pacemaker Social History Lives with: Family Smoking Status: Never Smoker Frequency of Alcohol Use: None Hx Recreational Drug Use: No Hx Prescription Drug Abuse: No - Advance Directive Resuscitation Status: Full Code Family History Family History: Hypertension Parental Family History Reviewed: Yes Children Family History Reviewed: Yes Sibling(s) Family History Reviewed.: Yes Medication/Allergy Home Medications: Albuterol Sulfate [Proair HFA] 2 puff PO PRN PRN 11/03/17 Allopurinol [Zyloprim 100 mg Tablet] 100 mg PO TID 11/03/17 Amlodipine Besylate [Amlodipine Besylate] 5 mg PO DAILY 11/03/17 Atenolol [Atenolol] 100 mg PO DAILY 11/03/17 Atorvastatin Calcium 20 mg PO DAILY 11/03/17 Fluoxetine HCl [Fluoxetine HCl] 40 mg PO DAILY 11/03/17 Fluticasone Propionate 2 sprays IN DAILY 11/03/17 Furosemide [Lasix] 40 mg PO DAILY 11/03/17 Gabapentin [Gabapentin] 600 mg PO PRN PRN 11/03/17 Glipizide [Glipizide Xl] 5 mg PO DAILY 11/03/17 Hydroxyzine HCl [Hydroxyzine HCl] 25 mg PO BID 11/03/17 Loratadine [Loratadine] 10 mg PO DAILY 11/03/17 Nitroglycerin 0.4 mg SL PRN PRN 11/03/17 Pantoprazole Sodium [Protonix] 40 mg PO DAILY 11/03/17 Potassium Chloride [Klor-Con 10] 10 meq PO DAILY 11/03/17 Telmisartan [Micardis] 80 mg PO DAILY 11/03/17 Temazepam [Temazepam] 15 mg PO ACHS 11/03/17 Allergies/Adverse Reactions: Penicillins Allergy (Verified 11/02/17 17:35) Physical Exam Vital Signs: Temp Pulse Resp BP Pulse Ox 97.4 F 73 18 99/51 L 98 11/13/17 12:00 11/13/17 13:35 11/13/17 17:32 11/13/17 17:32 11/13/17 17:32 Pulse Oximeter Continuous Start: 11/04/17 13: 05 Freq: RTQ4 Status: Complete Document 11/10/17 11:50 JDR (Rec: 11/10/17 13:04 JDR [email or web address]) Pulse Oximetry Assessment Oxygen Saturation (92-100) 98 Oxygen Flow Rate (L/min) 12 Oxygen Delivery Method Partial-Rebreather Equipment Usage Equipment in Use Continuous SpO2 Machine # 7 Intake & Output 11/12/17 11/13/17 11/14/17 06:59 06:59 06:59 Intake Total 1392 935 Output Total 2268 700 150 Balance -876 235 -150 Weight 108.2 kg 108.5 kg General appearance: PRESENT: mild distress, other - on a CPAP mask Neck exam: PRESENT: full ROM Respiratory exam: PRESENT: clear to auscultation irma, other - Left mastectomy Cardiovascular exam: PRESENT: RRR GI/Abdominal exam: PRESENT: soft Extremities exam: PRESENT: full ROM Neurological exam: PRESENT: other - grossly intact Results Laboratory Results: 11/13/17 05:50 11/13/17 05:50 11/13/17 11/13/17 11/13/17 04:40 05:50 05:50 WBC 18.7 H RBC 3.17 L Hgb 9.1 L Hct 29.1 L MCV 92 MCH 28.8 MCHC 31.3 L RDW 16.4 H Plt Count 218 Seg Neutrophils % Not Reportable Lymphocytes % Not Reportable Monocytes % Not Reportable Eosinophils % Not Reportable Basophils % Not Reportable Absolute Neutrophils Not Reportable Absolute Lymphocytes Not Reportable Absolute Monocytes Not Reportable Absolute Eosinophils Not Reportable Absolute Basophils Not Reportable Carbonic Acid 1.50 H HCO3/H2CO3 Ratio 15:1 ABG pH 7.29 L ABG pCO2 49.9 H ABG pO2 72.1 L ABG HCO3 23.5 ABG O2 Saturation 92.6 L ABG Base Excess -3.1 FiO2 35% Sodium 139.6 Potassium 4.6 Chloride 97 L Carbon Dioxide 19 L Anion Gap 24 H BUN 155 H Creatinine 8.42 H Est GFR ( Amer) 6 L Est GFR (Non-Af Amer) 5 L Glucose 223 H Calcium 7.2 L Phosphorus 10.8 H Magnesium 2.4 H Total Bilirubin 0.8 AST 19 ALT 27 Alkaline Phosphatase 50 Total Protein 6.4 Albumin 3.9 11/02/17 11/09/17 11/09/17 19:35 15:05 15:05 Creatine Kinase 40 CK-MB (CK-2) 0.69 Troponin I < 0.012 0.019 11/09/17 11/09/17 11/10/17 22:46 22:46 08:39 Creatine Kinase 45 46 CK-MB (CK-2) 0.62 Troponin I 0.017 11/10/17 08:39 Creatine Kinase CK-MB (CK-2) 0.70 Troponin I 0.034 Impressions: Abdomen/Pelvis CT 11/02/17 00:00 IMPRESSION: 1. AIRSPACE DISEASE IN THE VISUALIZED RIGHT LUNG. 2. SLUDGE AND/OR STONES IN THE GALLBLADDER. 3. NO OTHER SIGNIFICANT OR ACUTE PROCESS IN THE ABDOMEN OR PELVIS. Lung Scan-[facility] 11/02/17 00:00 IMPRESSION: Limited examination. No perfusion defects are identified. No evidence of PE. Head CT 11/02/17 13:59 IMPRESSION: NORMAL BRAIN CT WITHOUT CONTRAST. EVIDENCE OF ACUTE STROKE: NO. Interventional Vascular Procedure 11/07/17 00:00 IMPRESSION: Image obtained for procedure performed by Dr. Bunn. Acute Abdomen Series 11/10/17 00:00 IMPRESSION: 1. Moderate bilateral lower lobar pneumonia. 2. Moderate small bowel obstruction pattern. KUB X-Ray 11/11/17 00:00 IMPRESSION: NG tube positioned over stomach. Right basilar atelectasis. Chest X-Ray 11/13/17 06:00 IMPRESSION: 1. Mildly improved aeration of the right lung base with no other significant interval change. Assessment & Plan - Diagnosis (2) Acute on chronic renal failure Is this a current diagnosis for this admission?: Yes - Plan Summary Plan Summary: A/ 77 female with multiple medical problems (HTN, CHF, NIDDM) wh has ARF on CRF She is currently hemodyalized via peripheral HD catheter P/ As requested, plan Permacath placement in AM Procedure, risks, benefits, complications discussed with the patient, she understands all the above and decides to proceed
--- NOTE | 2017-11-13 22:42 | PDOC PROGRESS REPORT ---
Subjective Progress Note for:: 11/13/17 Subjective:: Patient currently on BiPAP. Patient is now wearing it. Patient denies any pain. Patient did have some urinary discomfort at which point a UTI was diagnosed. Patient has started dialysis. She is doing okay. Patient has no complaints. Patient denies being in pain. Plan is for permacath placement in the morning. Reason For Visit: ACUTE ON CHRONIC HEART FAILURE, CIRRHOSIS Physical Exam Vital Signs: Temp Pulse Resp BP Pulse Ox 99.0 F 74 22 H 101/60 100 11/13/17 20:00 11/13/17 20:00 11/13/17 21:00 11/13/17 20:32 11/13/17 21:00 Pulse Oximeter Continuous Start: 11/04/17 13: 05 Freq: RTQ4 Status: Complete Document 11/10/17 11:50 JDR (Rec: 11/10/17 13:04 [email or web address]) Pulse Oximetry Assessment Oxygen Saturation (92-100) 98 Oxygen Flow Rate (L/min) 12 Oxygen Delivery Method Partial-Rebreather Equipment Usage Equipment in Use Continuous SpO2 Machine # 7 Intake & Output 11/12/17 11/13/17 11/14/17 06:59 06:59 06:59 Intake Total 1392 935 360 Output Total 2262 700 1955 Balance -876 235 -1595 Weight 108.2 kg 108.5 kg General appearance: PRESENT: no acute distress, obese Head exam: PRESENT: normocephalic Eye exam: PRESENT: EOMI. ABSENT: scleral icterus Ear exam: PRESENT: normal external ear exam Mouth exam: PRESENT: moist, other - BiPAP mask in place Neck exam: ABSENT: carotid bruit, JVD, lymphadenopathy, thyromegaly Respiratory exam: PRESENT: clear to auscultation irma. ABSENT: rales, rhonchi, wheezes Cardiovascular exam: PRESENT: RRR. ABSENT: diastolic murmur, rubs, systolic murmur Pulses: PRESENT: normal dorsalis pedis pul Vascular exam: PRESENT: normal capillary refill GI/Abdominal exam: PRESENT: hypoactive bowel sounds, normal bowel sounds, soft. ABSENT: distended, guarding, mass, organolmegaly, rebound, tenderness Rectal exam: PRESENT: deferred Gentrourinary exam: PRESENT: indwelling catheter Extremities exam: PRESENT: full ROM. ABSENT: calf tenderness, clubbing, pedal edema Neurological exam: PRESENT: alert, awake, oriented to person, oriented to place , oriented to time, oriented to situation, CN II-XII grossly intact. ABSENT: motor sensory deficit Psychiatric exam: PRESENT: appropriate affect, normal mood. ABSENT: homicidal ideation, suicidal ideation Skin exam: PRESENT: dry, intact, warm. ABSENT: cyanosis, rash Results Laboratory Results: 11/13/17 05:50 11/13/17 05:50 11/13/17 11/13/17 11/13/17 04:40 05:50 05:50 WBC 18.7 H RBC 3.17 L Hgb 9.1 L Hct 29.1 L MCV 92 MCH 28.8 MCHC 31.3 L RDW 16.4 H Plt Count 218 Seg Neutrophils % Not Reportable Lymphocytes % Not Reportable Monocytes % Not Reportable Eosinophils % Not Reportable Basophils % Not Reportable Absolute Neutrophils Not Reportable Absolute Lymphocytes Not Reportable Absolute Monocytes Not Reportable Absolute Eosinophils Not Reportable Absolute Basophils Not Reportable Carbonic Acid 1.50 H HCO3/H2CO3 Ratio 15:1 ABG pH 7.29 L ABG pCO2 49.9 H ABG pO2 72.1 L ABG HCO3 23.5 ABG O2 Saturation 92.6 L ABG Base Excess -3.1 FiO2 35% Sodium 139.6 Potassium 4.6 Chloride 97 L Carbon Dioxide 19 L Anion Gap 24 H BUN 155 H Creatinine 8.42 H Est GFR ( Amer) 6 L Est GFR (Non-Af Amer) 5 L Glucose 223 H Calcium 7.2 L Phosphorus 10.8 H Magnesium 2.4 H Total Bilirubin 0.8 AST 19 ALT 27 Alkaline Phosphatase 50 Total Protein 6.4 Albumin 3.9 11/02/17 11/09/17 11/09/17 19:35 15:05 15:05 Creatine Kinase 40 CK-MB (CK-2) 0.69 Troponin I < 0.012 0.019 11/09/17 11/09/17 11/10/17 22:46 22:46 08:39 Creatine Kinase 45 46 CK-MB (CK-2) 0.62 Troponin I 0.017 11/10/17 08:39 Creatine Kinase CK-MB (CK-2) 0.70 Troponin I 0.034 Impressions: Abdomen/Pelvis CT 11/02/17 00:00 IMPRESSION: 1. AIRSPACE DISEASE IN THE VISUALIZED RIGHT LUNG. 2. SLUDGE AND/OR STONES IN THE GALLBLADDER. 3. NO OTHER SIGNIFICANT OR ACUTE PROCESS IN THE ABDOMEN OR PELVIS. Lung Scan-VQ NM 11/02/17 00:00 IMPRESSION: Limited examination. No perfusion defects are identified. No evidence of PE. Head CT 11/02/17 13:59 IMPRESSION: NORMAL BRAIN CT WITHOUT CONTRAST. EVIDENCE OF ACUTE STROKE: NO. Interventional Vascular Procedure 11/07/17 00:00 IMPRESSION: Image obtained for procedure performed by Dr. Bunn. Acute Abdomen Series 11/10/17 00:00 IMPRESSION: 1. Moderate bilateral lower lobar pneumonia. 2. Moderate small bowel obstruction pattern. KUB X-Ray 11/11/17 00:00 IMPRESSION: NG tube positioned over stomach. Right basilar atelectasis. Chest X-Ray 11/13/17 06:00 IMPRESSION: 1. Mildly improved aeration of the right lung base with no other significant interval change. Assessment & Plan - Diagnosis (1) Acute on chronic respiratory failure with hypoxia and hypercapnia Is this a current diagnosis for this admission?: Yes Plan: Could be secondary to her volume overload from her CHF and/or pneumonia and/or COPD and/or obstructive sleep apnea. Patient is now more compliant with using the BiPAP. ABG ordered by pulmonology this morning. Continue to monitor serial ABGs and chest x-rays. Pulmonology following recommendations appreciated. (2) Acute renal failure superimposed on stage 3 chronic kidney disease Is this a current diagnosis for this admission?: Yes Plan: Patient renal function became progressively worse. She has progressed to end- stage renal disease. She has started hemodialysis. Dr. Buitrago is following. Patient will have permacath placement in the a.m. per surgery. (3) Ileus Is this a current diagnosis for this admission?: Yes Plan: She has developed ileus. Patient currently n.p.o. Will order KUB the morning. NG tube is in place. (4) Acute CHF Qualifiers: Heart failure type: diastolic Qualified Code(s): I50.31 - Acute diastolic ( congestive) heart failure Is this a current diagnosis for this admission?: Yes Plan: Patient appears to have a grade 2 diastolic dysfunction. Patient currently undergoing hemodialysis will help with her fluid balance balance. Patient appears to be euvolemic at this time. Need to monitor patient's fluid balance. (5) Pneumonia Qualifiers: Pneumonia type: aspiration pneumonia Laterality: right Lung location: unspecified part of lung Is this a current diagnosis for this admission?: Yes Plan: Patient currently on aztreonam. Patient may require better antibiotic coverage if her leukocytosis does not improve or her chest x-ray respiratory symptoms continue to worsen. She appears stable at this time. (6) Urinary tract infection Is this a current diagnosis for this admission?: Yes Plan: Urine positive for E. coli and Enterobacter. Patient currently on aztreonam and Flagyl. Patient not using any of the other agents due to her worsening renal function and penicillin allergy. Also with some dysuria most likely related to her UTI. Repeat UA and urine culture to see if infection is resolving on current regimen. (7) Hyperphosphatemia Is this a current diagnosis for this admission?: Yes Plan: Secondary to patient renal disease. Patient is not on any phosphate binders. Patient is n.p.o. due to ileus. (8) Hypocalcemia Is this a current diagnosis for this admission?: Yes Plan: She may require replacement. Will discuss with nephrology prior to starting supplementation. (9) Morbid obesity Is this a current diagnosis for this admission?: Yes Plan: Patient will require counseling on diet and physical activity when tolerated. Patient is currently having ambulatory dysfunction therefore physical activity may be difficult. Patient may benefit from a better diet regimen. Dietitian consultation may be appropriate. (10) Anemia in chronic renal disease Qualifiers: Chronic kidney disease stage: on chronic dialysis Qualified Code(s): N18.6 - End stage renal disease; D63.1 - Anemia in chronic kidney disease; D63.1 - Anemia in chronic kidney disease; Z99.2 - Dependence on renal dialysis; Z99.2 - Dependence on renal dialysis; Z99.2 - Dependence on renal dialysis; Z99.2 - Dependence on renal dialysis Is this a current diagnosis for this admission?: Yes Plan: Patient with anemia of chronic kidney disease. Patient anemia has been stable. Will be given iron as needed along with Procrit per nephrology. (11) Ambulatory dysfunction Is this a current diagnosis for this admission?: Yes Plan: Will benefit from PT OT when appropriate. - Time Time Spent with patient: 15-24 minutes Anticipated discharge: SNF Within: Other - Inpatient Certification Medical Necessity: Significant Comorbidiites Make Outpatient Treatment Too Risky , Need Close Monitoring Due to Risk of Patient Decompensation, Need for IV Antibiotics, Need for Surgery - Patient will have permacath placed. Patient still has what appears to be an ileus and is currently n.p.o. Patient needs close monitoring in hospital setting prior to discharge.
[2017-11-14] MEDS: METRONIDAZOLE 500 MG/NS RTU 100 ML IV SCH ×3 (00:13→12:16)
[2017-11-14] MEDS: METOCLOPRAMIDE HCL INJ/PF 10 MG/2 ML SDV IV SCH ×3 (00:13→12:14)
[2017-11-14] MEDS: INSULIN LISPRO 100 UNIT/ML 3 ML VIAL SUBCUT PRN ×4 (00:14→22:18)
[2017-11-14 00:56] LABS: AMORPHOUS SEDIMENT,URINE 2+ /HPF; APPEARANCE,URINE CLOUDY; BILIRUBIN,URINE NEGATIVE (NEGATIVE); COLOR,URINE AMBER; GLUCOSE, URINE NEGATIVE (NEGATIVE); KETONES,URINE NEGATIVE (NEGATIVE); LEUKOCYTE ESTERASE,URINE LARGE (NEGATIVE); NITRITE,URINE NEGATIVE (NEGATIVE); PROTEIN,URINE 100 mg/dL (NEGATIVE); URINE SPECIFIC GRAVITY 1.015; UROBILINOGEN,URINE NEGATIVE mg/dL (<2.0)
[2017-11-14] MEDS: IPRATROPIUM/ALBUTEROL 0.5-2.5 MG/3 ML AMPUL NEB SCH ×3 (01:58→13:30)
[2017-11-14] MEDS ORDERED: VANCOMYCIN HCL 1,000 MG in DEXTROSE 5%-WATER 250 ML IV PRN (05:00)
[2017-11-14] MEDS: AZTREONAM 0.25 GM in DEXTROSE 5%-WATER 50 ML IV SCH (06:30)
--- NOTE | 2017-11-14 08:53 | RADIOLOGY REPORT (SQ) ---
EXAM DESCRIPTION: KUB/ABDOMEN (SINGLE VIEW) COMPLETED DATE/TIME: 11/14/2017 8:11 am REASON FOR STUDY: Ileus COMPARISON: 11/10/2017 NUMBER OF VIEWS: One view. TECHNIQUE: Supine radiographic image of the abdomen acquired. LIMITATIONS: None. FINDINGS: BOWEL GAS PATTERN: Marked improvement in the abdominal gas pattern with single mildly dila alex loop of bowel seen in the right mid abdomen. CALCIFICATIONS: No suspicious calcifications. SOFT TISSUES: No gross mass or suggestion of organomegaly. HARDWARE: NG tube with its tip overlying the body of the stomach. Multiple surgical clips in the rig ht mid abdomen and pelvis. Right femoral catheter with tip in the right iliac. BONES: No acute fracture. No worrisome bone lesions. Moderate degenerative changes involving the lum bar spine, SI joints and hips. OTHER: Persistent right basilar pneumonia. IMPRESSION: Significant improvement in the abdominal gas pattern. TECHNICAL DOCUMENTATION: JOB ID: [id number] [employer]- All Rights Reserved
[2017-11-14 09:34] LABS: HEMATOCRIT 27.1 % (36.0-47.0); HEMOGLOBIN 8.2 g/dL (12.0-15.5); MEAN CORPUSCULAR HEMOGLOBIN 28.1 pg (27.0-33.4); MEAN CORPUSCULAR HGB CONC 30.4 g/dL (32.0-36.0); MEAN CORPUSCULAR VOLUME 92 fl (80-97); PLATELET COUNT 161 10^3/uL (150-450); RED BLOOD COUNT 2.94 10^6/uL (3.72-5.28); RED CELL DISTRIBUTION WIDTH 16.2 % (11.5-14.0); WHITE BLOOD COUNT 27.5 10^3/uL (4.0-10.5)
[2017-11-14] MEDS: FLUTICASONE NASAL SPRAY 50 MCG/SPRY 120 SPRAY/16 GM NASL SCH ×2 (09:36→22:18)
[2017-11-14] MEDS: METHYLPREDNISOLONE INJ 40 MG/1 ML SDV IV SCH (09:37)
[2017-11-14] MEDS ORDERED: NORMAL SALINE 1000 ML 1,000 ML IV PRN (09:54)
[2017-11-14 10:02] LABS: ABSOLUTE LYMPHOCYTES# (MANUAL) 2.5 10^3/uL (0.5-4.7); ANISOCYTOSIS 1+; BASOPHILS % (MANUAL) 0 % (0-2); EOSINOPHILS % (MANUAL) 0 % (0-6); LYMPHOCYTES % (MANUAL) 9 % (13-45); MONOCYTES % (MANUAL) 11 % (3-13); PLATELET COMMENT ADEQUATE; POLYCHROMASIA SLIGHT; SEGMENTED NEUTROPHILS % (MAN) 80 % (42-78); TOTAL CELLS COUNTED 100; TOXIC GRANULATION 1+
[2017-11-14 12:29] LABS: ALANINE AMINOTRANSFERASE 27 U/L (9-52); ALBUMIN 3.8 g/dL (3.5-5.0); ALKALINE PHOSPHATASE 48 U/L (38-126); ASPARTATE AMINO TRANSFERASE 16 U/L (14-36); BILIRUBIN,DIRECT 0.5 mg/dL (0.0-0.4); BILIRUBIN,TOTAL 0.6 mg/dL (0.2-1.3); CALCIUM 7.9 mg/dL (8.4-10.2); CARBON DIOXIDE 18 mmol/L (22-30); CHLORIDE 100 mmol/L (98-107); GLUCOSE 191 mg/dL (75-110)
[2017-11-14 12:40] LABS: BLOOD UREA NITROGEN 135 mg/dL (7-20)
[2017-11-14 12:52] LABS: POTASSIUM 4.5 mmol/L (3.6-5.0)
[2017-11-14 12:55] LABS: ANION GAP 25 (5-19)
[2017-11-14] MEDS ORDERED: LIDOCAINE 1%/EPINEPHRINE INJ 20 ML VIAL ONE (13:11)
[2017-11-14] MEDS ORDERED: FENTANYL CITRATE INJ/PF 100 MCG/2 ML AMPUL ONE (13:14)
[2017-11-14] MEDS ORDERED: KETAMINE HCL INJ 500 MG/10 ML VIAL ONE (13:14)
[2017-11-14] MEDS ORDERED: MIDAZOLAM 2 MG/2 ML INJ ONE ×2 (13:14)
[2017-11-14] MEDS ORDERED: MEROPENEM 1 GM in NORMAL SALINE 50 ML IV SCH (13:15)
[2017-11-14] MEDS ORDERED: PROPOFOL INJ 200 MG/20 ML VIAL IV ONE (13:15)
[2017-11-14] MEDS ORDERED: AZTREONAM 0.25 GM in DEXTROSE 5%-WATER 50 ML IV SCH (14:00)
[2017-11-14] MEDS ORDERED: FENTANYL CITRATE INJ/PF 100 MCG/2 ML AMPUL IV PRN ×2 (14:17)
[2017-11-14] MEDS ORDERED: DIPHENHYDRAMINE HCL 50 MG/ML VIAL IV PRN (14:17)
[2017-11-14] MEDS ORDERED: HEPARIN SOD (PORCINE) 1,000 UNIT/ML 10 ML VIAL ONE (14:57)
[2017-11-14] MEDS ORDERED: MEROPENEM 1 GM in NORMAL SALINE 100 ML IV ONE (15:00)
--- NOTE | 2017-11-14 15:45 | Operative Report ---
Operative Report DATE OF SURGERY: 11/14/17 PREOPERATIVE DIAGNOSIS: Renal failure POSTOPERATIVE DIAGNOSIS: Renal failure OPERATION: Ultrasound-guided right IJ permacath placement SURGEON: DEIRDRE BEATTY ANESTHESIA: Moderate Sedation - plus local TISSUE REMOVED OR ALTERED: None ESTIMATED BLOOD LOSS: 30 cc INTRAOPERATIVE FINDINGS: None PROCEDURE: see dictation
--- NOTE | 2017-11-14 15:59 | RADIOLOGY REPORT (SQ) ---
EXAM DESCRIPTION: CHEST SINGLE VIEW COMPLETED DATE/TIME: 11/14/2017 3:38 pm REASON FOR STUDY: PERM CATH PLACEMENT COMPARISON: AP chest 11/13/2017 EXAM PARAMETERS: NUMBER OF VIEWS: One view. TECHNIQUE: Single frontal radiographic view of the chest acquired. RADIATION DOSE: NA LIMITATIONS: None. FINDINGS: LUNGS AND PLEURA: Unchanged right basilar consolidation. Left lung well inflated and casandra r. No right or left pleural effusions or pneumothorax. MEDIASTINUM AND HILAR STRUCTURES: No masses. Contour normal. HEART AND VASCULAR STRUCTURES: Heart normal in size. Normal vasculature. BONES: No acute findings. HARDWARE: Right-sided central venous dialysis catheter tip in the right atrium. Nasogastric tube tip and side port in the stomach. Surgical clips left chest and axilla post mastectomy. OTHER: No other significant finding. IMPRESSION: Interval placement of a right central venous dialysis catheter with the tip in the right atrium. No pneumothorax Persistent airspace disease in the right lung base. TECHNICAL DOCUMENTATION: JOB ID: [id number] [employer]- All Rights Reserved
--- NOTE | 2017-11-14 16:16 | RADIOLOGY REPORT (SQ) ---
EXAM DESCRIPTION: FLUORO/CV PLACEMENT COMPLETED DATE/TIME: 11/14/2017 3:25 pm REASON FOR STUDY: PORTACATH PLCMT RT SIDE ASST WITH FLUORO IN OR COMPARISON: AP chest 11/13/2018 FLUOROSCOPY TIME: 0.8 minutes 6 digital radiographic images saved to PACS. TECHNIQUE: Intra-operative images acquired during surgical procedure to evaluate progress. NUMBER OF IMAGES: 6 digital radiographic images LIMITATIONS: None. FINDINGS: Intra procedural imaging and fluoro during placement of a right-sided central venous dialy sis catheter with the tip in the right atrium. Please see the operative report for further details IMPRESSION: Intra procedural imaging and fluoro COMMENT: Quality ID [id number]: Final reports for procedures using fluoroscopy that document radiation exp osure indices, or exposure time and number of fluorographic images (if radiation exposure indices are not available) Please consult full operative report of the attending physician for description of the procedure. TECHNICAL DOCUMENTATION: JOB ID: [id number] [employer]- All Rights Reserved
[2017-11-14] MEDS ORDERED: IPRATROPIUM/ALBUTEROL 0.5-2.5 MG/3 ML AMPUL NEB PRN (16:31)
[2017-11-14] MEDS: PREDNISONE 20 MG TABLET PO SCH (17:36)
--- NOTE | 2017-11-14 17:38 | PROGRESS NOTE E ---
Progress Note NAME: FRANCESCO PARRISH : 1940 AGE: 77Y DATE: 11/14/2017 ROOM: 326 SUBJECTIVE: The patient has currently returned from the OR. She has had a PermCath placed. The patient states that she is feeling better today. She denies any nausea, vomiting. No diarrhea. No dizziness, chest pain. No fevers, chills. The patient has been afebrile. Her blood pressures have been in the good range. The patient does not voice any other concerns at this time. REVIEW OF SYSTEMS: Rest of review of systems is negative. MEDICATIONS: Have been reviewed. OBJECTIVE: GENERAL: The patient is a 77-year-old female who is awake, alert, and oriented to person, place, time, situation. She is verbal, conversational. Does not appear to be in any acute distress. VITAL SIGNS: As follows: Temperature is 97.6, pulse 78, respirations 18, blood pressure is 105/42, oxygen saturation is 96% on 4 L nasal cannula. SKIN: Warm and dry. No rash. Not diaphoretic. HEENT: Pupils were equal, round and reactive to light and accommodation. Conjunctiva pin. No evidence of JVP. CARDIOVASCULAR SYSTEM: Heart is regular. There is no rub. CHEST: Clear, symmetrical, unlabored. ABDOMEN: Soft, nontender, nondistended. BACK: No CVA tenderness, sacral edema. EXTREMITIES: No clubbing, cyanosis, edema. PSYCHIATRIC: Appropriate affect. Pleasant mood. DIAGNOSTICS: Lab values are as follows: Hematology obtained on 11/14/2017; WBCs are 27.5; hemoglobin is 8.2; hematocrit is 27.1; platelet count is 161,000. Chemistry obtained on 11/14/2017: Sodium is 143, potassium 4.5, chloride is 100, carbon dioxide 18, BUN 135, creatinine is 8.75, glucose 191, calcium is 7.9, bilirubin is 0.6, total protein is 8, albumin 3.8. IMPRESSION AND PLAN: 1. ASPIRATION PNEUMONIA. We will transition the patient over to Meropenem given that the patient's white count has continued to trend up. However, the patient overall feels much improved. Her O2 demand is not nearly as much. Will follow. 2. ACUTE ON CHRONIC HYPOXEMIC AND HYPERCAPNIC RESPIRATORY FAILURE, OVERALL MUCH IMPROVED. The patient is currently on nasal cannula. Will continue to follow. 3. ILEUS. KUB appears improved this morning. Will remove NG tube and start patient on clear liquids and follow. 4. ACUTE RENAL FAILURE SUPERIMPOSED ON CHRONIC STAGE 3 KIDNEY DISEASE. The patient's renal function has gotten progressively worse and the patient is being followed by Dr. Buitrago and has been started on hemodialysis. The patient did have a PermCath placed today. 5. ACUTE ON CHRONIC DIASTOLIC CONGESTIVE HEART FAILURE. The patient is undergoing dialysis which will help with her fluid balance. The patient does appear to be euvolemic at this point. 6. ESCHERICHIA COLI AND ENTEROBACTER URINARY TRACT INFECTION. Will continue Meropenem for now. The patient has had some dysuria, most likely related to the UTI. Hopefully can get the Fermin removed soon. 7. 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 Will follow. 8. HYPERCALCEMIA. Will defer to Nephrology. 9. MORBID OBESITY. Will encourage physical activity and weight reduction. 10. ANEMIA OF CHRONIC DISEASE. Will defer to Nephrology. 11. AMBULATORY DYSFUNCTION. Will proceed with PT and OT in the near future. CODE STATUS: The patient is a FULL CODE. DISPOSITION: Pending patient's symptomatology and diagnostic findings, will re-evaluate in the a.m. TIME SPENT: Time spent on this followup including assessment, plan, physical examination, patient education, and family meeting is 35 minutes. DICTATING PHYSICIAN: ALFREDA CORONADO NP [id number] PHY#: [id number] ID: [id number] JOB#: [id number] ACCT: [id number] cc: > [facility]
[2017-11-14] MEDS ORDERED: VANCOMYCIN HCL INJ 500 MG VIAL IV ONE (18:20)
--- NOTE | 2017-11-14 18:32 | PDOC PROGRESS REPORT ---
Subjective Progress Note for:: 11/14/17 Subjective:: Patient underwent PermCath placement today which she seems to have tolerated very well. She is transferred to [facility] from ICU. Currently he seems to be fairly stable and comfortable with just nasal cannula. She denies any complaints. Her breathing is much improved as well as her mental status. She is oliguric however. Her NG tube has been removed and she is started on clear liquids. Reason For Visit: ACUTE ON CHRONIC kidney disease Physical Exam Vital Signs: Temp Pulse Resp BP Pulse Ox 97.4 F 77 18 128/62 H 100 11/14/17 16:59 11/14/17 16:59 11/14/17 16:59 11/14/17 16:59 11/14/17 16:59 Pulse Oximeter Continuous Start: 11/04/17 13: 05 Freq: RTQ4 Status: Active Document 11/14/17 16:34 TPO (Rec: 11/14/17 16:36 TPO [email or web address]) Pulse Oximetry Assessment Oxygen Saturation (92-100) 96 Oxygen Flow Rate (L/min) 3 Oxygen Delivery Method Nasal Cannula Fraction of Inspired Oxygen (FIO2) 32 Equipment Usage Equipment in Use Continuous SpO2 Machine # N-3 Intake & Output 11/13/17 11/14/17 11/15/17 06:59 06:59 06:59 Intake Total 935 610 200 Output Total 700 1995 55 Balance 235 -1385 145 Weight 108.5 kg 107.5 kg Exam: General appearance: PRESENT: no acute distress, cooperative, well-developed, well-nourished Head exam: PRESENT: atraumatic, normocephalic Eye exam: PRESENT: conjunctiva pale, PERRLA. ABSENT: scleral icterus Neck exam: ABSENT: JVD Respiratory exam: PRESENT: Diminished breath sounds. ABSENT: crackles, rales, rhonchi, unlabored, wheezes Cardiovascular exam: PRESENT: Regular rate rhythm -+S1, +S2. ABSENT: diastolic murmur, systolic murmur GI/Abdominal exam: PRESENT: Decreased bowel sounds, soft. ABSENT: guarding, mass, tenderness Extremities exam: ABSENT: No edema Neurological exam: PRESENT: alert, awake, oriented to person, place but not much to time. Skin exam: PRESENT: dry, warm, Results Laboratory Results: 11/14/17 08:38 11/14/17 11:53 11/14/17 11/14/17 11/14/17 00:15 08:38 08:38 WBC 27.5 H RBC 2.94 L Hgb 8.2 L Hct 27.1 L MCV 92 MCH 28.1 MCHC 30.4 L RDW 16.2 H Plt Count 161 Seg Neutrophils % Not Reportable Lymphocytes % Not Reportable Monocytes % Not Reportable Eosinophils % Not Reportable Basophils % Not Reportable Absolute Neutrophils Not Reportable Absolute Lymphocytes Not Reportable Absolute Monocytes Not Reportable Absolute Eosinophils Not Reportable Absolute Basophils Not Reportable Sodium Cancelled Potassium Cancelled Chloride Cancelled Carbon Dioxide Cancelled Anion Gap Cancelled BUN Cancelled Creatinine Cancelled Est GFR ( Amer) Cancelled Est GFR (Non-Af Amer) Cancelled Glucose Cancelled Calcium Cancelled Total Bilirubin Cancelled AST Cancelled ALT Cancelled Alkaline Phosphatase Cancelled Total Protein Cancelled Albumin Cancelled Urine Color JOVAN Urine Appearance CLOUDY Urine pH 5.0 Ur Specific [place] 1.015 Urine Protein 100 H Urine Glucose (UA) NEGATIVE Urine Ketones NEGATIVE Urine Blood LARGE H Urine Nitrite NEGATIVE Ur Leukocyte Esterase LARGE H Urine WBC (Auto) >182 Urine RBC (Auto) >182 11/14/17 11:53 WBC RBC Hgb Hct MCV MCH MCHC RDW Plt Count Seg Neutrophils % Lymphocytes % Monocytes % Eosinophils % Basophils % Absolute Neutrophils Absolute Lymphocytes Absolute Monocytes Absolute Eosinophils Absolute Basophils Sodium 143.0 Potassium 4.5 Chloride 100 Carbon Dioxide 18 L Anion Gap 25 H BUN 135 H Creatinine 8.75 H Est GFR ( Amer) 5 L Est GFR (Non-Af Amer) 4 L Glucose 191 H Calcium 7.9 L Total Bilirubin 0.6 AST 16 ALT 27 Alkaline Phosphatase 48 Total Protein 6.0 L Albumin 3.8 Urine Color Urine Appearance Urine pH Ur Specific [place] Urine Protein Urine Glucose (UA) Urine Ketones Urine Blood Urine Nitrite Ur Leukocyte Esterase Urine WBC (Auto) Urine RBC (Auto) 11/02/17 11/09/17 11/09/17 19:35 15:05 15:05 Creatine Kinase 40 CK-MB (CK-2) 0.69 Troponin I < 0.012 0.019 11/09/17 11/09/17 11/10/17 22:46 22:46 08:39 Creatine Kinase 45 46 CK-MB (CK-2) 0.62 Troponin I 0.017 11/10/17 08:39 Creatine Kinase CK-MB (CK-2) 0.70 Troponin I 0.034 Impressions: Abdomen/Pelvis CT 11/02/17 00:00 IMPRESSION: 1. AIRSPACE DISEASE IN THE VISUALIZED RIGHT LUNG. 2. SLUDGE AND/OR STONES IN THE GALLBLADDER. 3. NO OTHER SIGNIFICANT OR ACUTE PROCESS IN THE ABDOMEN OR PELVIS. Lung Scan-VQ NM 11/02/17 00:00 IMPRESSION: Limited examination. No perfusion defects are identified. No evidence of PE. Head CT 11/02/17 13:59 IMPRESSION: NORMAL BRAIN CT WITHOUT CONTRAST. EVIDENCE OF ACUTE STROKE: NO. Interventional Vascular Procedure 11/07/17 00:00 IMPRESSION: Image obtained for procedure performed by Dr. Bunn. Acute Abdomen Series 11/10/17 00:00 IMPRESSION: 1. Moderate bilateral lower lobar pneumonia. 2. Moderate small bowel obstruction pattern. Chest X-Ray 11/14/17 00:00 IMPRESSION: Interval placement of a right central venous dialysis catheter with the tip in the right atrium. No pneumothorax Persistent airspace disease in the right lung base. Guidance Fluoroscopy 11/14/17 00:00 IMPRESSION: Intra procedural imaging and fluoro KUB X-Ray 11/14/17 06:00 IMPRESSION: Significant improvement in the abdominal gas pattern. Assessment & Plan - Diagnosis (1) Acute renal failure superimposed on stage 3 chronic kidney disease Is this a current diagnosis for this admission?: Yes Plan: This is secondary to acute prerenal factors including acute congestive heart failure. Patient does not have any proteinuria or microalbuminuria. There was no hypotension no other nephrotoxic medications. No obstruction on CT scan. Continue to monitor kidney function and avoid nephrotoxic medications. Her echocardiogram indicated normal left ventricular ejection fraction, mild to moderate diastolic dysfunction but also indicate the possibility of right-sided heart failure with dilated mildly dilated right atrium and right ventricle. Patient is currently oliguric. There is no sign of any renal recovery yet. We will plan for hemodialysis tomorrow. We will continue to reevaluate. She may need further dialysis treatment post discharge. (2) Acute CHF Qualifiers: Heart failure type: diastolic Qualified Code(s): I50.31 - Acute diastolic ( congestive) heart failure Is this a current diagnosis for this admission?: Yes Plan: Cardiology in consult. As mentioned above she has a combination of diastolic dysfunction as well as possibility of right-sided heart failure in a patient with COPD, obstructive sleep apnea, and obesity. Pulmonary congestion seems improved clinically. (3) Acute on chronic respiratory failure with hypoxia and hypercapnia Is this a current diagnosis for this admission?: Yes Plan: Pulmonary on board. If the patient is a CO2 retainer. She needs BiPAP during sleep. Currently improved. (4) Pneumonia Qualifiers: Pneumonia type: aspiration pneumonia Laterality: right Lung location: unspecified part of lung Is this a current diagnosis for this admission?: Yes Plan: High likelihood the patient could have developed aspiration pneumonia due to her vomiting . Currently started on antibiotics. Defer to hospitalist. (5) Hypocalcemia Is this a current diagnosis for this admission?: Yes Plan: Due to hyperphosphatemia. Mild. We will dialyze with high calcium bath. (6) Hyperphosphatemia Is this a current diagnosis for this admission?: Yes Plan: Due to AK I and CKD. This should improve with dialysis and hopefully improvement of kidney function. Will hold any phosphorus binders at this time since until she is eating regular meals. (7) Urinary tract infection Is this a current diagnosis for this admission?: Yes Plan: Due to E. coli and Enterobacter. Defer to hospitalist service. Patient started on meropenem. (8) Secondary hyperparathyroidism (of renal origin) Is this a current diagnosis for this admission?: Yes Plan: This needs to be repeated when the patient is a steady state. That is if the acute component of kidney failure recovers. (9) Iron deficiency anemia Is this a current diagnosis for this admission?: Yes Plan: We will give iron supplement. I gave her a dose of IV Feraheme on 11/04. We will give her IV Venofer on dialysis. (10) Anemia in chronic illness Is this a current diagnosis for this admission?: Yes Plan: Procrit and dialysis as needed. (11) Morbid obesity Is this a current diagnosis for this admission?: Yes - Time Time with patient: 15-25 minutes
--- NOTE | 2017-11-14 18:44 | PDOC PROGRESS REPORT ---
Subjective Progress Note for:: 11/14/17 Subjective:: Patient has been moved to the floor. Patient on questioning denying any chest pain or any significant shortness of breath. Patient seems somewhat lethargic. Still somewhat short of breath on bilevel therapy. Medications: Medications have been reviewed. Reason For Visit: ACUTE ON CHRONIC HEART FAILURE, CIRRHOSIS Physical Exam Vital Signs: Temp Pulse Resp BP Pulse Ox 97.4 F 77 18 128/62 H 100 11/14/17 16:59 11/14/17 16:59 11/14/17 16:59 11/14/17 16:59 11/14/17 16:59 Pulse Oximeter Continuous Start: 11/04/17 13: 05 Freq: RTQ4 Status: Active Document 11/14/17 16:34 TPO (Rec: 11/14/17 16:36 TPO [email or web address]) Pulse Oximetry Assessment Oxygen Saturation (92-100) 96 Oxygen Flow Rate (L/min) 3 Oxygen Delivery Method Nasal Cannula Fraction of Inspired Oxygen (FIO2) 32 Equipment Usage Equipment in Use Continuous SpO2 Machine # N-3 Intake & Output 11/13/17 11/14/17 11/15/17 06:59 06:59 06:59 Intake Total 935 610 367 Output Total 700 1995 55 Balance 235 -1385 312 Weight 108.5 kg 107.5 kg Exam: GENERAL: well-nourished and in no acute distress. Alert and oriented x2 HEAD: Atraumatic, normocephalic. EYES: Pupils equal round and reactive to light, extraocular movements intact, sclera anicteric, conjunctiva are normal. ENT: TMs normal, nares patent, oropharynx clear without exudates. Moist mucous membranes. No oral ulcerations or bleeding gums noted NECK: supple without lymphadenopathy. Trachea is central. No cervical or axillary lymphadenopathy noted. Carotids are 2+, JVD WNL LUNGS: Respiration seems nonlabored, no significant accessory muscle action noted. Breath sounds clear to auscultation bilaterally and equal noted. No wheezes rales or rhonchi noted. No significant dullness noted on percussion. CHEST: Palpation of the chest wall shows no significant chest wall tenderness. No other significant abnormalities noted. HEART: [place] DOPSTER, No PSH, 1/6 IMCHAEL aortic area, 1/6 miller systolic murmur mitral area, no rubs, no gallops. ABDOMEN: Soft, no significant tenderness appreciated, normoactive bowel sounds. No guarding, no rebound. No rigidity noted . No masses appreciated. EXTREMITIES: Pedal pulses are 1-2+, no calf tenderness noted. No clubbing or cyanosis.trace to 1+ pedal edema noted NEUROLOGICAL: Focused neurological exam showed no significant neurologic deficit. Normal speech, no focal weakness appreciated. Patient noted to have generalized weakness. PSYCH: Normal mood, normal affect. Judgment and insight not checked. SKIN: No significant ecchymosis, rash, ulcerations or signs of pruritus noted. MUSCULOSKELETAL EXAM: No significant joint swelling noted. Results Laboratory Results: 11/14/17 08:38 11/14/17 11:53 11/14/17 11/14/17 11/14/17 00:15 08:38 08:38 WBC 27.5 H RBC 2.94 L Hgb 8.2 L Hct 27.1 L MCV 92 MCH 28.1 MCHC 30.4 L RDW 16.2 H Plt Count 161 Seg Neutrophils % Not Reportable Lymphocytes % Not Reportable Monocytes % Not Reportable Eosinophils % Not Reportable Basophils % Not Reportable Absolute Neutrophils Not Reportable Absolute Lymphocytes Not Reportable Absolute Monocytes Not Reportable Absolute Eosinophils Not Reportable Absolute Basophils Not Reportable Sodium Cancelled Potassium Cancelled Chloride Cancelled Carbon Dioxide Cancelled Anion Gap Cancelled BUN Cancelled Creatinine Cancelled Est GFR ( Amer) Cancelled Est GFR (Non-Af Amer) Cancelled Glucose Cancelled Calcium Cancelled Total Bilirubin Cancelled AST Cancelled ALT Cancelled Alkaline Phosphatase Cancelled Total Protein Cancelled Albumin Cancelled Urine Color JOVAN Urine Appearance CLOUDY Urine pH 5.0 Ur Specific [place] 1.015 Urine Protein 100 H Urine Glucose (UA) NEGATIVE Urine Ketones NEGATIVE Urine Blood LARGE H Urine Nitrite NEGATIVE Ur Leukocyte Esterase LARGE H Urine WBC (Auto) >182 Urine RBC (Auto) >182 11/14/17 11:53 WBC RBC Hgb Hct MCV MCH MCHC RDW Plt Count Seg Neutrophils % Lymphocytes % Monocytes % Eosinophils % Basophils % Absolute Neutrophils Absolute Lymphocytes Absolute Monocytes Absolute Eosinophils Absolute Basophils Sodium 143.0 Potassium 4.5 Chloride 100 Carbon Dioxide 18 L Anion Gap 25 H BUN 135 H Creatinine 8.75 H Est GFR ( Amer) 5 L Est GFR (Non-Af Amer) 4 L Glucose 191 H Calcium 7.9 L Total Bilirubin 0.6 AST 16 ALT 27 Alkaline Phosphatase 48 Total Protein 6.0 L Albumin 3.8 Urine Color Urine Appearance Urine pH Ur Specific [place] Urine Protein Urine Glucose (UA) Urine Ketones Urine Blood Urine Nitrite Ur Leukocyte Esterase Urine WBC (Auto) Urine RBC (Auto) 11/02/17 11/09/17 11/09/17 19:35 15:05 15:05 Creatine Kinase 40 CK-MB (CK-2) 0.69 Troponin I < 0.012 0.019 11/09/17 11/09/17 11/10/17 22:46 22:46 08:39 Creatine Kinase 45 46 CK-MB (CK-2) 0.62 Troponin I 0.017 11/10/17 08:39 Creatine Kinase CK-MB (CK-2) 0.70 Troponin I 0.034 EKG Comments: Telemetry strips shows patient continuing to have sinus rhythm. Impressions: Abdomen/Pelvis CT 11/02/17 00:00 IMPRESSION: 1. AIRSPACE DISEASE IN THE VISUALIZED RIGHT LUNG. 2. SLUDGE AND/OR STONES IN THE GALLBLADDER. 3. NO OTHER SIGNIFICANT OR ACUTE PROCESS IN THE ABDOMEN OR PELVIS. Lung Scan-VQ NM 11/02/17 00:00 IMPRESSION: Limited examination. No perfusion defects are identified. No evidence of PE. Head CT 11/02/17 13:59 IMPRESSION: NORMAL BRAIN CT WITHOUT CONTRAST. EVIDENCE OF ACUTE STROKE: NO. Interventional Vascular Procedure 11/07/17 00:00 IMPRESSION: Image obtained for procedure performed by Dr. Bunn. Acute Abdomen Series 11/10/17 00:00 IMPRESSION: 1. Moderate bilateral lower lobar pneumonia. 2. Moderate small bowel obstruction pattern. Chest X-Ray 11/14/17 00:00 IMPRESSION: Interval placement of a right central venous dialysis catheter with the tip in the right atrium. No pneumothorax Persistent airspace disease in the right lung base. Guidance Fluoroscopy 11/14/17 00:00 IMPRESSION: Intra procedural imaging and fluoro KUB X-Ray 11/14/17 06:00 IMPRESSION: Significant improvement in the abdominal gas pattern. Assessment & Plan - Diagnosis (1) Acute CHF Qualifiers: Heart failure type: diastolic Qualified Code(s): I50.31 - Acute diastolic ( congestive) heart failure Is this a current diagnosis for this admission?: Yes (2) Acute and chronic respiratory failure with hypoxia Is this a current diagnosis for this admission?: Yes (3) Acute on chronic renal failure Qualifiers: Acute renal failure type: unspecified Chronic kidney disease stage: stage 4 (severe) Qualified Code(s): N17.9 - Acute kidney failure, unspecified; N18.4 - Chronic kidney disease, stage 4 (severe); N18.4 - Chronic kidney disease , stage 4 (severe); N18.4 - Chronic kidney disease, stage 4 (severe); N18.4 - Chronic kidney disease, stage 4 (severe) Is this a current diagnosis for this admission?: Yes (4) Pneumonia Qualifiers: Pneumonia type: aspiration pneumonia Laterality: right Lung location: unspecified part of lung Is this a current diagnosis for this admission?: Yes (5) Diabetes Qualifiers: Diabetes mellitus type: type 2 Diabetes mellitus complication status: with unspecified complications Diabetes mellitus nursing home insulin use: unspecified nursing home insulin use status Qualified Code(s): E11.8 - Type 2 diabetes mellitus with unspecified complications Is this a current diagnosis for this admission?: Yes (6) Morbid obesity Is this a current diagnosis for this admission?: Yes (7) Sleep disorder breathing Is this a current diagnosis for this admission?: Yes - Notes Notes: Acute CHF: This condition seems stable. Most of her general condition deterioration in respiratory distress orientation is from aspiration rather than exacerbation of CHF. Dr. Buitrago managing the diuretics. Recommend periodic chest x-rays. Today's chest x-ray shows evidence of right lower lobe pneumonitis. Patient may have some associated pleural effusion. Acute on chronic respiratory failure with hypoxemia: Patient being followed by conference planner. Will follow the recommendation. Patient to benefit from intermittent positive pressure ventilation. Continue close observation in the unit. Acute on chronic renal failure: Nephrology following. Patient was started on dialysis. Seems to be tolerating dialysis well. Further plans per nephrology. Pneumonia: It seems clinically worse. Continue antibiotic therapy. Monitor with periodic chest x-rays, ABGs. Sleep disordered breathing: Patient seems to have this. Pulmonary following. Will be happy to schedule a sleep study as an outpatient if needed. Obesity: Patient has been encouraged in weight loss. 2D echo results reviewed. Patient has normal LVEF but RV enlargement is noted. - Time Time with patient: 15-25 minutes - CODE STATUS was discussed, patient remains full code. Surrogate decision-maker unchanged. Multiple medical problems were addressed. More than 50% of the time spent coordinating care, discussing management plans with involved caregivers. Management plans discussed with involved personnels. Medical decision making was of moderate to high complexity , patient's has multiple comorbidities. Medications reviewed and adjusted accordingly: Yes
[2017-11-14] MEDS: MEROPENEM 1 GM in NORMAL SALINE 100 ML IV SCH (22:19)
[2017-11-14] MEDS: METOCLOPRAMIDE HCL 10 MG TABLET PO SCH (22:19)
[2017-11-15] MEDS ORDERED: HEPARIN SOD (PORCINE) 1,000 UNIT/ML 10 ML VIAL IV PRN ×2 (05:00→15:37)
[2017-11-15] MEDS ORDERED: IRON SUCROSE COMPLEX INJ/PF 100 MG/5 ML SDV IV PRN (05:00)
[2017-11-15] MEDS ORDERED: NORMAL SALINE 1000 ML 1,000 ML IV PRN (05:00)
[2017-11-15] MEDS ORDERED: EPOETIN ALFA INJ 20000 UNIT/1 ML VIAL (RENAL) IV PRN (05:00)
[2017-11-15 05:54] LABS: MEAN CORPUSCULAR HEMOGLOBIN 29.1 pg (27.0-33.4); MEAN CORPUSCULAR HGB CONC 31.9 g/dL (32.0-36.0); MEAN CORPUSCULAR VOLUME 91 fl (80-97); PLATELET COUNT 160 10^3/uL (150-450); RED BLOOD COUNT 2.64 10^6/uL (3.72-5.28); RED CELL DISTRIBUTION WIDTH 16.1 % (11.5-14.0)
[2017-11-15 06:02] LABS: HEMOGLOBIN 7.7 g/dL (12.0-15.5)
[2017-11-15 06:03] LABS: ALANINE AMINOTRANSFERASE 27 U/L (9-52); ALBUMIN 3.6 g/dL (3.5-5.0); ALKALINE PHOSPHATASE 50 U/L (38-126); ASPARTATE AMINO TRANSFERASE 19 U/L (14-36); BILIRUBIN,DIRECT 0.8 mg/dL (0.0-0.4); BILIRUBIN,TOTAL 0.9 mg/dL (0.2-1.3); CALCIUM 7.2 mg/dL (8.4-10.2); CHLORIDE 99 mmol/L (98-107); GLUCOSE 223 mg/dL (75-110); POTASSIUM 4.6 mmol/L (3.6-5.0)
[2017-11-15 06:11] LABS: BLOOD UREA NITROGEN 140 mg/dL (7-20)
[2017-11-15 06:18] LABS: CARBON DIOXIDE 20 mmol/L (22-30); SODIUM 138.7 mmol/L (137-145)
[2017-11-15 06:20] LABS: ANION GAP 20 (5-19)
[2017-11-15 06:22] LABS: ABSOLUTE LYMPHOCYTES# (MANUAL) 1.2 10^3/uL (0.5-4.7); ABSOLUTE MONOCYTES # (MANUAL) 1.5 10^3/uL (0.1-1.4); ABSOLUTE NEUTROPHILS# (MANUAL) 27.3 10^3/uL (1.7-8.2); BAND NEUTROPHILS % (MANUAL) 2 % (3-5); BASOPHILS % (MANUAL) 0 % (0-2); EOSINOPHILS % (MANUAL) 0 % (0-6); LYMPHOCYTES % (MANUAL) 4 % (13-45); METAMYELOCYTES % (MANUAL) 2 % (0); MONOCYTES % (MANUAL) 5 % (3-13); NUCLEATED RED BLOOD CELLS 2 /100 WBC (0); SEGMENTED NEUTROPHILS % (MAN) 87 % (42-78); TOTAL CELLS COUNTED 100
[2017-11-15 06:24] LABS: ANISOCYTOSIS 1+; OVALOCYTES SLIGHT; PLATELET COMMENT ADEQUATE; PLATELET LARGE PRESENT; POIKILOCYTOSIS SLIGHT; SCHISTOCYTES SLIGHT; TEAR DROP CELLS SLIGHT; TOXIC GRANULATION 1+
[2017-11-15] MEDS: INSULIN LISPRO 100 UNIT/ML 3 ML VIAL SUBCUT PRN ×2 (07:10→23:16)
[2017-11-15] MEDS: PREDNISONE 20 MG TABLET PO SCH ×2 (10:29→18:48)
[2017-11-15] MEDS: METOCLOPRAMIDE HCL 10 MG TABLET PO SCH ×4 (10:29→21:46)
[2017-11-15] MEDS: FLUTICASONE NASAL SPRAY 50 MCG/SPRY 120 SPRAY/16 GM NASL SCH ×2 (10:29→21:47)
[2017-11-15] MEDS ORDERED: LEVALBUTEROL HCL NEB 1.25 MG/3 ML AMPUL NEB PRN (12:30)
[2017-11-15] MEDS ORDERED: DEXTROSE 5%-WATER 250 ML with NOREPINEPHRINE BITARTRATE 4 MG IV PRN ×2 (12:35)
[2017-11-15] MEDS ORDERED: HEPARIN SOD (PORCINE) 1,000 UNIT/ML 10 ML VIAL IV ONE (12:37)
[2017-11-15] MEDS ORDERED: HEPARIN SODIUM,PORCINE/D5W 25,000 UNIT/250 ML RTUINJ IV PRN (12:37)
--- NOTE | 2017-11-15 12:57 | OPERATIVE REPORT E ---
Operative Report NAME: FRANCESCO PARRISH : 1940 AGE: 77Y DATE OF SURGERY: 11/14/2017 ROOM: 609 PREOPERATIVE DIAGNOSIS: [id number] RENAL FAILURE. POSTOPERATIVE DIAGNOSIS: [id number] RENAL FAILURE. OPERATIONS: 1. Placement of a right internal jugular vein 16-[place] diameter PermCath. 2. Ultrasound-guided placement of central venous line. SURGEON: DEIRDRE BEATTY M.D. GEODETIC COMPUTATOR: None. ESTIMATED BLOOD LOSS: Minimal. COMPLICATIONS: None. ANESTHESIA: IV sedation provided by anesthesiologist. FLUIDS: Less than 100 mL. INDICATION AND FINDINGS: A 77-year-old female with multiple medical problems including hypertension, severe congestive heart failure and chronic renal failure who presented to the hospital with [id number] renal failure. The patient has been receiving hemodialysis via a temporary groin pigtail catheter, and to insert a PermCath for hemodialysis. Procedure, risks, benefits, complications explained to the patient and family. The patient understands and consents to procedure. PROCEDURE: The procedure was done in the operating room. The patient was placed in supine position. IV sedation provided by the anesthesiologist. The upper chest and neck were prepped and draped bilaterally. The patient's head was then turned toward the right, and external site ultrasound probe was utilized to identify the right internal jugular vein and sternocleidomastoid muscle triangle. After this was clearly identified, the skin overlying the internal jugular vein was infiltrated with 1% lidocaine with epinephrine, and a fine needle was inserted to cannulate the vein. This was then removed. Another needle was inserted through the skin into the right internal jugular vein the needle, and a guidewire was inserted over the needle into the internal jugular vein and superior vena cava. Position of the guidewire was confirmed by fluoroscopy. The needle was then removed. The insertion point of the guidewire was made larger with a #11 blade. Following this, 2 tissue dilators, a small and a larger one, were serially inserted over the guidewire under fluoroscopy into the right internal jugular vein and superior vena cava. The tissue dilators were then removed, and the introducer was inserted over the guidewire and introduced with the stent and inserted over the guidewire under fluoroscopy into the right internal jugular vein. The catheter was then laid on the patient's chest, and optical position of catheter was marked according to fluoroscopy. The skin of the right upper chest was then infiltrated in the appropriate previous elma, and an incision was made in the right upper chest at the point of insertion of catheter. The catheter was then connected to the tunneler, which was then advanced subcutaneously above the clavicle to then be delivered to the insertion point of the guidewire. The tunneler was then pulled out together with the catheter, which was then pulled up to the cuff which was placed subcutaneously. The obturator was then removed from the introducer. The catheter was then gently inserted through the introducer into the internal jugular vein and superior vena cava and peeled away without difficulty. Good position of the catheter was confirmed by fluoroscopy. No kinking was identified. Every port was aspirated without difficulty and flushed with Hepflush solution first and then the appropriate volume. The catheter was then secured to the skin with 2-0 nylon suture. A sterile dressing was applied. The patient tolerated the procedure well and transferred to regular room in satisfactory condition. DICTATING PHYSICIAN: DEIRDRE BEATTY M.D. [id number] PHY#: [id number] ID: [id number] JOB#: [id number] ACCT: [id number] cc:DEIRDRE BEATTY M.D. >
[2017-11-15] MEDS ORDERED: MIDODRINE HCL 5 MG TABLET PO ONE (13:00)
[2017-11-15] MEDS ORDERED: AMIODARONE HCL INJ 150 MG/3 ML VIAL IV ONE (13:04)
--- NOTE | 2017-11-15 13:23 | EKG REPORT ---
SEVERITY:- ABNORMAL ECG - ATRIAL FIBRILLATION WITH RAPID V-RATE LEFT AXIS DEVIATION CONSIDER INFERIOR INFARCT ABNRM R PROG, CONSIDER ASMI OR LEAD PLACEMENT REPOLARIZATION ABNORMALITY, PROB RATE RELATED : Confirmed by: Hosea Fleming MD 15-Nov-2017 13:21:53
[2017-11-15] MEDS: DEXTROSE 5%-WATER 500 ML with AMIODARONE HCL 900 MG IV PRN ×2 (13:26)
[2017-11-15] MEDS ORDERED: AMIODARONE HCL 150 MG in DEXTROSE 5%-WATER 100 ML IV ONE (14:00)
[2017-11-15 14:26] LABS: HEMATOCRIT 26.3 % (36.0-47.0); HEMOGLOBIN 8.3 g/dL (12.0-15.5); MEAN CORPUSCULAR HEMOGLOBIN 28.7 pg (27.0-33.4); MEAN CORPUSCULAR HGB CONC 31.7 g/dL (32.0-36.0); MEAN CORPUSCULAR VOLUME 91 fl (80-97); PLATELET COUNT 130 10^3/uL (150-450)
[2017-11-15 14:27] LABS: INTERNATIONAL RATION (INR) 1.18; PROTHROMBIN TIME 15.9 SEC (11.4-15.4)
[2017-11-15 14:28] LABS: PARTIAL THROMBOPLASTIN TIME 28.9 SEC (23.5-35.8); WHITE BLOOD COUNT 34.5 10^3/uL (4.0-10.5)
[2017-11-15] MEDS: MIDODRINE HCL 5 MG TABLET PO SCH ×2 (14:40→18:47)
[2017-11-15 15:02] LABS: ABSOLUTE LYMPHOCYTES# (MANUAL) 1.4 10^3/uL (0.5-4.7); ABSOLUTE MONOCYTES # (MANUAL) 3.8 10^3/uL (0.1-1.4); ABSOLUTE NEUTROPHILS# (MANUAL) 29.3 10^3/uL (1.7-8.2); BAND NEUTROPHILS % (MANUAL) 3 % (3-5); BASOPHILS % (MANUAL) 0 % (0-2); EOSINOPHILS % (MANUAL) 0 % (0-6); LYMPHOCYTES % (MANUAL) 4 % (13-45); METAMYELOCYTES % (MANUAL) 2 % (0); MONOCYTES % (MANUAL) 11 % (3-13); NUCLEATED RED BLOOD CELLS 1 /100 WBC (0); SEGMENTED NEUTROPHILS % (MAN) 80 % (42-78); TOTAL CELLS COUNTED 100
[2017-11-15 15:04] LABS: ANISOCYTOSIS 1+; HYPOCHROMASIA SLIGHT; OVALOCYTES SLIGHT; PLATELET COMMENT DECREASED; POIKILOCYTOSIS SLIGHT
[2017-11-15] MEDS ORDERED: FLUCONAZOLE 400 MG/NS RTU 400 MG/200 ML RTUPB IV ONE (16:00)
--- NOTE | 2017-11-15 16:26 | PDOC PROGRESS REPORT ---
Subjective Progress Note for:: 11/15/17 Subjective:: I saw the patient in the initiation of hemodialysis early this morning at around 8:30 AM upstairs at dialysis room. At that time she was feeling fine and did not really offer any complaints. He seems comfortable at the start of dialysis. Her blood pressure has been low at the start of dialysis though. As soon as hemodialysis started the patient's blood pressure subsequently start going low. We did not really plan to take any ultrafiltration however we needed to give her fluids to maintain her blood pressure throughout the treatment. About 30 minutes or more before terminating the treatment patient developed tachycardia and irregular heart rhythm. I instructed her dialysis nurse to give minimal cautious fluid to see if her blood pressure and heart rate is going to improve however these measures did not make a difference. So instead of before our treatment for solute clearance we had to terminate the treatment after 3 hours. Patient subsequently was found to be in atrial fibrillation with rapid ventricular response and was transferred here in the ICU. I was called by Abdirizak Pope after she evaluated the patient here in the ICU earlier today. She related to me that the patient does not even want to wear her BiPAP and thinks that the patient may not really be tolerating dialysis. She also spoke to the patient's family. Dr. Montoya ordered amiodarone drip and Levophed. So this afternoon I went in to evaluate the patient with her daughter and stepdaughter at the bedside. According to the nurse, patient seems to be better at this time compared to earlier when she was just transferred here in ICU. Patient is currently awake and alert and oriented to person and place at least. She is communicating and answering questions although sometimes difficult to understand with some garbled speech. She seems comfortable with nasal cannula. Explained to the patient and her daughters that it seems that her heart is not going to be able to tolerate dialysis very well. I explained the consequences if not being able to do dialysis including progressive uremia and subsequently . Upon hearing that the patient did not like that. I asked the patient if she is going to ever wear the BiPAP mask again if she needs to. She was complaining about the mask being so tight in her face but otherwise she was agreeing to actually wear it if she needs to. She also seems to be agreeable with continuation of treatment. I told the family that even if the patient undergoes continuous renal replacement therapy which is a slower form of dialysis she would still need to be able to tolerate the intermittent hemodialysis in the long-term. So if she is not currently able to tolerate intermittent hemodialysis because of her cardiac issue which she will not change much then it is kind of futile to even consider CRRT. So depending on how she does over the weekend we will reevaluate and determine if we can attempt intermittent hemodialysis again unless her kidney function miraculously recovers which I doubt. One of the daughters asked the question regarding kidney transplant. I explained to them that the patient is not a candidate for kidney transplant. So we will see how the patient does over the weekend. The patient and her daughters agreed with the plan. Reason For Visit: ACUTE ON CHRONIC HEART FAILURE, CIRRHOSIS Physical Exam Vital Signs: Temp Pulse Resp BP Pulse Ox 98.6 F 143 H 25 H 128/61 H 96 11/15/17 03:45 11/15/17 14:00 11/15/17 14:36 11/15/17 14:36 11/15/17 15:25 Pulse Oximeter Continuous Start: 11/04/17 13: 05 Freq: RTQ4 Status: Hold Document 11/15/17 12:07 [facility] [place]Rec: 11/15/17 12:10 [facility] [id number] Pulse Oximetry Assessment Oxygen Saturation (92-100) 96 Oxygen Flow Rate (L/min) 3 Oxygen Delivery Method Nasal Cannula Fraction of Inspired Oxygen (FIO2) 32 Equipment Usage Equipment Standby Continuous SpO2 Machine # N 3 Intake & Output 11/14/17 11/15/17 11/16/17 06:59 06:59 06:59 Intake Total 610 1228 2200 Output Total 1994 205 Balance -1385 1023 2200 Weight 107.5 kg 107.7 kg Exam: General appearance: PRESENT: no acute distress, cooperative, well-developed, well-nourished Head exam: PRESENT: atraumatic, normocephalic Eye exam: PRESENT: conjunctiva pale, PERRLA. ABSENT: scleral icterus Neck exam: ABSENT: JVD Respiratory exam: PRESENT: Diminished breath sounds. Positive rhonchi and posterior lung pérez this morning ABSENT: crackles, rales, unlabored, wheezes Cardiovascular exam: PRESENT: Irregularly irregular rate rhythm -+S1, +S2. Tachycardic ABSENT: diastolic murmur, systolic murmur GI/Abdominal exam: PRESENT: normal bowel sounds, soft. ABSENT: guarding, mass, tenderness Extremities exam: ABSENT: No edema Neurological exam: PRESENT: alert, awake, oriented to person, place but not to time. Skin exam: PRESENT: dry, warm, Results Laboratory Results: 11/15/17 14:08 11/15/17 05:25 11/15/17 11/15/17 11/15/17 05:25 05:25 14:08 WBC 30.0 H* 34.5 H* RBC 2.64 L 2.90 L Hgb 7.7 L 8.3 L Hct 24.0 L 26.3 L MCV 91 91 MCH 29.1 28.7 MCHC 31.9 L 31.7 L RDW 16.1 H 16.0 H Plt Count 160 130 L Seg Neutrophils % Not Reportable Not Reportable Lymphocytes % Not Reportable Not Reportable Monocytes % Not Reportable Not Reportable Eosinophils % Not Reportable Not Reportable Basophils % Not Reportable Not Reportable Absolute Neutrophils Not Reportable Not Reportable Absolute Lymphocytes Not Reportable Not Reportable Absolute Monocytes Not Reportable Not Reportable Absolute Eosinophils Not Reportable Not Reportable Absolute Basophils Not Reportable Not Reportable Sodium 138.7 Potassium 4.6 Chloride 99 Carbon Dioxide 20 L Anion Gap 20 H BUN 140 H Creatinine 9.61 H Est GFR ( Amer) 5 L Est GFR (Non-Af Amer) 4 L Glucose 223 H Calcium 7.2 L Total Bilirubin 0.9 AST 19 ALT 27 Alkaline Phosphatase 50 Total Protein 6.0 L Albumin 3.6 11/14/17 00:15 Fermin Catheter Urine Culture - Final C.albicans/C.dubliniensis 11/10/17 12:41 Blood Blood Culture - Final NO GROWTH IN 5 DAYS 11/10/17 12:33 Blood Blood Culture - Final NO GROWTH IN 5 DAYS 11/02/17 11/09/17 11/09/17 19:35 15:05 15:05 Creatine Kinase 40 CK-MB (CK-2) 0.69 Troponin I < 0.012 0.019 11/09/17 11/09/17 11/10/17 22:46 22:46 08:39 Creatine Kinase 45 46 CK-MB (CK-2) 0.62 Troponin I 0.017 11/10/17 08:39 Creatine Kinase CK-MB (CK-2) 0.70 Troponin I 0.034 Impressions: Abdomen/Pelvis CT 11/02/17 00:00 IMPRESSION: 1. AIRSPACE DISEASE IN THE VISUALIZED RIGHT LUNG. 2. SLUDGE AND/OR STONES IN THE GALLBLADDER. 3. NO OTHER SIGNIFICANT OR ACUTE PROCESS IN THE ABDOMEN OR PELVIS. Lung Scan-VQ NM 11/02/17 00:00 IMPRESSION: Limited examination. No perfusion defects are identified. No evidence of PE. Head CT 11/02/17 13:59 IMPRESSION: NORMAL BRAIN CT WITHOUT CONTRAST. EVIDENCE OF ACUTE STROKE: NO. Interventional Vascular Procedure 11/07/17 00:00 IMPRESSION: Image obtained for procedure performed by Dr. Bunn. Acute Abdomen Series 11/10/17 00:00 IMPRESSION: 1. Moderate bilateral lower lobar pneumonia. 2. Moderate small bowel obstruction pattern. Chest X-Ray 11/14/17 00:00 IMPRESSION: Interval placement of a right central venous dialysis catheter with the tip in the right atrium. No pneumothorax Persistent airspace disease in the right lung base. Guidance Fluoroscopy 11/14/17 00:00 IMPRESSION: Intra procedural imaging and fluoro KUB X-Ray 11/14/17 06:00 IMPRESSION: Significant improvement in the abdominal gas pattern. Assessment & Plan - Diagnosis (1) Acute renal failure superimposed on stage 3 chronic kidney disease Is this a current diagnosis for this admission?: Yes Plan: This is secondary to acute prerenal factors including acute congestive heart failure. Patient does not have any proteinuria or microalbuminuria. There was no hypotension no other nephrotoxic medications. No obstruction on CT scan. Continue to monitor kidney function and avoid nephrotoxic medications. Her echocardiogram indicated normal left ventricular ejection fraction, mild to moderate diastolic dysfunction but also indicate the possibility of right-sided heart failure with dilated mildly dilated right atrium and right ventricle. Patient is currently oliguric. There is no sign of any renal recovery yet. We did dialysis today for 3 although initially planned for 4 hours, using the patient's right IJ PermCath, with 3 potassium bath, blood flow rate of 300 mL per minute, dialysate flow rate of 6 mL per minute, ultrafiltration none, no heparin and Procrit with 20,000 units during dialysis intravenously. As mentioned above patient can be reevaluated on Saturday if he can attempt to do intermittent hemodialysis. If the patient cannot really tolerate dialysis on Saturday then I would suggest comfort measures. (2) Acute CHF Qualifiers: Heart failure type: diastolic Qualified Code(s): I50.31 - Acute diastolic ( congestive) heart failure Is this a current diagnosis for this admission?: Yes Plan: Cardiology in consult. As mentioned above she has a combination of diastolic dysfunction as well as possibility of right-sided heart failure in a patient with COPD, obstructive sleep apnea, and obesity. Pulmonary congestion seems improved clinically. (3) Atrial fibrillation with rapid ventricular response Is this a current diagnosis for this admission?: Yes Plan: Currently on amiodarone per cardiology. (4) Urinary tract infection Is this a current diagnosis for this admission?: Yes Plan: Due to E. coli and Enterobacter. Defer to hospitalist service. Patient started on meropenem. (5) Acute on chronic respiratory failure with hypoxia and hypercapnia Is this a current diagnosis for this admission?: Yes Plan: Pulmonary on board. She needs BiPAP during sleep. Currently improved. (6) Pneumonia Qualifiers: Pneumonia type: aspiration pneumonia Laterality: right Lung location: unspecified part of lung Is this a current diagnosis for this admission?: Yes Plan: High likelihood the patient could have developed aspiration pneumonia due to her vomiting . Currently started on antibiotics. Defer to hospitalist. (7) Hypocalcemia Is this a current diagnosis for this admission?: Yes Plan: Due to hyperphosphatemia. Mild. We will dialyze with high calcium bath. (8) Hyperphosphatemia Is this a current diagnosis for this admission?: Yes Plan: Due to AK I and CKD. This should improve with dialysis and hopefully improvement of kidney function. Will hold any phosphorus binders at this time since until she is eating regular meals. (9) Secondary hyperparathyroidism (of renal origin) Is this a current diagnosis for this admission?: Yes (10) Iron deficiency anemia Is this a current diagnosis for this admission?: Yes Plan: IV iron held because of increasing leukocytosis. (11) Anemia in chronic illness Is this a current diagnosis for this admission?: Yes Plan: Procrit and dialysis as needed. (12) Morbid obesity Is this a current diagnosis for this admission?: Yes - Time Time with patient: Greater than 35 minutes
--- NOTE | 2017-11-15 17:23 | PROGRESS NOTE E ---
Progress Note NAME: FRANCESCO PARRISH : 1940 AGE: 77Y DATE: 11/15/2017 ROOM: 609 SUBJECTIVE: Was made aware by nursing staff that the patient's heart rate was in the 160s on the monitor and appeared to be irregular. The patient at this time was in dialysis. Did go to the bedside and see the patient, and the patient was found to be in a rapid ventricular response, very irregular. Discussion with Dr. Buitrago, direct chill caster, it appeared the patient had been persistently hypotensive during her treatment and the patient received a total of almost 1 L of fluid bag and was unable to have any fluid pulled as the patient's blood pressure could not tolerate it. Once the patient was bolused back, she became significantly tachycardiac and slipped into RVR. The patient was somewhat symptomatic, stating that she feels short of breath but mainly describes herself as fatigued. Dialysis was discontinued and the patient was transferred to the intensive care unit. The patient became hypotensive with MAP in the high 40s and the patient was started on Levophed and of course became further tachycardiac from that. Therefore, did discuss the case with Cardiology and given that there is no other option available at this time, the patient was loaded and started on amiodarone drip. The patient was also started on a heparin drip due to her rapid ventricular response. Did go to the bedside and speak with the patient. The patient described herself as tired. After much discussion, the patient declined cardioversion and additionally has declined BiPAP, therefore, proceeding with DO NOT RESUSCITATE measures. Discussed the case with the patient's daughter who is also her power of band aid machine operator who initially was resistant to this, but a joint meeting was held with the patient, myself, and the daughter, Vandana, and the patient would like to be comfortable. The patient though is agreeable to IV medications to correct her heart rate and blood pressure at this time. Called and discussed the case with Dr. Buitrago to update her on the status of the patient and the patient's mental status is lessening quite rapidly. Additionally, the patient has been tachypneic but again has refused BiPAP or any respiratory support. REVIEW OF SYSTEMS: A full review of systems cannot be appreciated given the patient's mental status. MEDICATIONS: Have been reviewed. PHYSICAL EXAMINATION: GENERAL: The patient is a 77-year-old -[place] female who was awake, alert, and oriented to person, place, time, and situation, just a little delayed. She does not appear to be distressed. VITAL SIGNS: Temperature is 98.6, pulse 140, respirations 26, blood pressure is 128/61, oxygen saturation is 94% on 4 L nasal cannula. SKIN: Warm and dry. No rash. Skin is mildly diaphoretic. HEENT: Pupils are reactive. Conjunctivae are pale. The patient does have JVP to the right ear. CARDIOVASCULAR: Heart is irregularly irregular. CHEST: The patient does have rales lung sounds throughout. Symmetrical, labored. ABDOMEN: Obese and soft. No area of focal tenderness. EXTREMITIES: No clubbing or cyanosis. The patient does not have any pitting edema but does have evidence of chronic nonpitting edema. PSYCHIATRIC: The patient is quite fatigued. DIAGNOSTICS: Lab values are as follows: Hematology obtained on 11/15/2017: WBCs are 30,000; hemoglobin is 7.7; hematocrit is 24.0; platelet count is 160,000. Chemistry obtained on 11/15/2017: Sodium is 138, potassium 4.6, chloride is 99, carbon dioxide 20, BUN 140, creatinine 9.61, glucose 223, calcium is 7.2, bilirubin is 0.9, AST 19, ALT is 27, alk phos 50, total protein is 6.0, albumin 3.6. IMPRESSION AND PLAN: 1. ATRIAL FIBRILLATION WITH RAPID VENTRICULAR RESPONSE. The patient is quite symptomatic for this. Given the patient's hypotension, did discuss cardioversion and the patient and family have both declined this at this time. The family would like to proceed with an amiodarone drip. Have discussed this with Cardiology. Have no other options for treatment at this time. Will proceed with the drip and follow. 2. ASPIRATION PNEUMONIA. Continue meropenem at this time. Overall the patient's O2 demand is not that high, but she is quite tachypneic. 3. [id number] HYPOXEMIC AND HYPERCAPNIC RESPIRATORY FAILURE. Overall the patient refuses to wear a BiPAP and only wants nasal cannula. She does realize that this may be a source of mortality. 4. ILEUS OVERALL APPEARS IMPROVED. NG tube was removed. The patient did tolerate clear liquids. 5. CHRONIC KIDNEY DISEASE STAGE . Unfortunately the patient was unable to tolerate dialysis and became quite hypotensive and also did go into RVR. This did have to be terminated. Have discussed the case with Dr. Buitrago. The patient will not be a candidate for dialysis. 6. [id number] DIASTOLIC CONGESTIVE HEART FAILURE. The patient is volume overloaded but this is more of a kidney failure issue. 7. E. COLI AND ENTEROBACTER URINARY TRACT INFECTION. The patient is on ertapenem. 8. POSSIBLE CANDIDAL UTI. Will remove the patient's Fermin given that she is oliguric anyway and cover the patient with Diflucan for now and follow. 9. 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 Will follow. 10. HYPERCALCEMIA. Will defer to Nephrology. 11. MORBID OBESITY. 12. ANEMIA OF CHRONIC DISEASE. Management as per Nephrology. 13. AMBULATORY DYSFUNCTION. The patient is going to be unable to participate with PT and OT at this time. 14. SEPTIC SHOCK. Uncertain of the exact underlying etiology of this as the patient's pneumonia did appear improved; however, will miller culture for now. Also may be a candidal issue. Regardless, will await for cultures and also obtain a C. diff and follow. DISPOSITION: The patient is a DO NOT RESUSCITATE/DO NOT INTUBATE. The patient was transferred to intensive care unit. The patient and family will meet with Dr. Buitrago who is going to discuss further comfort care measures only. Time spent on this critical care visit including assessment, plan, physical examination, patient education, review of records, and family meeting is 60 minutes. DICTATING PHYSICIAN: ALFREDA CORONADO NP [id number] PHY#: [id number] ID: [id number] JOB#: [id number] ACCT: [id number] cc: > MTDD
--- NOTE | 2017-11-15 18:45 | Progress Note ---
Provider Note Provider Note: Patient was seen on dialysis. Patient was noted to have atrial fibrillation with rapid ventricular response. Patient was also noted to be very lethargic with somewhat of a weak pulse. Subsequently patient was also noted to have low blood pressure. Even though patient had recent pneumonia and may have underlying COPD, in presence of renal dysfunction on dialysis, the only safe medication to use on her was felt to be amiodarone therapy. After mutually discussion with hospitalist, amiodarone IV bolus and drip protocol was recommended. Patient could also be given intermittent IV beta-hermilo, Cardizem etc. for heart rate control. Patient looks quite debilitated and sick. It was noted subsequently that she was moved to the unit. This is for closer observation.
[2017-11-15] MEDS ORDERED: DILTIAZEM HCL INJ 25 MG/5 ML VIAL ONE (18:56)
[2017-11-15] MEDS ORDERED: ACETAMINOPHEN 325 MG TABLET PO PRN (19:49)
[2017-11-15] MEDS ORDERED: DILTIAZEM HCL INJ 25 MG/5 ML VIAL IV ONE (20:00)
[2017-11-15] MEDS: MEROPENEM 1 GM in NORMAL SALINE 100 ML IV SCH (21:47)
[2017-11-15 22:57] LABS: APPEARANCE,URINE CLOUDY; BILIRUBIN,URINE NEGATIVE (NEGATIVE); COLOR,URINE AMBER; GLUCOSE, URINE NEGATIVE (NEGATIVE); KETONES,URINE NEGATIVE (NEGATIVE); LEUKOCYTE ESTERASE,URINE LARGE (NEGATIVE); NITRITE,URINE NEGATIVE (NEGATIVE); PROTEIN,URINE 100 mg/dL (NEGATIVE); URINE SPECIFIC GRAVITY 1.015; UROBILINOGEN,URINE NEGATIVE mg/dL (<2.0)
[2017-11-16] MEDS: ONDANSETRON HCL INJ/PF 4 MG/2 ML SDV IV PRN (00:59)
[2017-11-16 04:31] LABS: HEMATOCRIT 22.3 % (36.0-47.0); MEAN CORPUSCULAR HEMOGLOBIN 28.6 pg (27.0-33.4); MEAN CORPUSCULAR HGB CONC 31.3 g/dL (32.0-36.0); MEAN CORPUSCULAR VOLUME 92 fl (80-97); PLATELET COUNT 127 10^3/uL (150-450); RED BLOOD COUNT 2.43 10^6/uL (3.72-5.28); RED CELL DISTRIBUTION WIDTH 15.9 % (11.5-14.0)
[2017-11-16 04:35] LABS: ANION GAP 16 (5-19); CALCIUM 7.4 mg/dL (8.4-10.2); CARBON DIOXIDE 24 mmol/L (22-30); CHLORIDE 94 mmol/L (98-107); GLUCOSE 289 mg/dL (75-110); POTASSIUM 4.1 mmol/L (3.6-5.0); SODIUM 133.5 mmol/L (137-145)
[2017-11-16 04:45] LABS: WHITE BLOOD COUNT 37.2 10^3/uL (4.0-10.5)
[2017-11-16 04:52] LABS: BLOOD UREA NITROGEN 85 mg/dL (7-20)
[2017-11-16 04:53] LABS: ABSOLUTE LYMPHOCYTES# (MANUAL) 2.2 10^3/uL (0.5-4.7); ABSOLUTE MONOCYTES # (MANUAL) 2.2 10^3/uL (0.1-1.4); ABSOLUTE NEUTROPHILS# (MANUAL) 32.7 10^3/uL (1.7-8.2); BAND NEUTROPHILS % (MANUAL) 1 % (3-5); BASOPHILS % (MANUAL) 0 % (0-2); EOSINOPHILS % (MANUAL) 0 % (0-6); LYMPHOCYTES % (MANUAL) 6 % (13-45); MONOCYTES % (MANUAL) 6 % (3-13); NUCLEATED RED BLOOD CELLS 2 /100 WBC (0); SEGMENTED NEUTROPHILS % (MAN) 87 % (42-78); TOTAL CELLS COUNTED 100
[2017-11-16 04:58] LABS: ANISOCYTOSIS 1+; OVALOCYTES SLIGHT; PLATELET COMMENT DECREASED; POIKILOCYTOSIS 1+; STOMATOCYTES 1+; TEAR DROP CELLS SLIGHT
[2017-11-16] MEDS: DEXTROSE 5%-WATER 500 ML with AMIODARONE HCL 900 MG IV PRN ×2 (06:23)
[2017-11-16] MEDS: MIDODRINE HCL 5 MG TABLET PO SCH (09:30)
[2017-11-16] MEDS: INSULIN LISPRO 100 UNIT/ML 3 ML VIAL SUBCUT PRN (09:31)
[2017-11-16] MEDS: PREDNISONE 20 MG TABLET PO SCH (09:31)
[2017-11-16] MEDS: METOCLOPRAMIDE HCL 10 MG TABLET PO SCH ×2 (09:31→12:10)
[2017-11-16] MEDS: FLUTICASONE NASAL SPRAY 50 MCG/SPRY 120 SPRAY/16 GM NASL SCH (09:32)
--- NOTE | 2017-11-16 09:55 | PDOC PROGRESS REPORT ---
Subjective Progress Note for:: 11/15/17 Subjective:: Patient noted to have atrial fibrillation with rapid ventricular response while on dialysis. She was also noted to have weak pulse and some respiratory distress. Patient on questioning denying any chest pain or any significant shortness of breath. Patient seems somewhat lethargic. Patient was seen while receiving dialysis. Also discussed with Dr. Abdirizak Pope. Medications: Medications have been reviewed. Reason For Visit: ACUTE ON CHRONIC HEART FAILURE, CIRRHOSIS Physical Exam Vital Signs: Temp Pulse Resp BP Pulse Ox 98.6 F 143 H 18 109/72 99 11/15/17 03:45 11/15/17 14:00 11/15/17 16:00 11/15/17 15:11 11/15/17 16:00 Pulse Oximeter Continuous Start: 11/04/17 13: 05 Freq: RTQ4 Status: Hold Document 11/15/17 12:07 [facility] [place] (Rec: 11/15/17 12:10 [facility] [place] [id number]) Pulse Oximetry Assessment Oxygen Saturation (92-100) 96 Oxygen Flow Rate (L/min) 3 Oxygen Delivery Method Nasal Cannula Fraction of Inspired Oxygen (FIO2) 32 Equipment Usage Equipment Standby Continuous SpO2 Machine # N 3 Intake & Output 11/14/17 11/15/17 11/16/17 06:59 06:59 06:59 Intake Total 610 1228 2200 Output Total 1994 205 Balance -1385 1023 2200 Weight 107.5 kg 107.7 kg Exam: GENERAL: well-nourished and in mild respiratory distress. Alert and oriented x3 HEAD: Atraumatic, normocephalic. EYES: Pupils equal round and reactive to light, extraocular movements intact, sclera anicteric, conjunctiva are normal. ENT: TMs normal, nares patent, oropharynx clear without exudates. Moist mucous membranes. No oral ulcerations or bleeding gums noted NECK: supple without lymphadenopathy. Trachea is central. No cervical or axillary lymphadenopathy noted. Carotids are 2+, JVD WNL dialysis catheter noted right side neck. JVP difficult to evaluate. LUNGS: Respiration seems labored, mild respiratory distress noted. Bibasilar fine crackles noted. CHEST: Palpation of the chest wall shows no significant chest wall tenderness. No other significant abnormalities noted. HEART: [place], No PSH, 1/6 MICHAEL aortic area, 1/6 miller systolic murmur mitral area, no rubs, no gallops. ABDOMEN: Soft, no significant tenderness appreciated, normoactive bowel sounds. No guarding, no rebound. No rigidity noted . No masses appreciated. EXTREMITIES: Pedal pulses are 1-2+, no calf tenderness noted. No clubbing or cyanosis.1+ pedal edema noted NEUROLOGICAL: Focused neurological exam showed no significant neurologic deficit. Normal speech, no focal weakness appreciated. PSYCH: Normal mood, normal affect. Judgment and insight within normal limits. SKIN: No significant ecchymosis, rash, ulcerations or signs of pruritus noted. MUSCULOSKELETAL EXAM: No significant joint swelling noted. Results Laboratory Results: 11/15/17 14:08 11/15/17 05:25 11/15/17 11/15/17 11/15/17 05:25 05:25 14:08 WBC 30.0 H* 34.5 H* RBC 2.64 L 2.90 L Hgb 7.7 L 8.3 L Hct 24.0 L 26.3 L MCV 91 91 MCH 29.1 28.7 MCHC 31.9 L 31.7 L RDW 16.1 H 16.0 H Plt Count 160 130 L Seg Neutrophils % Not Reportable Not Reportable Lymphocytes % Not Reportable Not Reportable Monocytes % Not Reportable Not Reportable Eosinophils % Not Reportable Not Reportable Basophils % Not Reportable Not Reportable Absolute Neutrophils Not Reportable Not Reportable Absolute Lymphocytes Not Reportable Not Reportable Absolute Monocytes Not Reportable Not Reportable Absolute Eosinophils Not Reportable Not Reportable Absolute Basophils Not Reportable Not Reportable Sodium 138.7 Potassium 4.6 Chloride 99 Carbon Dioxide 20 L Anion Gap 20 H BUN 140 H Creatinine 9.61 H Est GFR ( Amer) 5 L Est GFR (Non-Af Amer) 4 L Glucose 223 H Calcium 7.2 L Total Bilirubin 0.9 AST 19 ALT 27 Alkaline Phosphatase 50 Total Protein 6.0 L Albumin 3.6 11/14/17 00:15 Fermin Catheter Urine Culture - Final C.albicans/C.dubliniensis 11/10/17 12:41 Blood Blood Culture - Final NO GROWTH IN 5 DAYS 11/10/17 12:33 Blood Blood Culture - Final NO GROWTH IN 5 DAYS 11/02/17 11/09/17 11/09/17 19:35 15:05 15:05 Creatine Kinase 40 CK-MB (CK-2) 0.69 Troponin I < 0.012 0.019 11/09/17 11/09/17 11/10/17 22:46 22:46 08:39 Creatine Kinase 45 46 CK-MB (CK-2) 0.62 Troponin I 0.017 11/10/17 08:39 Creatine Kinase CK-MB (CK-2) 0.70 Troponin I 0.034 EKG Comments: Atrial fibrillation with rapid ventricular response Impressions: Abdomen/Pelvis CT 11/02/17 00:00 IMPRESSION: 1. AIRSPACE DISEASE IN THE VISUALIZED RIGHT LUNG. 2. SLUDGE AND/OR STONES IN THE GALLBLADDER. 3. NO OTHER SIGNIFICANT OR ACUTE PROCESS IN THE ABDOMEN OR PELVIS. Lung Scan-VQ NM 11/02/17 00:00 IMPRESSION: Limited examination. No perfusion defects are identified. No evidence of PE. Head CT 11/02/17 13:59 IMPRESSION: NORMAL BRAIN CT WITHOUT CONTRAST. EVIDENCE OF ACUTE STROKE: NO. Interventional Vascular Procedure 11/07/17 00:00 IMPRESSION: Image obtained for procedure performed by Dr. Bunn. Acute Abdomen Series 11/10/17 00:00 IMPRESSION: 1. Moderate bilateral lower lobar pneumonia. 2. Moderate small bowel obstruction pattern. Chest X-Ray 11/14/17 00:00 IMPRESSION: Interval placement of a right central venous dialysis catheter with the tip in the right atrium. No pneumothorax Persistent airspace disease in the right lung base. Guidance Fluoroscopy 11/14/17 00:00 IMPRESSION: Intra procedural imaging and fluoro KUB X-Ray 11/14/17 06:00 IMPRESSION: Significant improvement in the abdominal gas pattern. Assessment & Plan - Diagnosis (1) Atrial fibrillation with rapid ventricular response Is this a current diagnosis for this admission?: Yes (2) Acute CHF Qualifiers: Heart failure type: diastolic Qualified Code(s): I50.31 - Acute diastolic ( congestive) heart failure Is this a current diagnosis for this admission?: Yes (3) Acute and chronic respiratory failure with hypoxia Is this a current diagnosis for this admission?: Yes (4) Acute on chronic renal failure Qualifiers: Acute renal failure type: unspecified Chronic kidney disease stage: stage 5 , not on chronic dialysis Qualified Code(s): N17.9 - Acute kidney failure, unspecified; N18.5 - Chronic kidney disease, stage 5; N18.5 - Chronic kidney disease, stage 5; N18.5 - Chronic kidney disease, stage 5; N18.5 - Chronic kidney disease, stage 5 Is this a current diagnosis for this admission?: Yes (5) Pneumonia Qualifiers: Pneumonia type: aspiration pneumonia Laterality: right Lung location: unspecified part of lung Is this a current diagnosis for this admission?: Yes (6) Diabetes Qualifiers: Diabetes mellitus type: type 2 Diabetes mellitus complication status: with unspecified complications Diabetes mellitus long-term insulin use: unspecified long-term 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 At this point patient somewhat hypotensive. It was felt that she may not tolerate Cardizem or IV beta -blockers because of low blood pressure. Amiodarone bolus with drip protocol was started. It was felt that this was the only choice available at this point. Such recommendation was given to the hospitalist. Acute CHF: Could get worse with atrial fibrillation. Recommend periodic chest x -rays. Volume status is difficult to determine clinically in this patient. Acute on chronic respiratory failure with hypoxemia: Patient being followed by downstream biomanufacturing technician. Will follow the recommendation. Patient to benefit from intermittent positive pressure ventilation. Continue close observation in the unit. Acute on chronic renal failure: Nephrology following. Currently on dialysis. Patient and family thinks that patient may not be tolerating dialysis. Further plans per nephrology. Pneumonia: It seems clinically worse. Continue antibiotic therapy. Monitor with periodic chest x-rays, ABGs. Sleep disordered breathing: Patient seems to have this. Pulmonary following. 2D echo results reviewed. Patient has normal LVEF but RV enlargement is noted. Possible RV systolic dysfunction. - Time Time with patient: Greater than 35 minutes - CODE STATUS was discussed, patient remains full code. Surrogate decision-maker unchanged. Multiple medical problems were addressed. More than 50% of the time spent coordinating care, discussing management plans with involved caregivers. Management plans discussed with involved personnels. Medical decision making was of moderate to high complexity, patient's has multiple comorbidities. Medications reviewed and adjusted accordingly: Yes
--- NOTE | 2017-11-16 12:08 | PDOC PROGRESS REPORT ---
Subjective Progress Note for:: 11/13/17 Subjective:: wearing NIPPV Reason For Visit: ACUTE ON CHRONIC HEART FAILURE, CIRRHOSIS Physical Exam Vital Signs: Temp Pulse Resp BP Pulse Ox 99.1 F 97 20 98/81 L 100 11/16/17 08:00 11/16/17 07:00 11/16/17 06:31 11/16/17 06:31 11/16/17 06:00 Pulse Oximeter Continuous Start: 11/04/17 13: 05 Freq: RTQ4 Status: Hold Document 11/15/17 12:07 [facility] [place] (Rec: 11/15/17 12:10 [facility] [place] [id number]) Pulse Oximetry Assessment Oxygen Saturation (92-100) 96 Oxygen Flow Rate (L/min) 3 Oxygen Delivery Method Nasal Cannula Fraction of Inspired Oxygen (FIO2) 32 Equipment Usage Equipment Standby Continuous SpO2 Machine # N 3 Intake & Output 11/15/17 11/16/17 11/17/17 06:59 06:59 06:59 Intake Total 1228 4050 Output Total 205 85 Balance 1023 3965 Weight 107.7 kg 108.8 kg General appearance: PRESENT: disheveled, obese, well-developed Head exam: PRESENT: atraumatic, normocephalic Eye exam: PRESENT: conjunctiva pale, EOMI. ABSENT: nystagmus, periorbital swelling, scleral icterus Mouth exam: PRESENT: dry mucosa, neck supple, tongue midline Neck exam: ABSENT: carotid bruit, JVD, lymphadenopathy, thyromegaly, tracheal deviation, tracheostomy Respiratory exam: PRESENT: decreased breath sounds, prolonged expiratory phas, rales, rhonchi, symmetrical, unlabored, wheezes. ABSENT: retraction, stridor Cardiovascular exam: PRESENT: RRR, +S1, +S2 Pulses: PRESENT: normal radial pulses GI/Abdominal exam: PRESENT: diminished bowel sounds, soft Gentrourinary exam: PRESENT: indwelling catheter Extremities exam: ABSENT: clubbing Musculoskeletal exam: ABSENT: deformity, dislocation Neurological exam: ABSENT: alert, awake, oriented to person Skin exam: PRESENT: dry, warm Results Laboratory Results: 11/16/17 04:10 11/16/17 04:10 11/15/17 11/15/17 11/16/17 14:08 21:55 04:10 WBC 34.5 H* 37.2 H* RBC 2.90 L 2.43 L Hgb 8.3 L 7.0 L Hct 26.3 L 22.3 L MCV 91 92 MCH 28.7 28.6 MCHC 31.7 L 31.3 L RDW 16.0 H 15.9 H Plt Count 130 L 127 L Seg Neutrophils % Not Reportable Not Reportable Lymphocytes % Not Reportable Not Reportable Monocytes % Not Reportable Not Reportable Eosinophils % Not Reportable Not Reportable Basophils % Not Reportable Not Reportable Absolute Neutrophils Not Reportable Not Reportable Absolute Lymphocytes Not Reportable Not Reportable Absolute Monocytes Not Reportable Not Reportable Absolute Eosinophils Not Reportable Not Reportable Absolute Basophils Not Reportable Not Reportable Sodium Potassium Chloride Carbon Dioxide Anion Gap BUN Creatinine Est GFR ( Amer) Est GFR (Non-Af Amer) Glucose Calcium Magnesium Urine Color JOVAN Urine Appearance CLOUDY Urine pH 5.0 Ur Specific [place] 1.015 Urine Protein 100 H Urine Glucose (UA) NEGATIVE Urine Ketones NEGATIVE Urine Blood LARGE H Urine Nitrite NEGATIVE Ur Leukocyte Esterase LARGE H Urine WBC (Auto) >182 Urine RBC (Auto) 145 Blood Type Antibody Screen 11/16/17 11/16/17 04:10 05:10 WBC RBC Hgb Hct MCV MCH MCHC RDW Plt Count Seg Neutrophils % Lymphocytes % Monocytes % Eosinophils % Basophils % Absolute Neutrophils Absolute Lymphocytes Absolute Monocytes Absolute Eosinophils Absolute Basophils Sodium 133.5 L Potassium 4.1 Chloride 94 L Carbon Dioxide 24 Anion Gap 16 BUN 85 H D Creatinine 6.35 H Est GFR ( Amer) 8 L Est GFR (Non-Af Amer) 6 L Glucose 289 H Calcium 7.4 L Magnesium 2.0 Urine Color Urine Appearance Urine pH Ur Specific [place] Urine Protein Urine Glucose (UA) Urine Ketones Urine Blood Urine Nitrite Ur Leukocyte Esterase Urine WBC (Auto) Urine RBC (Auto) Blood Type O POSITIVE Antibody Screen NEGATIVE 11/14/17 00:15 Fermin Catheter Urine Culture - Final C.albicans/C.dubliniensis 11/10/17 12:41 Blood Blood Culture - Final NO GROWTH IN 5 DAYS 11/10/17 12:33 Blood Blood Culture - Final NO GROWTH IN 5 DAYS 11/02/17 11/09/17 11/09/17 19:35 15:05 15:05 Creatine Kinase 40 CK-MB (CK-2) 0.69 Troponin I < 0.012 0.019 11/09/17 11/09/17 11/10/17 22:46 22:46 08:39 Creatine Kinase 45 46 CK-MB (CK-2) 0.62 Troponin I 0.017 11/10/17 08:39 Creatine Kinase CK-MB (CK-2) 0.70 Troponin I 0.034 Impressions: Abdomen/Pelvis CT 11/02/17 00:00 IMPRESSION: 1. AIRSPACE DISEASE IN THE VISUALIZED RIGHT LUNG. 2. SLUDGE AND/OR STONES IN THE GALLBLADDER. 3. NO OTHER SIGNIFICANT OR ACUTE PROCESS IN THE ABDOMEN OR PELVIS. Lung Scan-VQ NM 11/02/17 00:00 IMPRESSION: Limited examination. No perfusion defects are identified. No evidence of PE. Head CT 11/02/17 13:59 IMPRESSION: NORMAL BRAIN CT WITHOUT CONTRAST. EVIDENCE OF ACUTE STROKE: NO. Interventional Vascular Procedure 11/07/17 00:00 IMPRESSION: Image obtained for procedure performed by Dr. Bunn. Acute Abdomen Series 11/10/17 00:00 IMPRESSION: 1. Moderate bilateral lower lobar pneumonia. 2. Moderate small bowel obstruction pattern. Chest X-Ray 11/14/17 00:00 IMPRESSION: Interval placement of a right central venous dialysis catheter with the tip in the right atrium. No pneumothorax Persistent airspace disease in the right lung base. Guidance Fluoroscopy 11/14/17 00:00 IMPRESSION: Intra procedural imaging and fluoro KUB X-Ray 11/14/17 06:00 IMPRESSION: Significant improvement in the abdominal gas pattern. Assessment & Plan - Diagnosis (1) Acute CHF Qualifiers: Heart failure type: diastolic Qualified Code(s): I50.31 - Acute diastolic ( congestive) heart failure Is this a current diagnosis for this admission?: Yes Plan: unchanged (2) Acute on chronic renal failure Qualifiers: Acute renal failure type: unspecified Chronic kidney disease stage: stage 4 (severe) Qualified Code(s): N17.9 - Acute kidney failure, unspecified; N18.4 - Chronic kidney disease, stage 4 (severe); N18.4 - Chronic kidney disease , stage 4 (severe); N18.4 - Chronic kidney disease, stage 4 (severe); N18.4 - Chronic kidney disease, stage 4 (severe) Is this a current diagnosis for this admission?: Yes Plan: 48 frs s/p dialysis as per Dr. Buitrago Labs- All tests 24 hr 11/02/17 11/03/17 11/04/17 14:40 07:03 07:05 BUN 39 H 42 H 57 H Creatinine 2.21 H 2.46 H 2.91 H 11/05/17 11/06/17 11/07/17 13:35 05:21 05:09 BUN 79 H 98 H 115 H Creatinine 3.36 H 4.41 H 5.46 H 11/08/17 11/09/17 11/10/17 05:12 06:22 08:39 BUN 121 H 106 H 130 H Creatinine 5.98 H 4.83 H 5.79 H 11/10/17 14:00 BUN 130 H Creatinine 6.03 H (3) Acute on chronic respiratory failure with hypoxia and hypercapnia Is this a current diagnosis for this admission?: Yes Plan: multifactorial obstructive lung dx + CHF failure + renal failure boderline (4) Morbid obesity Is this a current diagnosis for this admission?: Yes Plan: minimally improved (5) Pneumonia Qualifiers: Pneumonia type: aspiration pneumonia Laterality: right Lung location: unspecified part of lung Is this a current diagnosis for this admission?: Yes Plan: Labs- All tests 24 hr 11/12/17 05:09 WBC 15.2 H Seg Neuts % (Manual) 91 H - Time Total Critical Time (Minutes): 35
--- NOTE | 2017-11-16 12:11 | PDOC PROGRESS REPORT ---
Subjective Progress Note for:: 11/14/17 Subjective:: wearing NIPPV Reason For Visit: ACUTE ON CHRONIC HEART FAILURE, CIRRHOSIS Physical Exam Vital Signs: Temp Pulse Resp BP Pulse Ox 99.1 F 97 20 98/81 L 100 11/16/17 08:00 11/16/17 07:00 11/16/17 06:31 11/16/17 06:31 11/16/17 06:00 Pulse Oximeter Continuous Start: 11/04/17 13: 05 Freq: RTQ4 Status: Hold Document 11/15/17 12:07 [facility] [place] (Rec: 11/15/17 12:10 [facility] [place] [id number]) Pulse Oximetry Assessment Oxygen Saturation (92-100) 96 Oxygen Flow Rate (L/min) 3 Oxygen Delivery Method Nasal Cannula Fraction of Inspired Oxygen (FIO2) 32 Equipment Usage Equipment Standby Continuous SpO2 Machine # N 3 Intake & Output 11/15/17 11/16/17 11/17/17 06:59 06:59 06:59 Intake Total 1228 4050 Output Total 205 85 Balance 1023 3965 Weight 107.7 kg 108.8 kg General appearance: PRESENT: disheveled, obese, well-developed. ABSENT: cooperative Head exam: PRESENT: atraumatic, normocephalic Eye exam: PRESENT: conjunctiva pale. ABSENT: nystagmus, periorbital swelling, scleral icterus Mouth exam: PRESENT: dry mucosa, neck supple, tongue midline Neck exam: ABSENT: carotid bruit, JVD, lymphadenopathy, thyromegaly, tracheal deviation, tracheostomy Respiratory exam: PRESENT: decreased breath sounds, prolonged expiratory phas, rhonchi, stridor, symmetrical, wheezes. ABSENT: crackles, rales, retraction, tachypnea, unlabored Cardiovascular exam: PRESENT: RRR, +S1, +S2 Pulses: PRESENT: normal radial pulses GI/Abdominal exam: PRESENT: diminished bowel sounds, soft Gentrourinary exam: PRESENT: indwelling catheter Extremities exam: ABSENT: clubbing Musculoskeletal exam: ABSENT: deformity, dislocation Neurological exam: ABSENT: alert, awake, oriented to person Skin exam: PRESENT: dry, warm Results Laboratory Results: 11/16/17 04:10 11/16/17 04:10 11/15/17 11/15/17 11/16/17 14:08 21:55 04:10 WBC 34.5 H* 37.2 H* RBC 2.90 L 2.43 L Hgb 8.3 L 7.0 L Hct 26.3 L 22.3 L MCV 91 92 MCH 28.7 28.6 MCHC 31.7 L 31.3 L RDW 16.0 H 15.9 H Plt Count 130 L 127 L Seg Neutrophils % Not Reportable Not Reportable Lymphocytes % Not Reportable Not Reportable Monocytes % Not Reportable Not Reportable Eosinophils % Not Reportable Not Reportable Basophils % Not Reportable Not Reportable Absolute Neutrophils Not Reportable Not Reportable Absolute Lymphocytes Not Reportable Not Reportable Absolute Monocytes Not Reportable Not Reportable Absolute Eosinophils Not Reportable Not Reportable Absolute Basophils Not Reportable Not Reportable Sodium Potassium Chloride Carbon Dioxide Anion Gap BUN Creatinine Est GFR ( Amer) Est GFR (Non-Af Amer) Glucose Calcium Magnesium Urine Color JOVAN Urine Appearance CLOUDY Urine pH 5.0 Ur Specific [place] 1.015 Urine Protein 100 H Urine Glucose (UA) NEGATIVE Urine Ketones NEGATIVE Urine Blood LARGE H Urine Nitrite NEGATIVE Ur Leukocyte Esterase LARGE H Urine WBC (Auto) >182 Urine RBC (Auto) 145 Blood Type Antibody Screen 11/16/17 11/16/17 04:10 05:10 WBC RBC Hgb Hct MCV MCH MCHC RDW Plt Count Seg Neutrophils % Lymphocytes % Monocytes % Eosinophils % Basophils % Absolute Neutrophils Absolute Lymphocytes Absolute Monocytes Absolute Eosinophils Absolute Basophils Sodium 133.5 L Potassium 4.1 Chloride 94 L Carbon Dioxide 24 Anion Gap 16 BUN 85 H D Creatinine 6.35 H Est GFR ( Amer) 8 L Est GFR (Non-Af Amer) 6 L Glucose 289 H Calcium 7.4 L Magnesium 2.0 Urine Color Urine Appearance Urine pH Ur Specific [place] Urine Protein Urine Glucose (UA) Urine Ketones Urine Blood Urine Nitrite Ur Leukocyte Esterase Urine WBC (Auto) Urine RBC (Auto) Blood Type O POSITIVE Antibody Screen NEGATIVE 11/14/17 00:15 Fermin Catheter Urine Culture - Final C.albicans/C.dubliniensis 11/10/17 12:41 Blood Blood Culture - Final NO GROWTH IN 5 DAYS 11/10/17 12:33 Blood Blood Culture - Final NO GROWTH IN 5 DAYS 11/02/17 11/09/17 11/09/17 19:35 15:05 15:05 Creatine Kinase 40 CK-MB (CK-2) 0.69 Troponin I < 0.012 0.019 11/09/17 11/09/1711/10/18 22:46 22:46 08:39 Creatine Kinase 45 46 CK-MB (CK-2) 0.62 Troponin I 0.017 11/10/17 08:39 Creatine Kinase CK-MB (CK-2) 0.70 Troponin I 0.034 Impressions: Abdomen/Pelvis CT 11/02/17 00:00 IMPRESSION: 1. AIRSPACE DISEASE IN THE VISUALIZED RIGHT LUNG. 2. SLUDGE AND/OR STONES IN THE GALLBLADDER. 3. NO OTHER SIGNIFICANT OR ACUTE PROCESS IN THE ABDOMEN OR PELVIS. Lung Scan-VQ NM 11/02/17 00:00 IMPRESSION: Limited examination. No perfusion defects are identified. No evidence of PE. Head CT 11/02/17 13:59 IMPRESSION: NORMAL BRAIN CT WITHOUT CONTRAST. EVIDENCE OF ACUTE STROKE: NO. Interventional Vascular Procedure 11/07/17 00:00 IMPRESSION: Image obtained for procedure performed by Dr. Bunn. Acute Abdomen Series 11/10/17 00:00 IMPRESSION: 1. Moderate bilateral lower lobar pneumonia. 2. Moderate small bowel obstruction pattern. Chest X-Ray 11/14/17 00:00 IMPRESSION: Interval placement of a right central venous dialysis catheter with the tip in the right atrium. No pneumothorax Persistent airspace disease in the right lung base. Guidance Fluoroscopy 11/14/17 00:00 IMPRESSION: Intra procedural imaging and fluoro KUB X-Ray 11/14/17 06:00 IMPRESSION: Significant improvement in the abdominal gas pattern. Assessment & Plan - Diagnosis (1) Acute CHF Qualifiers: Heart failure type: diastolic Qualified Code(s): I50.31 - Acute diastolic ( congestive) heart failure Is this a current diagnosis for this admission?: Yes Plan: unchanged (2) Acute on chronic renal failure Qualifiers: Acute renal failure type: unspecified Chronic kidney disease stage: stage 4 (severe) Qualified Code(s): N17.9 - Acute kidney failure, unspecified; N18.4 - Chronic kidney disease, stage 4 (severe); N18.4 - Chronic kidney disease , stage 4 (severe); N18.4 - Chronic kidney disease, stage 4 (severe); N18.4 - Chronic kidney disease, stage 4 (severe) Is this a current diagnosis for this admission?: Yes Plan: 48 frs s/p dialysis as per Dr. Buitrago Labs- All tests 24 hr 0211/03/17 11/04/17 14:40 07:03 07:05 BUN 39 H 42 H 57 H Creatinine 2.21 H 2.46 H 2.91 H 11/05/17 11/06/17 11/07/17 13:35 05:21 05:09 BUN 79 H 98 H 115 H Creatinine 3.36 H 4.41 H 5.46 H 11/08/17 11/09/17 11/10/17 05:12 06:22 08:39 BUN 121 H 106 H 130 H Creatinine 5.98 H 4.83 H 5.79 H 11/10/17 14:00 BUN 130 H Creatinine 6.03 H (3) Acute on chronic respiratory failure with hypoxia and hypercapnia Is this a current diagnosis for this admission?: Yes Plan: multifactorial obstructive lung dx + CHF failure + renal failure boderline (4) Morbid obesity Is this a current diagnosis for this admission?: Yes Plan: minimally improved (5) Pneumonia Qualifiers: Pneumonia type: aspiration pneumonia Laterality: right Lung location: unspecified part of lung Is this a current diagnosis for this admission?: Yes Plan: Labs- All tests 24 hr 11/12/17 05:09 WBC 15.2 H Seg Neuts % (Manual) 91 H - Time Total Critical Time (Minutes): 40
--- NOTE | 2017-11-16 12:13 | PDOC PROGRESS REPORT ---
Subjective Progress Note for:: 11/15/17 Subjective:: wearing NIPPV Reason For Visit: ACUTE ON CHRONIC HEART FAILURE, CIRRHOSIS Physical Exam Vital Signs: Temp Pulse Resp BP Pulse Ox 99.1 F 97 20 98/81 L 100 11/16/17 08:00 11/16/17 07:00 11/16/17 06:31 11/16/17 06:31 11/16/17 06:00 Pulse Oximeter Continuous Start: 11/04/17 13: 05 Freq: RTQ4 Status: Hold Document 11/15/17 12:07 [facility] [place] 11/15/17 12:10 [facility] [id number] Pulse Oximetry Assessment Oxygen Saturation (92-100) 96 Oxygen Flow Rate (L/min) 3 Oxygen Delivery Method Nasal Cannula Fraction of Inspired Oxygen (FIO2) 32 Equipment Usage Equipment Standby Continuous SpO2 Machine # N 3 Intake & Output 11/15/17 11/16/17 11/17/17 06:59 06:59 06:59 Intake Total 1228 4050 Output Total 205 85 Balance 1023 3965 Weight 107.7 kg 108.8 kg General appearance: PRESENT: no acute distress, disheveled, obese, well- developed Head exam: PRESENT: atraumatic, normocephalic Eye exam: PRESENT: conjunctiva pale. ABSENT: nystagmus, periorbital swelling, scleral icterus Mouth exam: PRESENT: dry mucosa, neck supple, tongue midline Neck exam: ABSENT: carotid bruit, JVD, lymphadenopathy, thyromegaly, tracheal deviation, tracheostomy Respiratory exam: PRESENT: crackles, decreased breath sounds, prolonged expiratory phas, rhonchi, symmetrical, unlabored, wheezes. ABSENT: retraction, stridor Cardiovascular exam: PRESENT: RRR, +S1, +S2 Pulses: PRESENT: normal radial pulses GI/Abdominal exam: PRESENT: diminished bowel sounds, soft Gentrourinary exam: PRESENT: indwelling catheter Extremities exam: ABSENT: clubbing Musculoskeletal exam: ABSENT: deformity, dislocation Neurological exam: ABSENT: alert, awake, oriented to person Skin exam: PRESENT: dry, warm Results Laboratory Results: 11/16/17 04:10 11/16/17 04:10 11/15/17 11/15/17 11/16/17 14:08 21:55 04:10 WBC 34.5 H* 37.2 H* RBC 2.90 L 2.43 L Hgb 8.3 L 7.0 L Hct 26.3 L 22.3 L MCV 91 92 MCH 28.7 28.6 MCHC 31.7 L 31.3 L RDW 16.0 H 15.9 H Plt Count 130 L 127 L Seg Neutrophils % Not Reportable Not Reportable Lymphocytes % Not Reportable Not Reportable Monocytes % Not Reportable Not Reportable Eosinophils % Not Reportable Not Reportable Basophils % Not Reportable Not Reportable Absolute Neutrophils Not Reportable Not Reportable Absolute Lymphocytes Not Reportable Not Reportable Absolute Monocytes Not Reportable Not Reportable Absolute Eosinophils Not Reportable Not Reportable Absolute Basophils Not Reportable Not Reportable Sodium Potassium Chloride Carbon Dioxide Anion Gap BUN Creatinine Est GFR ( Amer) Est GFR (Non-Af Amer) Glucose Calcium Magnesium Urine Color JOVAN Urine Appearance CLOUDY Urine pH 5.0 Ur Specific [place] 1.015 Urine Protein 100 H Urine Glucose (UA) NEGATIVE Urine Ketones NEGATIVE Urine Blood LARGE H Urine Nitrite NEGATIVE Ur Leukocyte Esterase LARGE H Urine WBC (Auto) >182 Urine RBC (Auto) 145 Blood Type Antibody Screen 11/16/17 11/16/17 04:10 05:10 WBC RBC Hgb Hct MCV MCH MCHC RDW Plt Count Seg Neutrophils % Lymphocytes % Monocytes % Eosinophils % Basophils % Absolute Neutrophils Absolute Lymphocytes Absolute Monocytes Absolute Eosinophils Absolute Basophils Sodium 133.5 L Potassium 4.1 Chloride 94 L Carbon Dioxide 24 Anion Gap 16 BUN 85 H D Creatinine 6.35 H Est GFR ( Amer) 8 L Est GFR (Non-Af Amer) 6 L Glucose 289 H Calcium 7.4 L Magnesium 2.0 Urine Color Urine Appearance Urine pH Ur Specific [place] Urine Protein Urine Glucose (UA) Urine Ketones Urine Blood Urine Nitrite Ur Leukocyte Esterase Urine WBC (Auto) Urine RBC (Auto) Blood Type O POSITIVE Antibody Screen NEGATIVE 11/14/17 00:15 Fermin Catheter Urine Culture - Final C.albicans/C.dubliniensis 11/10/17 12:41 Blood Blood Culture - Final NO GROWTH IN 5 DAYS 11/10/17 12:33 Blood Blood Culture - Final NO GROWTH IN 5 DAYS 11/02/17 11/09/17 11/09/17 19:35 15:05 15:05 Creatine Kinase 40 CK-MB (CK-2) 0.69 Troponin I < 0.012 0.019 11/09/17 11/09/17 11/10/17 22:46 22:46 08:39 Creatine Kinase 45 46 CK-MB (CK-2) 0.62 Troponin I 0.017 11/10/17 08:39 Creatine Kinase CK-MB (CK-2) 0.70 Troponin I 0.034 Impressions: Abdomen/Pelvis CT 11/02/17 00:00 IMPRESSION: 1. AIRSPACE DISEASE IN THE VISUALIZED RIGHT LUNG. 2. SLUDGE AND/OR STONES IN THE GALLBLADDER. 3. NO OTHER SIGNIFICANT OR ACUTE PROCESS IN THE ABDOMEN OR PELVIS. Lung Scan-VQ NM 11/02/17 00:00 IMPRESSION: Limited examination. No perfusion defects are identified. No evidence of PE. Head CT 11/02/17 13:59 IMPRESSION: NORMAL BRAIN CT WITHOUT CONTRAST. EVIDENCE OF ACUTE STROKE: NO. Interventional Vascular Procedure 11/07/17 00:00 IMPRESSION: Image obtained for procedure performed by Dr. Bunn. Acute Abdomen Series 11/10/17 00:00 IMPRESSION: 1. Moderate bilateral lower lobar pneumonia. 2. Moderate small bowel obstruction pattern. Chest X-Ray 11/14/17 00:00 IMPRESSION: Interval placement of a right central venous dialysis catheter with the tip in the right atrium. No pneumothorax Persistent airspace disease in the right lung base. Guidance Fluoroscopy 11/14/17 00:00 IMPRESSION: Intra procedural imaging and fluoro KUB X-Ray 11/14/17 06:00 IMPRESSION: Significant improvement in the abdominal gas pattern. Assessment & Plan - Diagnosis (1) Acute CHF Qualifiers: Heart failure type: diastolic Qualified Code(s): I50.31 - Acute diastolic ( congestive) heart failure Is this a current diagnosis for this admission?: Yes Plan: unchanged (2) Acute on chronic renal failure Qualifiers: Acute renal failure type: unspecified Chronic kidney disease stage: stage 4 (severe) Qualified Code(s): N17.9 - Acute kidney failure, unspecified; N18.4 - Chronic kidney disease, stage 4 (severe); N18.4 - Chronic kidney disease , stage 4 (severe); N18.4 - Chronic kidney disease, stage 4 (severe); N18.4 - Chronic kidney disease, stage 4 (severe) Is this a current diagnosis for this admission?: Yes Plan: 48 frs s/p dialysis as per Dr. Buitrago Labs- All tests 24 hr 11/02/17 11/03/17 11/04/17 14:40 07:03 07:05 BUN 39 H 42 H 57 H Creatinine 2.21 H 2.46 H 2.91 H 11/05/17 11/06/17 11/07/17 13:35 05:21 05:09 BUN 79 H 98 H 115 H Creatinine 3.36 H 4.41 H 5.46 H 11/08/17 11/09/17 11/10/17 05:12 06:22 08:39 BUN 121 H 106 H 130 H Creatinine 5.98 H 4.83 H 5.79 H 11/10/17 14:00 BUN 130 H Creatinine 6.03 H (3) Acute on chronic respiratory failure with hypoxia and hypercapnia Is this a current diagnosis for this admission?: Yes Plan: multifactorial obstructive lung dx + CHF failure + renal failure boderline (4) Morbid obesity Is this a current diagnosis for this admission?: Yes Plan: minimally improved (5) Pneumonia Qualifiers: Pneumonia type: aspiration pneumonia Laterality: right Lung location: unspecified part of lung Is this a current diagnosis for this admission?: Yes - Plan Summary Plan Summary: Over all response to interventions poor
--- NOTE | 2017-11-16 12:16 | PDOC PROGRESS REPORT ---
Subjective Progress Note for:: 11/16/17 Subjective:: wearing NIPPV Reason For Visit: ACUTE ON CHRONIC HEART FAILURE, CIRRHOSIS Physical Exam Vital Signs: Temp Pulse Resp BP Pulse Ox 99.1 F 97 20 98/81 L 100 11/16/17 08:00 11/16/17 07:00 11/16/17 06:31 11/16/17 06:31 11/16/17 06:00 Pulse Oximeter Continuous Start: 11/04/17 13: 05 Freq: RTQ4 Status: Hold Document 11/15/17 12:07 [facility] [facility] [place]: 11/15/17 12:10 [facility] [place] [facility] [id number] Pulse Oximetry Assessment Oxygen Saturation (92-100) 96 Oxygen Flow Rate (L/min) 3 Oxygen Delivery Method Nasal Cannula Fraction of Inspired Oxygen (FIO2) 32 Equipment Usage Equipment Standby Continuous SpO2 Machine # N 3 Intake & Output 11/15/17 11/16/17 11/17/17 06:59 06:59 06:59 Intake Total 1228 4050 Output Total 205 85 Balance 1023 3965 Weight 107.7 kg 108.8 kg General appearance: PRESENT: no acute distress, obese, well-developed. ABSENT: disheveled Head exam: PRESENT: atraumatic, normocephalic Eye exam: PRESENT: conjunctiva pale. ABSENT: nystagmus, periorbital swelling, scleral icterus Mouth exam: PRESENT: dry mucosa, neck supple, tongue midline Neck exam: ABSENT: carotid bruit, JVD, lymphadenopathy, thyromegaly, tracheal deviation, tracheostomy Respiratory exam: PRESENT: crackles, decreased breath sounds, prolonged expiratory phas, rhonchi, symmetrical, unlabored, wheezes. ABSENT: retraction, stridor Cardiovascular exam: PRESENT: RRR, +S1, +S2 Pulses: PRESENT: normal radial pulses GI/Abdominal exam: PRESENT: diminished bowel sounds, soft Extremities exam: ABSENT: clubbing Musculoskeletal exam: ABSENT: deformity, dislocation Neurological exam: ABSENT: alert, awake, oriented to person Skin exam: PRESENT: dry, warm Results Laboratory Results: 11/16/17 04:10 11/16/17 04:10 11/15/17 11/15/17 11/16/17 14:08 21:55 04:10 WBC 34.5 H* 37.2 H* RBC 2.90 L 2.43 L Hgb 8.3 L 7.0 L Hct 26.3 L 22.3 L MCV 91 92 MCH 28.7 28.6 MCHC 31.7 L 31.3 L RDW 16.0 H 15.9 H Plt Count 130 L 127 L Seg Neutrophils % Not Reportable Not Reportable Lymphocytes % Not Reportable Not Reportable Monocytes % Not Reportable Not Reportable Eosinophils % Not Reportable Not Reportable Basophils % Not Reportable Not Reportable Absolute Neutrophils Not Reportable Not Reportable Absolute Lymphocytes Not Reportable Not Reportable Absolute Monocytes Not Reportable Not Reportable Absolute Eosinophils Not Reportable Not Reportable Absolute Basophils Not Reportable Not Reportable Sodium Potassium Chloride Carbon Dioxide Anion Gap BUN Creatinine Est GFR ( Amer) Est GFR (Non-Af Amer) Glucose Calcium Magnesium Urine Color JOVAN Urine Appearance CLOUDY Urine pH 5.0 Ur Specific [place] 1.015 Urine Protein 100 H Urine Glucose (UA) NEGATIVE Urine Ketones NEGATIVE Urine Blood LARGE H Urine Nitrite NEGATIVE Ur Leukocyte Esterase LARGE H Urine WBC (Auto) >182 Urine RBC (Auto) 145 Blood Type Antibody Screen 11/16/17 11/16/17 04:10 05:10 WBC RBC Hgb Hct MCV MCH MCHC RDW Plt Count Seg Neutrophils % Lymphocytes % Monocytes % Eosinophils % Basophils % Absolute Neutrophils Absolute Lymphocytes Absolute Monocytes Absolute Eosinophils Absolute Basophils Sodium 133.5 L Potassium 4.1 Chloride 94 L Carbon Dioxide 24 Anion Gap 16 BUN 85 H D Creatinine 6.35 H Est GFR ( Amer) 8 L Est GFR (Non-Af Amer) 6 L Glucose 289 H Calcium 7.4 L Magnesium 2.0 Urine Color Urine Appearance Urine pH Ur Specific [place] Urine Protein Urine Glucose (UA) Urine Ketones Urine Blood Urine Nitrite Ur Leukocyte Esterase Urine WBC (Auto) Urine RBC (Auto) Blood Type O POSITIVE Antibody Screen NEGATIVE 11/14/17 00:15 Fermin Catheter Urine Culture - Final C.albicans/C.dubliniensis 11/10/17 12:41 Blood Blood Culture - Final NO GROWTH IN 5 DAYS 11/10/17 12:33 Blood Blood Culture - Final NO GROWTH IN 5 DAYS 11/02/17 11/09/17 11/09/17 19:35 15:05 15:05 Creatine Kinase 40 CK-MB (CK-2) 0.69 Troponin I < 0.012 0.019 11/09/17 11/09/17 11/10/17 22:46 22:46 08:39 Creatine Kinase 45 46 CK-MB (CK-2) 0.62 Troponin I 0.017 11/10/17 08:39 Creatine Kinase CK-MB (CK-2) 0.70 Troponin I 0.034 Impressions: Abdomen/Pelvis CT 11/02/17 00:00 IMPRESSION: 1. AIRSPACE DISEASE IN THE VISUALIZED RIGHT LUNG. 2. SLUDGE AND/OR STONES IN THE GALLBLADDER. 3. NO OTHER SIGNIFICANT OR ACUTE PROCESS IN THE ABDOMEN OR PELVIS. Lung Scan-VQ NM 11/02/17 00:00 IMPRESSION: Limited examination. No perfusion defects are identified. No evidence of PE. Head CT 11/02/17 13:59 IMPRESSION: NORMAL BRAIN CT WITHOUT CONTRAST. EVIDENCE OF ACUTE STROKE: NO. Interventional Vascular Procedure 11/07/17 00:00 IMPRESSION: Image obtained for procedure performed by Dr. Bunn. Acute Abdomen Series 11/10/17 00:00 IMPRESSION: 1. Moderate bilateral lower lobar pneumonia. 2. Moderate small bowel obstruction pattern. Chest X-Ray 11/14/17 00:00 IMPRESSION: Interval placement of a right central venous dialysis catheter with the tip in the right atrium. No pneumothorax Persistent airspace disease in the right lung base. Guidance Fluoroscopy 11/14/17 00:00 IMPRESSION: Intra procedural imaging and fluoro KUB X-Ray 11/14/17 06:00 IMPRESSION: Significant improvement in the abdominal gas pattern. Assessment & Plan - Diagnosis (1) Acute CHF Qualifiers: Heart failure type: diastolic Qualified Code(s): I50.31 - Acute diastolic ( congestive) heart failure Is this a current diagnosis for this admission?: Yes (2) Acute on chronic renal failure Qualifiers: Acute renal failure type: unspecified Chronic kidney disease stage: stage 4 (severe) Qualified Code(s): N17.9 - Acute kidney failure, unspecified; N18.4 - Chronic kidney disease, stage 4 (severe); N18.4 - Chronic kidney disease , stage 4 (severe); N18.4 - Chronic kidney disease, stage 4 (severe); N18.4 - Chronic kidney disease, stage 4 (severe) Is this a current diagnosis for this admission?: Yes Plan: 48 frs s/p dialysis as per Dr. Buitrago Labs- All tests 24 hr 11/02/17 11/03/17 11/04/17 14:40 07:03 07:05 BUN 39 H 42 H 57 H Creatinine 2.21 H 2.46 H 2.91 H 11/05/17 11/06/17 11/07/17 13:35 05:21 05:09 BUN 79 H 98 H 115 H Creatinine 3.36 H 4.41 H 5.46 H 11/08/17 11/09/17 11/10/17 05:12 06:22 08:39 BUN 121 H 106 H 130 H Creatinine 5.98 H 4.83 H 5.79 H 11/10/17 14:00 BUN 130 H Creatinine 6.03 H (3) Acute on chronic respiratory failure with hypoxia and hypercapnia Is this a current diagnosis for this admission?: Yes Plan: multifactorial obstructive lung dx + CHF failure + renal failure boderline (4) Morbid obesity Is this a current diagnosis for this admission?: Yes Plan: minimally improved (5) Pneumonia Qualifiers: Pneumonia type: aspiration pneumonia Laterality: right Lung location: unspecified part of lung Is this a current diagnosis for this admission?: Yes Plan: Labs- All tests 24 hr 11/12/17 05:09 WBC 15.2 H Seg Neuts % (Manual) 91 H - Time Total Critical Time (Minutes): 35 - Plan Summary Plan Summary: Per family law paralegal discussing DNR versus comfort care
--- NOTE | 2017-11-16 12:23 | PDOC PROGRESS REPORT ---
Subjective Progress Note for:: 11/16/17 Subjective:: Patient was admitted with difficulty breathing and she was found to be in atrial fibrillation with rapid ventricular response. She was hypotensive. She was started an amiodarone drip. Patient also found to have aspiration pneumonia and she had been treated with meropenem. She also has a chronic kidney disease stage V and attempts at dialysis have been so far unsuccessful as patient has been hemodynamically unstable. At this time it appears the family have decided to change patient to be DO NOT RESUSCITATE and ultimately comfort care realizing the futility and seriousness of illness. Reason For Visit: ACUTE ON CHRONIC HEART FAILURE, CIRRHOSIS Physical Exam Vital Signs: Temp Pulse Resp BP Pulse Ox 99.0 F 97 15 99/53 L 100 11/16/17 10:00 11/16/17 07:00 11/16/17 11:04 11/16/17 11:04 11/16/17 06:00 Pulse Oximeter Continuous Start: 11/04/17 13: 05 Freq: RTQ4 Status: Hold Document 11/15/17 12:07 [facility] [place] (Rec: 11/15/17 12:10 [facility] [place] [id number]) Pulse Oximetry Assessment Oxygen Saturation (92-100) 96 Oxygen Flow Rate (L/min) 3 Oxygen Delivery Method Nasal Cannula Fraction of Inspired Oxygen (FIO2) 32 Equipment Usage Equipment Standby Continuous SpO2 Machine # N 3 Intake & Output 11/15/17 11/16/17 11/17/17 06:59 06:59 06:59 Intake Total 1228 4050 Output Total 205 85 Balance 1023 3965 Weight 107.7 kg 108.8 kg General appearance: PRESENT: no acute distress, well-developed Head exam: PRESENT: atraumatic, normocephalic Eye exam: PRESENT: EOMI. ABSENT: scleral icterus Ear exam: PRESENT: normal external ear exam Mouth exam: PRESENT: moist Neck exam: ABSENT: carotid bruit, JVD, lymphadenopathy, thyromegaly Respiratory exam: PRESENT: decreased breath sounds. ABSENT: wheezes Cardiovascular exam: PRESENT: diastolic murmur, rubs, systolic murmur GI/Abdominal exam: PRESENT: diminished bowel sounds, soft Rectal exam: PRESENT: deferred Extremities exam: ABSENT: calf tenderness, clubbing, pedal edema Musculoskeletal exam: ABSENT: ambulatory Neurological exam: PRESENT: alert, awake, oriented to place, oriented to situation, motor sensory deficit Psychiatric exam: PRESENT: appropriate affect, normal mood. ABSENT: homicidal ideation, suicidal ideation Skin exam: PRESENT: dry, intact, warm. ABSENT: cyanosis, rash Results Laboratory Results: 11/16/17 04:10 11/16/17 04:10 11/15/17 11/15/17 11/16/17 14:08 21:55 04:10 WBC 34.5 H* 37.2 H* RBC 2.90 L 2.43 L Hgb 8.3 L 7.0 L Hct 26.3 L 22.3 L MCV 91 92 MCH 28.7 28.6 MCHC 31.7 L 31.3 L RDW 16.0 H 15.9 H Plt Count 130 L 127 L Seg Neutrophils % Not Reportable Not Reportable Lymphocytes % Not Reportable Not Reportable Monocytes % Not Reportable Not Reportable Eosinophils % Not Reportable Not Reportable Basophils % Not Reportable Not Reportable Absolute Neutrophils Not Reportable Not Reportable Absolute Lymphocytes Not Reportable Not Reportable Absolute Monocytes Not Reportable Not Reportable Absolute Eosinophils Not Reportable Not Reportable Absolute Basophils Not Reportable Not Reportable Sodium Potassium Chloride Carbon Dioxide Anion Gap BUN Creatinine Est GFR ( Amer) Est GFR (Non-Af Amer) Glucose Calcium Magnesium Urine Color JOVAN Urine Appearance CLOUDY Urine pH 5.0 Ur Specific [place] 1.015 Urine Protein 100 H Urine Glucose (UA) NEGATIVE Urine Ketones NEGATIVE Urine Blood LARGE H Urine Nitrite NEGATIVE Ur Leukocyte Esterase LARGE H Urine WBC (Auto) >182 Urine RBC (Auto) 145 Blood Type Antibody Screen 11/16/17 11/16/17 04:10 05:10 WBC RBC Hgb Hct MCV MCH MCHC RDW Plt Count Seg Neutrophils % Lymphocytes % Monocytes % Eosinophils % Basophils % Absolute Neutrophils Absolute Lymphocytes Absolute Monocytes Absolute Eosinophils Absolute Basophils Sodium 133.5 L Potassium 4.1 Chloride 94 L Carbon Dioxide 24 Anion Gap 16 BUN 85 H D Creatinine 6.35 H Est GFR ( Amer) 8 L Est GFR (Non-Af Amer) 6 L Glucose 289 H Calcium 7.4 L Magnesium 2.0 Urine Color Urine Appearance Urine pH Ur Specific [place] Urine Protein Urine Glucose (UA) Urine Ketones Urine Blood Urine Nitrite Ur Leukocyte Esterase Urine WBC (Auto) Urine RBC (Auto) Blood Type O POSITIVE Antibody Screen NEGATIVE 11/14/17 00:15 Fermin Catheter Urine Culture - Final C.albicans/C.dubliniensis 11/10/17 12:41 Blood Blood Culture - Final NO GROWTH IN 5 DAYS 11/10/17 12:33 Blood Blood Culture - Final NO GROWTH IN 5 DAYS 11/02/17 11/09/17 11/09/17 19:35 15:05 15:05 Creatine Kinase 40 CK-MB (CK-2) 0.69 Troponin I < 0.012 0.019 11/09/17 11/09/17 11/10/17 22:46 22:46 08:39 Creatine Kinase 45 46 CK-MB (CK-2) 0.62 Troponin I 0.017 11/10/17 08:39 Creatine Kinase CK-MB (CK-2) 0.70 Troponin I 0.034 Impressions: Abdomen/Pelvis CT 11/02/17 00:00 IMPRESSION: 1. AIRSPACE DISEASE IN THE VISUALIZED RIGHT LUNG. 2. SLUDGE AND/OR STONES IN THE GALLBLADDER. 3. NO OTHER SIGNIFICANT OR ACUTE PROCESS IN THE ABDOMEN OR PELVIS. Lung Scan-VQ NM 11/02/17 00:00 IMPRESSION: Limited examination. No perfusion defects are identified. No evidence of PE. Head CT 11/02/17 13:59 IMPRESSION: NORMAL BRAIN CT WITHOUT CONTRAST. EVIDENCE OF ACUTE STROKE: NO. Interventional Vascular Procedure 11/07/17 00:00 IMPRESSION: Image obtained for procedure performed by Dr. Bunn. Acute Abdomen Series 11/10/17 00:00 IMPRESSION: 1. Moderate bilateral lower lobar pneumonia. 2. Moderate small bowel obstruction pattern. Chest X-Ray 11/14/17 00:00 IMPRESSION: Interval placement of a right central venous dialysis catheter with the tip in the right atrium. No pneumothorax Persistent airspace disease in the right lung base. Guidance Fluoroscopy 11/14/17 00:00 IMPRESSION: Intra procedural imaging and fluoro KUB X-Ray 11/14/17 06:00 IMPRESSION: Significant improvement in the abdominal gas pattern. Assessment & Plan - Diagnosis (1) Acute CHF Qualifiers: Heart failure type: diastolic Qualified Code(s): I50.31 - Acute diastolic ( congestive) heart failure Is this a current diagnosis for this admission?: Yes (2) Acute on chronic diastolic (congestive) heart failure Is this a current diagnosis for this admission?: Yes (3) Acute on chronic renal failure Qualifiers: Acute renal failure type: unspecified Chronic kidney disease stage: stage 5 , not on chronic dialysis Qualified Code(s): N17.9 - Acute kidney failure, unspecified; N18.5 - Chronic kidney disease, stage 5; N18.5 - Chronic kidney disease, stage 5; N18.5 - Chronic kidney disease, stage 5; N18.5 - Chronic kidney disease, stage 5 Is this a current diagnosis for this admission?: Yes (4) Anemia Qualifiers: Anemia type: due to chronic kidney disease Chronic kidney disease stage: stage 5, not on chronic dialysis Qualified Code(s): N18.5 - Chronic kidney disease, stage 5; D63.1 - Anemia in chronic kidney disease; D63.1 - Anemia in chronic kidney disease Is this a current diagnosis for this admission?: Yes - Time Time Spent with patient: 25-34 minutes Medications reviewed and adjusted accordingly: Yes Anticipated discharge: Hospice Within: within 72 hours - Inpatient Certification Medical Necessity: Need Close Monitoring Due to Risk of Patient Decompensation, Need for IV Antibiotics - Plan Summary Plan Summary: 1. Atrial Fibrillation with rapid ventricular response currently on amiodarone drip. #2 aspiration pneumonia currently and meropenem adjusted for kidney function. 3. Acute on chronic hypoxic and hypercapnic respiratory failure currently on nasal cannula. 4. Adynamic ileus currently improved. NG tube has been removed. 5. Chronic kidney disease stage V with patient unable to tolerate dialysis. Family has decided to withdrawal a consideration for dialysis at this time 6. Acute on chronic diastolic congestive heart failure likely secondary to kidney function 7. Urinary tract infection secondary to E. coli and Enterobacter currently on meropenem 8. Electrolyte imbalance including hypophosphatemia and hypocalcemia secondary to kidney function and secondary hyperparathyroidism. 9. Morbid obesity chronic 10. Septic shock unclear etiology of source infection likely combination of pneumonia, and urinary tract infection. 11. As alluded to above patient has been made a DO NOT RESUSCITATE with comfort measures only.
--- NOTE | 2017-11-16 15:21 | PDOC PROGRESS REPORT ---
Subjective Progress Note for:: 11/16/17 Subjective:: Patient remains lethargic and very debilitated. Currently on high flow oxygen and positive pressure noninvasive ventilation. Patient on questioning denying any chest pain or any significant shortness of breath. Patient seems somewhat lethargic. Patient's daughter in the room. Questions were answered. It seems patient has significant difficulty in tolerating dialysis. Exact etiology is not clear. Patient does have RV enlargement. Medications: Medications have been reviewed. Reason For Visit: ACUTE ON CHRONIC HEART FAILURE, CIRRHOSIS Physical Exam Vital Signs: Temp Pulse Resp BP Pulse Ox 99.6 F 97 15 99/53 L 100 11/16/17 12:00 11/16/17 07:00 11/16/17 11:04 11/16/17 11:04 11/16/17 06:00 Pulse Oximeter Continuous Start: 11/04/17 13: 05 Freq: RTQ4 Status: Complete Document 11/15/17 12:07 [facility] (Rec: 11/15/17 12:10 [facility] [id number]) Pulse Oximetry Assessment Oxygen Saturation (92-100) 96 Oxygen Flow Rate (L/min) 3 Oxygen Delivery Method Nasal Cannula Fraction of Inspired Oxygen (FIO2) 32 Equipment Usage Equipment Standby Continuous SpO2 Machine # N 3 Intake & Output 11/15/17 11/16/17 11/17/17 06:59 06:59 06:59 Intake Total 1228 4050 Output Total 205 85 Balance 1023 3965 Weight 107.7 kg 108.8 kg Exam: GENERAL: in mild respiratory distress. Patient noted to be lethargic and difficult to arouse. Orientation not checked. HEAD: Atraumatic, normocephalic. EYES: Exam is unchanged. ENT: Exam unchanged. NECK: supple without lymphadenopathy. Trachea is central. No cervical or axillary lymphadenopathy noted. Carotids are 2+, JVD WNL dialysis catheter noted right side neck. JVP difficult to evaluate. LUNGS: Respiration seems labored, mild respiratory distress noted. Bibasilar fine crackles noted. CHEST: Palpation of the chest wall shows no significant chest wall tenderness. No other significant abnormalities noted. 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 ABDOMEN: Soft, no significant tenderness appreciated, normoactive bowel sounds. No guarding, no rebound. No rigidity noted . No masses appreciated. EXTREMITIES: Pedal pulses are 1-2+, no calf tenderness noted. No clubbing or cyanosis.1+ pedal edema noted NEUROLOGICAL: A full neurological exam was not performed. Patient just was difficult to arouse. PSYCH: Normal mood, normal affect. Judgment and insight within normal limits. SKIN: No significant ecchymosis, rash, ulcerations or signs of pruritus noted. MUSCULOSKELETAL EXAM: No significant joint swelling noted. Results Laboratory Results: 11/16/17 04:10 11/16/17 04:10 11/15/17 11/16/17 11/16/17 21:55 04:10 04:10 WBC 37.2 H* RBC 2.43 L Hgb 7.0 L Hct 22.3 L MCV 92 MCH 28.6 MCHC 31.3 L RDW 15.9 H Plt Count 127 L Seg Neutrophils % Not Reportable Lymphocytes % Not Reportable Monocytes % Not Reportable Eosinophils % Not Reportable Basophils % Not Reportable Absolute Neutrophils Not Reportable Absolute Lymphocytes Not Reportable Absolute Monocytes Not Reportable Absolute Eosinophils Not Reportable Absolute Basophils Not Reportable Sodium 133.5 L Potassium 4.1 Chloride 94 L Carbon Dioxide 24 Anion Gap 16 BUN 85 H D Creatinine 6.35 H Est GFR ( Amer) 8 L Est GFR (Non-Af Amer) 6 L Glucose 289 H Calcium 7.4 L Magnesium 2.0 Urine Color JOVAN Urine Appearance CLOUDY Urine pH 5.0 Ur Specific [place] 1.015 Urine Protein 100 H Urine Glucose (UA) NEGATIVE Urine Ketones NEGATIVE Urine Blood LARGE H Urine Nitrite NEGATIVE Ur Leukocyte Esterase LARGE H Urine WBC (Auto) >182 Urine RBC (Auto) 145 Stool Occult Blood Blood Type Antibody Screen 11/16/17 11/16/17 05:10 10:50 WBC RBC Hgb Hct MCV MCH MCHC RDW Plt Count Seg Neutrophils % Lymphocytes % Monocytes % Eosinophils % Basophils % Absolute Neutrophils Absolute Lymphocytes Absolute Monocytes Absolute Eosinophils Absolute Basophils Sodium Potassium Chloride Carbon Dioxide Anion Gap BUN Creatinine Est GFR ( Amer) Est GFR (Non-Af Amer) Glucose Calcium Magnesium Urine Color Urine Appearance Urine pH Ur Specific [place] Urine Protein Urine Glucose (UA) Urine Ketones Urine Blood Urine Nitrite Ur Leukocyte Esterase Urine WBC (Auto) Urine RBC (Auto) Stool Occult Blood POSITIVE Blood Type O POSITIVE Antibody Screen NEGATIVE 11/14/17 00:15 Fermin Catheter Urine Culture - Final C.albicans/C.dubliniensis 11/10/17 12:41 Blood Blood Culture - Final NO GROWTH IN 5 DAYS 11/10/17 12:33 Blood Blood Culture - Final NO GROWTH IN 5 DAYS 11/02/17 11/09/17 11/09/17 19:35 15:05 15:05 Creatine Kinase 40 CK-MB (CK-2) 0.69 Troponin I < 0.012 0.019 11/09/17 11/09/17 11/10/17 22:46 22:46 08:39 Creatine Kinase 45 46 CK-MB (CK-2) 0.62 Troponin I 0.017 11/10/17 08:39 Creatine Kinase CK-MB (CK-2) 0.70 Troponin I 0.034 Impressions: Abdomen/Pelvis CT 11/02/17 00:00 IMPRESSION: 1. AIRSPACE DISEASE IN THE VISUALIZED RIGHT LUNG. 2. SLUDGE AND/OR STONES IN THE GALLBLADDER. 3. NO OTHER SIGNIFICANT OR ACUTE PROCESS IN THE ABDOMEN OR PELVIS. Lung Scan-VQ NM 11/02/17 00:00 IMPRESSION: Limited examination. No perfusion defects are identified. No evidence of PE. Head CT 11/02/17 13:59 IMPRESSION: NORMAL BRAIN CT WITHOUT CONTRAST. EVIDENCE OF ACUTE STROKE: NO. Interventional Vascular Procedure 11/07/17 00:00 IMPRESSION: Image obtained for procedure performed by Dr. Bunn. Acute Abdomen Series 11/10/17 00:00 IMPRESSION: 1. Moderate bilateral lower lobar pneumonia. 2. Moderate small bowel obstruction pattern. Chest X-Ray 11/14/17 00:00 IMPRESSION: Interval placement of a right central venous dialysis catheter with the tip in the right atrium. No pneumothorax Persistent airspace disease in the right lung base. Guidance Fluoroscopy 11/14/17 00:00 IMPRESSION: Intra procedural imaging and fluoro KUB X-Ray 11/14/17 06:00 IMPRESSION: Significant improvement in the abdominal gas pattern. Assessment & Plan - Diagnosis (1) Atrial fibrillation with rapid ventricular response Is this a current diagnosis for this admission?: Yes (2) Acute CHF Qualifiers: Heart failure type: diastolic Qualified Code(s): I50.31 - Acute diastolic ( congestive) heart failure Is this a current diagnosis for this admission?: Yes (3) Acute and chronic respiratory failure with hypoxia Is this a current diagnosis for this admission?: Yes (4) Acute on chronic renal failure Qualifiers: Acute renal failure type: unspecified Chronic kidney disease stage: stage 5 , not on chronic dialysis Qualified Code(s): N17.9 - Acute kidney failure, unspecified; N18.5 - Chronic kidney disease, stage 5; N18.5 - Chronic kidney disease, stage 5; N18.5 - Chronic kidney disease, stage 5; N18.5 - Chronic kidney disease, stage 5 Is this a current diagnosis for this admission?: Yes (5) Pneumonia Qualifiers: Pneumonia type: aspiration pneumonia Laterality: right Lung location: unspecified part of lung Is this a current diagnosis for this admission?: Yes (6) Diabetes Qualifiers: Diabetes mellitus type: type 2 Diabetes mellitus complication status: with unspecified complications 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 Currently on amiodarone drip. Heart rate seems reasonably well controlled. Acute CHF: worse with atrial fibrillation. Recommend periodic chest x-rays. Volume status is difficult to determine clinically in this patient. Continue amiodarone therapy. Unfortunately patient does not tolerate fluid removal on dialysis not dialysis itself. Will leave this management to client service manager. Acute on chronic respiratory failure with hypoxemia: Patient being followed by business law teacher. Will follow the recommendation. Patient to benefit from intermittent positive pressure ventilation. Continue close observation in the unit. Acute on chronic renal failure: Nephrology following. Patient and family thinks that patient may not be tolerating dialysis. Further plans per nephrology. Pneumonia: It seems clinically worse. Continue antibiotic therapy. Monitor with periodic chest x-rays, ABGs. Sleep disordered breathing: Patient seems to have this. Pulmonary following. 2D echo results reviewed. Patient has normal LVEF but RV enlargement is noted. Possible significant RV systolic dysfunction cannot be ruled out. 2D echo was technically difficult. Addendum: I was subsequently called by the nurse that the family has decided to make patient comfort care. I was asked to cosign the comfort care order but felt that client service manager may be the better person as she had long-term relation with this patient. I am told subsequently that the business law teacher would be the cosigner. - Time Time with patient: 15-25 minutes - CODE STATUS : was discussed, patient remains DO NOT RESUSCITATE. Surrogate decision-maker unchanged. Multiple medical problems were addressed. More than 50% of the time spent coordinating care, discussing management plans with involved caregivers. Management plans discussed with involved personnels. Medical decision making was of moderate to high complexity, patient's has multiple comorbidities. Patient subsequently made a comfort care. Will therefore sign off. Please reconsult if needed. Medications reviewed and adjusted accordingly: Yes
--- NOTE | 2017-11-17 10:36 | PDOC PROGRESS REPORT ---
Subjective Progress Note for:: 11/17/17 Subjective:: Patient was admitted with difficulty breathing and she was found to be in atrial fibrillation with rapid ventricular response. She was hypotensive. She was started an amiodarone drip. Patient also found to have aspiration pneumonia and she had been treated with meropenem. She also has a chronic kidney disease stage V and attempts at dialysis have been so far unsuccessful as patient has been hemodynamically unstable. No new complaints, she is awaiting plans for home hospice as per [place] plan Reason For Visit: ACUTE ON CHRONIC HEART FAILURE, CIRRHOSIS Physical Exam Vital Signs: Temp Pulse Resp BP Pulse Ox 100.1 F 107 H 14 99/52 L 95 11/17/17 00:00 11/17/17 00:00 11/17/17 07:00 11/17/17 00:30 11/17/17 00:00 Pulse Oximeter Continuous Start: 11/04/17 13: 05 Freq: RTQ4 Status: Complete Document 11/15/17 12:07 [facility] [place] (Rec: 11/15/17 12:10 [facility] [id number]) Pulse Oximetry Assessment Oxygen Saturation (92-100) 96 Oxygen Flow Rate (L/min) 3 Oxygen Delivery Method Nasal Cannula Fraction of Inspired Oxygen (FIO2) 32 Equipment Usage Equipment Standby Continuous SpO2 Machine # N 3 Intake & Output 11/16/17 11/17/17 11/18/17 06:59 06:59 06:59 Intake Total 4050 309 Output Total 85 Balance 3965 309 Weight 108.8 kg General appearance: PRESENT: no acute distress Head exam: PRESENT: atraumatic Eye exam: PRESENT: PERRLA Cardiovascular exam: PRESENT: RRR. ABSENT: diastolic murmur, rubs, systolic murmur Pulses: PRESENT: normal carotid pulses, normal dorsalis pedis pul GI/Abdominal exam: PRESENT: normal bowel sounds, soft Rectal exam: PRESENT: deferred Extremities exam: ABSENT: calf tenderness Neurological exam: PRESENT: alert, awake, oriented to person, oriented to place , oriented to time, oriented to situation Results Laboratory Results: 11/16/17 04:10 11/16/17 04:10 11/16/17 10:50 Stool Occult Blood POSITIVE 11/02/17 11/09/17 11/09/17 19:35 15:05 15:05 Creatine Kinase 40 CK-MB (CK-2) 0.69 Troponin I < 0.012 0.019 11/09/17 11/09/17 11/10/17 22:46 22:46 08:39 Creatine Kinase 45 46 CK-MB (CK-2) 0.62 Troponin I 0.017 11/10/17 08:39 Creatine Kinase CK-MB (CK-2) 0.70 Troponin I 0.034 Impressions: Abdomen/Pelvis CT 11/02/17 00:00 IMPRESSION: 1. AIRSPACE DISEASE IN THE VISUALIZED RIGHT LUNG. 2. SLUDGE AND/OR STONES IN THE GALLBLADDER. 3. NO OTHER SIGNIFICANT OR ACUTE PROCESS IN THE ABDOMEN OR PELVIS. Lung Scan-VQ NM 11/02/17 00:00 IMPRESSION: Limited examination. No perfusion defects are identified. No evidence of PE. Head CT 11/02/17 13:59 IMPRESSION: NORMAL BRAIN CT WITHOUT CONTRAST. EVIDENCE OF ACUTE STROKE: NO. Interventional Vascular Procedure 11/07/17 00:00 IMPRESSION: Image obtained for procedure performed by Dr. Bunn. Acute Abdomen Series 11/10/17 00:00 IMPRESSION: 1. Moderate bilateral lower lobar pneumonia. 2. Moderate small bowel obstruction pattern. Chest X-Ray 11/14/17 00:00 IMPRESSION: Interval placement of a right central venous dialysis catheter with the tip in the right atrium. No pneumothorax Persistent airspace disease in the right lung base. Guidance Fluoroscopy 11/14/17 00:00 IMPRESSION: Intra procedural imaging and fluoro KUB X-Ray 11/14/17 06:00 IMPRESSION: Significant improvement in the abdominal gas pattern. Assessment & Plan - Diagnosis (1) Acute CHF Qualifiers: Heart failure type: diastolic Qualified Code(s): I50.31 - Acute diastolic ( congestive) heart failure Is this a current diagnosis for this admission?: Yes (2) Acute on chronic diastolic (congestive) heart failure Is this a current diagnosis for this admission?: Yes (3) Acute on chronic renal failure Qualifiers: Acute renal failure type: unspecified Chronic kidney disease stage: stage 5 , not on chronic dialysis Qualified Code(s): N17.9 - Acute kidney failure, unspecified; N18.5 - Chronic kidney disease, stage 5; N18.5 - Chronic kidney disease, stage 5; N18.5 - Chronic kidney disease, stage 5; N18.5 - Chronic kidney disease, stage 5 Is this a current diagnosis for this admission?: Yes (4) Anemia Qualifiers: Anemia type: due to chronic kidney disease Chronic kidney disease stage: stage 5, not on chronic dialysis Qualified Code(s): N18.5 - Chronic kidney disease, stage 5; D63.1 - Anemia in chronic kidney disease; D63.1 - Anemia in chronic kidney disease Is this a current diagnosis for this admission?: Yes - Time Time Spent with patient: 15-24 minutes Anticipated discharge: Hospice Within: within 48 hours, within 36 hours - Plan Summary Plan Summary: 1. Atrial Fibrillation with rapid ventricular response #2 aspiration pneumonia. 3. Acute on chronic hypoxic and hypercapnic respiratory failure currently on nasal cannula. 4. Adynamic ileus currently improved. NG tube has been removed. 5. Chronic kidney disease stage V with patient unable to tolerate dialysis. Family has decided to withdrawal a consideration for dialysis at this time 6. Acute on chronic diastolic congestive heart failure likely secondary to kidney function 7. Urinary tract infection secondary to E. coli and Enterobacter 8. Electrolyte imbalance including hypophosphatemia and hypocalcemia secondary to kidney function and secondary hyperparathyroidism. 9. Morbid obesity chronic 10. Septic shock unclear etiology of source infection likely combination of pneumonia, and urinary tract infection. 11. As alluded to above patient has been made a DO NOT RESUSCITATE with comfort measures only. 12. Plan is for home with hospice
--- NOTE | 2017-11-18 10:10 | PDOC PROGRESS REPORT ---
Subjective Progress Note for:: 11/18/17 Subjective:: Patient was admitted with difficulty breathing and she was found to be in atrial fibrillation with rapid ventricular response. She was hypotensive. She was started an amiodarone drip. Patient also found to have aspiration pneumonia and she had been treated with meropenem. She also has a chronic kidney disease stage V and attempts at dialysis have been so far unsuccessful as patient has been hemodynamically unstable. No new complaints, she is awaiting plans for home hospice as per [place] plan Reason For Visit: ACUTE ON CHRONIC HEART FAILURE, CIRRHOSIS Physical Exam Vital Signs: Temp Pulse Resp BP Pulse Ox 99.8 F 89 16 140/115 H 95 11/17/17 20:00 11/17/17 20:00 11/17/17 20:00 11/17/17 20:00 11/18/17 00:33 Pulse Oximeter Continuous Start: 11/04/17 13: 05 Freq: RTQ4 Status: Complete Document 11/15/17 12:07 [facility] [place] 11/15/17 12:10 [facility] [id number][place] Pulse Oximetry Assessment Oxygen Saturation (92-100) 96 Oxygen Flow Rate (L/min) 3 Oxygen Delivery Method Nasal Cannula Fraction of Inspired Oxygen (FIO2) 32 Equipment Usage Equipment Standby Continuous SpO2 Machine # N 3 Intake & Output 11/17/17 11/18/17 11/19/17 06:59 06:59 06:59 Intake Total 309 347 Balance 309 347 General appearance: PRESENT: no acute distress, obese, well-developed, well- nourished Head exam: PRESENT: atraumatic Eye exam: PRESENT: conjunctiva pink, EOMI, PERRLA. ABSENT: scleral icterus Neck exam: ABSENT: carotid bruit, JVD, lymphadenopathy, thyromegaly Respiratory exam: PRESENT: crackles, decreased breath sounds. ABSENT: accessory muscle use, rales, retraction, rhonchi Cardiovascular exam: PRESENT: RRR. ABSENT: diastolic murmur, rubs, systolic murmur Pulses: PRESENT: normal dorsalis pedis pul GI/Abdominal exam: PRESENT: normal bowel sounds, soft. ABSENT: distended, guarding, mass, organolmegaly, rebound, tenderness Rectal exam: PRESENT: deferred Extremities exam: PRESENT: +2 edema Neurological exam: PRESENT: alert, oriented to person, oriented to place, oriented to time, oriented to situation Results Laboratory Results: 11/16/17 04:10 11/16/17 04:10 11/02/17 11/09/17 11/09/17 19:35 15:05 15:05 Creatine Kinase 40 CK-MB (CK-2) 0.69 Troponin I < 0.012 0.019 11/09/17 11/09/17 11/10/17 22:46 22:46 08:39 Creatine Kinase 45 46 CK-MB (CK-2) 0.62 Troponin I 0.017 11/10/17 08:39 Creatine Kinase CK-MB (CK-2) 0.70 Troponin I 0.034 Impressions: Abdomen/Pelvis CT 11/02/17 00:00 IMPRESSION: 1. AIRSPACE DISEASE IN THE VISUALIZED RIGHT LUNG. 2. SLUDGE AND/OR STONES IN THE GALLBLADDER. 3. NO OTHER SIGNIFICANT OR ACUTE PROCESS IN THE ABDOMEN OR PELVIS. Lung Scan-VQ NM 11/02/17 00:00 IMPRESSION: Limited examination. No perfusion defects are identified. No evidence of PE. Head CT 11/02/17 13:59 IMPRESSION: NORMAL BRAIN CT WITHOUT CONTRAST. EVIDENCE OF ACUTE STROKE: NO. Interventional Vascular Procedure 11/07/17 00:00 IMPRESSION: Image obtained for procedure performed by Dr. Bunn. Acute Abdomen Series 11/10/17 00:00 IMPRESSION: 1. Moderate bilateral lower lobar pneumonia. 2. Moderate small bowel obstruction pattern. Chest X-Ray 11/14/17 00:00 IMPRESSION: Interval placement of a right central venous dialysis catheter with the tip in the right atrium. No pneumothorax Persistent airspace disease in the right lung base. Guidance Fluoroscopy 11/14/17 00:00 IMPRESSION: Intra procedural imaging and fluoro KUB X-Ray 11/14/17 06:00 IMPRESSION: Significant improvement in the abdominal gas pattern. Assessment & Plan - Diagnosis (1) Acute CHF Qualifiers: Heart failure type: diastolic Qualified Code(s): I50.31 - Acute diastolic ( congestive) heart failure Is this a current diagnosis for this admission?: Yes (2) Acute on chronic diastolic (congestive) heart failure Is this a current diagnosis for this admission?: Yes (3) Acute on chronic renal failure Qualifiers: Acute renal failure type: unspecified Chronic kidney disease stage: stage 5 , not on chronic dialysis Qualified Code(s): N17.9 - Acute kidney failure, unspecified; N18.5 - Chronic kidney disease, stage 5; N18.5 - Chronic kidney disease, stage 5; N18.5 - Chronic kidney disease, stage 5; N18.5 - Chronic kidney disease, stage 5 Is this a current diagnosis for this admission?: Yes (4) Anemia Qualifiers: Anemia type: due to chronic kidney disease Chronic kidney disease stage: stage 5, not on chronic dialysis Qualified Code(s): N18.5 - Chronic kidney disease, stage 5; D63.1 - Anemia in chronic kidney disease; D63.1 - Anemia in chronic kidney disease Is this a current diagnosis for this admission?: Yes - Time Time Spent with patient: Less than 15 minutes Medications reviewed and adjusted accordingly: Yes Anticipated discharge: Hospice Within: within 24 hours - Plan Summary Plan Summary: 1.Atrial Fibrillation with rapid ventricular response #2 aspiration pneumonia. 3. Acute on chronic hypoxic and hypercapnic respiratory failure currently on nasal cannula. 4. Adynamic ileus currently improved. NG tube has been removed. 5. Chronic kidney disease stage V with patient unable to tolerate dialysis. Family has decided to withdrawal a consideration for dialysis at this time 6. Acute on chronic diastolic congestive heart failure likely secondary to kidney function 7. Urinary tract infection secondary to E. coli and Enterobacter 8. Electrolyte imbalance including hypophosphatemia and hypocalcemia secondary to kidney function and secondary hyperparathyroidism. No further labs done 9. Morbid obesity chronic 10. Septic shock unclear etiology of source infection likely combination of pneumonia, and urinary tract infection. 11. DO NOT RESUSCITATE with comfort measures only. 12. Plan is for home with hospice as soon as arranged
[2017-11-18 10:28] VITALS: BP 117/83
--- NOTE | 2017-11-18 13:43 | PDOC PROGRESS REPORT ---
Subjective Progress Note for:: 11/17/17 Subjective:: wearing NIPPV Reason For Visit: ACUTE ON CHRONIC HEART FAILURE, CIRRHOSIS Physical Exam Vital Signs: Temp Pulse Resp BP Pulse Ox 100.1 F 107 H 14 99/52 L 95 11/17/17 00:00 11/17/17 00:00 11/17/17 07:00 11/17/17 00:30 11/17/17 00:00 Pulse Oximeter Continuous Start: 11/04/17 13: 05 Freq: RTQ4 Status: Complete Document 11/15/17 12:07 [facility] [place] (Rec: 11/15/17 12:10 [facility] [place] [id number]) Pulse Oximetry Assessment Oxygen Saturation (92-100) 96 Oxygen Flow Rate (L/min) 3 Oxygen Delivery Method Nasal Cannula Fraction of Inspired Oxygen (FIO2) 32 Equipment Usage Equipment Standby Continuous SpO2 Machine # N 3 Intake & Output 11/16/17 11/17/17 11/18/17 06:59 06:59 06:59 Intake Total 4050 309 Output Total 85 Balance 3965 309 Weight 108.8 kg General appearance: PRESENT: disheveled, mild distress, morbidly obese, well- nourished Head exam: PRESENT: atraumatic, normocephalic Eye exam: PRESENT: conjunctiva pale. ABSENT: nystagmus, periorbital swelling Mouth exam: PRESENT: dry mucosa, neck supple, tongue midline Neck exam: ABSENT: carotid bruit, JVD, lymphadenopathy, thyromegaly, tracheal deviation, tracheostomy Respiratory exam: PRESENT: crackles, decreased breath sounds, prolonged expiratory phas, rhonchi, symmetrical, tachypnea, unlabored. ABSENT: rales, retraction, stridor Cardiovascular exam: PRESENT: RRR, +S1, +S2 Pulses: PRESENT: normal radial pulses GI/Abdominal exam: PRESENT: diminished bowel sounds, tenderness - [id number] Extremities exam: ABSENT: calf tenderness, clubbing Musculoskeletal exam: ABSENT: ambulatory, deformity, dislocation Skin exam: PRESENT: dry, warm Results Laboratory Results: 11/16/17 04:10 11/16/17 04:10 11/16/17 10:50 Stool Occult Blood POSITIVE 11/02/17 11/09/17 11/09/17 19:35 15:05 15:05 Creatine Kinase 40 CK-MB (CK-2) 0.69 Troponin I < 0.012 0.019 11/09/17 11/09/17 11/10/17 22:46 22:46 08:39 Creatine Kinase 45 46 CK-MB (CK-2) 0.62 Troponin I 0.017 11/10/17 08:39 Creatine Kinase CK-MB (CK-2) 0.70 Troponin I 0.034 Impressions: Abdomen/Pelvis CT 11/02/17 00:00 IMPRESSION: 1. AIRSPACE DISEASE IN THE VISUALIZED RIGHT LUNG. 2. SLUDGE AND/OR STONES IN THE GALLBLADDER. 3. NO OTHER SIGNIFICANT OR ACUTE PROCESS IN THE ABDOMEN OR PELVIS. Lung Scan-VQ NM 11/02/17 00:00 IMPRESSION: Limited examination. No perfusion defects are identified. No evidence of PE. Head CT 11/02/17 13:59 IMPRESSION: NORMAL BRAIN CT WITHOUT CONTRAST. EVIDENCE OF ACUTE STROKE: NO. Interventional Vascular Procedure 11/07/17 00:00 IMPRESSION: Image obtained for procedure performed by Dr. Bunn. Acute Abdomen Series 11/10/17 00:00 IMPRESSION: 1. Moderate bilateral lower lobar pneumonia. 2. Moderate small bowel obstruction pattern. Chest X-Ray 11/14/17 00:00 IMPRESSION: Interval placement of a right central venous dialysis catheter with the tip in the right atrium. No pneumothorax Persistent airspace disease in the right lung base. Guidance Fluoroscopy 11/14/17 00:00 IMPRESSION: Intra procedural imaging and fluoro KUB X-Ray 11/14/17 06:00 IMPRESSION: Significant improvement in the abdominal gas pattern. Assessment & Plan - Diagnosis (1) Acute CHF Qualifiers: Heart failure type: diastolic Qualified Code(s): I50.31 - Acute diastolic ( congestive) heart failure Is this a current diagnosis for this admission?: Yes Plan: unchanged (2) Acute on chronic renal failure Qualifiers: Acute renal failure type: unspecified Chronic kidney disease stage: stage 5 , not on chronic dialysis Qualified Code(s): N17.9 - Acute kidney failure, unspecified; N18.5 - Chronic kidney disease, stage 5; N18.5 - Chronic kidney disease, stage 5; N18.5 - Chronic kidney disease, stage 5; N18.5 - Chronic kidney disease, stage 5 Is this a current diagnosis for this admission?: Yes (3) Acute on chronic respiratory failure with hypoxia and hypercapnia Is this a current diagnosis for this admission?: Yes (4) Morbid obesity Is this a current diagnosis for this admission?: Yes (5) Pneumonia Qualifiers: Pneumonia type: aspiration pneumonia Laterality: right Lung location: unspecified part of lung Is this a current diagnosis for this admission?: Yes - Time Total Critical Time (Minutes): 30 - Plan Summary Plan Summary: will sign off as patient is comfort care
--- NOTE | 2017-11-18 14:59 | PDOC DISCHARGE SUMMARY ---
General - Admit/Disc Date/PCP Admission Date/Primary Care Provider: 11/02/17 16:18 RANDY SHEPHERD MD Discharge Date: 11/18/17 - Discharge Diagnosis (1) Anemia Is this a current diagnosis for this admission?: Yes (2) Acute CHF Is this a current diagnosis for this admission?: Yes (3) Acute on chronic diastolic (congestive) heart failure Is this a current diagnosis for this admission?: Yes (4) Acute on chronic renal failure Is this a current diagnosis for this admission?: Yes (5) Atrial fibrillation with rapid ventricular response Is this a current diagnosis for this admission?: Yes (6) Ileus Is this a current diagnosis for this admission?: Yes (7) Morbid obesity Is this a current diagnosis for this admission?: Yes (8) Pneumonia Is this a current diagnosis for this admission?: Yes (9) Sepsis Is this a current diagnosis for this admission?: Yes - Additional Information Resuscitation Status: Full Code Discharge Diet: Cardiac Discharge Activity: Activity As Tolerated, Balance Activity w/Rest Home Medications: Albuterol Sulfate [Proair HFA] 2 puff PO PRN PRN 11/03/17 Acetaminophen [Tylenol 325 mg Tablet] 650 mg PO Q6HP PRN tablet 11/18/17 History of Present Illness Patient complains of: Patient was admitted with difficulty breathing and shortness of breath and she was found to have pneumonia. History of Present Illness: FRANCESCO PARRISH is a 77 year old female Hospital Course Hospital Course: She was also found to be in atrial fibrillation with a rapid ventricular response. She was started on amiodarone drip as it appears that patient was hemodynamically unstable and blood pressure was unable to tolerate other management. She does have chronic kidney disease stage V and attempts were made to dialyze her but apparently patient was unable to tolerate this also partly from her hypotension. Was initially was treated with meropenem and patient also received diuresis due to acutely decompensated CHF. Also further consideration of the patient's illnesses and serious comorbidities the family decided to change her to DO NOT RESUSCITATE with comfort measures only and have decided not to pursue any further management so patient is being discharged home with hospice. Physical Exam Vital Signs: Temp Pulse Resp BP Pulse Ox 99.5 F 76 18 117/83 99 11/18/17 10:00 11/18/17 10:00 11/18/17 10:00 11/18/17 10:00 11/18/17 10:00 Pulse Oximeter Continuous Start: 11/04/17 13: 05 Freq: RTQ4 Status: Complete Document 11/15/17 12:07 [facility] [place] (Rec: 11/15/17 12:10 [facility] [place] [id number]) Pulse Oximetry Assessment Oxygen Saturation (92-100) 96 Oxygen Flow Rate (L/min) 3 Oxygen Delivery Method Nasal Cannula Fraction of Inspired Oxygen (FIO2) 32 Equipment Usage Equipment Standby Continuous SpO2 Machine # N 3 Intake & Output 11/17/17 11/18/17 11/19/17 06:59 06:59 06:59 Intake Total 309 347 Balance 309 347 General appearance: PRESENT: no acute distress, obese, well-developed, well- nourished Head exam: PRESENT: atraumatic Mouth exam: PRESENT: dry mucosa Respiratory exam: PRESENT: decreased breath sounds, rales, rhonchi, unlabored. ABSENT: tachypnea, wheezes Cardiovascular exam: PRESENT: irregular rhythm, RRR. ABSENT: diastolic murmur, rubs, systolic murmur Pulses: PRESENT: normal carotid pulses, normal dorsalis pedis pul GI/Abdominal exam: PRESENT: normal bowel sounds, soft. ABSENT: distended, guarding, mass, organolmegaly, rebound, tenderness Rectal exam: PRESENT: deferred Extremities exam: PRESENT: +2 edema Neurological exam: PRESENT: alert, oriented to person, oriented to place, oriented to time, oriented to situation Results Laboratory Results: 11/16/17 04:10 11/16/17 04:10 11/02/17 11/09/17 11/09/17 19:35 15:05 15:05 Creatine Kinase 40 CK-MB (CK-2) 0.69 Troponin I < 0.012 0.019 11/09/17 11/09/17 11/10/17 22:46 22:46 08:39 Creatine Kinase 45 46 CK-MB (CK-2) 0.62 Troponin I 0.017 11/10/17 08:39 Creatine Kinase CK-MB (CK-2) 0.70 Troponin I 0.034 Impressions: Abdomen/Pelvis CT 11/02/17 00:00 IMPRESSION: 1. AIRSPACE DISEASE IN THE VISUALIZED RIGHT LUNG. 2. SLUDGE AND/OR STONES IN THE GALLBLADDER. 3. NO OTHER SIGNIFICANT OR ACUTE PROCESS IN THE ABDOMEN OR PELVIS. Lung Scan-VQ NM 11/02/17 00:00 IMPRESSION: Limited examination. No perfusion defects are identified. No evidence of PE. Head CT 11/02/17 13:59 IMPRESSION: NORMAL BRAIN CT WITHOUT CONTRAST. EVIDENCE OF ACUTE STROKE: NO. Interventional Vascular Procedure 11/07/17 00:00 IMPRESSION: Image obtained for procedure performed by Dr. Bunn. Acute Abdomen Series 11/10/17 00:00 IMPRESSION: 1. Moderate bilateral lower lobar pneumonia. 2. Moderate small bowel obstruction pattern. Chest X-Ray 11/14/17 00:00 IMPRESSION: Interval placement of a right central venous dialysis catheter with the tip in the right atrium. No pneumothorax Persistent airspace disease in the right lung base. Guidance Fluoroscopy 11/14/17 00:00 IMPRESSION: Intra procedural imaging and fluoro KUB X-Ray 11/14/17 06:00 IMPRESSION: Significant improvement in the abdominal gas pattern. Qualifiers - * PATEINT BEING DISCHARGED WITH ANY OF THE FOLLOWING DIAGNOSIS?: Heart Failure HF Pt being discharged on ACEI for LVEF less than 40%?: No Reason(s) for not prescribing ACEI:: Comfort Measure HF Pt being discharged on ARBS for LVEF less than 40%?: No Reason(s) for not prescribing ARBS:: Comfort Measure HF Pt with Afib discharged with Warfarin?: No Reason(s) for not prescribing Warfarin:: Comfort Measure HF Pt discharged on evidence-based Beta Nesha:: No Reason(s) for not prescribing evidence-based Beta Nesha:: Comfort Measure Plan Discharge Plan: Home with hospice Time Spent: Greater than 30 Minutes
== END 2017-11-18 16:00 | disposition hospice, inpatient (51) | DRG 871 ==
LOC: ER 13:33 → UNDOADMIN 16:18 → EH 16:18 → 3S 11-03 02:22 → ICU 11-10 12:00 → 3S 11-14 01:06 → ICU 11-15 12:41
PROVIDERS: ADMIT Emergency Medicine; ATTEND Emergency Medicine
PROC: 5A09457 Assistance with Respiratory Ventilation, 24-96 Consecutive Hours, Continuous Positive Airway Pressure (ICD-10-PCS; 2017-11-02)
PROC: 3E0F73Z Introduction of Anti-inflammatory into Respiratory Tract, Via Natural or Artificial Opening (ICD-10-PCS; 2017-11-04)
PROC: 06HM33Z Insertion of Infusion Device into Right Femoral Vein, Percutaneous Approach (ICD-10-PCS; principal; 2017-11-07)
PROC: B54BZZA Ultrasonography of Right Lower Extremity Veins, Guidance (ICD-10-PCS; 2017-11-07)
PROC: 5A1D70Z Performance of Urinary Filtration, Intermittent, Less than 6 Hours Per Day (ICD-10-PCS; 2017-11-08)
PROC: 0D9670Z Drainage of Stomach with Drainage Device, Via Natural or Artificial Opening (ICD-10-PCS; 2017-11-10)
PROC: 5A1D70Z Performance of Urinary Filtration, Intermittent, Less than 6 Hours Per Day (ICD-10-PCS; 2017-11-11)
PROC: 5A1D70Z Performance of Urinary Filtration, Intermittent, Less than 6 Hours Per Day (ICD-10-PCS; 2017-11-13)
PROC: 02H633Z Insertion of Infusion Device into Right Atrium, Percutaneous Approach (ICD-10-PCS; 2017-11-14)
PROC: B244ZZZ Ultrasonography of Right Heart (ICD-10-PCS; 2017-11-14)
PROC: B2141ZZ Fluoroscopy of Right Heart using Low Osmolar Contrast (ICD-10-PCS; 2017-11-14)
PROC: 5A1D70Z Performance of Urinary Filtration, Intermittent, Less than 6 Hours Per Day (ICD-10-PCS; 2017-11-15)
DX: A41.9 Sepsis, unspecified organism (principal); J18.9 Pneumonia, unspecified organism; J96.21 Acute and chronic respiratory failure with hypoxia; I50.33 Acute on chronic diastolic (congestive) heart failure; J69.0 Pneumonitis due to inhalation of food and vomit; R65.21 Severe sepsis with septic shock; I13.2 Hypertensive heart and chronic kidney disease with heart failure and with stage 5 chronic kidney disease, or end stage renal disease; N18.5 Chronic kidney disease, stage 5; Z68.41 Body mass index [BMI] 40.0-44.9, adult; N17.9 Acute kidney failure, unspecified; E87.1 Hypo-osmolality and hyponatremia; J44.0 Chronic obstructive pulmonary disease with (acute) lower respiratory infection; N25.81 Secondary hyperparathyroidism of renal origin; K56.7 Ileus, unspecified; I48.91 Unspecified atrial fibrillation; M10.9 Gout, unspecified; E11.22 Type 2 diabetes mellitus with diabetic chronic kidney disease; M19.90 Unspecified osteoarthritis, unspecified site; D63.1 Anemia in chronic kidney disease; I45.81 Long QT syndrome; G40.909 Epilepsy, unspecified, not intractable, without status epilepticus; E78.5 Hyperlipidemia, unspecified; E66.01 Morbid (severe) obesity due to excess calories; E83.51 Hypocalcemia; G47.33 Obstructive sleep apnea (adult) (pediatric); E83.39 Other disorders of phosphorus metabolism; B96.20 Unspecified Escherichia coli [E. coli] as the cause of diseases classified elsewhere; B96.89 Other specified bacterial agents as the cause of diseases classified elsewhere; Z78.1 Physical restraint status; Z88.0 Allergy status to penicillin; Z85.3 Personal history of malignant neoplasm of breast; Z90.12 Acquired absence of left breast and nipple; Z79.899 Other long term (current) drug therapy; Z84.1 Family history of disorders of kidney and ureter
CPT/HCPCS: 00532; 36415; 36556; 36600; 70450; 71045; 71046; 74018; 74022; 74176; 76937; 77001; 78582; 80048; 80053; 81001; 82040; 82140; 82272; 82550; 82553; 82607; 82728; 82746; 82803; 82962; 83540; 83550; 83605; 83690; 83735; 83880; 83970; 84100; 84466; 84484; 85025; 85027; 85045; 85379; 85610; 85730; 86317; 86704; 86850; 86900; 86901; 87040; 87086; 87088; 87186; 87340; 87493; 87522; 93005; 93010; 93306; 94660; 94667; 94668; 94762; 94799; 96372; 99291; A9540; A9567; C1752; G8978-GP; G8979-GP; G8987-GO; G8988-GO; J0282; J0456; J0692; J1642; J1644; J1756; J1815; J1940; J1956; J2185; J2250; J2405; J2704; J2765; J2920; J3010; J3370; J3490; J7050; J7060; J7512; J7620; Q0138; Q4081; Q9969; S0028